=== PATIENT | male | born 1960 | race Caucasian/White ===

== ENCOUNTER 2020-02-07 14:04 | Outpatient (CLI) | payer MEDICARE, SELFPAY ==
--- NOTE | 2020-02-07 14:26 | XRR_ITS ---
PROCEDURE INFORMATION: Exam: XR Right Foot Complete Exam date and time: 02/07/2020 2:36 PM Age: 59 years old Clinical indication: Pain; Patient HX: Ball of foot right behind 4th and 5th toes; Additional info: Foreign body in foot TECHNIQUE: Imaging protocol: XR Right foot. Views: 3 or more views. COMPARISON: No relevant prior studies available. FINDINGS: Bones/joints: Normal. Soft tissues: Ossification/calcification over the Achilles tendon insertion on the posterior calcaneus consistent with enthesopathy. No obvious radiopaque foreign body. Increased distance between the 4th and 5th metatarsal heads suggesting possible soft tissue mass or other pathology. XR/XR foot RT min 3V* [id number] IMPRESSION: 1. No obvious radiopaque foreign body. 2. Increased distance between the 4th and 5th metatarsal heads suggesting possible soft tissue mass or other pathology.
== END 2020-02-07 14:05 | disposition home or self-care (01) ==
LOC: RADWPI 14:13
PROVIDERS: Family Provider Family Medicine; PCP Family Medicine; Visit Provider Surgery
DX: S90.851A Superficial foreign body, right foot, initial encounter (principal); X58.XXXA Exposure to other specified factors, initial encounter
CPT/HCPCS: 73630

== ENCOUNTER 2020-02-07 15:56 | Emergency (ER) | payer MEDICARE, SELFPAY ==
[2020-02-07 16:29] VITALS: BP 150/98; PULSE 84; RESP 14; TEMP 36.3; O2SAT 96; BMI 43.0
--- NOTE | 2020-02-07 18:02 | W.ED.EXTPRO ---
HPI - Extremity Problem General: Chief complaint: Extremity Problem,Nontraumatic Stated complaint: foot pain Time Seen by Provider: 02/07/20 18:01 History of Present Illness: HPI Narrative: Patient is a 59-year-old male comes to the ED for an infected right foot diabetic ulcer. Patient has a past medical history of CHF, diabetes and peripheral neuropathy. Patient was sent over here by Dr. Lr for iv antibiotics and CT with contrast of right foot for further evaluation. Xray of right foot performed earlier today showed no foreign body, Increased distance between the 4th and 5th metatarsal heads suggesting possible soft tissue mass or other pathology. Patient says he has had MRSA infections in the past. Patient says his noticed the ulcer on his right foot about a week ago. Patient thinks he stepped on something to cause wound. Denies any fever or pain. Associated symptoms: Deny chest pain, fever(s) or rash Review of Systems Const: Denies: fever(s), chills or fatigue Eyes: Denies: change in vision or eye discomfort ENMT: Denies: throat pain, odynophagia, nasal discharge or nasal congestion Card: Denies: chest pain, palpitations, edema, swelling of feet/ankles, dyspnea on exertion or orthopnea Resp: Denies: dyspnea, productive cough or non-productive cough GI: Denies: abdominal pain, nausea, vomiting, diarrhea, constipation or hematochezia : Denies: flank pain, difficulty urinating, dysuria or hematuria Musc: Denies: neck pain, back pain or extremity swelling Skin/Breast: Reports: new lesions (Diabetic foot ulcer with infection on right foot); Denies: rash Neuro: Denies: headache(s), numbness in extremities or weakness in extremities PFSH ED PFSH: Medical History Arthritis CHF (congestive heart failure) Chronic back pain Chronic constipation Diabetes Morbid obesity Surgical History History of ankle fusion History of back surgery History of colonoscopy (~01/2019) History of coronary artery bypass graft Family History Denies family history of Anesthesia complication Bleeding disorder Social History Smoking and tobacco status: never smoked Second hand smoke exposure: No Alcohol intake: never Adopted: No Caregiver/support person: Yes Lives independently: Yes Household members: spouse Housing: House Marital status: service: No Current occupational status: disabled Current occupational exposures/hazards: No Pets and animals: No History of recent travel: No Sexually active: No Current gender identity: Male Padmini/Pentec[employer]alism: [employer]an Physical Exam Const: COMMON NORMALS: no acute distress, patient oriented x3 and alert GENERAL APPEARANCE: cooperative and comfortable HENMT: COMMON NORMALS: normocephalic HEAD & SCALP: normocephalic MOUTH: Normal oral and palatal mucosa present THROAT: posterior oropharynx normal and uvula midline Eye: COMMON NORMALS: Equal, round and reactive pupils present PUPIL: Yes Equal, round and reactive pupils present Neck/C-Spine: COMMON NORMALS: supple GENERAL: Yes normal visual inspection Resp: COMMON NORMALS: normal respiratory effort, No retractions, No use of accessory muscles and clear to auscultation bilaterally AUSCULTATION: clear to auscultation bilaterally Cardio: COMMON NORMALS: regular rate, regular rhythm, S1 normal heart sound present, S2 normal heart sound present, No gallops present (Cardio), No clicks present (Cardio), No murmurs present (Cardio) and Peripheral pulses 2+ throughout RATE: regular rate RHYTHM: regular rhythm HEART SOUNDS: S1 normal heart sound present and S2 normal heart sound present PERIPHERAL PULSES: Peripheral pulses 2+ throughout GI: COMMON NORMALS: Normal to inspection, nondistended, normoactive bowel sounds present, Soft to palpation, non-tender and no masses PALPATION: Yes Soft to palpation : COMMON NORMALS: Yes no CVA tenderness BLADDER/KIDNEY EXAM: Yes no CVA tenderness Back/Pelvis: COMMON NORMALS: no CVA tenderness Extremity: GENERAL: Yes normal exam except as noted RIGHT LOWER EXTREMITY: Yes foot & digits Right foot and digits: Yes inspection (Patient has a diabetic foot ulcer on bottom of foot between fourth and fifth digit. There is erythema and warmth that is on both the dorsal and plantar side of foot. Skin appears to be black near the third and fourth digits. No visible drainage seen.) Neuro: COMMON NORMALS: patient oriented x3 and moves all extremities SENSORIUM/ORIENTATION: Yes alert Skin: WOUNDS: Yes wounds noted (Diabetic foot ulcer on bottom side of right foot. Details explained in extremity section of the exam.) Course Vital Signs: Vital signs: Vital Signs Temperature 97.3 F L 02/07/20 16:29 Pulse Rate 95 02/08/20 00:18 Respiratory Rate 22 H 02/08/20 00:18 Blood Pressure 120/81 02/08/20 00:18 Pulse Oximetry 93 02/08/20 00:18 MDM - Extremity (Nontraumatic) MDM Narrative: Medical decision making narrative: Patient is a 59-year-old male who comes to the ED with infected diabetic ulcer on right foot. Patient was sent in from PCP for further evaluation, IV antibiotics and CT of right foot. Physical exam showed ulcer on plantar side of right foot with erythema and warmth on right foot. There was some black color seen on third and fourth digit right foot. Patient was not in any pain or distress. White blood cells 12, CRP 64 and ESR was 68. CT of the right foot showed soft tissue ulceration near the plantar surface of the foot at the level of the 4th toe proximal phalanx. No osteomyelitis , abscess or soft tissue emphysema. Patient was given IV Vanco and Rocephin while here in the ED. I have placed a referral to case management for wound clinic. Patient has a past medical history of MRSA and he was placed on Bactrim DS and told to take 2 tablets twice a day. He was told he can come to the ED for reevaluation if he notices any worsening of symptoms. Patient understood and agreed with plan. Lab Data: Attestation: I reviewed the patient's lab results. Labs: Lab Results 02/07/20 02/07/20 02/07/20 Range/Units 18:16 18:16 18:16 WBC 12.0 H (4.0-10.0) 10^3/ uL RBC 4.82 (4.1-5.3) 10^6/u L Hgb 14.6 (11.7-16.6) g/dL Hct 45.4 (42.0-52.0) % MCV 94.2 H (80-94) fL MCH 30.3 (28.0-34.0) pg MCHC 32.2 (30.0-36.0) g/dL RDW 13.0 (12.1-15.1) % Plt Count 183 (130-400) 10^3/c mm MPV 9.7 (7.4-10.4) fL Neut % (Auto) 80.0 % Lymph % (Auto) 9.7 % Wolfe % (Auto) 8.7 % Eos % (Auto) 1.2 % Baso % (Auto) 0.2 % Neut # (Auto) 9.6 H (1.8-7.7) 10^3/u L Lymph # (Auto) 1.2 (0.8-4.8) 10^3/u L Wolfe # (Auto) 1.1 H (0.2-0.9) 10^3/u L Eos # (Auto) 0.2 (0.0-0.8) 10^3/u L Baso # (Auto) 0.0 (0.0-0.1) 10^3/u L Nucleated RBC % (a uto) 0 % Nucleated RBCs # 0.0 /100WBC ESR 68 H (0-10) mm/hr Sodium 136 (136-145) mmol/L Potassium 4.9 (3.5-5.1) mmol/L Chloride 99 (98-107) mmol/L Carbon Dioxide 23 (22-29) mmol/L Anion Gap 18.9 (5-19) BUN 28 H (8-23) mg/dL Creatinine 1.4 H (0.7-1.2) mg/dL GFR Calculation 51.7 L (90-130) mL/min Glucose 113 (65-115) mg/dL POC Glucose (70-110) mg/dL Estimat Average Gl ucose Hemoglobin A1c (4.0-6.0) % Calculated Osmolal ity 280 L (285-295) mOsm/k g Calcium 9.2 (8.5-10.5) mg/dL Total Bilirubin 0.3 (0.15-1.2) mg/dL AST 20 (0-40) U/L ALT 26 (0-41) U/L Alkaline Phosphata se 78 (40-130) IU/L C-Reactive Protein 64.4 H (0.0-4.9) mg/L Total Protein 7.4 (6.6-8.7) g/dL Albumin 3.7 (3.5-5.2) g/dL Globulin 3.7 (1.3-4.6) g/dL 02/07/20 02/07/20 Range/Units 18:16 23:01 WBC (4.0-10.0) 10^3/ uL RBC (4.1-5.3) 10^6/u L Hgb (11.7-16.6) g/dL Hct (42.0-52.0) % MCV (80-94) fL MCH (28.0-34.0) pg MCHC (30.0-36.0) g/dL RDW (12.1-15.1) % Plt Count (130-400) 10^3/c mm MPV (7.4-10.4) fL Neut % (Auto) % Lymph % (Auto) % Wolfe % (Auto) % Eos % (Auto) % Baso % (Auto) % Neut # (Auto) (1.8-7.7) 10^3/u L Lymph # (Auto) (0.8-4.8) 10^3/u L Wolfe # (Auto) (0.2-0.9) 10^3/u L Eos # (Auto) (0.0-0.8) 10^3/u L Baso # (Auto) (0.0-0.1) 10^3/u L Nucleated RBC % (a uto) % Nucleated RBCs # /100WBC ESR (0-10) mm/hr Sodium (136-145) mmol/L Potassium (3.5-5.1) mmol/L Chloride (98-107) mmol/L Carbon Dioxide (22-29) mmol/L Anion Gap (5-19) BUN (8-23) mg/dL Creatinine (0.7-1.2) mg/dL GFR Calculation (90-130) mL/min Glucose (65-115) mg/dL POC Glucose 93 (70-110) mg/dL Estimat Average Gl ucose 243 Hemoglobin A1c 10.1 H (4.0-6.0) % Calculated Osmolal ity (285-295) mOsm/k g Calcium (8.5-10.5) mg/dL Total Bilirubin (0.15-1.2) mg/dL AST (0-40) U/L ALT (0-41) U/L Alkaline Phosphata se (40-130) IU/L C-Reactive Protein (0.0-4.9) mg/L Total Protein (6.6-8.7) g/dL Albumin (3.5-5.2) g/dL Globulin (1.3-4.6) g/dL Imaging Data^: Xray Ortho: Attestation: I personally reviewed and interpreted this imaging study as follows: Radiologist's impression: [facility] [address] [place] [address] XRay Report Signed Patient: Kulwant Leavitt Unit #: [id number] : 1960 Age/Sex: 59 / M ADM Date: 02/07/20 Loc: [facility] Room/Bed: Attending Dr: Gaetano Lr MD Ordering Provider/Ordering MD: Gaetano Lr MD Date of Service: 02/07/20 Procedure(s): XR foot RT min 3V* 26070 Accession Number(s): [id number] Report Number: [id number] PROCEDURE INFORMATION: Exam: XR Right Foot Complete Exam date and time: 02/07/2020 2:36 PM Age: 59 years old Clinical indication: Pain; Patient HX: Ball of foot right behind 4th and 5th toes; Additional info: Foreign body in foot TECHNIQUE: Imaging protocol: XR Right foot. Views: 3 or more views. COMPARISON: No relevant prior studies available. FINDINGS: Bones/joints: Normal. Soft tissues: Ossification/calcification over the Achilles tendon insertion on the posterior calcaneus consistent with enthesopathy. No obvious radiopaque foreign body. Increased distance between the 4th and 5th metatarsal heads suggesting possible soft tissue mass or other pathology. XR/XR foot RT min 3V* [id number] IMPRESSION: 1. No obvious radiopaque foreign body. 2. Increased distance between the 4th and 5th metatarsal heads suggesting possible soft tissue mass or other pathology. Dictated By: Percy Rodriguez MD Signed By: Percy Rodriguez MD Signed Date/Time: 02/07/20 1458 DD/ [address]: Attestation: I personally reviewed and interpreted this imaging study as follows: Radiologist's impression: [facility] [address] [place] [address] CT Scan Report Signed Patient: Kulwant Leavitt Unit #: [id number] : 1960 Age/Sex: 59 / M ADM Date: 02/07/20 Loc: ER Room/Bed: Attending Dr: Ordering Provider/Ordering MD: Chandan Marie Date of Service: 02/07/20 Procedure(s): CT foot RT w con [id number] Accession Number(s): [id number] Report Number: [id number] PROCEDURE INFORMATION: Exam: CT Right Lower Extremity With Contrast, Foot Exam date and time: 02/07/2020 8:40 PM Age: 59 years old Clinical indication: Swelling, leg or foot; Additional info: Diabetic foot ulcer with infection TECHNIQUE: Imaging protocol: CT of the Right lower extremity with intravenous contrast was performed. Exam focused on the foot. Radiation optimization: All CT scans at this facility use at least one of these dose optimization techniques: automated exposure control; mA and/or kV adjustment per patient size (includes targeted exams where dose is matched to clinical indication); or iterative reconstruction. Contrast material: VISI; Contrast volume: 95 ml; Contrast route: 20G; COMPARISON: CR XR foot RT min 3V* [id number] 02/07/2020 2:38 PM RADIATION DOSE METRICS: Total DLP: 166.99 mGy-cm FINDINGS: Bones/joints: Normal. No acute fracture or dislocation. Soft tissues: Soft tissue ulceration near the plantar surface of the foot at the level of the 4th toe proximal phalanx. No osteomyelitis , abscess or soft tissue emphysema. Possible soft tissue callus over the plantar surface of the great toe sesamoids. Additional soft tissue callus plantar surface 5th toe metatarsal head. Vasculature: Mild calcified peripheral vascular disease. CT/CT foot RT w con [id number] IMPRESSION: 1. Soft tissue ulceration near the plantar surface of the foot at the level of the 4th toe proximal phalanx. 2. No osteomyelitis , abscess or soft tissue emphysema. 3. Possible soft tissue callus over the plantar surface of the great toe sesamoids. 4. Additional soft tissue callus plantar surface 5th toe metatarsal head. 5. Mild calcified peripheral vascular disease. Radiation Dose CTDIVOL = (mGy): DLP = 166.99 (mGy-cm) Dictated By: Percy Rodriguez MD Signed By: Percy Rodriguez MD Signed Date/Time: 02/07/202109 DD/ 06 Discharge Plan Discharge Patient Disposition: Home, Self-Care Clinical Impression: Diabetic infection of right foot Condition: Stable Prescriptions: New Bactrim DS 800-160 mg tablet 2 tab PO DAILY 10 Days Qty: 40 RF: 0 No Action Steglatro 5 mg tablet 5 mg PO QAM RF: 0 Tradjenta 5 mg tablet 5 mg PO DAILY RF: 0 oxycodone 15 mg tablet 15 mg PO Q8H PRN (Reason: chest pains) RF: 0 levothyroxine 75 mcg capsule 75 mcg PO DAILY RF: 0 glyburide 5 mg tablet 5 mg PO BID RF: 0 furosemide [Lasix] 40 mg tablet 40 mg PO DAILY RF: 0 potassium chloride 20 mEq tablet extended release 20 meq PO DAILY RF: 0 nitroglycerin [Nitrostat] 0.4 mg tablet, sublingual 0.4 mg SUBLINGUAL Q5M PRN (Reason: chest pains) RF: 0 aspirin 325 mg tablet 325 mg PO DAILY RF: 0 Multiple Vitamins Tablet 1 tab PO DAILY RF: 0 losartan 50 mg tablet 50 mg PO DAILY RF: 0 metoprolol tartrate 50 mg tablet 50 mg PO BID RF: 0 Fish Oil 120 mg-180 mg- 60 mg-1,200 mg Capsule,Delayed Release(Dr/Ec) 1 cap PO DAILY RF: 0 Tresiba FlexTouch U-200 200 unit/mL (3 mL) insulin pen See Rx Instructions .ROUTE .COMPLEX RF: 0 Trulicity 1.5 mg/0.5 mL pen injector See Rx Instructions .ROUTE .COMPLEX RF: 0 Discharge Orders: Discharge Order (Routine); Ordered 02/07/20 Ordered By: Chandan Marie Referrals: Kaykay Bah DO [Primary Care Provider] - Discharge Diet: Regular Discharge Activity: Resume usual activity Patient Instructions: Diabetic Foot Ulcers (ED) Activity Restrictions/Additional Instructions: I placed referral to wound clinic for you so you should be getting a call from them to set up an appointment in the next several days. Take full course of antibiotics as prescribed. You can take Tylenol or ibuprofen for fever pain. Continue monitoring right foot ulcer daily and if you notice any concerning signs you can return to the ED for reevaluation. Discharge Date/Time: 02/08/20 00:05 Coding Level of Care Code ED Blasting Miner for Chg Fwd Exam Comprehensive
[2020-02-07 18:26] LABS: Basophils % 0.2 %; Eosinophils # 0.2 10^3/uL (0.0-0.8); Eosinophils % 1.2 %; Hematocrit 45.4 % (42.0-52.0); Hemoglobin 14.6 g/dL (11.7-16.6); Lymphocytes # 1.2 10^3/uL (0.8-4.8); Lymphocytes % 9.7 %; Mean Corpuscular HGB Conc 32.2 g/dL (30.0-36.0); Mean Corpuscular Hemoglobin 30.3 pg (28.0-34.0); Mean Corpuscular Volume 94.2 fL (80-94); Mean Platelet Volume 9.7 fL (7.4-10.4); Monocytes # 1.1 10^3/uL (0.2-0.9); Monocytes % 8.7 %; Neutrophils # 9.6 10^3/uL (1.8-7.7); Nucleated Red Blood Cells % 0 %; Platelet Count 183 10^3/cmm (130-400); Red Blood Count 4.82 10^6/uL (4.1-5.3)
[2020-02-07 18:40] LABS: Alanine Aminotransferase 26 U/L (0-41); Albumin Level 3.7 g/dL (3.5-5.2); Alkaline Phosphatase 78 IU/L (40-130); Anion Gap 18.9 (5-19); Aspartate Amino Transferase 20 U/L (0-40); Blood Urea Nitrogen 28 mg/dL (8-23); C Reactive Protein 64.4 mg/L (0.0-4.9); Calcium 9.2 mg/dL (8.5-10.5); Carbon Dioxide 23 mmol/L (22-29); Chloride 99 mmol/L (98-107); Globulin 3.7 g/dL (1.3-4.6); Glomerular Filtration Rate 51.7 mL/min (90-130); Glucose 113 mg/dL (65-115); Osmolality Calculated 280 mOsm/kg (285-295); Potassium 4.9 mmol/L (3.5-5.1); Sodium 136 mmol/L (136-145); Total Bilirubin 0.3 mg/dL (0.15-1.2); Total Protein 7.4 g/dL (6.6-8.7)
--- NOTE | 2020-02-07 18:47 | CTR_ITS ---
PROCEDURE INFORMATION: Exam: CT Right Lower Extremity With Contrast, Foot Exam date and time: 02/07/2020 8:40 PM Age: 59 years old Clinical indication: Swelling, leg or foot; Additional info: Diabetic foot ulcer with infection TECHNIQUE: Imaging protocol: CT of the Right lower extremity with intravenous contrast was performed. Exam focused on the foot. Radiation optimization: All CT scans at this facility use at least one of these dose optimization techniques: automated exposure control; mA and/or kV adjustment per patient size (includes targeted exams where dose is matched to clinical indication); or iterative reconstruction. Contrast material: VISI; Contrast volume: 95 ml; Contrast route: 20G; COMPARISON: CR XR foot RT min 3V* [id number] 02/07/2020 2:38 PM RADIATION DOSE METRICS: Total DLP: 166.99 mGy-cm FINDINGS: Bones/joints: Normal. No acute fracture or dislocation. Soft tissues: Soft tissue ulceration near the plantar surface of the foot at the level of the 4th toe proximal phalanx. No osteomyelitis , abscess or soft tissue emphysema. Possible soft tissue callus over the plantar surface of the great toe sesamoids. Additional soft tissue callus plantar surface 5th toe metatarsal head. Vasculature: Mild calcified peripheral vascular disease. CT/CT foot RT w con [id number] IMPRESSION: 1. Soft tissue ulceration near the plantar surface of the foot at the level of the 4th toe proximal phalanx. 2. No osteomyelitis , abscess or soft tissue emphysema. 3. Possible soft tissue callus over the plantar surface of the great toe sesamoids. 4. Additional soft tissue callus plantar surface 5th toe metatarsal head. 5. Mild calcified peripheral vascular disease. Radiation Dose CTDIVOL = (mGy): DLP = 166.99 (mGy-cm)
[2020-02-07] MEDS: sodium chloride 0.9% 500 ML IV (19:00)
[2020-02-07 19:05] LABS: Erythrocyte Sedimentation Rate 68 mm/hr (0-10)
[2020-02-07 19:38] LABS: Estmated Average Glucose 243; Hemoglobin A1C 10.1 % (4.0-6.0)
[2020-02-07] MEDS: cefTRIAXone 2,000 MG in sodium chloride 0.9% (plus) 50 ML 100 MG IV (19:48)
[2020-02-07 19:56] VITALS: BP 111/68; PULSE 94; RESP 20; O2SAT 95
[2020-02-07 19:58] VITALS: PULSE 88
[2020-02-07 20:37] VITALS: BP 117/83; PULSE 79; RESP 18; O2SAT 93
[2020-02-07] MEDS: iodixanol 320 mg/mL 100mL Btl IV (20:52)
[2020-02-07 23:00] VITALS: BP 132/74; PULSE 85; RESP 20; O2SAT 95
[2020-02-07 23:06] LABS: Glucose Point of Care 93 mg/dL (70-110)
--- NOTE | 2020-02-07 23:16 | PC.NURSE ---
pt. care and report given to Jase COONEY
[2020-02-08 00:18] VITALS: BP 120/81; PULSE 95; RESP 22; O2SAT 93
--- NOTE | 2020-02-08 10:39 | DCPLANNER ---
branch manager had message to schedule a follow up appointment for patient with Wound Care. branch manager called [facility], spoke with Karoline, a follow up appointment was scheduled for Saturday, February 15, 2020 at 10:00 with . branch manager called patient to give patient appointment information, unable to speak with patient at this time. branch manager left a voicemail for patient to return case management manager phone call.
--- NOTE | 2020-02-22 15:13 | DCPLANNER ---
Patient did attend appointment scheduled for 02.15.20 with Wound Care.
== END 2020-02-08 00:05 | disposition home or self-care (01) ==
PROVIDERS: Emergency Provider Physician Assistant; PCP Family Medicine
DX: E11.621 Type 2 diabetes mellitus with foot ulcer (principal); L08.89 Other specified local infections of the skin and subcutaneous tissue; Z79.82 Long term (current) use of aspirin; Z79.4 Long term (current) use of insulin; I50.9 Heart failure, unspecified; Z95.1 Presence of aortocoronary bypass graft
CPT/HCPCS: 12345; 36416; 73701; 80053; 82962; 83036; 85025; 85651; 86140; 87040; 96360; 96361; 96365; 96366; 96367; 99283; 99284; J0696; J3370; J7040; Q9967

== ENCOUNTER 2020-02-08 13:22 | Outpatient (CLI) | payer MEDICARE, SELFPAY | END 2020-02-08 13:23 | disposition home or self-care (01) | LOC: WOUND 13:23 | PROVIDERS: PCP Family Medicine; Visit Provider Surgery | DX: E11.621 Type 2 diabetes mellitus with foot ulcer (principal); L97.415 Non-pressure chronic ulcer of right heel and midfoot with muscle involvement without evidence of necrosis | CPT/HCPCS: 10060; 11043; 87070; 87077; 87176; 87186; 87205; G0463 ==

== ENCOUNTER 2020-02-08 15:00 | Inpatient (IN) | payer MEDICARE, SELFPAY ==
[2020-02-08 15:27] VITALS: BP 129/83; PULSE 85; RESP 18; TEMP 36.9; O2SAT 94; BMI 42.3
[2020-02-08 16:35] VITALS: BP 111/67; PULSE 82; RESP 18; O2SAT 96
[2020-02-08 16:53] LABS: Basophils % 0.4 %; Eosinophils # 0.2 10^3/uL (0.0-0.8); Eosinophils % 1.5 %; Hemoglobin 13.9 g/dL (11.7-16.6); Lymphocytes # 1.3 10^3/uL (0.8-4.8); Lymphocytes % 12.8 %; Mean Corpuscular HGB Conc 32.3 g/dL (30.0-36.0); Mean Corpuscular Hemoglobin 30.3 pg (28.0-34.0); Mean Corpuscular Volume 93.7 fL (80-94); Mean Platelet Volume 10.8 fL (7.4-10.4); Monocytes # 0.8 10^3/uL (0.2-0.9); Monocytes % 8.3 %; Neutrophils # 7.7 10^3/uL (1.8-7.7); Neutrophils % 76.8 %; Nucleated Red Blood Cells % 0 %; Platelet Count 185 10^3/cmm (130-400); Red Blood Count 4.59 10^6/uL (4.1-5.3); Red Cell Distribution Width 13.1 % (12.1-15.1)
[2020-02-08 16:59] LABS: Lactate (Lactic Acid level) 0.9 mmol/L (0.5-2.2)
[2020-02-08 17:00] LABS: Alanine Aminotransferase 22 U/L (0-41); Albumin Level 3.7 g/dL (3.5-5.2); Alkaline Phosphatase 78 IU/L (40-130); Anion Gap 16.7 (5-19); Aspartate Amino Transferase 17 U/L (0-40); Blood Urea Nitrogen 30 mg/dL (8-23); Calcium 9.1 mg/dL (8.5-10.5); Carbon Dioxide 22 mmol/L (22-29); Chloride 102 mmol/L (98-107); Glomerular Filtration Rate 47.7 mL/min (90-130); Glucose 165 mg/dL (65-115); Osmolality Calculated 283 mOsm/kg (285-295); Potassium 4.7 mmol/L (3.5-5.1); Sodium 136 mmol/L (136-145); Total Bilirubin 0.3 mg/dL (0.15-1.2); Total Protein 6.7 g/dL (6.6-8.7)
[2020-02-08 17:15] LABS: C Reactive Protein 90.6 mg/L (0.0-4.9)
[2020-02-08 17:19] VITALS: BP 117/72; PULSE 72; RESP 20; O2SAT 94
[2020-02-08 18:16] VITALS: BP 103/67; PULSE 81; RESP 16; O2SAT 97
[2020-02-08 19:00] VITALS: BP 107/65; PULSE 75; RESP 20; O2SAT 93
--- NOTE | 2020-02-08 19:27 | PM.HP ---
Providers/Chief Complaint Admitting Physician: Alaina Bonilla MD Primary Care Provider: Kaykay Bah DO Chief Complaint: R foot wound History of Present Illness Kulwant Leavitt is a 59 year old male with PMHx of IDDM type II complicated by peripheral neuropathy, Charcot arthropathy, nephropathy, HTN, CAD s/p CABG, Hypothyroidism; presents from wound care clinic on referral from Dr. Lr for right diabetic foot ulcer which was debrided at the clinic earlier this afternoon. Patient had actually presented to the wound care clinic yesterday following right foot pain and swelling for several days following puncture wound from a piece of plastic that penetrated through his shoe approximately 10 days ago. Due to diminished sensation patient did not become aware of the injury until he removed his socks. During his evaluation in the wound care clinic as previously documented he was noted to have erythema which was marked noted ulcer on the plantar surface of the foot just adjacent to fifth toe. It seems that patient was then referred to the ER for labs and imaging including CT to rule out osteomyelitis with intention for admission for IV antibiotics. Patient was seen and had an x-ray as well as CT done the latter of which was negative for osteomyelitis. Patient received a dose of vancomycin and was discharged with a prescription for Bactrim. Patient returned to the wound care clinic and again was seen by Dr. Lr. Erythema was noted to be increasing and he clinically appeared to have an abscess which Dr. Lr proceeded to incise and drain with cultures ordered. Gram stain is polymicrobial but culture is pending. Patient was told to return to the ER with intention for admission as already mentioned. So far patient has received a dose of vancomycin and have requested a dose of Zosyn to be given as well. Work-up today shows resolved leukocytosis, elevated inflammatory markers, impaired renal function with BUN of 30, creatinine of 1.5, hyperglycemia with a blood sugar of 165. A1c was done yesterday and is 10.1. Right foot is wrapped with Kerlix though I am able to appreciate the ulcer area. Patient will be admitted to the medical surgical floor for continued IV antibiotic treatment. Case was discussed with Dr. Lr over the phone. Will initiate IV antibiotics prior to making decision on need for further debridement. Review of Systems Const: Denies: fever(s), chills or change in appetite Eyes: Denies: change in vision ENMT: Reports: dry mouth Card: Reports: swelling of feet/ankles (R) and dyspnea on exertion (chronic); Denies: chest pain or lightheadedness Resp: Reports: non-productive cough (chronic); Denies: dyspnea GI: Denies: abdominal pain, nausea, vomiting, hematemesis or hematochezia : Denies: dysuria or urinary frequency Musc: Denies: back pain Skin/Breast: Reports: other (R foot wound); Denies: rash Neuro: Denies: numbness in extremities or weakness in extremities Psych: Denies: anxiety Medications/Allergies Home Medications Medication Instructions Recorded Confirmed Last Taken Type aspirin 325 mg tablet 325 mg PO DAILY 02/07/20 02/08/20 02/07/20 History ertugliflozin 5 mg tablet 15 mg PO QAM 02/07/20 02/08/20 02/08/20 08:00 History furosemide 40 mg tablet 40 mg PO DAILY PRN 02/07/20 02/08/20 Unknown History glyburide 5 mg tablet 10 mg PO BID 02/07/20 02/08/20 02/08/20 History insulin degludec [Tresiba 20 unit SUBCUT BID 02/07/20 02/08/20 02/08/20 08:00 History FlexTouch U-200] linagliptin 5 mg tablet 5 mg PO DAILY 02/07/20 02/08/20 02/08/20 History losartan 50 mg PO DAILY 02/07/20 02/08/20 02/08/20 History metoprolol tartrate 50 mg PO BID 02/07/20 02/08/20 02/08/20 History nitroglycerin 0.4 mg sublingual 0.4 mg SUBLINGUAL Q5M PRN 02/07/20 02/08/20 Unknown History tablet oxycodone 15 mg tablet 15 mg PO Q4H PRN 02/07/20 02/08/20 Unknown History potassium chloride 20 mEq 20 meq PO DAILY PRN 02/07/20 02/08/20 Unknown History tablet,extended release sulfamethoxazole-trimethoprim 2 tab PO DAILY 10 Days #40 tab 02/07/20 02/08/20 Unknown Rx [Bactrim DS] levothyroxine 100 mcg PO DAILY 02/08/20 02/08/20 02/08/20 History omega 1-dgp-oky-fish oil [Fish Oil] 3 cap PO DAILY 02/08/20 02/08/20 02/08/20 History Allergies Allergy/AdvReac Type Severity Reaction Status Date / Time cephalexin [From Keflex] Allergy Unknown Unknown Verified 02/08/20 16:26 PFSH Acute PFSH: Medical History (Updated 02/08/20 @ 21:34 by Alaina Bonilla MD) Arthritis Charcot's arthropathy Left CHF (congestive heart failure) Chronic back pain Chronic constipation Chronic kidney disease Coronary artery disease Diabetes Hypertension Hypothyroidism Morbid obesity Peripheral neuropathy Peripheral vascular disease Surgical History (Updated 02/08/20 @ 21:17 by Alaina Bonilla MD) History of ankle fusion History of back surgery History of colonoscopy (~01/2019) History of coronary artery bypass graft -Four-vessel Hx of cholecystectomy Family History (Updated 02/08/20 @ 21:17 by Alaina Bonilla MD) Other CAD (coronary artery disease) Cancer Diabetes Hypertension Denies family history of Anesthesia complication Bleeding disorder Social History Smoking and tobacco status: never smoked Second hand smoke exposure: No Alcohol intake: never Adopted: No Caregiver/support person: Yes Lives independently: Yes Household members: spouse Housing: House Marital status: service: No Current occupational status: disabled Current occupational exposures/hazards: No Pets and animals: No History of recent travel: No Sexually active: No Current gender identity: Male Padmini/Zoroastrianism: Druze Vitals/I&O/Wt Last Vital Signs Temp 98.4 F 02/08/20 15:27 Pulse 81 02/08/20 18:16 Resp 16 02/08/20 18:16 BP 103/67 02/08/20 18:16 Pulse Ox 97 02/08/20 18:16 02/08/20 02/08/20 02/08/20 06:59 14:59 22:59 Intake Total 250 / 250 Balance 250 / 250 Weight last 48 hrs Weight 149.685 kg Physical Exam Const: COMMON NORMALS: no acute distress and patient oriented x3 GENERAL APPEARANCE: cooperative and comfortable; not ill appearing NUTRITIONAL APPEARANCE: obese morbidly obese ORIENTATION/CONSCIOUSNESS: Yes awake HENMT: COMMON NORMALS: normocephalic, atraumatic, hearing grossly normal bilaterally and moist oral mucous membranes HEAD & SCALP: normocephalic and atraumatic Eye: COMMON NORMALS: Equal, round and reactive pupils present, EOMs intact bilaterally and conjunctivae normal CONJUNCTIVA: Yes conjunctivae normal PUPIL: Yes Equal, round and reactive pupils present Neck/C-Spine: COMMON NORMALS: full ROM GENERAL: Yes normal visual inspection and Yes trachea midline OTHER: -short, thick neck Chest: CHEST: Yes Symmetrical chest wall rise Resp: COMMON NORMALS: normal respiratory effort, No retractions, No use of accessory muscles and clear to auscultation bilaterally EFFORT & INSPECTION: Yes able to speak in complete sentences, Yes symmetric chest movement and No tachypneic AUSCULTATION: clear to auscultation bilaterally OTHER: -on RA Cardio: COMMON NORMALS: regular rate, regular rhythm, S1 normal heart sound present, S2 normal heart sound present and No murmurs present (Cardio) RATE: regular rate RHYTHM: regular rhythm HEART SOUNDS: S1 normal heart sound present and S2 normal heart sound present GI: COMMON NORMALS: Normal to inspection, nondistended, normoactive bowel sounds present, Soft to palpation and non-tender INSPECTION: Yes central obesity PALPATION: Yes Soft to palpation Extremity: COMMON NORMALS: normal to inspection NARRATIVE EXTREMITY EXAM: -brace on LLE Neuro: COMMON NORMALS: patient oriented x3, moves all extremities, no focal motor deficits and no sensory deficits noted Psych: COMMON NORMALS: mental status grossly normal, Normal thought process present, cooperative, normal affect and speech normal SPEECH: Yes normal speech THOUGHT PROCESS: Normal thought process present Skin: COMMON NORMALS: no rashes or lesions noted, no jaundice, no petechiae and no mottling NARRATIVE SKIN EXAM: -R foot: wrapped in Kerlix, some serosanguineous strikethrough noted, dusky colored fifth toe, noted well-circumscribed ulcer just below fifth great toe area, no odor noted GENERAL SKIN EXAM: no rashes or lesions noted Data : 02/08/20 16:20 02/08/20 16:20 Other Labs: -labs noted, in chart Micro: Microbiology 02/08/20 16:20 Blood Culture - Preliminary Blood SPECIMEN COLLECTED 02/08/20 16:25 Blood Culture - Preliminary Blood SPECIMEN COLLECTED A&P Assessment and plan (1) Diabetic infection of right foot: -diabetic foot wound on R foot, incised and debrided by Dr. Ferro in [facility]; cultures ordered; gram stain polymicrobial -no leukocytosis, noted CRP and ESR elevation -f/u blood cx ordered in ED -has received Vancomycin dose in ED, continue this and add Zosyn for broader spectrum coverage -per discussion with Dr. Ferro, may need additional debridement, can discuss further with surgery depending on progress -pain control as needed -has underlying DM type II -imaging noted, increased distance between the fourth and fifth metatarsal heads suggesting possible soft tissue mass; CT foot reported as soft tissue ulceration near the plantar surface of the foot at the level of the fourth proximal phalanx, no osteomyelitis/abscess/soft tissue emphysema -RLE elevation -anticipate continue to follow-up at wound care clinic with Dr. Ferro Status: Acute (2) Diabetes: -has IDDM type II, A1c-10.1 -Accu-Cheks, ISS, scheduled insulin, hypoglycemia precautions -Consistent carb diet as tolerated Status: Chronic Qualifiers: Diabetes mellitus type: type 2 Diabetes mellitus manager long term care insulin use: with manager long term care use Diabetes mellitus complication status: with other specified complication Qualified Code(s): E11.69 - Type 2 diabetes mellitus with other specified complication; Z79.4 - long term care social worker (current) use of insulin (3) Peripheral vascular disease: Status: Chronic (4) Charcot's arthropathy: -Has had extensive surgical intervention for the left lower extremity secondary to Charcot arthropathy, wears brace for ambulation and wedge shoe for offloading Status: Chronic (5) Peripheral neuropathy: -secondary to DM type II Status: Chronic Qualifiers: Peripheral neuropathy type: polyneuropathy, unspecified Qualified Code(s): G62.9 - Polyneuropathy, unspecified (6) Chronic kidney disease: -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 -has mild superimposed MAGDA -baseline Cr around 1.0 -IVF hydration, with caution to avoid fluid overload -monitor renal function particularly with dual use of Vanc, Zosyn; renally dose meds, avoid nephrotoxins Status: Chronic Qualifiers: Chronic kidney disease stage: stage 2 (mild) Qualified Code(s): N18.2 - Chronic kidney disease, stage 2 (mild) (7) Hypertension: -monitor vital signs -hold ARB, resume BB Status: Chronic Qualifiers: Hypertension type: essential hypertension Qualified Code(s): I10 - Essential (primary) hypertension (8) Hypothyroidism: -resume levothyroxine Status: Chronic Qualifiers: Hypothyroidism type: unspecified Qualified Code(s): E03.9 - Hypothyroidism, unspecified (9) CHF (congestive heart failure): -unknown type, severity as no baseline Echo -hold Lasix due to renal impairment Status: Chronic Qualifiers: Heart failure type: unspecified Heart failure chronicity: chronic Qualified Code(s): I50.9 - Heart failure, unspecified (10) Coronary artery disease: -hx of CAD s/p CABG x 4 about 20 yrs ago -hold ASA due to recent debridement and potential need for additional procedure -NTG PRN Status: Chronic Qualifiers: Coronary Disease-Associated Artery/Lesion type: [place] artery [place] vs. transplanted heart: [place] heart Associated angina: without angina Qualified Code(s): I25.10 - Atherosclerotic heart disease of [place] coronary artery without angina pectoris (11) Morbid obesity: -BMI-42 kg/m2 Status: Chronic Additional A&P Information -DVT ppx with heparin -Dispo: home -Code status: FULL code Attestations Medical Necessity Statement*: Kulwant [facility]'s hospital stay will require greater than 2 midnights for treatment of infected right diabetic foot ulcer status post incision and drainage, requiring broad-spectrum IV antibiotic treatment. Time Spent in Patient Care: Greater than 35 minutes (>than 50% of time spent in counselling and/or direct pt care on unit). Coding Level of Care Code Acute Care Asst for Chg Fwd Diagnoses Diabetic infection of right foot E11.628; L08.9 Diabetes E11.69; Z79.4 Diabetes mellitus type: type 2 Diabetes mellitus correction insulin use: with manager long term care use Diabetes mellitus complication status: with other specified complication Peripheral vascular disease I73.9 Charcot's arthropathy M14.60 Peripheral neuropathy G62.9 Peripheral neuropathy type: polyneuropathy, unspecified Chronic kidney disease N18.2 Chronic kidney disease stage: stage 2 (mild) Hypertension I10 Hypertension type: essential hypertension Hypothyroidism E03.9 Hypothyroidism type: unspecified CHF (congestive heart failure) I50.9 Heart failure type: unspecified Heart failure chronicity: chronic Coronary artery disease I25.10 Coronary Disease-Associated Artery/Lesion type: [place] artery [place] vs. transplanted heart: [place] heart Associated angina: without angina Morbid obesity E66.01
[2020-02-08] MEDS: piperacillin-tazobactam 3.375 GM in sodium chloride 0.9% (plus) 50 ML IV (19:48)
[2020-02-08 20:00] VITALS: BP 133/85; PULSE 86; RESP 22; TEMP 37; O2SAT 97
[2020-02-08 22:17] LABS: Glucose Point of Care 113 mg/dL (70-110)
--- NOTE | 2020-02-08 22:24 | PC.PHAR ---
Vancomycin is dosed at 1500mg IVPB every 12 hours to produce a predicted trough level of 15.73 (population based pharmacokinetic analysis). A trough level has been ordered from the lab to be obtained before the fourth dose to confirm and adjust if needed.
--- NOTE | 2020-02-08 22:26 | PC.PHAR ---
Zosyn is dosed at 3.375gm IVPB every 8 hours, each dose to be infused over 4 hours per extended infusion protocol.
--- NOTE | 2020-02-08 23:26 | ED_ITS ---
HPI - Skin/Abscess/Foreign Bdy General: Chief complaint: Skin/Abscess/Foreign Body Stated complaint: [facility] Time Seen by Provider: 02/08/20 15:32 Source: patient Mode of arrival: ambulatory Limitations: no limitations History of Present Illness: HPI narrative: Patient is a 59-year-old gentleman with poorly controlled diabetes mellitus and diabetic ulcer who was sent to the emergency department from the wound care clinic. The patient was seen in the emergency department yesterday and was given a dose of IV vancomycin and discharged home. CT scan of the foot was negative for osteomyelitis or soft tissue abscess. At the wound care clinic today however the infection seem to have spread and he needed an incision and drainage in the clinic. He was then sent back here as it was felt that he needed to be admitted. He denies a fever, has diabetic neuropathy and so does not feel pain in the foot. Associated symptoms: Deny chills, fever(s), nausea or vomiting Review of Systems General: Reports: 10 or more systems reviewed and unremarkable except in HPI and below Const: Denies: fever(s), chills or body aches Card: Reports: chest pain; Denies: palpitations, irregular heart rhythm, edema or swelling of feet/ankles Resp: Denies: dyspnea, productive cough or non-productive cough GI: Denies: abdominal pain, nausea or vomiting : Denies: flank pain, dysuria, urinary frequency, urinary urgency or urinary hesitancy Musc: Denies: neck pain, back pain or extremity swelling Skin/Breast: Reports: non-healing lesions; Denies: rash, pruritus or erythema Neuro: Denies: headache(s), numbness in extremities or weakness in extremities Endo: Denies: polyuria, polydipsia or tired all the time [facility] ED PFSH: Medical History (Updated 02/08/20 @ 23:35 by Chris Suero MD, [facility] [place] Arthritis Charcot's arthropathy Left CHF (congestive heart failure) Chronic back pain Chronic constipation Chronic kidney disease Coronary artery disease Diabetes Hypertension Hypothyroidism Morbid obesity Peripheral neuropathy Peripheral vascular disease Surgical History (Updated 02/08/20 @ 21:17 by Alaina Bonilla MD) History of ankle fusion History of back surgery History of colonoscopy (~01/2019) History of coronary artery bypass graft -Four-vessel Hx of cholecystectomy Family History (Updated 02/08/20 @ 21:17 by Alaina Bonilla MD) Other CAD (coronary artery disease) Cancer Diabetes Hypertension Denies family history of Anesthesia complication Bleeding disorder Social History Smoking and tobacco status: never smoked Second hand smoke exposure: No Alcohol intake: never Adopted: No Caregiver/support person: Yes Lives independently: Yes Household members: spouse Housing: House Marital status: service: No Current occupational status: disabled Current occupational exposures/hazards: No Pets and animals: No History of recent travel: No Sexually active: No Current gender identity: Male Padmini/Jewish: Gnosticism Physical Exam Const: COMMON NORMALS: no acute distress, average body habitus, patient oriented x3, no limitations, healthy appearing, alert and well nourished HENMT: COMMON NORMALS: normocephalic, atraumatic and moist oral mucous membranes HEAD & SCALP: normocephalic and atraumatic Neck/C-Spine: COMMON NORMALS: no meningeal signs and no JVD Resp: COMMON NORMALS: normal respiratory effort, No retractions, No use of accessory muscles, clear to auscultation bilaterally and percussion normal AUSCULTATION: clear to auscultation bilaterally PERCUSSION: percussion normal Cardio: COMMON NORMALS: no JVD, regular rate, regular rhythm, S1 normal heart sound present, S2 normal heart sound present, No gallops present (Cardio), No clicks present (Cardio), No murmurs present (Cardio), No rub (Cardio) and Esther pheral pulses 2+ throughout RATE: regular rate RHYTHM: regular rhythm HEART SOUNDS: S1 normal heart sound present and S2 normal heart sound present PERIPHERAL PULSES: Peripheral pulses 2+ throughout GI: COMMON NORMALS: Normal to inspection, nondistended, normoactive bowel sounds present, Soft to palpation, non-tender, No hepatosplenomegaly present, no masses and no bruits PALPATION: Yes Soft to palpation and Yes No hepatosplenomegaly present : COMMON NORMALS: Yes no CVA tenderness BLADDER/KIDNEY EXAM: Yes no CVA tenderness Back/Pelvis: COMMON NORMALS: no CVA tenderness Extremity: COMMON NORMALS: normal to inspection, full ROM, capillary refill normal, no calf tenderness and no pedal edema Neuro: COMMON NORMALS: patient oriented x3 SENSORIUM/ORIENTATION: Yes alert MENINGEAL SIGNS: Yes no meningeal signs Skin: COMMON NORMALS: no rashes or lesions noted, no wounds, turgor normal, no jaundice, no petechiae and no mottling GENERAL SKIN EXAM: no rashes or lesions noted and turgor normal OTHER: Right foot in a new dressing. Since he had an incision and drainage in the clinic today I am not examining the wound. Course Consultations: Consultation #1: Discussed the patient with the hospitalist, Dr. Bonilla and she kindly accepted the patient to her service. Vital Signs: Vital signs: Vital Signs Temperature 98.6 F 02/08/20 20:00 Pulse Rate 86 02/08/20 20:00 Respiratory Rate 22 H 02/08/20 20:00 Blood Pressure 133/85 02/08/20 20:00 Pulse Oximetry 97 02/08/20 20:00 MDM - Skin/Abscess/Foreign Bdy MDM Narrative: Medical decision making narrative: Patient with a right foot cellulitis and diabetic foot ulcer. Symptoms are worsening and he is admitted for IV antibiotics and possible wound debridement. CT scan done yesterday was negative for osteomyelitis, although that is not the most sensitive test. He might possibly obtain an MRI during his hospital stay. Medical Records: Attestation: I reviewed the patient's medical records. Lab Data: Attestation: I reviewed the patient's lab results. Labs: Lab Results 02/08/20 02/08/20 02/08/20 Range/Units 16:20 16:20 16:20 WBC 10.0 (4.0-10.0) 10^3/ uL RBC 4.59 (4.1-5.3) 10^6/u L Hgb 13.9 (11.7-16.6) g/dL Hct 43.0 (42.0-52.0) % MCV 93.7 (80-94) fL MCH 30.3 (28.0-34.0) pg MCHC 32.3 (30.0-36.0) g/dL RDW 13.1 (12.1-15.1) % Plt Count 185 (130-400) 10^3/c mm MPV 10.8 H (7.4-10.4) fL Neut % (Auto) 76.8 % Lymph % (Auto) 12.8 % [place] % (Auto) 8.3 % Eos % (Auto) 1.5 % Baso % (Auto) 0.4 % Neut # (Auto) 7.7 (1.8-7.7) 10^3/u L Lymph # (Auto) 1.3 (0.8-4.8) 10^3/u L [place] # (Auto) 0.8 (0.2-0.9) 10^3/u L Eos # (Auto) 0.2 (0.0-0.8) 10^3/u L Baso # (Auto) 0.0 (0.0-0.1) 10^3/u L Nucleated RBC % (a uto) 0 % Nucleated RBCs # 0.0 /100WBC Sodium 136 (136-145) mmol/L Potassium 4.7 (3.5-5.1) mmol/L Chloride 102 (98-107) mmol/L Carbon Dioxide 22 (22-29) mmol/L Anion Gap 16.7 (5-19) BUN 30 H (8-23) mg/dL Creatinine 1.5 H (0.7-1.2) mg/dL GFR Calculation 47.7 L (90-130) mL/min Glucose 165 H (65-115) mg/dL Calculated Osmolal ity 283 L (285-295) mOsm/k g Lactate 0.9 (0.5-2.2) mmol/L Calcium 9.1 (8.5-10.5) mg/dL Total Bilirubin 0.3 (0.15-1.2) mg/dL AST 17 (0-40) U/L ALT 22 (0-41) U/L Alkaline Phosphata se 78 (40-130) IU/L C-Reactive Protein 90.6 H (0.0-4.9) mg/L Total Protein 6.7 (6.6-8.7) g/dL Albumin 3.7 (3.5-5.2) g/dL Globulin 3.0 (1.3-4.6) g/dL Discharge Plan Discharge Patient Disposition: Admitted As Inpatient Admit Provider: Alaina Bonilla Clinical Impression: Diabetic infection of right foot, Charcot's arthropathy, Cellulitis Condition: Stable Interventions: ED Discharge Assessment Last Done: 02/08/20 19:43 ED Charges Last Done: 02/08/20 19:43 Discharge Date/Time: 02/08/20 19:48 Coding Level of Care Code ED Insurance Loss Control Surveyor for Livan Holloway
[2020-02-08] MEDS: insulin glargine 100 units/1 mL 20 UNIT SUBCUT (23:44)
[2020-02-08] MEDS: heparin 5,000 unit/mL INJ 1 mL 5000 UNIT SUBCUT (23:45)
[2020-02-08] MEDS: sodium chloride 0.9% 1,000 ML 75 ML IV (23:45)
[2020-02-09] VITALS: BP 133/61; PULSE 101; RESP 20; TEMP 36.4; O2SAT 93
[2020-02-09] MEDS: piperacillin-tazobactam 3.375 GM in sodium chloride 0.9% (plus) 50 ML IV ×3 (02:50→17:27)
[2020-02-09 04:00] VITALS: BP 126/71; PULSE 81; RESP 22; TEMP 37; O2SAT 96
[2020-02-09] MEDS: heparin 5,000 unit/mL INJ 1 mL 5000 UNIT SUBCUT ×3 (05:38→20:15)
[2020-02-09 07:04] LABS: Basophils % 0.4 %; Eosinophils # 0.2 10^3/uL (0.0-0.8); Hematocrit 39.3 % (42.0-52.0); Hemoglobin 12.5 g/dL (11.7-16.6); Lymphocytes # 1.5 10^3/uL (0.8-4.8); Lymphocytes % 18.8 %; Mean Corpuscular HGB Conc 31.8 g/dL (30.0-36.0); Mean Corpuscular Volume 94.2 fL (80-94); Mean Platelet Volume 10.5 fL (7.4-10.4); Monocytes # 0.7 10^3/uL (0.2-0.9); Monocytes % 8.8 %; Neutrophils # 5.6 10^3/uL (1.8-7.7); Neutrophils % 68.9 %; Nucleated Red Blood Cells % 0 %; Platelet Count 176 10^3/cmm (130-400); Red Blood Count 4.17 10^6/uL (4.1-5.3); White Blood Count 8.1 10^3/uL (4.0-10.0)
[2020-02-09 07:20] LABS: Anion Gap 15.3 (5-19); Blood Urea Nitrogen 28 mg/dL (8-23); Calcium 8.9 mg/dL (8.5-10.5); Carbon Dioxide 22 mmol/L (22-29); Chloride 104 mmol/L (98-107); Glomerular Filtration Rate 68.3 mL/min (90-130); Glucose 128 mg/dL (65-115); Osmolality Calculated 283 mOsm/kg (285-295); Potassium 4.3 mmol/L (3.5-5.1); Sodium 137 mmol/L (136-145)
[2020-02-09 07:51] VITALS: BP 120/73; PULSE 78; RESP 20; TEMP 36.8; O2SAT 95
[2020-02-09] MEDS: levothyroxine 100 mcg Tablet PO (08:32)
[2020-02-09] MEDS: metoprolol tartrate 50 mg Tablet PO ×2 (08:32→17:26)
[2020-02-09] MEDS: sodium chloride 0.9% 1,000 ML 75 ML IV (09:15)
[2020-02-09] MEDS: polyethylene glycol 3350 Pkt 17 gm PO (09:18)
--- NOTE | 2020-02-09 10:09 | P.PN_ITS ---
Subjective Subjective: Interval history: Patient seen and examined early this morning, resting in bed, on CPAP, no apparent distress, no acute overnight events reported. Examined wound and suspicious that patient may require some additional debridement so case discussed with Dr. Duarte who did a bedside debridement. Medications: Reviewed: Yes Medication Review Details: Active Medications Generic Name Dose Route Start Last Admin Trade Name Freq PRN Reason Stop Dose Admin Acetaminophen 650 mg 02/08/20 21:50 Tylenol PO Q6H PRN Mild/Mod Pain Or Temp >/= 101 Hydrocodone Bitart /Acetaminophen 1 tab 02/08/20 21:50 [place] 5-325 Mg PO Q4H PRN MODERATE TO SEVER E PAIN Dextrose 25 ml 02/08/20 21:50 D50w IVP ONCE PRN hypoglycemia prot ocol Protocol Dextrose 50 ml 02/08/20 21:50 D50w IVP PRN PRN hypoglycemia prot ocol Protocol Glucagon 1 mg 02/08/20 21:50 Glucagen IM ONCE PRN Adult Acute Hypog lycemia Prot. Protocol Heparin Sodium (Be ef Lung) 5,000 unit 02/08/20 21:50 02/09/20 05:38 Heparin SUBCUT 5,000 unit Q8H MARITO Administration Sodium Chloride 1,000 mls @ 75 ml s/hr 02/08/20 21:50 02/09/20 09:15 Sodium Chloride 0.9% IV 75 mls/hr .[id number] MARITO Administration Vancomycin HCl 1,5 00 mg/ 250 mls @ 250 mls /hr 02/09/20 05:00 02/09/20 05:37 Sodium Chloride IV 250 mls/hr Q12H MARITO Administration Protocol As Directed Dextrose 500 mls @ 100 mls /hr 02/08/20 21:50 D5w IV ONCE PRN Adult Acute Hypog lycemia Prot Protocol Piperacillin Sod/T azobactam 50 mls @ 12.5 mls /hr 02/09/20 02:00 02/09/20 09:15 Sod 3.375 gm/ So dium Chloride IV 12.5 mls/hr Q8H MARITO Administration Protocol As Directed Insulin Aspart 10 unit 02/09/20 07:00 02/09/20 08:32 Novolog SUBCUT 10 unit TIDAC MARITO Administration Insulin Aspart 0 unit 02/09/20 08:00 02/09/20 08:32 Novolog SUBCUT Not Given WM&BEDTIME MARITO Protocol Insulin Glargine 20 unit 02/08/20 21:50 02/08/20 23:44 Lantus SUBCUT 20 unit BEDTIME MARITO Administration Levothyroxine Sodi um 100 mcg 02/09/20 09:00 02/09/20 08:32 Synthroid PO 100 mcg DAILY MARITO Administration Metoprolol Tartrat e 50 mg 02/09/20 09:00 02/09/20 08:32 Lopressor PO 50 mg BID MARITO Administration Morphine Sulfate 2 mg 02/08/20 21:50 Morphine IVP Q4H PRN SEVERE PAIN Nitroglycerin 0.4 mg 02/08/20 21:50 Nitrostat SUBLINGUAL Q5M PRN chest pains Ondansetron HCl 4 mg 02/08/20 21:50 Zofran IVP Q6H PRN vomiting, or N/V if npo Polyethylene Glyco l 17 gm 02/09/20 09:00 02/09/20 09:18 Miralax PO 17 gm DAILY MARITO Administration cephalexin [From Keflex] Allergy (Unknown, Verified 02/08/20 16:26) Unknown Vitals/I&O/Wt Last Vital Signs Temp 98.3 F 02/09/20 07:51 Pulse 78 02/09/20 07:51 Resp 20 H 02/09/20 07:51 BP 120/73 02/09/20 07:51 Pulse Ox 95 02/09/20 07:51 02/08/20 02/09/20 02/09/20 22:59 06:59 14:59 Intake Total 1450 / 1450 1330 / 2780 1332.5 / 1332.5 Output Total 1400 / 1400 650 / 650 Balance 1450 / 1450 -70 / 1380 682.5 / 682.5 Weight last 48 hrs Weight 159.721 kg Weight 149.685 kg Physical Exam Const: COMMON NORMALS: no acute distress and patient oriented x3 GENERAL APPEARANCE: cooperative and comfortable; not ill appearing NUTRITIONAL APPEARANCE: obese morbidly obese ORIENTATION/CONSCIOUSNESS: Yes awake HENMT: COMMON NORMALS: normocephalic, atraumatic, hearing grossly normal bilaterally and moist oral mucous membranes HEAD & SCALP: normocephalic and atraumatic Eye: COMMON NORMALS: Equal, round and reactive pupils present, EOMs intact bilaterally and conjunctivae normal CONJUNCTIVA: Yes conjunctivae normal PUPIL: Yes Equal, round and reactive pupils present Neck/C-Spine: COMMON NORMALS: full ROM GENERAL: Yes normal visual inspection and Yes trachea midline OTHER: -short, thick neck Chest: CHEST: Yes Symmetrical chest wall rise Resp: COMMON NORMALS: normal respiratory effort, No retractions, No use of accessory muscles and clear to auscultation bilaterally EFFORT & INSPECTION: Yes able to speak in complete sentences, Yes symmetric chest movement and No tachypneic AUSCULTATION: clear to auscultation bilaterally OTHER: -on RA Cardio: COMMON NORMALS: regular rate, regular rhythm, S1 normal heart sound present, S2 normal heart sound present and No murmurs present (Cardio) RATE: regular rate RHYTHM: regular rhythm HEART SOUNDS: S1 normal heart sound present and S2 normal heart sound present GI: COMMON NORMALS: Normal to inspection, nondistended, normoactive bowel sounds present, Soft to palpation and non-tender INSPECTION: Yes central obesity PALPATION: Yes Soft to palpation Extremity: COMMON NORMALS: normal to inspection NARRATIVE EXTREMITY EXAM: - brace on LLE Neuro: COMMON NORMALS: patient oriented x3, moves all extremities, no focal motor deficits and no sensory deficits noted Psych: COMMON NORMALS: mental status grossly normal, Normal thought process present, cooperative, normal affect and speech normal SPEECH: Yes normal speech THOUGHT PROCESS: Normal thought process present Skin: COMMON NORMALS: no jaundice, no petechiae and no mottling NARRATIVE SKIN EXAM: -R foot: dusky colored fifth toe, noted well-circumscribed ulcer just below fifth great toe area, surface necrosis, edema of 2nd-5th toes, malodorous, macerated wound edges, erythema extending upwards towards ankle (past previously marked area); dystrophic toenails Data : 02/09/20 06:36 02/09/20 06:36 Micro: Microbiology 02/08/20 16:20 Blood Culture - Preliminary Blood SPECIMEN COLLECTED 02/08/20 16:25 Blood Culture - Preliminary Blood SPECIMEN COLLECTED A&P Assessment and plan (1) Diabetic infection of right foot: -diabetic foot wound on R foot, incised and debrided by Dr. Ferro in [facility] (02/07); cultures growing Enterococcus species, GNRs; gram stain polymicrobial -no leukocytosis, noted CRP and ESR elevation -blood cx-prelim negative (02/06), repeat set pending -on Vancomycin/Zosyn for broader spectrum coverage (day 2) -Surgery consult by Dr. Gerald al; s/p bedside debridement -pain control as needed -has underlying DM type II -imaging noted, increased distance between the fourth and fifth metatarsal heads suggesting possible soft tissue mass; CT foot reported as soft tissue ulceration near the plantar surface of the foot at the level of the fourth proximal phalanx, no osteomyelitis/abscess/soft tissue emphysema -RLE elevation -anticipate continue to follow-up at wound care clinic with Dr. 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 (3) Peripheral vascular disease: Status: Chronic (4) Charcot's arthropathy: -Has had extensive surgical intervention for the left lower extremity secondary to Charcot arthropathy, wears brace for ambulation and wedge shoe for offloading Status: Chronic (5) Peripheral neuropathy: -secondary to DM type II Status: Chronic Qualifiers: Peripheral neuropathy type: polyneuropathy, unspecified Qualified Code(s): G62.9 - Polyneuropathy, unspecified (6) Chronic kidney disease: -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 -has mild superimposed MAGDA -baseline Cr around 1.0 -IVF hydration, with caution to avoid fluid overload -continue to monitor renal function particularly with dual use of Vanc, Zosyn; renally dose meds, avoid nephrotoxins Status: Chronic Qualifiers: Chronic kidney disease stage: stage 2 (mild) Qualified Code(s): N18.2 - Chronic kidney disease, stage 2 (mild) (7) Hypertension: -VSS, continue to monitor vital signs -hold ARB, continue BB Status: Chronic Qualifiers: Hypertension type: essential hypertension Qualified Code(s): I10 - Essential (primary) hypertension (8) Hypothyroidism: -continue levothyroxine Status: Chronic Qualifiers: Hypothyroidism type: unspecified Qualified Code(s): E03.9 - Hypothyroidism, unspecified (9) CHF (congestive heart failure): -unknown type, severity as no baseline Echo -hold Lasix due to renal impairment Status: Chronic Qualifiers: Heart failure chronicity: chronic Heart failure type: unspecified Qualified Code(s): I50.9 - Heart failure, unspecified (10) Coronary artery disease: -hx of CAD s/p CABG x 4 about 20 yrs ago -hold ASA due to recent debridement and potential need for additional procedure -NTG PRN Status: Chronic Qualifiers: Associated angina: without angina Coronary Disease-Associated Artery/Lesion type: [place] artery [place] vs. transplanted heart: [place] heart Qualified Code(s): I25.10 - Atherosclerotic heart disease of [place] coronary art naseem without angina pectoris (11) Morbid obesity: -BMI-45 kg/m2 Status: Chronic (12) BRIDGER (obstructive sleep apnea): -on CPAP Status: Chronic Additional A&P Information -DVT ppx with heparin -Dispo: home -Code status: FULL code Attestations Medical Necessity Statement*: Patient requires hospitalization for continued management of right diabetic foot wound, on broad-spectrum IV antibiotics pending culture results. Time Spent in Patient Care: 16 - 35 minutes (>than 50% of time spent in counselling and/or direct pt care on unit) . Coding Level of Care Code Acute Application Integration Specialist for [facility] Fwd Exam Comprehensive Diagnoses Diabetic infection of right foot E11.628; L08.9 Diabetes E11.69; Z79.4 Diabetes mellitus complication status: with other specified complication Diabetes mellitus care home insulin use: with care home use Diabetes mellitus type: type 2 Peripheral vascular disease I73.9 Charcot's arthropathy M14.60 Peripheral neuropathy G62.9 Peripheral neuropathy type: polyneuropathy, unspecified Chronic kidney disease N18.2 Chronic kidney disease stage: stage 2 (mild) Hypertension I10 Hypertension type: essential hypertension Hypothyroidism E03.9 Hypothyroidism type: unspecified CHF (congestive heart failure) I50.9 Heart failure chronicity: chronic Heart failure type: unspecified Coronary artery disease I25.10 Associated angina: without angina Coronary Disease-Associated Artery/Lesion type: [place] artery [place] vs. transplanted heart: [place] heart Morbid obesity E66.01 BRIDGER (obstructive sleep apnea) G47.33
[2020-02-09 10:35] LABS: Glucose Point of Care 190 mg/dL (70-110)
[2020-02-09 11:08] VITALS: BP 113/73; PULSE 79; RESP 22; TEMP 36.4; O2SAT 96
--- NOTE | 2020-02-09 11:50 | PM.ACPR ---
Procedure/Consent Consent: Consent for Procedure: Agrees to proceed with procedure Procedure Narrative: The patient had significant necrotic tissue between the fourth and the fifth toe. The wound was debrided using sharp dissection with scissors resulting in a wound measuring about 3 x 3 x 2 cm
--- NOTE | 2020-02-09 11:51 | P.CONIM_ITS ---
Providers/Reason For Consult Consulting Physican/Specialty*: Alaina Bonilla MD Reason for Consult*: Necrotic wound right foot Attending Physician: Alaina Bonilla MD Primary Care Provider: Kaykay Bah DO History of Present Illness History of Present Illness Kulwant Leavitt is a 59 year old male Review of Systems General: Reports: 10 or more systems reviewed and unremarkable except in HPI and below Meds/Allergies Home Medications and Allergies Home Medications Medication Instructions Recorded Confirmed Last Taken Type aspirin 325 mg tablet 325 mg PO DAILY 02/07/20 02/08/20 02/07/20 History ertugliflozin 5 mg tablet 15 mg PO QAM 02/07/20 02/08/20 02/08/20 08:00 History furosemide 40 mg tablet 40 mg PO DAILY PRN 02/07/20 02/08/20 Unknown History glyburide 5 mg tablet 10 mg PO BID 02/07/20 02/08/20 02/08/20 History insulin degludec [Tresiba 20 unit SUBCUT BID 02/07/20 02/08/20 02/08/20 08:00 History FlexTouch U-200] linagliptin 5 mg tablet 5 mg PO DAILY 02/07/20 02/08/20 02/08/20 History losartan 50 mg PO DAILY 02/07/20 02/08/20 02/08/20 History metoprolol tartrate 50 mg PO BID 02/07/20 02/08/20 02/08/20 History nitroglycerin 0.4 mg sublingual 0.4 mg SUBLINGUAL Q5M PRN 02/07/20 02/08/20 Unknown History tablet oxycodone 15 mg tablet 15 mg PO Q4H PRN 02/07/20 02/08/20 Unknown History potassium chloride 20 mEq 20 meq PO DAILY PRN 02/07/20 02/08/20 Unknown History tablet,extended release sulfamethoxazole-trimethoprim 2 tab PO DAILY 10 Days #40 tab 02/07/20 02/08/20 Unknown Rx [Bactrim DS] levothyroxine 100 mcg PO DAILY 02/08/20 02/08/20 02/08/20 History omega 1-djb-klu-fish oil [Fish Oil] 3 cap PO DAILY 02/08/20 02/08/20 02/08/20 History Allergies Allergy/AdvReac Type Severity Reaction Status Date / Time cephalexin [From Keflex] Allergy Unknown Unknown Verified 02/08/20 16:26 Current Medications Current Medications Generic Name Dose Route Start Last Admin Trade Name Freq PRN Reason Stop Dose Admin Heparin Sodium (Beef Lung) 5,000 unit 02/08/20 21:50 02/09/20 05:38 Heparin SUBCUT 5,000 unit Q8H MARITO Administration Sodium Chloride 1,000 mls @ 75 mls/hr 02/08/20 21:50 02/09/20 09:15 Sodium Chloride 0.9% IV 75 mls/hr .[id number] MARITO Administration Vancomycin HCl 1,500 mg/ 250 mls @ 250 mls/hr 02/09/20 05:00 02/09/20 05:37 Sodium Chloride IV 250 mls/hr Q12H MARITO Administration Protocol As Directed Piperacillin Sod/Tazobactam 50 mls @ 12.5 mls/hr 02/09/20 02:00 02/09/20 09:15 Sod 3.375 gm/ Sodium Chloride IV 12.5 mls/hr Q8H MARITO Administration Protocol As Directed Insulin Aspart 10 unit 02/09/20 07:00 02/09/20 08:32 Novolog SUBCUT 10 unit TIDAC MARITO Administration Insulin Aspart 0 unit 02/09/20 08:00 02/09/20 08:32 Novolog SUBCUT Not Given WM&BEDTIME MARITO Protocol Insulin Glargine 20 unit 02/08/20 21:50 02/08/20 23:44 Lantus SUBCUT 20 unit BEDTIME MARITO Administration Levothyroxine Sodium 100 mcg 02/09/20 09:00 02/09/20 08:32 Synthroid PO 100 mcg DAILY MARITO Administration Metoprolol Tartrate 50 mg 02/09/20 09:00 02/09/20 08:32 Lopressor PO 50 mg BID MARITO Administration Polyethylene Glycol 17 gm 02/09/20 09:00 02/09/20 09:18 Miralax PO 17 gm DAILY MARITO Administration PFSH Acute PFSH: Medical History Arthritis Charcot's arthropathy Left CHF (congestive heart failure) Chronic back pain Chronic constipation Chronic kidney disease Coronary artery disease Diabetes Hypertension Hypothyroidism Morbid obesity BRIDGER (obstructive sleep apnea) Peripheral neuropathy Peripheral vascular disease Surgical History History of ankle fusion History of back surgery History of colonoscopy (~01/2019) History of coronary artery bypass graft -Four-vessel Hx of cholecystectomy Family History Other CAD (coronary artery disease) Cancer Diabetes Hypertension Denies family history of Anesthesia complication Bleeding disorder Social History Smoking and tobacco status: never smoked Second hand smoke exposure: No Alcohol intake: never Adopted: No Caregiver/support person: Yes Lives independently: Yes Household members: spouse Housing: House Marital status: service: No Current occupational status: disabled Current occupational exposures/hazards: No Pets and animals: No History of recent travel: No Sexually active: No Current gender identity: Male Padmini/Druze: [employer] Vitals/I&O/Wt Last Vital Signs Temp 97.6 F 02/09/20 11:08 Pulse 79 02/09/20 11:08 Resp 22 H 02/09/20 11:08 BP 113/73 02/09/20 11:08 Pulse Ox 96 02/09/20 11:08 02/08/20 02/09/20 02/09/20 22:59 06:59 14:59 Intake Total 1450 / 2780 1330 / 2780 1332.5 / 1332.5 Output Total 1400 / 1400 650 / 650 Balance 1450 / 1380 -70 / 1380 682.5 / 682.5 Weight last 48 hrs Weight 352 lb 2 oz Weight 330 lb Physical Exam Narrative: EXAM NARRATIVE: HEENT: Normocephalic Eye: Sclera /conjunctiva normal Abdomen: Soft to palpation Neurological: Oriented to place person and time Skin: Intact, cellulitis is improved on the right foot, there is a 3 x 1.5 x 2 cm wound with necrotic tissue at the base. Data Micro: Micro: Microbiology 02/08/20 16:20 Blood Culture - Pr eliminary Blood SPECIMEN [facility] DIPIKA 02/08/20 16:25 Blood Culture - Pr eliminary Blood SPECIMEN [facility] A&P Assessment and plan (1) Diabetic infection of right foot: 59-year-old gentleman with Charcot's foot who has been admitted to the hospital for IV antibiotics due to worsening cellulitis around foot ulcer between fourth and fifth metatarsal. Wound had necrotic tissue and therefore plan for debridement at the bedside as the patient does not any significant pain sensation. Patient has consented to the procedure. Status: Acute Coding Level of Care Code Acute Cream Tester for [facility] Diagnoses Diabetic infection of right foot E11.628; L08.9
[2020-02-09] MEDS: collagenase oint 30 gm 1 APPLIC TOPICAL (11:52)
[2020-02-09 15:10] VITALS: BP 118/72; PULSE 76; RESP 18; TEMP 36.7; O2SAT 95
--- NOTE | 2020-02-09 15:39 | PC.CHAP ---
Pastoral Care Encounter/Spiritual Assessment Type of Contact [] Declined shipping and receiving coordinator visit [] Patient/Family/Request visit [] Outpatient visit [] Follow-up visit [] Physician referral [] Code/Alert [X] Routine visit [] Staff referral [] Actively dying [] Patient sleeping [] Family support [] [] Out of room [] Palliative care [] [] Receiving care in room [] Pre-surgical visit [] Trauma [] Long length of stay [] ICU visit [] Other: Relational/Emotional Strength [] Patient feels connected with others/family/visitors/staff [] Distress [] Loneliness/isolation [] Abandonment Spirituality of Patient [] Person of Padmini [] Attends Methodist of their Padmini [] Believes in Prayer [] Reads Bible or Roman Catholic materials [] There are Spiritual issues to be addressed Athletic Equipment Manager Interventions [] Prayer [] Active listening [] Non-anxious presence [] Spiritual/emotional support [] Crisis/trauma care [] Spiritual counseling [] Bereavement support [] Provided bereavement packet [] Provided Bible/devotional materials [] Provided toy/stuffed animal, coloring book to patient or family member [] Provided Communion [] Anointing/[place] [] Salvation [] Completed spiritual assessment [] Other: Impact on Illness or Injury [] Angry [] Fearful [] Anxious [] Often cries [] Exhaustion [] Unable to work [] Unable to attend mu-ism [] Unable to walk/stand [] Unable to read [] Unable to drive [] Unable to eat/drink [] Unable to sleep [] Unable to be with family [] Patient intubated [] Other: Summary Time spent with patient
[2020-02-09 16:31] LABS: Glucose Point of Care 107 mg/dL (70-110)
[2020-02-09 20:00] VITALS: BP 128/82; PULSE 83; RESP 18; TEMP 36.8; O2SAT 97
[2020-02-09 21:11] LABS: Glucose Point of Care 113 mg/dL (70-110)
[2020-02-09 21:31] LABS: Glucose Point of Care 94 mg/dL (70-110)
[2020-02-10] VITALS: BP 115/78; PULSE 87; RESP 18; TEMP 37.1; O2SAT 97
[2020-02-10] MEDS: piperacillin-tazobactam 3.375 GM in sodium chloride 0.9% (plus) 50 ML IV ×2 (02:12→08:27)
[2020-02-10 04:00] VITALS: BP 120/98; PULSE 85; RESP 18; TEMP 37.1; O2SAT 95
[2020-02-10 04:29] LABS: Basophils % 0.5 %; Eosinophils # 0.3 10^3/uL (0.0-0.8); Eosinophils % 3.1 %; Hematocrit 38.8 % (42.0-52.0); Hemoglobin 12.4 g/dL (11.7-16.6); Lymphocytes # 1.4 10^3/uL (0.8-4.8); Lymphocytes % 17.4 %; Mean Corpuscular Hemoglobin 30.1 pg (28.0-34.0); Mean Corpuscular Volume 94.2 fL (80-94); Mean Platelet Volume 10.3 fL (7.4-10.4); Monocytes # 0.6 10^3/uL (0.2-0.9); Neutrophils # 5.7 10^3/uL (1.8-7.7); Neutrophils % 71.7 %; Nucleated Red Blood Cells % 0 %; Platelet Count 165 10^3/cmm (130-400); Red Blood Count 4.12 10^6/uL (4.1-5.3); Red Cell Distribution Width 12.8 % (12.1-15.1)
[2020-02-10 04:41] LABS: Vancomycin Trough 15.3 ug/mL (10-15)
[2020-02-10 04:53] LABS: Anion Gap 16.7 (5-19); Blood Urea Nitrogen 18 mg/dL (8-23); Carbon Dioxide 21 mmol/L (22-29); Chloride 104 mmol/L (98-107); Glomerular Filtration Rate 98.6 mL/min (90-130); Glucose 98 mg/dL (65-115); Osmolality Calculated 280 mOsm/kg (285-295); Potassium 4.7 mmol/L (3.5-5.1); Sodium 137 mmol/L (136-145)
[2020-02-10] MEDS: heparin 5,000 unit/mL INJ 1 mL 5000 UNIT SUBCUT ×3 (05:49→21:59)
[2020-02-10 06:00] VITALS: BMI 45.1
[2020-02-10 06:38] LABS: Glucose Point of Care 108 mg/dL (70-110)
--- NOTE | 2020-02-10 07:51 | P.PN_ITS ---
Subjective Subjective: Interval history: Patient denies any pain, wound looks a lot better, erythema is improved Vitals/I&O/Wt Last Vital Signs Temp 98.8 F 02/10/20 04:00 Pulse 85 02/10/20 04:00 Resp 18 02/10/20 04:00 BP 120/98 02/10/20 04:00 Pulse Ox 95 02/10/20 04:00 02/09/20 02/10/20 02/10/20 22:59 06:59 14:59 Intake Total 660 / 2402.5 Output Total 360 / 2260 250 / 2260 Balance 300 / 142.5 -250 / 142.5 Weight last 48 hrs Weight 352 lb Weight 352 lb 2 oz Weight 330 lb Physical Exam Narrative: EXAM NARRATIVE: Right foot: Wound has good granulation tissue, erythema is improved Data : 02/10/20 04:15 02/10/20 04:15 Micro: Microbiology 02/08/20 16:25 Blood Culture - Preliminary Blood NEGATIVE TO DATE 02/08/20 16:20 Blood Culture - Preliminary Blood NEGATIVE TO DATE A&P Assessment and plan (1) Diabetic infection of right foot: No further debridement required Continue with Santyl once daily Hopefully can go home on tomorrow on oral antibiotics with follow-up in wound care next Tuesday Status: Acute Attestations Medical Necessity Statement*: Diabetic foot ulcer Coding Level of Care Code Acute Axle Bearing Polisher for [facility] Diagnoses Diabetic infection of right foot E11.628; L08.9
[2020-02-10 07:55] VITALS: BP 137/69; PULSE 75; RESP 18; TEMP 36.3; O2SAT 93
[2020-02-10] MEDS: collagenase oint 30 gm 1 APPLIC TOPICAL (08:12)
[2020-02-10] MEDS: levothyroxine 100 mcg Tablet PO (08:18)
[2020-02-10] MEDS: metoprolol tartrate 50 mg Tablet PO ×2 (08:18→17:14)
[2020-02-10] MEDS: polyethylene glycol 3350 Pkt 17 gm PO (08:18)
[2020-02-10] MEDS: sodium chloride 0.9% 1,000 ML 75 ML IV (08:20)
[2020-02-10 10:44] LABS: Glucose Point of Care 175 mg/dL (70-110)
[2020-02-10 11:00] VITALS: BP 124/80; PULSE 81; RESP 16; TEMP 36.7; O2SAT 96
--- NOTE | 2020-02-10 12:58 | PM.PN ---
Subjective Subjective: Interval history: Patient seen and examined early this morning with Dr. Duarte, wound examined, looks better than yesterday, erythema seems to continue to improve. Remains on dual antibiotic therapy with vancomycin and Zosyn. Remains afebrile, white count normal, renal function normal. Blood culture remains negative, wound culture growing E. coli and enterococcus species. Vanco trough of 15. Medications: Reviewed: Yes Medication Review Details: Active Medications Generic Name Dose Route Start Last Admin Trade Name Freq PRN Reason Stop Dose Admin Acetaminophen 650 mg 02/08/20 21:50 Tylenol PO Q6H PRN Mild/Mod Pain Or Temp >/= 101 Hydrocodone Bitart /Acetaminophen 1 tab 02/08/20 21:50 Poca 5-325 Mg PO Q4H PRN MODERATE TO SEVER E PAIN Collagenase 1 applic 02/09/20 11:45 02/10/20 08:12 Santyl TOPICAL 1 appful DAILY MARITO Administration Dextrose 25 ml 02/08/20 21:50 D50w IVP ONCE PRN hypoglycemia prot ocol Protocol Dextrose 50 ml 02/08/20 21:50 D50w IVP PRN PRN hypoglycemia prot ocol Protocol Glucagon 1 mg 02/08/20 21:50 Glucagen IM ONCE PRN Adult Acute Hypog lycemia Prot. Protocol Heparin Sodium (Be ef Lung) 5,000 unit 02/08/20 21:50 02/10/20 05:49 Heparin SUBCUT 5,000 unit Q8H MARITO Administration Sodium Chloride 1,000 mls @ 75 ml s/hr 02/08/20 21:50 02/10/20 08:20 Sodium Chloride 0.9% IV 75 mls/hr .[id number] MARITO Administration Vancomycin HCl 1,5 00 mg/ 250 mls @ 250 mls /hr 02/09/20 05:00 02/10/20 05:47 Sodium Chloride IV 250 mls/hr Q12H MARITO Administration Protocol As Directed Dextrose 500 mls @ 100 mls /hr 02/08/20 21:50 D5w IV ONCE PRN Adult Acute Hypog lycemia Prot Protocol Piperacillin Sod/T azobactam 50 mls @ 12.5 mls /hr 02/09/20 02:00 02/10/20 08:27 Sod 3.375 gm/ So dium Chloride IV 12.5 mls/hr Q8H MARITO Administration Protocol As Directed Insulin Aspart 10 unit 02/09/20 07:00 02/10/20 11:19 Novolog SUBCUT 10 unit TIDAC MARITO Administration Insulin Aspart 0 unit 02/09/20 08:00 02/10/20 11:20 Novolog SUBCUT 4 unit WM&BEDTIME MARITO Administration Protocol Insulin Glargine 20 unit 02/08/20 21:50 02/09/20 22:48 Lantus SUBCUT Not Given BEDTIME MARITO Levothyroxine Sodi um 100 mcg 02/09/20 09:00 02/10/20 08:18 Synthroid PO 100 mcg DAILY MARITO Administration Metoprolol Tartrat e 50 mg 02/09/20 09:00 02/10/20 08:18 Lopressor PO 50 mg BID MARITO Administration Morphine Sulfate 2 mg 02/08/20 21:50 Morphine IVP Q4H PRN SEVERE PAIN Nitroglycerin 0.4 mg 02/08/20 21:50 Nitrostat SUBLINGUAL Q5M PRN chest pains Ondansetron HCl 4 mg 02/08/20 21:50 Zofran IVP Q6H PRN vomiting, or N/V if npo Polyethylene Glyco l 17 gm 02/09/20 09:00 02/10/20 08:18 Miralax PO 17 gm DAILY MARITO Administration cephalexin [From Keflex] Allergy (Unknown, Verified 02/08/20 16:26) Unknown Vitals/I&O/Wt Last Vital Signs Temp 98.1 F 02/10/20 11:00 Pulse 81 02/10/20 11:00 Resp 16 02/10/20 11:00 BP 124/80 02/10/20 11:00 Pulse Ox 96 02/10/20 11:00 02/09/20 02/10/20 02/10/20 22:59 06:59 14:59 Intake Total 1660 / 3402.5 50 / 3452.5 360 / 360 Output Total 2009 250 / 2260 Balance 1300 / 1392.5 -200 / 1192.5 360 / 360 Weight last 48 hrs Weight 159.665 kg Weight 159.721 kg Weight 149.685 kg Physical Exam Const: COMMON NORMALS: no acute distress and patient oriented x3 GENERAL APPEARANCE: cooperative and comfortable; not ill appearing NUTRITIONAL APPEARANCE: obese morbidly obese ORIENTATION/CONSCIOUSNESS: Yes awake HENMT: COMMON NORMALS: normocephalic, atraumatic, hearing grossly normal bilaterally and moist oral mucous membranes HEAD & SCALP: normocephalic and atraumatic Eye: COMMON NORMALS: Equal, round and reactive pupils present, EOMs intact bilaterally and conjunctivae normal CONJUNCTIVA: Yes conjunctivae normal PUPIL: Yes Equal, round and reactive pupils present Neck/C-Spine: COMMON NORMALS: full ROM GENERAL: Yes normal visual inspection and Yes trachea midline OTHER: -short, thick neck Chest: CHEST: Yes Symmetrical chest wall rise Resp: COMMON NORMALS: normal respiratory effort, No retractions, No use of accessory muscles and clear to auscultation bilaterally EFFORT & INSPECTION: Yes able to speak in complete sentences, Yes symmetric chest movement and No tachypneic AUSCULTATION: clear to auscultation bilaterally OTHER: -on RA Cardio: COMMON NORMALS: regular rate, regular rhythm, S1 normal heart sound present, S2 normal heart sound present and No murmurs present (Cardio) RATE: regular rate RHYTHM: regular rhythm HEART SOUNDS: S1 normal heart sound present and S2 normal heart sound present GI: COMMON NORMALS: Normal to inspection, nondistended, normoactive bowel sounds present, Soft to palpation and non-tender INSPECTION: Yes central obesity PALPATION: Yes Soft to palpation Extremity: COMMON NORMALS: normal to inspection Neuro: COMMON NORMALS: patient oriented x3, moves all extremities, no focal motor deficits and no sensory deficits noted Psych: COMMON NORMALS: mental status grossly normal, Normal thought process present, cooperative, normal affect and speech normal SPEECH: Yes normal speech THOUGHT PROCESS: Normal thought process present Skin: COMMON NORMALS: no jaundice, no petechiae and no mottling NARRATIVE SKIN EXAM: -R foot: dusky colored fifth toe, noted well-circumscribed ulcer just below fifth great toe area, edema of 2nd-5th toes, good granulation tissue with some residual bleeding noted, communication between wound on lateral fifth great toe and wound between fourth and fifth toe. Erythema receding; dystrophic toenails Data : 02/10/20 04:15 02/10/20 04:15 Micro: Microbiology 02/08/20 16:25 Blood Culture - Preliminary Blood NEGATIVE TO DATE 02/08/20 16:20 Blood Culture - Preliminary Blood NEGATIVE TO DATE A&P Assessment and plan (1) Diabetic infection of right foot: -diabetic foot wound on R foot, incised and debrided by Dr. Ferro in [facility] (02/07); cultures growing Enterococcus species and E.coli, sensitivity noted; gram stain polymicrobial -no leukocytosis, noted CRP and ESR elevation -blood cx-prelim negative (02/06), repeat set prelim negative -on Vancomycin/Zosyn for broader spectrum coverage (day 3); will switch to Levaquin -Surgery consult by Dr. Gerald al; s/p bedside debridement, done on 02/08 -pain control as needed -has underlying DM type II -imaging noted, increased distance between the fourth and fifth metatarsal heads suggesting possible soft tissue mass; CT foot reported as soft tissue ulceration near the plantar surface of the foot at the level of the fourth proximal phalanx, no osteomyelitis/abscess/soft tissue emphysema -RLE elevation -anticipate continue to follow-up at wound care clinic with Dr. Ferro Status: Acute (2) Diabetes: -has IDDM type II, A1c-10.1 -Accu-Cheks, ISS, scheduled insulin, hypoglycemia precautions -Consistent carb diet as tolerated Status: Chronic Qualifiers: Diabetes mellitus type: type 2 Diabetes mellitus penitentiary insulin use: with penitentiary use Diabetes mellitus complication status: with other specified complication Qualified Code(s): E11.69 - Type 2 diabetes mellitus with other specified complication; Z79.4 - FDC (current) use of insulin (3) Peripheral vascular disease: Status: Chronic (4) Charcot's arthropathy: -Has had extensive surgical intervention for the left lower extremity secondary to Charcot arthropathy, wears brace for ambulation and wedge shoe for offloading Status: Chronic (5) Peripheral neuropathy: -secondary to DM type II Status: Chronic Qualifiers: Peripheral neuropathy type: polyneuropathy, unspecified Qualified Code(s): G62.9 - Polyneuropathy, unspecified (6) Chronic kidney disease: -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 -has mild superimposed MAGDA, now resolved -baseline Cr around 1.0 -IVF hydration, with caution to avoid fluid overload; d/c as renal function has normalized -continue to monitor renal function particularly with dual use of Vanc, Zosyn; renally dose meds, avoid nephrotoxins Status: Chronic Qualifiers: Chronic kidney disease stage: stage 2 (mild) Qualified Code(s): N18.2 - Chronic kidney disease, stage 2 (mild) (7) Hypertension: -VSS, continue to monitor vital signs -hold ARB, continue BB Status: Chronic Qualifiers: Hypertension type: essential hypertension Qualified Code(s): I10 - Essential (primary) hypertension (8) Hypothyroidism: -continue levothyroxine Status: Chronic Qualifiers: Hypothyroidism type: unspecified Qualified Code(s): E03.9 - Hypothyroidism, unspecified (9) CHF (congestive heart failure): -unknown type, severity as no baseline Echo -hold Lasix due to renal impairment Status: Chronic Qualifiers: Heart failure type: unspecified Heart failure chronicity: chronic Qualified Code(s): I50.9 - Heart failure, unspecified (10) Coronary artery disease: -hx of CAD s/p CABG x 4 about 20 yrs ago -resume ASA -NTG PRN Status: Chronic Qualifiers: Coronary Disease-Associated Artery/Lesion type: [place] artery [place] vs. transplanted heart: [place] heart Associated angina: without angina Qualified Code(s): I25.10 - Atherosclerotic heart disease of [place] coronary artery without angina pectoris (11) Morbid obesity: -BMI-45 kg/m2 Status: Chronic (12) BRIDGER (obstructive sleep apnea): -on CPAP Status: Chronic Additional A&P Information -DVT ppx with heparin -Dispo: home -Code status: FULL code Attestations Medical Necessity Statement*: Patient requires hospitalization for continued antibiotic treatment, will switch to oral antibiotics prior wound culture results to ensure continued effective treatment of right foot infection. Time Spent in Patient Care: 16 - 35 minutes (>than 50% of time spent in counselling and/or direct pt care on unit). Coding Level of Care Code Acute Conche Loader And Unloader for g Fwd Diagnoses Diabetic infection of right foot E11.628; L08.9 Diabetes E11.69; Z79.4 Diabetes mellitus type: type 2 Diabetes mellitus penitentiary insulin use: with manager long term care use Diabetes mellitus complication status: with other specified complication Peripheral vascular disease I73.9 Charcot's arthropathy M14.60 Peripheral neuropathy G62.9 Peripheral neuropathy type: polyneuropathy, unspecified Chronic kidney disease N18.2 Chronic kidney disease stage: stage 2 (mild) Hypertension I10 Hypertension type: essential hypertension Hypothyroidism E03.9 Hypothyroidism type: unspecified CHF (congestive heart failure) I50.9 Heart failure type: unspecified Heart failure chronicity: chronic Coronary artery disease I25.10 Coronary Disease-Associated Artery/Lesion type: [place] artery [place] vs. transplanted heart: [place] heart Associated angina: without angina Morbid obesity E66.01 BRIDGER (obstructive sleep apnea) G47.33
[2020-02-10] MEDS: levoFLOXacin 750 mg Tablet PO (13:36)
[2020-02-10 16:00] VITALS: BP 146/94; PULSE 85; RESP 16; TEMP 36.6; O2SAT 97
[2020-02-10 17:20] LABS: Glucose Point of Care 115 mg/dL (70-110)
[2020-02-10 20:00] VITALS: BP 100/65; PULSE 86; RESP 18; TEMP 36.9; O2SAT 94
[2020-02-10 20:59] LABS: Glucose Point of Care 119 mg/dL (70-110)
[2020-02-10] MEDS: insulin glargine 100 units/1 mL 20 UNIT SUBCUT (21:58)
[2020-02-11] VITALS: BP 110/55; PULSE 88; RESP 18; TEMP 37.1; O2SAT 97
[2020-02-11 04:00] VITALS: BP 115/70; PULSE 87; RESP 18; TEMP 36.6; O2SAT 97
[2020-02-11] MEDS: levoFLOXacin 750 mg Tablet PO (05:59)
[2020-02-11] MEDS: heparin 5,000 unit/mL INJ 1 mL 5000 UNIT SUBCUT (05:59)
[2020-02-11 06:27] LABS: Glucose Point of Care 129 mg/dL (70-110)
[2020-02-11 07:26] VITALS: BP 105/67; PULSE 73; RESP 20; TEMP 37.1; O2SAT 95
[2020-02-11] MEDS: levothyroxine 100 mcg Tablet PO (08:44)
[2020-02-11] MEDS: aspirin 325 mg EC Tablet PO (08:44)
[2020-02-11] MEDS: metoprolol tartrate 50 mg Tablet PO (08:44)
[2020-02-11] MEDS: polyethylene glycol 3350 Pkt 17 gm PO (08:44)
[2020-02-11] MEDS: collagenase oint 30 gm 1 APPLIC TOPICAL (08:52)
--- NOTE | 2020-02-11 09:06 | P.DS_ITS ---
Discharge Providers Date of Admission: 02/08/20 18:25 Date of Discharge: February 11, 2020 Attending Provider at Admission: Alaina Bonilla MD Attending Provider at Discharge: Alaina Bonilla MD Primary Care Provider: Kaykay Bah DO Diagnoses at Discharge Discharge Diagnosis (1) Diabetic infection of right foot: Status: Acute Problem details: -diabetic foot wound on R foot, incised and debrided by Dr. Ferro in [facility] (02/07); cultures growing Enterococcus species and E.coli, sensitivity noted; gram stain polymicrobial -no leukocytosis, noted CRP and ESR elevation -blood cx-prelim negative (02/06), repeat set prelim negative -on Vancomycin/Zosyn for broader spectrum coverage (day 3); will switch to Levaquin -Surgery consult by Dr. Gerald al; s/p bedside debridement, done on 02/08 -pain control as needed -has underlying DM type II -imaging noted, increased distance between the fourth and fifth metatarsal heads suggesting possible soft tissue mass; CT foot reported as soft tissue ulceration near the plantar surface of the foot at the level of the fourth proximal phalanx, no osteomyelitis/abscess/soft tissue emphysema -RLE elevation -anticipate continue to follow-up at wound care clinic with Dr. Ferro (2) Diabetes: Status: Chronic Problem details: -has IDDM type II, A1c-10.1 -Accu-Cheks, ISS, scheduled insulin, hypoglycemia precautions -Consistent carb diet as tolerated Qualifiers: Diabetes mellitus type: type 2 Diabetes mellitus fdc insulin use: with ocean transportation intermediary use Diabetes mellitus complication status: with other specified complication Qualified Code(s): E11.69 - Type 2 diabetes mellitus with other specified complication; Z79.4 - moth exterminator (current) use of insulin (3) Charcot's arthropathy: Status: Chronic Problem details: -Has had extensive surgical intervention for the left lower extremity secondary to Charcot arthropathy, wears brace for ambulation and wedge shoe for offloading (4) Peripheral vascular disease: Status: Chronic (5) Peripheral neuropathy: Status: Chronic Problem details: -secondary to DM type II Qualifiers: Peripheral neuropathy type: polyneuropathy, unspecified Qualified Code(s): G62.9 - Polyneuropathy, unspecified (6) Chronic kidney disease: Status: Chronic Problem details: -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 -has mild superimposed MAGDA, now resolved -baseline Cr around 1.0 -IVF hydration, with caution to avoid fluid overload; d/c as renal function has normalized -continue to monitor renal function particularly with dual use of Vanc, Zosyn; renally dose meds, avoid nephrotoxins Qualifiers: Chronic kidney disease stage: stage 2 (mild) Qualified Code(s): N18.2 - Chronic kidney disease, stage 2 (mild) (7) Hypertension: Status: Chronic Problem details: -VSS, continue to monitor vital signs -continue BB, resume ARB Qualifiers: Hypertension type: essential hypertension Qualified Code(s): I10 - Essential (primary) hypertension (8) Hypothyroidism: Status: Chronic Problem details: -continue levothyroxine Qualifiers: Hypothyroidism type: unspecified Qualified Code(s): E03.9 - Hypothyroidism, unspecified (9) CHF (congestive heart failure): Status: Chronic Problem details: -unknown type, severity as no baseline Echo -hold Lasix due to renal impairment, can resume PRN use on d/c Qualifiers: Heart failure type: unspecified Heart failure chronicity: chronic Qualified Code(s): I50.9 - Heart failure, unspecified (10) Coronary artery disease: Status: Chronic Problem details: -hx of CAD s/p CABG x 4 about 20 yrs ago -on ASA -NTG PRN Qualifiers: Coronary Disease-Associated Artery/Lesion type: [place] artery [place] vs. transplanted heart: [place] heart Associated angina: without angina Qualified Code(s): I25.10 - Atherosclerotic heart disease of [place] coronary artery without angina pectoris (11) Morbid obesity: Status: Chronic Problem details: -BMI-45 kg/m2 (12) BRIDGER (obstructive sleep apnea): Status: Chronic Problem details: -on CPAP qhs Reason for Visit Reason for Visit: R foot wound Hospital Course Hospital Course: Patient was admitted to the medical surgical floor and started on empiric broad-spectrum IV antibiotics secondary to a right diabetic foot ulcer. Wound had been debrided by Dr. Lr at the wound care clinic prior to patient presenting to the ER. However due to noted necrosis on the wound bed he required additional debridement which was done by Dr. Duarte at bedside. Wound is much exhibit cleaner with noted good granulation tissue, no odor. Imaging was done to rule out osteomyelitis and this was indicative of soft tissue edema but no patrick evidence of bone involvement. Wound cultures have grown E. coli, enterococcus and Staphylococcus species; blood cultures have been negative. He has had no leukocytosis, has been consistently afebrile, hemodynamically stable. Has been on CPAP at night, otherwise on room air. Blood glucose was closely monitored and has been relatively well controlled with insulin. He can resume his previous regimen on discharge. He was covered with vancomycin and Zosyn and with noted improvement in erythema and following wound debridement has been switched to Levaquin which he will be discharged on to complete his treatment course. Wound care has consisted of use of Santyl ointment and Hydrofera Blue which patient is to continue on discharge and should be done at least once a day unless noted increased drainage at which point he would need more frequent dressing changes. He will continue to follow-up with Dr. Lr at the wound care clinic on Fridays. Patient's will assist him with wound care and dressing changes as they have had prior experience with this. Patient is counseled on need to seek medical attention immediately should he have increased purulent drainage, worsening redness, fever/chills. Discharge Summary: -Patient to follow-up with his primary care physician within 1 week -Patient to follow-up with Dr. Ferro at the wound care clinic on Tuesday Physical Exam Const: COMMON NORMALS: no acute distress and patient oriented x3 GENERAL APPEARANCE: cooperative and comfortable; not ill appearing NUTRITIONAL APPEARANCE: obese morbidly obese ORIENTATION/CONSCIOUSNESS: Yes awake HENMT: COMMON NORMALS: normocephalic, atraumatic, hearing grossly normal bilaterally and moist oral mucous membranes HEAD & SCALP: normocephalic and atraumatic Eye: COMMON NORMALS: Equal, round and reactive pupils present, EOMs intact bilaterally and conjunctivae normal CONJUNCTIVA: Yes conjunctivae normal PUPIL: Yes Equal, round and reactive pupils present Neck/C-Spine: COMMON NORMALS: full ROM GENERAL: Yes normal visual inspection and Yes trachea midline OTHER: -short, thick neck Chest: CHEST: Yes Symmetrical chest wall rise Resp: COMMON NORMALS: normal respiratory effort, No retractions, No use of accessory muscles and clear to auscultation bilaterally EFFORT & INSPECTION: Yes able to speak in complete sentences, Yes symmetric chest movement and No tachypneic AUSCULTATION: clear to auscultation bilaterally OTHER: -on RA Cardio: COMMON NORMALS: regular rate, regular rhythm, S1 normal heart sound present, S2 normal heart sound present and No murmurs present (Cardio) RATE: regular rate RHYTHM: regular rhythm HEART SOUNDS: S1 normal heart sound present and S2 normal heart sound present GI: COMMON NORMALS: Normal to inspection, nondistended, normoactive bowel sounds present, Soft to palpation and non-tender INSPECTION: Yes central obesity PALPATION: Yes Soft to palpation Extremity: COMMON NORMALS: normal to inspection NARRATIVE EXTREMITY EXAM: - brace on LLE Neuro: COMMON NORMALS: patient oriented x3, moves all extremities, no focal motor deficits and no sensory deficits noted Psych: COMMON NORMALS: mental status grossly normal, Normal thought process present, cooperative, normal affect and speech normal SPEECH: Yes normal speech THOUGHT PROCESS: Normal thought process present Skin: COMMON NORMALS: no jaundice, no petechiae and no mottling NARRATIVE SKIN EXAM: -R foot: dusky colored fifth toe, noted well-circumscribed ulcer just below fifth great toe area, edema of 2nd-5th toes, good granulation tissue with some residual bleeding noted, communication between wound on lateral fifth great toe and wound between fourth and fifth toe. Erythema receding; dystrophic toenails Discharge Data Data Completed and Pending: Pending at discharge Category Date Time Status Blood Culture Sta t Lab 02/08/20 16:20 Results Labs from last 24 hours 02/11/20 02/10/20 02/10/20 06:17 20:48 17:06 POC Glucose 129 119 115 02/10/20 10:40 POC Glucose 175 Vitals: Last Vital Signs Temp 98.8 F 02/11/20 07:26 Pulse 73 02/11/20 07:26 Resp 20 H 02/11/20 07:26 BP 105/67 02/11/20 07:26 Pulse Ox 95 02/11/20 07:26 Discharge Plan Discharge Patient Disposition: Home, Self-Care Condition: Stable Prescriptions: New Santyl 250 unit/gram Ointment 1 applic topical DAILY Qty: 30 RF: 0 levofloxacin 750 mg Tablet 750 mg PO DAILY Qty: 10 RF: 0 Continued Steglatro 5 mg tablet 15 mg PO QAM RF: 0 Tradjenta 5 mg tablet 5 mg PO DAILY RF: 0 oxycodone 15 mg tablet 15 mg PO Q4H PRN (Reason: Pain) RF: 0 glyburide 5 mg tablet 10 mg PO BID RF: 0 furosemide [Lasix] 40 mg tablet 40 mg PO DAILY PRN (Reason: Edema) RF: 0 potassium chloride 20 mEq tablet extended release 20 meq PO DAILY PRN (Reason: UNKNOWN) RF: 0 nitroglycerin [Nitrostat] 0.4 mg tablet, sublingual 0.4 mg SUBLINGUAL Q5M PRN (Reason: chest pains) RF: 0 aspirin 325 mg tablet 325 mg PO DAILY RF: 0 levothyroxine 100 mcg tablet 100 mcg PO DAILY RF: 0 Fish Oil 1,000 mg (120 mg-180 mg) Capsule 3 cap PO DAILY RF: 0 losartan 50 mg tablet 50 mg PO DAILY RF: 0 metoprolol tartrate 50 mg tablet 50 mg PO BID RF: 0 Tresiba FlexTouch U-200 200 unit/mL (3 mL) insulin pen 20 unit SUBCUT BID RF: 0 Discontinued sulfamethoxazole-trimethoprim [Bactrim DS] 800-160 mg tablet 2 tab PO DAILY 10 Days Qty: 40 RF: 0 Discharge Orders: Discharge Order (Routine); Ordered 02/11/20 Ordered By: Alaina Bonilla Referrals: Gaetano Lr MD [Physician] - 02/15/20 8:45 am (Follow up for R diabetic foot wound. [facility] AT 8:45) Kaykay Bah DO [Primary Care Provider] - 4-7 days (Post hospital discharge follow up. Treated for right diabetic foot wound status post debridement, on Levaquin with wound care center follow-up.) Discharge Diet: Diabetic Activity Restrictions/Additional Instructions: -Please keep R foot elevated as much as possible due to swelling -Please continue wound care for R foot: clean with saline, dab dry with gauze, apply Santyl ointment and hydrofera blue, then wrap with Kerlix. To be done at least once daily unless notable drainage on dressing -Please avoid walking for extended periods of time to prevent swelling Discharge Attestations Time Spent in Discharge Care*: greater than 30 min Specific Discharge Activities: Specific discharge activities: educating patient, discussing with case worker/social workers/dc planners, documenting/other paperwork and evaluating patient/reviewing data Status at Discharge: Cognitive status at discharge: cognitively intact , Behavioral status at discharge: cooperative , Functional status at discharge: independent ambulation Overall status at discharge: patient is progressing back to baseline Quality Metrics Clinical Quality Measures During this hospital stay, did patient experience: None Coding Level of Care Code Acute Bit Sharpener Operator for Livan Holloway Diagnoses Diabetic infection of right foot E11.628; L08.9 Diabetes E11.69; Z79.4 Diabetes mellitus type: type 2 Diabetes mellitus fdc insulin use: with ocean transportation intermediary use Diabetes mellitus complication status: with other specified complication Charcot's arthropathy M14.60 Peripheral vascular disease I73.9 Peripheral neuropathy G62.9 Peripheral neuropathy type: polyneuropathy, unspecified Chronic kidney disease N18.2 Chronic kidney disease stage: stage 2 (mild) Hypertension I10 Hypertension type: essential hypertension Hypothyroidism E03.9 Hypothyroidism type: unspecified CHF (congestive heart failure) I50.9 Heart failure type: unspecified Heart failure chronicity: chronic Coronary artery disease I25.10 Coronary Disease-Associated Artery/Lesion type: [place] artery [place] vs. transplanted heart: [place] heart Associated angina: without angina Morbid obesity E66.01 BRIDGER (obstructive sleep apnea) G47.33
[2020-02-11 09:21] VITALS: BP 105/67; PULSE 73; RESP 20; TEMP 37.1; O2SAT 95
--- NOTE | 2020-02-11 10:47 | PC.SOCIAL ---
Pg 2 IMM. Explained to pt Pg 2 IMM. Pt verbally understands. No questions voiced. Provided pt a copy & left on pt's bedside table. Signed, dated, & timed a copy & placed in pt's chart.
[2020-02-11 10:58] LABS: Glucose Point of Care 172 mg/dL (70-110)
[2020-02-11 13:17] VITALS: BP 105/67; PULSE 73; RESP 20; TEMP 37.1; O2SAT 95
--- NOTE | 2020-02-11 16:23 | PM.PN ---
Subjective Subjective: Interval history: Patient feeling a lot better, no fevers or chills overnight. Vitals/I&O/Wt Last Vital Signs Temp 98.8 F 02/11/20 13:17 Pulse 73 02/11/20 13:17 Resp 20 H 02/11/20 13:17 BP 105/67 02/11/20 13:17 Pulse Ox 95 02/11/20 13:17 02/11/20 02/11/20 02/11/20 06:59 14:59 22:59 Intake Total 1899 / 1899 Output Total 1999 Balance -100 / -100 Weight last 48 hrs Weight 347 lb 11.2 oz Weight 352 lb Physical Exam Narrative: EXAM NARRATIVE: Right foot: Erythema significantly improved, wound has good granulation tissue, no further treatment required today Data : 02/10/20 04:15 02/10/20 04:15 A&P Assessment and plan (1) Diabetic infection of right foot: No further debridement required Continue with Santyl once daily DC home today with follow-up in wound care Status: Acute Attestations Medical Necessity Statement*: DC home today Coding Level of Care Code Acute Computer Systems Auditor for Livan Holloway Diagnoses Diabetic infection of right foot E11.628; L08.9
== END 2020-02-11 13:20 | disposition home or self-care (01) | DRG 623 ==
LOC: ER 15:46 → MEDSURG 19:08
PROVIDERS: Family Medicine; Admitting Provider Family Medicine; PCP Family Medicine; Visit Provider Family Medicine
DX: E11.621 Type 2 diabetes mellitus with foot ulcer (principal); I13.0 Hypertensive heart and chronic kidney disease with heart failure and stage 1 through stage 4 chronic kidney disease, or unspecified chronic kidney disease; Z68.41 Body mass index [BMI] 40.0-44.9, adult; L03.115 Cellulitis of right lower limb; L97.519 Non-pressure chronic ulcer of other part of right foot with unspecified severity; E11.618 Type 2 diabetes mellitus with other diabetic arthropathy; E11.51 Type 2 diabetes mellitus with diabetic peripheral angiopathy without gangrene; E11.22 Type 2 diabetes mellitus with diabetic chronic kidney disease; N18.2 Chronic kidney disease, stage 2 (mild); N17.9 Acute kidney failure, unspecified; E11.42 Type 2 diabetes mellitus with diabetic polyneuropathy; B95.2 Enterococcus as the cause of diseases classified elsewhere; B96.20 Unspecified Escherichia coli [E. coli] as the cause of diseases classified elsewhere; I25.10 Atherosclerotic heart disease of native coronary artery without angina pectoris; E03.9 Hypothyroidism, unspecified; Z95.1 Presence of aortocoronary bypass graft; Z79.82 Long term (current) use of aspirin; E66.01 Morbid (severe) obesity due to excess calories; G47.33 Obstructive sleep apnea (adult) (pediatric); L97.513 Non-pressure chronic ulcer of other part of right foot with necrosis of muscle; B95.8 Unspecified staphylococcus as the cause of diseases classified elsewhere; Z79.84 Long term (current) use of oral hypoglycemic drugs; K59.09 Other constipation; G89.29 Other chronic pain; M54.9 Dorsalgia, unspecified; M19.90 Unspecified osteoarthritis, unspecified site; I50.9 Heart failure, unspecified
CPT/HCPCS: 10060; 11043; 12345; 36415; 36416; 36591; 73630; 73701; 80048; 80053; 80202; 82962; 83036; 83605; 85025; 85651; 86140; 87040; 87070; 87077; 87176; 87186; 87205; 96360; 96361; 96365; 96366; 96367; 96372; 99283; 99284; G0463; J0696; J1644; J1815; J2543; J3370; J7030; J7040; J7050; Q9967

== ENCOUNTER 2020-02-15 08:48 | Outpatient (CLI) | payer MEDICARE, SELFPAY | END 2020-02-15 08:49 | disposition home or self-care (01) | PROVIDERS: PCP Family Medicine; Visit Provider Surgery | DX: E11.621 Type 2 diabetes mellitus with foot ulcer (principal); L97.412 Non-pressure chronic ulcer of right heel and midfoot with fat layer exposed | CPT/HCPCS: 11043; L4387 ==

== ENCOUNTER 2020-02-22 10:16 | Outpatient (CLI) | payer MEDICARE, SELFPAY | END 2020-02-22 10:17 | disposition home or self-care (01) | LOC: WOUND 10:18 | PROVIDERS: PCP Family Medicine; Visit Provider Surgery | DX: E11.621 Type 2 diabetes mellitus with foot ulcer (principal); L97.412 Non-pressure chronic ulcer of right heel and midfoot with fat layer exposed | CPT/HCPCS: 11043; L3260 ==

== ENCOUNTER 2020-03-07 13:21 | Outpatient (CLI) | payer MEDICARE, SELFPAY | END 2020-03-07 13:22 | disposition home or self-care (01) | LOC: WOUND 13:22 | PROVIDERS: PCP Family Medicine; Visit Provider Surgery | DX: E11.621 Type 2 diabetes mellitus with foot ulcer (principal); L97.412 Non-pressure chronic ulcer of right heel and midfoot with fat layer exposed | CPT/HCPCS: 11043 ==

== ENCOUNTER 2020-03-14 14:09 | Outpatient (CLI) | payer MEDICARE, SELFPAY | END 2020-03-14 14:10 | disposition home or self-care (01) | LOC: WOUND 14:10 | PROVIDERS: PCP Family Medicine; Visit Provider Surgery | DX: E11.621 Type 2 diabetes mellitus with foot ulcer (principal); L97.412 Non-pressure chronic ulcer of right heel and midfoot with fat layer exposed | CPT/HCPCS: 11042; 11719 ==

== ENCOUNTER 2020-03-21 14:57 | Outpatient (CLI) | payer MEDICARE, SELFPAY | END 2020-03-21 14:58 | disposition home or self-care (01) | LOC: WOUND 15:13 | PROVIDERS: PCP Family Medicine; Visit Provider Surgery | DX: E11.621 Type 2 diabetes mellitus with foot ulcer (principal); L97.412 Non-pressure chronic ulcer of right heel and midfoot with fat layer exposed | CPT/HCPCS: 11042 ==

== ENCOUNTER 2020-03-28 09:56 | Outpatient (CLI) | payer MEDICARE, SELFPAY | END 2020-03-28 09:57 | disposition home or self-care (01) | LOC: WOUND 10:03 | PROVIDERS: PCP Family Medicine; Visit Provider Surgery | DX: E11.621 Type 2 diabetes mellitus with foot ulcer (principal); L97.412 Non-pressure chronic ulcer of right heel and midfoot with fat layer exposed | CPT/HCPCS: 11042 ==

== ENCOUNTER 2020-04-04 09:27 | Outpatient (CLI) | payer MEDICARE, SELFPAY | END 2020-04-04 09:28 | disposition home or self-care (01) | LOC: WOUND 09:28 | PROVIDERS: PCP Family Medicine; Visit Provider Thoracic Surgery (Cardiothoracic Vascular Surgery) | DX: E11.621 Type 2 diabetes mellitus with foot ulcer (principal); L97.412 Non-pressure chronic ulcer of right heel and midfoot with fat layer exposed | CPT/HCPCS: 11042 ==

== ENCOUNTER 2020-04-11 09:27 | Outpatient (CLI) | payer MEDICARE, SELFPAY | END 2020-04-11 09:28 | disposition home or self-care (01) | LOC: WOUND 09:27 | PROVIDERS: PCP Family Medicine; Visit Provider Surgery | DX: E11.621 Type 2 diabetes mellitus with foot ulcer (principal); L97.412 Non-pressure chronic ulcer of right heel and midfoot with fat layer exposed | CPT/HCPCS: 11042 ==

== ENCOUNTER 2020-04-18 09:52 | Outpatient (CLI) | payer MEDICARE, SELFPAY | END 2020-04-18 09:53 | disposition home or self-care (01) | LOC: WOUND 09:53 | PROVIDERS: PCP Family Medicine; Visit Provider Surgery | DX: E11.621 Type 2 diabetes mellitus with foot ulcer (principal); L97.412 Non-pressure chronic ulcer of right heel and midfoot with fat layer exposed | CPT/HCPCS: 97597 ==

== ENCOUNTER 2020-04-22 10:08 | Outpatient (CLI) | payer MEDICARE, SELFPAY ==
--- NOTE | 2020-04-22 10:14 | USCV_ITS ---
Kulwant Leavitt Age: 59 Gender: M : 1960 Exam Date: 04/22/2020 10:37 Ordering Phys: Gaetano Lr MD Technologist: Gabriela Webb Exam Location: [facility] [place] Indication: HISTORY: Left GSV ablation 08/25/2016 Right foot non healing ulcer, pain, redness patient is diabetic PROCEDURES: Bilateral duplex Venous Insufficiency study of the Deep and Superficial systems was carried out according to normal protocol with the patient in supine positon for deep system and dependent position for the superficial system. FINDINGS: Right leg- No DVT or superficial thrombus seen. No reflux noted. Vessel diameters noted above Left leg - Prior left GSV ablation done 08/25/2019. No DVT or superficial thrombus seen in LLE. CONCLUSIONS 1. No evidence of DVT in the above-mentioned identifiable veins. 2. Significant venous reflux of greater than 500 ms was noted at the below-knee segment of the greater saphenous vein on the right side. The venous segment was 0.37 cm in diameter at a depth of 0.95 cm. 3. The left greater saphenous vein was found to be ablated with the patent saphenofemoral junction. The inferior epigastric vein was not visualized. No similar previous studies are available for comparison Dr Humaira Woods MD [facility] (Electronically Signed) Final Date: 23 April 2020 18:12 S
== END 2020-04-22 10:09 | disposition home or self-care (01) ==
LOC: US 10:09
PROVIDERS: PCP Family Medicine; Visit Provider Surgery
DX: M79.604 Pain in right leg (principal); M79.605 Pain in left leg; L53.9 Erythematous condition, unspecified; E11.621 Type 2 diabetes mellitus with foot ulcer
CPT/HCPCS: 93970

== ENCOUNTER 2020-04-24 09:57 | Outpatient (CLI) | payer MEDICARE, SELFPAY ==
--- NOTE | 2020-04-24 10:02 | USCV_ITS ---
Dagmar Kulwant Age: 59 Gender: M : 1960 Exam Date: 04/24/2020 09:57 Ordering Phys: Gaetano Lr MD Technologist: Natalia Esqueda Exam Location: [facility] [place] Indication: PAIN REDNESS NONHEALING ULCER RIGHT LEFT Brachial 129.00 mmHg Brachial 120.00 mmHg Pressure (mmHg) Waveform Pressure (mmHg) Waveform 135.00 Above Knee 163.00 124.00 Below Knee 110.00 136.00 CONTACT PERSON 121.00 134.00 DPA 120.00 1.05 Ankle/Brachial Index 0.93 117.00 Pre-Exercise Toe Pressure 113.00 Pre-Exercise Toe/Brachial Index 0.88 0.91 FINDINGS Normal resting ABIs bilaterally Normal segmental pressures Normal resting TBI's bilaterally The PVR waveforms are of suboptimal quality. Minimal blunting of the dicrotic notch was noted CONCLUSIONS No significant arterial obstruction, based on the above findings Dr Humaira Woods MD [facility] (Electronically Signed) Final Date: 24 April 2020 20:19 S
== END 2020-04-24 09:58 | disposition home or self-care (01) ==
LOC: US 09:59
PROVIDERS: PCP Family Medicine; Visit Provider Surgery
DX: M79.604 Pain in right leg (principal); M79.605 Pain in left leg; L53.9 Erythematous condition, unspecified; L97.829 Non-pressure chronic ulcer of other part of left lower leg with unspecified severity; L97.819 Non-pressure chronic ulcer of other part of right lower leg with unspecified severity
CPT/HCPCS: 93923

== ENCOUNTER 2020-04-25 09:24 | Outpatient (CLI) | payer MEDICARE, SELFPAY | END 2020-04-25 09:25 | disposition home or self-care (01) | LOC: WOUND 09:27 | PROVIDERS: PCP Family Medicine; Visit Provider Surgery | DX: E11.621 Type 2 diabetes mellitus with foot ulcer (principal); L97.412 Non-pressure chronic ulcer of right heel and midfoot with fat layer exposed | CPT/HCPCS: 11042 ==

== ENCOUNTER 2020-05-02 09:29 | Outpatient (CLI) | payer MEDICARE, SELFPAY | END 2020-05-02 09:30 | disposition home or self-care (01) | LOC: WOUND 09:30 | PROVIDERS: PCP Family Medicine; Visit Provider Surgery | DX: E11.621 Type 2 diabetes mellitus with foot ulcer (principal); L97.412 Non-pressure chronic ulcer of right heel and midfoot with fat layer exposed | CPT/HCPCS: 11042; A6545 ==

== ENCOUNTER 2020-05-16 09:02 | Outpatient (CLI) | payer MEDICARE, SELFPAY | END 2020-05-16 09:03 | disposition home or self-care (01) | LOC: WOUND 09:04 | PROVIDERS: PCP Family Medicine; Visit Provider Nurse Practitioner Family | DX: E11.621 Type 2 diabetes mellitus with foot ulcer (principal); L97.412 Non-pressure chronic ulcer of right heel and midfoot with fat layer exposed | CPT/HCPCS: 11042 ==

== ENCOUNTER 2020-05-23 09:52 | Outpatient (CLI) | payer MEDICARE, SELFPAY | END 2020-05-23 09:53 | disposition home or self-care (01) | LOC: WOUND 09:53 | PROVIDERS: PCP Family Medicine; Visit Provider Surgery | DX: E11.621 Type 2 diabetes mellitus with foot ulcer (principal); L97.412 Non-pressure chronic ulcer of right heel and midfoot with fat layer exposed | CPT/HCPCS: 11042 ==

== ENCOUNTER 2020-05-30 10:55 | Outpatient (CLI) | payer MEDICARE, SELFPAY | END 2020-05-30 10:56 | disposition home or self-care (01) | LOC: WOUND 10:56 | PROVIDERS: PCP Family Medicine; Visit Provider Surgery | DX: Z09 Encounter for follow-up examination after completed treatment for conditions other than malignant neoplasm (principal) | CPT/HCPCS: 99212 ==

== ENCOUNTER → 2021-06-02 14:55 | Outpatient (BNVA) | payer MEDICARE, SELFPAY | PROVIDERS: PCP Family Medicine; Visit Provider Podiatrist Foot & Ankle Surgery | DX: E11.628 Type 2 diabetes mellitus with other skin complications (principal); L08.9 Local infection of the skin and subcutaneous tissue, unspecified | CPT/HCPCS: 73630; 97760; L4361 ==

== ENCOUNTER 2021-06-02 15:21 | Outpatient (CLI) | payer MEDICARE, SELFPAY | END 2021-06-02 15:22 | disposition home or self-care (01) | LOC: SPT 15:22 | PROVIDERS: PCP Family Medicine; Visit Provider Podiatrist Foot & Ankle Surgery | DX: E11.628 Type 2 diabetes mellitus with other skin complications (principal); L08.9 Local infection of the skin and subcutaneous tissue, unspecified | CPT/HCPCS: 97760; L4361 ==

== ENCOUNTER 2021-06-08 13:09 | Outpatient (CLI) | payer MEDICARE, SELFPAY | END 2021-06-08 13:10 | disposition home or self-care (01) | LOC: WOUND 13:12 | PROVIDERS: PCP Family Medicine; Visit Provider Emergency Medicine | DX: E11.621 Type 2 diabetes mellitus with foot ulcer (principal); L97.522 Non-pressure chronic ulcer of other part of left foot with fat layer exposed | CPT/HCPCS: 11042; 87070; 87176; 87205; 99203 ==

== ENCOUNTER 2021-06-15 14:07 | Outpatient (CLI) | payer MEDICARE, SELFPAY | END 2021-06-15 14:08 | disposition home or self-care (01) | LOC: WOUND 14:08 | PROVIDERS: PCP Family Medicine; Visit Provider Emergency Medicine | DX: E11.621 Type 2 diabetes mellitus with foot ulcer (principal); L97.529 Non-pressure chronic ulcer of other part of left foot with unspecified severity | CPT/HCPCS: G0463 ==

== ENCOUNTER 2021-06-22 10:45 | Outpatient (CLI) | payer MEDICARE, SELFPAY | END 2021-06-22 10:46 | disposition home or self-care (01) | LOC: WOUND 10:46 | PROVIDERS: PCP Family Medicine; Visit Provider Nurse Practitioner Family | DX: Z09 Encounter for follow-up examination after completed treatment for conditions other than malignant neoplasm (principal) | CPT/HCPCS: 99212 ==

== ENCOUNTER 2021-07-06 10:57 | Outpatient (CLI) | payer MEDICARE, SELFPAY | END 2021-07-06 10:58 | disposition home or self-care (01) | LOC: WOUND 10:59 | PROVIDERS: PCP Family Medicine; Visit Provider Nurse Practitioner Family | DX: E11.621 Type 2 diabetes mellitus with foot ulcer (principal); L97.522 Non-pressure chronic ulcer of other part of left foot with fat layer exposed | CPT/HCPCS: 11042 ==

== ENCOUNTER 2021-07-13 10:34 | Outpatient (CLI) | payer MEDICARE, SELFPAY | END 2021-07-13 10:35 | disposition home or self-care (01) | LOC: WOUND 10:35 | PROVIDERS: PCP Family Medicine; Visit Provider Emergency Medicine | DX: E11.621 Type 2 diabetes mellitus with foot ulcer (principal); L97.522 Non-pressure chronic ulcer of other part of left foot with fat layer exposed; I10 Essential (primary) hypertension | CPT/HCPCS: 11042 ==

== ENCOUNTER 2021-07-20 10:50 | Outpatient (CLI) | payer MEDICARE, SELFPAY | END 2021-07-20 10:51 | disposition home or self-care (01) | LOC: WOUND 10:55 | PROVIDERS: PCP Family Medicine; Visit Provider Emergency Medicine | DX: E11.621 Type 2 diabetes mellitus with foot ulcer (principal); L97.522 Non-pressure chronic ulcer of other part of left foot with fat layer exposed; I10 Essential (primary) hypertension | CPT/HCPCS: 11042 ==

== ENCOUNTER 2021-07-22 07:52 | Outpatient (CLI) | payer MEDICARE, SELFPAY ==
--- NOTE | 2021-07-22 07:59 | NM_ITS ---
WS: [id number] THREE-PHASE BONE SCAN HISTORY: DM/TYPE 2 W/ULCER COMPARISON: 04/20/2016 prior 3 phase bone scan, LEFT foot radiograph 06/02/2021 and RIGHT RIBS 07/22/20 21. Patient is is injected with 26.8 mCi Tc99m HDP intravenously. Immediate angiographic phase imaging is performed over the area of concern. Static blood pool imaging also performed. Two-hour whole-body sc intigrams performed in anterior and posterior projections. Additional large field of view imaging sub mitted as necessary. 3 phase bone scan imaging is performed over the feet. There is three-phase uptake involving the soft tissues and osseous structures of the LEFT first toe. Area of abnormal uptake involves the distal pha lanx of the first toe. There is additional marked increased uptake noted in the distal talus and over the midfoot. Uptake in the distal talus and midfoot are on the delayed images only. The degenerative changes were noted on the recent radiograph. There is an arthrodesis at the ankle with advanced dege nerative changes at the tibiotalar joint and the midfoot. There is focal area of increased uptake involving the RIGHT posterior medial fifth rib. Radiographs w ere performed which showed no abnormality. NM/NM bone 3 phase [id number] IMPRESSION: 1. Osteomyelitis involving the distal phalanx first toe LEFT foot. 2. Advanced degenerative changes at the tibiotalar joint and in the midfoot as seen on prior radiographs. 3. Focal area of increased uptake involving the posterior RIGHT fifth rib of u ncertain etiology. May be a healing fracture. With no history of malignancy thi s is not likely metastatic.
--- NOTE | 2021-07-22 10:48 | XR_ITS ---
WS: [id number] RIGHT RIBS, MULTIPLE VIEWS HISTORY: BONE SCAN COMPARISON COMPARISON: Three-phase bone scan 07/22/2021 Ribs: No destructive lesion involving the posterior RIGHT fifth rib. There may be slight bony expansi on but is very similar to the adjacent ribs. The cortex is still intact. Lungs and mediastinum: The adjacent RIGHT lung is clear. Prior median sternotomy. XR/XR ribs RT 2V* [id number] IMPRESSION: No significant rib abnormality is identified.
== END 2021-07-22 07:53 | disposition home or self-care (01) ==
PROVIDERS: PCP Family Medicine; Visit Provider Emergency Medicine
DX: E11.621 Type 2 diabetes mellitus with foot ulcer (principal)
CPT/HCPCS: 71100; 78315; A9561

== ENCOUNTER 2021-07-27 13:10 | Outpatient (CLI) | payer MEDICARE, SELFPAY | END 2021-07-27 13:11 | disposition home or self-care (01) | LOC: WOUND 13:13 | PROVIDERS: PCP Family Medicine; Visit Provider Emergency Medicine | DX: E11.621 Type 2 diabetes mellitus with foot ulcer (principal); L97.522 Non-pressure chronic ulcer of other part of left foot with fat layer exposed | CPT/HCPCS: 11042; 99212 ==

== ENCOUNTER 2021-08-10 11:11 | Outpatient (CLI) | payer MEDICARE, SELFPAY | END 2021-08-10 11:12 | disposition home or self-care (01) | LOC: WOUND 11:12 | PROVIDERS: PCP Family Medicine; Visit Provider Emergency Medicine | DX: Z09 Encounter for follow-up examination after completed treatment for conditions other than malignant neoplasm (principal) | CPT/HCPCS: 99212 ==

== ENCOUNTER → 2022-01-26 09:51 | Outpatient (BNVA) | payer MEDICARE, SELFPAY | PROVIDERS: PCP Family Medicine; Visit Provider Nurse Practitioner Family | DX: I96 Gangrene, not elsewhere classified (principal); E11.621 Type 2 diabetes mellitus with foot ulcer; L97.522 Non-pressure chronic ulcer of other part of left foot with fat layer exposed | CPT/HCPCS: 11042; A6250 ==

== ENCOUNTER → 2022-02-02 10:22 | Outpatient (BNVA) | payer MEDICARE, SELFPAY | PROVIDERS: PCP Family Medicine; Visit Provider Nurse Practitioner Family | DX: I96 Gangrene, not elsewhere classified (principal); E11.621 Type 2 diabetes mellitus with foot ulcer; L97.522 Non-pressure chronic ulcer of other part of left foot with fat layer exposed; L97.521 Non-pressure chronic ulcer of other part of left foot limited to breakdown of skin | CPT/HCPCS: 11042 ==

== ENCOUNTER → 2022-02-09 10:19 | Outpatient (BNVA) | payer MEDICARE, SELFPAY | PROVIDERS: PCP Family Medicine; Visit Provider Nurse Practitioner Family | DX: I96 Gangrene, not elsewhere classified (principal); L97.522 Non-pressure chronic ulcer of other part of left foot with fat layer exposed; E11.621 Type 2 diabetes mellitus with foot ulcer; Z09 Encounter for follow-up examination after completed treatment for conditions other than malignant neoplasm | CPT/HCPCS: 11042; A6197 ==

== ENCOUNTER → 2022-02-23 10:11 | Outpatient (BNVA) | payer MEDICARE, SELFPAY | PROVIDERS: PCP Family Medicine; Visit Provider Nurse Practitioner Family | DX: E11.621 Type 2 diabetes mellitus with foot ulcer (principal); L97.522 Non-pressure chronic ulcer of other part of left foot with fat layer exposed; I96 Gangrene, not elsewhere classified | CPT/HCPCS: 99213 ==

== ENCOUNTER → 2022-03-02 08:57 | Outpatient (BNVA) | payer MEDICARE, SELFPAY | PROVIDERS: PCP Family Medicine; Visit Provider Emergency Medicine | DX: E11.621 Type 2 diabetes mellitus with foot ulcer (principal); L97.421 Non-pressure chronic ulcer of left heel and midfoot limited to breakdown of skin; I96 Gangrene, not elsewhere classified | CPT/HCPCS: 99214 ==

== ENCOUNTER 2022-03-02 09:54 | Inpatient (IN) | payer MEDICARE, SELFPAY ==
[2022-03-02] VITALS (11 sets, daily range): BP systolic 117–151; BP diastolic 62–105; PULSE 78–137; RESP 18–20; TEMP 36–36.8; O2SAT 94–98; BMI 41.1; BMI 41.5
--- NOTE | 2022-03-02 11:00 | XRR_ITS ---
PROCEDURE INFORMATION: Exam: XR Left Foot Exam date and time: 03/02/2022 11:48 AM Age: 61 years old Clinical indication: Condition or disease; Other: Foot wounds; Prior surgery; Surgery type: Lt foot fusion; Patient HX: -lt foot ulcer. Oozing, swollen and getting worse; Additional info: Worsening foot wounds TECHNIQUE: Imaging protocol: Radiologic exam of the Left foot. Views: 3 or more views. COMPARISON: CR XR foot LT min 3V* [id number] 06/02/2021 3:01 PM FINDINGS: Bones/joints: Stable fixation involving the hindfoot with a pseudoarthrosis sent partial possible ankylosis involving the tibiotalar joint. Extensive dorsal spurring involving the hind and midfoot. No acute fracture. Soft tissues: No evidence of soft tissue air or gas. XR/XR foot LT min 3V* [id number] IMPRESSION: Stable left foot hind and midfoot deformities and arthritic changes without evidence of definite lytic or sclerotic lesion or soft tissue air/gas. If osteomyelitis or cellulitis is suspected consider nonemergent MRI.
--- NOTE | 2022-03-02 11:32 | W.ED.WOUNDLC ---
HPI - Wound/Laceration General: Chief Complaint: Wound/Laceration Stated Complaint: Wound on left foot Time Seen by Provider: 03/02/22 11:27 Source: patient Mode of arrival: ambulatory Limitations: no limitations History of Present Illness: 59-year-old male presents emergency room with complaint of left heel wound. He has had this for some time he has been on Cipro for about a month now has been being seen by wound clinic. He was seen there today and forwarded here they feel it is gotten worse it is extremely foul-smelling necrotic at its center. Dr. Clifford at scene was concerned that he may need to be admitted for osteomyelitis or consultation with podiatry or Ortho for possible amputation. Onset (ago): week(s) Extremity Location: Left: foot Patient tetanus UTD: Yes Associated symptoms: Reports chills and fever(s); Denies foreign body sensation, inability to move, nausea, numbness, pain, syncope or vomiting Review of Systems Const: Reports: fever(s), chills, fatigue and malaise ENMT: Denies: throat pain, ear or mastoid pain, nasal discharge or nasal congestion Card: Denies: chest pain, palpitations, irregular heart rhythm or syncope Resp: Denies: dyspnea, productive cough or non-productive cough GI: Denies: abdominal pain, nausea or vomiting : Denies: flank pain, difficulty urinating, dysuria, urinary frequency or urinary urgency Skin/Breast: Denies: rash or pruritus [facility] PFSH: Medical History (Updated 03/04/22 @ 15:14 by Vinnie Chatman DO) Arthritis Charcot's arthropathy -Has had extensive surgical intervention for the left lower extremity secondary to Charcot arthropathy, wears brace for ambulation and wedge shoe for offloading CHF (congestive heart failure) -unknown type, severity as no baseline Echo -hold Lasix due to renal impairment, can resume PRN use on d/c Chronic back pain Chronic constipation Chronic kidney disease -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 -has mild superimposed MAGDA, now resolved -baseline Cr around 1.0 -IVF hydration, with caution to avoid fluid overload; d/c as renal function has normalized -continue to monitor renal function particularly with dual use of Vanc, Zosyn; renally dose meds, avoid nephrotoxins Coronary artery disease -hx of CAD s/p CABG x 4 about 20 yrs ago -on ASA -NTG PRN Diabetes -has IDDM type II, A1c-10.1 -Accu-Cheks, ISS, scheduled insulin, hypoglycemia precautions -Consistent carb diet as tolerated Hypertension -VSS, continue to monitor vital signs -continue BB, resume ARB Hypothyroidism -continue levothyroxine Morbid obesity -BMI-45 kg/m2 BRIDGER (obstructive sleep apnea) -on CPAP qhs Peripheral neuropathy -secondary to DM type II Peripheral vascular disease Surgical History History of ankle fusion History of back surgery History of colonoscopy (~01/2019) History of coronary artery bypass graft -Four-vessel Hx of cholecystectomy Family History Other CAD (coronary artery disease) Cancer Diabetes Hypertension Denies family history of Anesthesia complication Bleeding disorder Social History Smoking and tobacco status: never smoked Second hand smoke exposure: No Alcohol intake: never Adopted: No Caregiver/support person: Yes Lives independently: Yes Household members: spouse Housing: House Marital status: service: No Current occupational status: disabled Current occupational exposures/hazards: No Pets and animals: No History of recent travel: No Sexually active: No Current gender identity: Male Padmini/Restorationist: Muslim Physical Exam Const: GENERAL APPEARANCE: cooperative and comfortable ORIENTATION/CONSCIOUSNESS: Yes awake, Yes oriented to person, Yes oriented to place and Yes oriented to time HENMT: COMMON NORMALS: normocephalic and atraumatic HEAD & SCALP: normocephalic and atraumatic Neck/C-Spine: COMMON NORMALS: no JVD Resp: COMMON NORMALS: normal respiratory effort, No retractions, No use of accessory muscles and clear to auscultation bilaterally AUSCULTATION: clear to auscultation bilaterally Cardio: COMMON NORMALS: no JVD, regular rate, regular rhythm and No murmurs present (Cardio) RATE: regular rate RHYTHM: regular rhythm GI: COMMON NORMALS: Soft to palpation and No hepatosplenomegaly present AUSCULTATION: Yes normoactive bowel sounds PALPATION: Yes Soft to palpation, No Tenderness to palpation present (GI), No Guarding due to palpation present (GI) and Yes No hepatosplenomegaly present Extremity: OTHER: Gangrenous necrotic wound base of the left heel no active drainage very foul-smelling Neuro: SENSORIUM/ORIENTATION: Yes oriented to person, Yes oriented to place and Yes oriented to time Skin: COMMON NORMALS: no rashes or lesions noted GENERAL SKIN EXAM: no rashes or lesions noted Course Vital Signs: Vital signs: Vital Signs Temperature 97.6 F 03/04/22 04:00 Pulse Rate 78 03/04/22 11:39 Respiratory Rate 18 03/04/22 11:39 Blood Pressure 145/88 03/04/22 11:39 Pulse Oximetry 94 03/04/22 11:39 MDM - Wound/Laceration Medical Decision Making Discussed with hospitalist and podiatry orders written admit for IV antibiotics possible debridement Medical Records I reviewed the patient's medical records. Lab Data I reviewed the patient's lab results. : 03/04/22 05:47 03/04/22 05:47 Radiology Impressions Foot X-Ray 03/02/22 11:00 IMPRESSION: Stable left foot hind and midfoot deformities and arthritic changes without evidence of definite lytic or sclerotic lesion or soft tissue air/gas. If osteomyelitis or cellulitis is suspected consider nonemergent MRI. Foot CT 03/02/22 11:33 IMPRESSION: 1. Ulceration overlying the dorsal calcaneus with underlying fixation screw. Erosive changes involving the underlying calcaneus and dorsal calcaneal spur with associated air suspicious for osteomyelitis in this location. Recommend correlation with area of concern. 2. No other areas of suspected osteomyelitis 3. Diffuse soft tissue edema lower leg and ankle with subcutaneous fluid compatible with cellulitis. No drainable fluid collection or abscess. 4. 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 Duplex Scan Lower Extremity Artery 03/02/22 16:28 IMPRESSION: No stenosis or occlusion. Venous Duplex 03/02/22 16:28 IMPRESSION: No evidence of deep vein thrombosis. Calcaneus X-Ray 03/03/22 15:25 Impression: 1. No change in orthopedic and bony fusion of the ankle and the talocalcaneal articulation. 2. Postoperative bandage overlying the heel. Laboratory Results WBC 10.8 10^3/uL (4.0-10.0) H 03/02/22 11:50 RBC 4.28 10^6/uL (4.1-5.3) 03/02/22 11:50 Hgb 12.4 g/dL (11.7-16.6) 03/02/22 11:50 Hct 38.4 % (42.0-52.0) L 03/02/22 11:50 MCV 89.7 fl (80-94) 03/02/22 11:50 MCH 29.0 pg (28.0-34.0) 03/02/22 11:50 MCHC 32.3 g/dL (30.0-36.0) 03/02/22 11:50 RDW 13.9 % (12.1-15.1) 03/02/22 11:50 Plt Count 219 10^3/cmm (130-400) 03/02/22 11:50 MPV 11.6 fL (7.4-10.4) H 03/02/22 11:50 Neut % (Auto) 74.1 % 03/02/22 11:50 Lymph % (Auto) 13.1 % 03/02/22 11:50 Saline % (Auto) 10.1 % 03/02/22 11:50 Eos % (Auto) 1.7 % 03/02/22 11:50 Baso % (Auto) 0.4 % 03/02/22 11:50 Neut # (Auto) 8.05 10^3/uL (1.8-7.7) H 03/02/22 11:50 Lymph # (Auto) 1.4 10^3/uL (0.8-4.8) 03/02/22 11:50 Saline # (Auto) 1.1 10^3/uL (0.2-0.9) H 03/02/22 11:50 Eos # (Auto) 0.2 10^3/uL (0.0-0.8) 03/02/22 11:50 Baso # (Auto) 0.0 10^3/uL (0.0-0.1) 03/02/22 11:50 Nucleated RBC % (auto) 0 % 03/02/22 11:50 Nucleated RBCs # 0.0 /100WBC 03/02/22 11:50 ESR 41 mm/hr (0-10) H 03/02/22 11:50 Sodium 135 mmol/L (136-145) L 03/02/22 11:50 Potassium 4.5 mmol/L (3.5-5.1) 03/02/22 11:50 Chloride 100 mmol/L (98-107) 03/02/22 11:50 Carbon Dioxide 23 mmol/L (22-29) 03/02/22 11:50 Anion Gap 16.5 (5-19) 03/02/22 11:50 BUN 29 mg/dL (8-23) H 03/02/22 11:50 Creatinine 1.0 mg/dL (0.7-1.2) 03/02/22 11:50 GFR Calculation 75.7 mL/min (90-130) L 03/02/22 11:50 Glucose 153 mg/dL (65-115) H 03/02/22 11:50 Estimat Average Glucose 189 03/02/22 11:50 Hemoglobin A1c 8.2 % (4.0-6.0) H 03/02/22 11:50 Calculated Osmolality 289 mOsm/kg (285-295) 03/02/22 11:50 Lactic Acid 0.8 mmol/L (0.5-2.2) 03/02/22 14:10 Calcium 9.1 mg/dL (8.5-10.5) 03/02/22 11:50 Total Bilirubin 0.3 mg/dL (0.15-1.2) 03/02/22 11:50 AST 24 U/L (0-40) 03/02/22 11:50 ALT 29 U/L (0-41) 03/02/22 11:50 Alkaline Phosphatase 110 IU/L (40-130) 03/02/22 11:50 C-Reactive Protein 81.7 mg/L (0.0-4.9) H 03/02/22 11:50 NT-Pro-B Natriuret Pep 2066 pg/mL (0-125) H 03/02/22 11:50 Total Protein 7.1 g/dL (6.6-8.7) 03/02/22 11:50 Albumin 3.2 g/dL (3.5-5.2) L 03/02/22 11:50 Globulin 3.9 g/dL (1.3-4.6) 03/02/22 11:50 Triglycerides 100 mg/dL (0-150) 03/02/22 11:50 Cholesterol 178 mg/dL (0-200) 03/02/22 11:50 LDL Cholesterol, Calc 126 mg/dL (50-129) 03/02/22 11:50 HDL Cholesterol 32 mg/dL (60-100) L 03/02/22 11:50 LDL/HDL Ratio 3.94 RATIO (0.00-3.22) H 03/02/22 11:50 Cholesterol/HDL Ratio 5.56 mg/dL (1.0-5.00) H 03/02/22 11:50 TSH 5.07 uIU/mL (0.27-4.20) H 03/02/22 11:50 Misc Test Reference Cancelled 03/02/22 11:50 Discharge Plan Discharge Patient Disposition: Admitted As Inpatient Admit Provider: Arturo Vera Clinical Impression: Diabetic infection of right foot, Cellulitis, Diabetic peripheral neuropathy associated with type 2 diabetes mellitus, Foot osteomyelitis, left, Diabetic ulcer of left foot, Non-pressure chronic ulcer of left heel and midfoot with necrosis of bone, Exposed orthopaedic hardware Condition: Stable Coding Level of Care Code ED Hematologist for Chg Fwd Exam Detailed
--- NOTE | 2022-03-02 11:33 | CT_ITS ---
WS: [id number] CONTRAST-ENHANCED CT LEFT FOOT TECHNIQUE: Contrast-enhanced CT LEFT foot with coronal and sagittal reformatted images. CLINICAL INFORMATION: ulcer - nonhealing wound COMPARISON: March 02, 2022 DLP: 199.[address] scans at [facility] use at least one of these dose optimization techniques: automated e xposure control; mA and/or kV adjustment per patient size (includes targeted exams where dose is matc hed to clinical indication); or iterative reconstruction. FINDINGS:Ulceration overlying the dorsal calcaneus with underlying fixation screw. Erosive changes in volving the underlying calcaneus and dorsal calcaneal spur with associated air suspicious for osteomy elitis in this location. Osteopenia. Prior postoperative changes intramedullary phillip and screw fixation across the tibiotalar j oint with chronic ankylosis and deformity with fusion. Plantar and Achilles calcaneal spurring. Diffu se soft tissue edema involving the lower leg and foot. No evidence of hardware loosening. Degenerativ e narrowing involving the IP joints. Advanced degenerative arthritis involving the talonavicular join t and tarsal bones with hypertrophic changes. Diffuse soft tissue edema. No drainable fluid collectio n or abscess. CT/CT foot LT w con [id number] IMPRESSION: 1. Ulceration overlying the dorsal calcaneus with underlying fixation screw. E rosive changes involving the underlying calcaneus and dorsal calcaneal spur wit h associated air suspicious for osteomyelitis in this location. Recommend corre lation with area of concern. 2. No other areas of suspected osteomyelitis 3. Diffuse soft tissue edema lower leg and ankle with subcutaneous fluid tanner tible with cellulitis. No drainable fluid collection or abscess. 4. 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
[2022-03-02 12:00] LABS: Eosinophils # 0.2 10^3/uL (0.0-0.8); Lymphocytes # 1.4 10^3/uL (0.8-4.8); Monocytes # 1.1 10^3/uL (0.2-0.9); Neutrophils % 74.1 %; Nucleated Red Blood Cells % 0 %; White Blood Count 10.8 10^3/uL (4.0-10.0)
[2022-03-02] MEDS: iohexol 350 mg/mL 100 mL Btl IV (12:02)
[2022-03-02 12:21] LABS: Alanine Aminotransferase 29 U/L (0-41); Albumin Level 3.2 g/dL (3.5-5.2); Alkaline Phosphatase 110 IU/L (40-130); Anion Gap 16.5 (5-19); Aspartate Amino Transferase 24 U/L (0-40); Blood Urea Nitrogen 29 mg/dL (8-23); C Reactive Protein 81.7 mg/L (0.0-4.9); Calcium 9.1 mg/dL (8.5-10.5); Carbon Dioxide 23 mmol/L (22-29); Chloride 100 mmol/L (98-107); Globulin 3.9 g/dL (1.3-4.6); Glomerular Filtration Rate 75.7 mL/min (90-130); Glucose 153 mg/dL (65-115); Osmolality Calculated 289 mOsm/kg (285-295); Potassium 4.5 mmol/L (3.5-5.1); Sodium 135 mmol/L (136-145); Total Bilirubin 0.3 mg/dL (0.15-1.2); Total Protein 7.1 g/dL (6.6-8.7)
[2022-03-02] MEDS: vancomycin 1,000 MG in sodium chloride 0.9% 250 ML 250 MG IV (13:07)
--- NOTE | 2022-03-02 14:09 | P.HP_ITS ---
Providers/Chief Complaint Primary Care Provider: Kaykay Bah DO Chief Complaint: Wound on left foot History of Present Illness Kulwant Leavitt is a 61 year old male with a past medical history of insulin- dependent type 2 diabetes mellitus, CKD, CAD status post CABG x4, history of Charcot's arthropathy status post fusion, hypothyroidism, CHF, morbid obesity, left heel ulcer managed by wound care who presents to [facility] due to significant worsening of left heel ulcer, increased drainage, foul-smelling, with black in appearance, with edema and swelling extending up to the ankle. He tells me he had COVID a few weeks ago he is got over the COVID, no fevers, chills, nausea, no vomiting, no chest pain. His blood sugars have been running high he is taking Tresiba 44 units twice daily, does not use sliding scale Review of Systems Const: Denies: fever(s), chills, fatigue or malaise Eyes: Denies: change in vision ENMT: Denies: nasal congestion Resp: Denies: dyspnea, productive cough, non-productive cough or wheezing GI: Denies: abdominal pain, nausea, vomiting, hematemesis or diarrhea : Denies: dysuria Musc: Denies: neck pain or back pain Skin/Breast: Denies: rash Neuro: Denies: dizziness Endo: Denies: polyuria or polydipsia Medications/Allergies Home Medications Medication Instructions Recorded Confirmed Last Taken Type aspirin 325 mg tablet 325 mg PO BEDTIME 02/07/20 03/02/22 03/01/22 History furosemide 40 mg tablet (Lasix) 40 mg PO DAILY PRN 02/07/20 03/02/22 Unknown History insulin degludec 200 unit/mL (3 44 unit SUBCUT BID 02/07/20 03/02/22 03/01/22 History mL) subcutaneous pen (Tresiba FlexTouch U-200 insulin) linagliptin 5 mg tablet (Tradjenta) 5 mg PO QAM 02/07/20 03/02/22 03/01/22 History losartan 50 mg tablet 50 mg PO QAM 02/07/20 03/02/22 03/01/22 History metoprolol tartrate 50 mg tablet 50 mg PO BID 02/07/20 03/02/22 03/01/22 History nitroglycerin 0.4 mg sublingual 0.4 mg SUBLINGUAL Q5M PRN 02/07/20 03/02/22 Unknown History tablet (Nitrostat) omega 2-slo-qyn-fish oil 1,000 mg 2 cap PO DAILY 02/08/20 03/02/22 03/01/22 History (120 mg-180 mg) capsule (Fish Oil) cam boot #1 ea 06/02/21 03/02/22 Unknown Rx ciprofloxacin HCl 500 mg tablet 500 mg PO BID #42 tab 02/23/22 03/02/22 03/01/22 Rx atorvastatin 20 mg tablet 20 mg PO QAM 03/02/22 03/02/22 03/01/22 History cholecalciferol (vitamin D3) 125 10,000 unit PO DAILY 03/02/22 03/02/22 03/01/22 History mcg (5,000 unit) tablet (Vitamin D3) dapagliflozin 10 mg tablet 10 mg PO QAM 03/02/22 03/02/22 03/01/22 History (Farxiga) levothyroxine 125 mcg tablet 125 mcg PO QAM 03/02/22 03/02/22 03/01/22 History testosterone cypionate 200 mg/mL 200 mg IM Q14D 03/02/22 03/02/22 1 Month Ago History intramuscular oil ~01/31/22 Allergies Allergy/AdvReac Type Severity Reaction Status Date / Time cephalexin [From Keflex] Allergy Unknown Unknown Verified 03/02/22 12:42 PFSH Acute PFSH: Medical History (Updated 03/02/22 @ 14:15 by Arturo Vera MD) Arthritis Charcot's arthropathy -Has had extensive surgical intervention for the left lower extremity secondary to Charcot arthropathy, wears brace for ambulation and wedge shoe for offloading CHF (congestive heart failure) -unknown type, severity as no baseline Echo -hold Lasix due to renal impairment, can resume PRN use on d/c Chronic back pain Chronic constipation Chronic kidney disease -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 -has mild superimposed MAGDA, now resolved -baseline Cr around 1.0 -IVF hydration, with caution to avoid fluid overload; d/c as renal function has normalized -continue to monitor renal function particularly with dual use of Vanc, Zosyn; renally dose meds, avoid nephrotoxins Coronary artery disease -hx of CAD s/p CABG x 4 about 20 yrs ago -on ASA -NTG PRN Diabetes -has IDDM type II, A1c-10.1 -Accu-Cheks, ISS, scheduled insulin, hypoglycemia precautions -Consistent carb diet as tolerated Hypertension -VSS, continue to monitor vital signs -continue BB, resume ARB Hypothyroidism -continue levothyroxine Morbid obesity -BMI-45 kg/m2 BRIDGER (obstructive sleep apnea) -on CPAP qhs Peripheral neuropathy -secondary to DM type II Peripheral vascular disease Surgical History History of ankle fusion History of back surgery History of colonoscopy (~01/2019) History of coronary artery bypass graft -Four-vessel Hx of cholecystectomy Family History Other CAD (coronary artery disease) Cancer Diabetes Hypertension Denies family history of Anesthesia complication Bleeding disorder Social History Smoking and tobacco status: never smoked Second hand smoke exposure: No Alcohol intake: never Adopted: No Caregiver/support person: Yes Lives independently: Yes Household members: spouse Housing: House Marital status: service: No Current occupational status: disabled Current occupational exposures/hazards: No Pets and animals: No History of recent travel: No Sexually active: No Current gender identity: Male Padmini/Amish: Zoroastrianism Vitals/I&O/Wt Last Vital Signs Temp 96.8 F L 03/02/22 10:20 Pulse 81 03/02/22 12:28 Resp 20 H 03/02/22 11:28 BP 120/83 03/02/22 12:28 Pulse Ox 96 03/02/22 12:28 Weight last 48 hrs Weight 145.15 kg Physical Exam Const: COMMON NORMALS: no acute distress and patient oriented x3 HENMT: COMMON NORMALS: normocephalic HEAD & SCALP: normocephalic Eye: COMMON NORMALS: Equal, round and reactive pupils present and EOMs intact bilaterally Resp: COMMON NORMALS: normal respiratory effort, No retractions, No use of accessory muscles and clear to auscultation bilaterally AUSCULTATION: clear to auscultation bilaterally Cardio: COMMON NORMALS: no JVD, regular rate, regular rhythm, S1 normal heart sound present and S2 normal heart sound present RATE: regular rate RHYTHM: regular rhythm HEART SOUNDS: S1 normal heart sound present and S2 normal heart sound present GI: COMMON NORMALS: Normal to inspection, nondistended, normoactive bowel sounds present, Soft to palpation, non-tender, No hepatosplenomegaly present, no masses and no bruits PALPATION: Yes Soft to palpation and Yes No hepatosplenomegaly present Neuro: COMMON NORMALS: patient oriented x3, CN's II-XII intact bilaterally, moves all extremities and no focal motor deficits OTHER: Left lower extremity, left calf pain, calf swelling, left ankle swelling, erythema, tenderness, 2+ pitting edema Left heel, open area of diabetic ulcer, black eschar, active drainage, measuring 5 x 5 cm, foul-smelling Psych: COMMON NORMALS: mental status grossly normal Data : 03/02/22 11:50 03/02/22 11:50 Micro: Microbiology 03/02/22 12:51 Blood Culture - Preliminary Blood SPECIMEN COLLECTED 03/02/22 12:45 Blood Culture - Preliminary Blood SPECIMEN COLLECTED A&P Assessment and plan (1) Chronic ulcer of great toe of left foot with fat layer exposed: Status: Acute (2) Diabetic peripheral neuropathy associated with type 2 diabetes mellitus: Status: Acute (3) Cellulitis: Status: Acute Qualifiers: Laterality: right Site of cellulitis: extremity Site of cellulitis of extremity: lower extremity Qualified Code(s): L03.115 - Cellulitis of right lower limb (4) Diabetic ulcer of left foot: Status: Acute (5) Foot osteomyelitis, left: Status: Acute Plan Left foot, diabetic ulcer, with cellulitis, with osteomyelitis 1.? Ulceration overlying the dorsal calcaneus with underlying fixation screw. Erosive changes involving the underlying calcaneus and dorsal calcaneal spur with associated air suspicious for osteomyelitis in this location. Recommend correlation with area of concern. 2.? No other areas of suspected osteomyelitis 3.? Diffuse soft tissue edema lower leg and ankle with subcutaneous fluid compatible with cellulitis. No drainable fluid collection or abscess. 4.? 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 Plan -IV antibiotics, vancomycin, Primaxin -Does have left calf swelling, venous ultrasound -Arterial ultrasounds -Requires surgical debridement, Dr. Talbot on consult -Cultures, blood cultures -ESR, CRP, Pro-Kameron -Requires blood sugar control, Lantus 30 units twice daily, with moderate dose sliding scale -As needed Lasix dosing -Full code -Lovenox for DVT prophylaxis Attestations Medical Necessity Statement*: Patient requires hospitalization, will left heel, diabetic ulcer, with cellulitis with evidence of osteomyelitis requiring IV antibiotics, require surgical debridement, inpatient, greater than 2 m [email or web address] Coding Level of Care Code Acute Ch[facility] Singer for [facility] Fwd Diagnoses Chronic ulcer of great toe of left foot with fat layer exposed L97.522 Diabetic peripheral neuropathy associated with type 2 diabetes mellitus E11.42 Cellulitis L03.115 Laterality: right Site of cellulitis: extremity Site of cellulitis of extremity: lower extremity Diabetic ulcer of left foot E11.621; L97.529 Foot osteomyelitis, left M86.9
[2022-03-02 14:53] LABS: Lactic Sepsis W/Reflex 0.8 mmol/L (0.5-2.2)
[2022-03-02 15:05] LABS: NT Pro B Type Natriuretic Pept 2066 pg/mL (0-125)
--- NOTE | 2022-03-02 16:28 | USR_ITS ---
PROCEDURE INFORMATION: Exam: US Duplex Lower Extremity Arteries Exam date and time: 03/02/2022 4:56 PM Age: 61 years old Clinical indication: Edema, localized; Lower extremity, bilateral; Additional info: Pad TECHNIQUE: Imaging protocol: Real-time ultrasound scan of the arteries of the bilateral lower extremities with 2-D alcala scale, color Doppler flow and spectral waveform analysis. Images documented and saved. COMPARISON: [place] [id number] 03/02/2022 4:51 PM FINDINGS: Right common femoral artery: No occlusion or significant stenosis. Normal waveform. Right superficial femoral artery: No occlusion or significant stenosis. Normal waveform. Right popliteal artery: No occlusion or significant stenosis. Normal waveform. Right calf/foot arteries: No occlusion or significant stenosis in the visualized arteries. Normal waveforms. Dorsalis pedis artery is patent. Left common femoral artery: No occlusion or significant stenosis. Normal waveform. Left superficial femoral artery: No occlusion or significant stenosis. Normal waveform. Left popliteal artery: No occlusion or significant stenosis. Normal waveform. Left calf/foot arteries: No occlusion or significant stenosis in the visualized arteries. Normal waveforms. Dorsalis pedis artery is patent. US/CV arterial duplex [facility] [id number] IMPRESSION: No stenosis or occlusion.
--- NOTE | 2022-03-02 16:28 | USR_ITS ---
PROCEDURE INFORMATION: Exam: US Duplex Left Lower Extremity Veins, Limited Exam date and time: 03/02/2022 4:51 PM Age: 61 years old Clinical indication: Edema, localized; Lower extremity, left; Additional info: Dvt TECHNIQUE: Imaging protocol: Real-time Duplex ultrasound of the Left Lower Extremity with 2-D alcala scale, color Doppler flow and spectral waveform analysis with image documentation. Limited exam focused on the left lower extremity veins. COMPARISON: CTA [facility] Leg [id number] 09/20/2016 8:55 AM FINDINGS: Left deep veins: Unremarkable. The common femoral, femoral, proximal profunda femoral and popliteal veins are patent without thrombus. Normal Doppler waveforms. Normal compressibility and/or augmentation response. Left superficial veins: Unremarkable. Saphenofemoral junction is patent without thrombus. Soft tissues: Unremarkable. US/CV venous duplex [facility] [id number] IMPRESSION: No evidence of deep vein thrombosis.
[2022-03-02 16:47] LABS: Glucose Point of Care 114 mg/dL (70-110)
[2022-03-02 17:08] LABS: Erythrocyte Sedimentation Rate 41 mm/hr (0-10)
[2022-03-02 17:32] LABS: Estmated Average Glucose 189; Hemoglobin A1C 8.2 % (4.0-6.0)
[2022-03-02 17:34] LABS: Chol HDL Ratio 5.56 mg/dL (1.0-5.00); Cholesterol 178 mg/dL (0-200); HDL Cholesterol 32 mg/dL (60-100); LDL Cholesterol Calculated 126 mg/dL (50-129); LDL HDL Ratio 3.94 RATIO (0.00-3.22); Thyroid Stimulating Hormone 5.07 uIU/mL (0.27-4.20); Triglycerides 100 mg/dL (0-150)
[2022-03-02 17:37] LABS: Basophils % 0.4 %; Eosinophils % 1.7 %; Hematocrit 38.4 % (42.0-52.0); Hemoglobin 12.4 g/dL (11.7-16.6); Lymphocytes % 13.1 %; Mean Corpuscular HGB Conc 32.3 g/dL (30.0-36.0); Mean Corpuscular Volume 89.7 fl (80-94); Mean Platelet Volume 11.6 fL (7.4-10.4); Monocytes % 10.1 %; Neutrophils # 8.05 10^3/uL (1.8-7.7); Platelet Count 219 10^3/cmm (130-400); Red Blood Count 4.28 10^6/uL (4.1-5.3); Red Cell Distribution Width 13.9 % (12.1-15.1)
[2022-03-02] MEDS: FUROsemide 10 mg/mL SDV 4mL 40 MG IVP (17:56)
[2022-03-02] MEDS: pantoprazole 40 mg SDV IVP (17:56)
[2022-03-02] MEDS: enoxaparin 40 mg/0.4 mL Syringe SUBCUT (17:56)
--- NOTE | 2022-03-02 19:14 | PM.CONSULT ---
Providers/Reason For Consult Consulting Physician/Specialty*: Montana Talbot D.P.M. Reason for Consult*: Osteomyelitis left heel Attending Physician: Arturo Vera MD Primary Care Provider: Kaykay Bah DO History of Present Illness History of Present Illness Kulwant Leavitt is a 61 year old diabetic male presented to the emergency department after having been referred from wound care with concern worsening wound to the left posterior heel. Wound is been present since approximately May he is unsure of its etiology thinks it may have begun with wearing of poorly fitting pair of shoes. Patient wishing to pursue limb salvage treatments. Currently receiving IV antibiotics empirically. History of left TTC fusion performed in [facility]. Patient denies any subjective nausea, vomiting, fever, chills, shortness of breath or chest pain. Review of Systems General: Reports: 10 or more systems reviewed and unremarkable except in HPI and below Const: Denies: fever(s) or chills Card: Denies: chest pain or palpitations Resp: Denies: productive cough GI: Denies: abdominal pain, nausea or vomiting : Denies: flank pain Musc: Reports: extremity swelling, joint pain, joint stiffness, limited range of motion and deformity Skin/Breast: Reports: erythema, sores, nail changes and change in hair; Denies: rash Neuro: Reports: numbness in extremities, sensory changes and difficulty walking Psych: Denies: suicidal ideation Gerardo/Lymph: Denies: easy bruising Medications/Allergies Home Medications Medication Instructions Recorded Confirmed Last Taken Type aspirin 325 mg tablet 325 mg PO BEDTIME 02/07/20 03/02/22 03/01/22 History furosemide 40 mg tablet (Lasix) 40 mg PO DAILY PRN 02/07/20 03/02/22 Unknown History insulin degludec 200 unit/mL (3 44 unit SUBCUT BID 02/07/20 03/02/22 03/01/22 History mL) subcutaneous pen (Tresiba FlexTouch U-200 insulin) linagliptin 5 mg tablet (Tradjenta) 5 mg PO QAM 02/07/20 03/02/22 03/01/22 History losartan 50 mg tablet 50 mg PO QAM 02/07/20 03/02/22 03/01/22 History metoprolol tartrate 50 mg tablet 50 mg PO BID 02/07/20 03/02/2203/01/22 History nitroglycerin 0.4 mg sublingual 0.4 mg SUBLINGUAL Q5M PRN 02/07/20 03/02/22 Unknown History tablet (Nitrostat) omega 7-gkd-tut-fish oil 1,000 mg 2 cap PO DAILY 02/08/20 03/02/22 03/01/22 History (120 mg-180 mg) capsule (Fish Oil) cam boot #1 ea 06/02/21 03/02/22 Unknown Rx ciprofloxacin HCl 500 mg tablet 500 mg PO BID #42 tab 02/23/22 03/02/22 03/01/22 Rx atorvastatin 20 mg tablet 20 mg PO QAM 03/02/22 03/02/22 03/01/22 History cholecalciferol (vitamin D3) 125 10,000 unit PO DAILY 03/02/22 03/02/22 03/01/22 History mcg (5,000 unit) tablet (Vitamin D3) dapagliflozin 10 mg tablet 10 mg PO QAM 03/02/22 03/02/22 03/01/22 History (Farxiga) levothyroxine 125 mcg tablet 125 mcg PO QAM 03/02/22 03/02/22 03/01/22 History testosterone cypionate 200 mg/mL 200 mg IM Q14D 03/02/22 03/02/22 1 Month Ago History intramuscular oil ~01/31/22 Allergies Allergy/AdvReac Type Severity Reaction Status Date / Time cephalexin [From Keflex] Allergy Unknown Unknown Verified 03/02/22 12:42 Current Medications Generic Name Dose Route Start Last Admin Trade Name Aldoq PRN Reason Stop Dose Admin Enoxaparin Sodium 40 mg 03/02/22 17:30 03/02/22 17:56 Enoxaparin 40 Mg/0.4 Ml Syringe SUBCUT 40 mg Q24H MARITO Administration Imipenem/Cilastatin Sodium 500 100 mls @ 200 mls/hr 03/02/22 17:00 03/02/22 18:47 mg/ Sodium Chloride IV Infused Q6H MARITO Infusion Protocol Insulin Human Lispro 0 unit 03/02/22 18:00 03/02/22 17:12 Insulin Lispro 100 Unit/1 Ml SUBCUT Not Given WM&BEDTIME MARITO Protocol Pantoprazole Sodium 40 mg 03/02/22 17:30 03/02/22 17:56 Pantoprazole 40 Mg Sdv IVP 40 mg Q24H MARITO Administration PFSH Acute PFSH: Medical History (Updated 03/02/22 @ 21:00 by Montana Talbot DPM) Arthritis Charcot's arthropathy -Has had extensive surgical intervention for the left lower extremity secondary to Charcot arthropathy, wears brace for ambulation and wedge shoe for offloading CHF (congestive heart failure) -unknown type, severity as no baseline Echo -hold Lasix due to renal impairment, can resume PRN use on d/c Chronic back pain Chronic constipation Chronic kidney disease -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 -has mild superimposed MAGDA, now resolved -baseline Cr around 1.0 -IVF hydration, with caution to avoid fluid overload; d/c as renal function has normalized -continue to monitor renal function particularly with dual use of Vanc, Zosyn; renally dose meds, avoid nephrotoxins Coronary artery disease -hx of CAD s/p CABG x 4 about 20 yrs ago -on ASA -NTG PRN Diabetes -has IDDM type II, A1c-10.1 -Accu-Cheks, ISS, scheduled insulin, hypoglycemia precautions -Consistent carb diet as tolerated Hypertension -VSS, continue to monitor vital signs -continue BB, resume ARB Hypothyroidism -continue levothyroxine Morbid obesity -BMI-45 kg/m2 BRIDGER (obstructive sleep apnea) -on CPAP qhs Peripheral neuropathy -secondary to DM type II Peripheral vascular disease Surgical History History of ankle fusion History of back surgery History of colonoscopy (~01/2019) History of coronary artery bypass graft -Four-vessel Hx of cholecystectomy Family History Other CAD (coronary artery disease) Cancer Diabetes Hypertension Denies family history of Anesthesia complication Bleeding disorder Social History Smoking and tobacco status: never smoked Second hand smoke exposure: No Alcohol intake: never Adopted: No Caregiver/support person: Yes Lives independently: Yes Household members: spouse Housing: House Marital status: service: No Current occupational status: disabled Current occupational exposures/hazards: No Pets and animals: No History of recent travel: No Sexually active: No Current gender identity: Male Padmini/Sikh: L[employer]-Day Vitals/I&O/Wt Last Vital Signs Temp 98.0 F 03/02/22 16:28 Pulse 78 03/02/22 16:28 Resp 18 03/02/22 16:28 BP 117/78 03/02/22 16:28 Pulse Ox 96 03/02/22 16:28 03/02/22 03/02/22 03/02/22 06:59 14:59 22:59 Intake Total 1100 / 1100 Output Total 850 / 850 Balance 250 / 250 Weight last 48 hrs Weight 320 lb Physical Exam Narrative: GENERAL: Patient is alert and oriented ?3 and in no acute distress. The following is a focused bilaterallower extremity exam. VASCULAR: Dorsalis pedis palpable, posterior tibial arteries palpable. Capillary refill time less than 3 seconds to the distal hallux bilaterally. Calf is supple and nontender proximally and distally. Edema to the left lower extremity +1 pitting. Decrease in pedal hair growth bilaterally. NEUROLOGICAL: Protective sensation intact 0/10 sites, tested with [place] Omar monofilament to bilateral feet. DERMATOLOGICAL: Wound probes to hardware and bone to the left posterior heel has devitalized epidermis, dermis, subcutaneous tissue with foul-smelling odor, no soft tissue crepitus, there is periwound erythema present without proximal lymphangitic streaking. Wound measurements 4 cm x 4.5 cm x 0.8 cm at the left posterior calcaneus. Second wound at the central plantar calcaneus measures 3 mm x 3 mm x 3 mm. MUSCULOSKELETAL: No motion at the left ankle or subtalar joint secondary to fusion. No pain with debridement to the left posterior heel secondary to neuropathy. Urinary Catheter Management: Leos: Cath Placed During This Visit: yes Reason for Continuing Indwelling Catheter: Acute Urinary Retention or Obstruction Urinary Catheter Date of Insertion: 03/02/22 Urinary Catheter Time of Insertion: 15:45 Data : 03/02/22 11:50 03/02/22 11:50 Micro: Microbiology 03/02/22 14:25 Gram Stain - Final Leg - Other 03/02/22 12:51 Blood Culture - Preliminary Blood SPECIMEN COLLECTED 03/02/22 12:45 Blood Culture - Preliminary Blood SPECIMEN COLLECTED A&P Assessment and plan (1) Diabetic peripheral neuropathy associated with type 2 diabetes mellitus: Status: Acute (2) Cellulitis: Status: Acute Qualifiers: Laterality: right Site of cellulitis: extremity Site of cellulitis of extremity: lower extremity Qualified Code(s): L03.115 - Cellulitis of right lower limb (3) Non-pressure chronic ulcer of left heel and midfoot with necrosis of bone: Status: Acute (4) Exposed orthopaedic hardware: Status: Acute Plan 61-year-old diabetic male with acute osteomyelitis left posterior calcaneus. X-ray and CT scan shows destructive changes at the posterior calcaneal tubercle directly adjacent to the ulceration suggestive of osteomyelitis, elevated ESR 41, significant elevated CRP. Patient receiving empiric IV antibiotics. Performed excisional debridement sharply down to and including devitalized epidermis, dermis, subcutaneous tissue and bone of the left posterior heel with hemostasis via manual pressure. Post debridement saline flush was performed followed by deep wound cultures both aerobic and anaerobic taken and sent to microbiology for gram stain and culture. Betadine wet-to-dry with offloading by keeping the heel suspended utilizing pillows under the leg and knee with the heel suspended over the front of the pillows to avoid contact and further pressure injury. Patient to be n.p.o. at midnight in preparation for surgical debridement tomorrow morning. Planning on debridement down to and including bone with removal of hardware, plan on serial debridements during his hospitalization patient wishing to pursue limb salvage efforts this will likely entail PICC line at discharge with home health and wound care follow-up. Consult Attestations Medical Necessity Statement: Diabetic foot and left foot with osteomyelitis Coding Level of Care Code Acute Facilities Locator for [facility] Fwd Diagnoses Diabetic peripheral neuropathy associated with type 2 diabetes mellitus E11.42 Cellulitis L03.115 Laterality: right Site of cellulitis: extremity Site of cellulitis of extremity: lower extremity Non-pressure chronic ulcer of left heel and midfoot with necrosis of bone L97.424 Exposed orthopaedic hardware T84.498A Comment cpt 42398
[2022-03-02] MEDS: metoprolol tartrate 50 mg Tablet PO (21:42)
[2022-03-02] MEDS: insulin lispro 100 unit/1 mL SUBCUT (22:10)
[2022-03-02] MEDS: insulin glargine 100 units/1 mL 30 UNIT SUBCUT (22:11)
[2022-03-03] VITALS (24 sets, daily range): BP systolic 95–148; BP diastolic 60–92; PULSE 66–96; RESP 16–18; TEMP 36.2–37.1; O2SAT 92–99
[2022-03-03] MEDS: levothyroxine 125 mcg Tablet PO (05:23)
[2022-03-03] MEDS: atorvastatin 40 mg Tablet 20 MG PO (05:23)
[2022-03-03 05:55] LABS: Basophils % 0.3 %; Eosinophils # 0.2 10^3/uL (0.0-0.8); Eosinophils % 1.8 %; Hematocrit 35.9 % (42.0-52.0); Hemoglobin 11.8 g/dL (11.7-16.6); Lymphocytes # 1.4 10^3/uL (0.8-4.8); Lymphocytes % 13.7 %; Mean Corpuscular HGB Conc 32.9 g/dL (30.0-36.0); Mean Corpuscular Hemoglobin 28.7 pg (28.0-34.0); Mean Corpuscular Volume 87.3 fl (80-94); Mean Platelet Volume 10.7 fL (7.4-10.4); Monocytes % 9.6 %; Neutrophils % 74.1 %; Nucleated Red Blood Cells % 0 %; Platelet Count 206 10^3/cmm (130-400); Red Blood Count 4.11 10^6/uL (4.1-5.3); Red Cell Distribution Width 13.8 % (12.1-15.1); White Blood Count 10.1 10^3/uL (4.0-10.0)
[2022-03-03 06:27] LABS: Procalcitonin 0.08 ng/mL (0-0.5)
[2022-03-03 06:39] LABS: Alanine Aminotransferase 26 U/L (0-41); Albumin Level 2.8 g/dL (3.5-5.2); Alkaline Phosphatase 77 IU/L (40-130); Anion Gap 15.1 (5-19); Aspartate Amino Transferase 22 U/L (0-40); Blood Urea Nitrogen 26 mg/dL (8-23); C Reactive Protein 69.9 mg/L (0.0-4.9); Calcium 8.6 mg/dL (8.5-10.5); Carbon Dioxide 23 mmol/L (22-29); Chloride 102 mmol/L (98-107); Globulin 3.3 g/dL (1.3-4.6); Glomerular Filtration Rate 85.5 mL/min (90-130); Glucose 70 mg/dL (65-115); Magnesium 1.9 mg/dL (1.7-2.3); Osmolality Calculated 285 mOsm/kg (285-295); Phosphorus 4.1 mg/dL (2.5-4.5); Potassium 4.1 mmol/L (3.5-5.1); Sodium 136 mmol/L (136-145); Total Bilirubin 0.5 mg/dL (0.15-1.2); Total Protein 6.1 g/dL (6.6-8.7)
[2022-03-03 07:14] LABS: Glucose Point of Care 93 mg/dL (70-110)
[2022-03-03 07:14] LABS: Glucose Point of Care 186 mg/dL (70-110)
[2022-03-03] MEDS: metoprolol tartrate 50 mg Tablet PO ×2 (08:47→20:42)
[2022-03-03] MEDS: omega-3 fatty acids 1,000 mg Capsule 2000 MG PO (08:47)
[2022-03-03] MEDS: cholecalciferol (vitamin D3) 5,000 unit Tablet 10000 UNIT PO (08:47)
--- NOTE | 2022-03-03 09:07 | PC.NURSE ---
Lantus insulin held per verbal order of Dr. Vera. FSBS =93. Patient is NPO for surgery.
--- NOTE | 2022-03-03 13:16 | PC.NURSE ---
Pilar transferred to surgery at [id number]
--- NOTE | 2022-03-03 13:19 | PM.PN ---
Subjective Subjective: Patient was seen this morning, he has no complaints, no fevers, chills, he is awaiting his surgical debridement by Dr. Talbot Vitals/I&O/Wt Last Vital Signs Temp 98.2 F 03/03/22 08:00 Pulse 80 03/03/22 08:56 Resp 18 03/03/22 08:56 BP 137/82 03/03/22 08:00 Pulse Ox 95 03/03/22 08:56 03/02/22 03/03/22 03/03/22 22:59 06:59 14:59 Intake Total 1440 / 1440 600 / 2040 Output Total 3350 / 3350 500 / 3850 Balance -1910 / -1910 100 / -1810 Weight last 48 hrs Weight 146.556 kg Weight 145.15 kg Physical Exam Const: COMMON NORMALS: no acute distress and patient oriented x3 Resp: COMMON NORMALS: normal respiratory effort, No retractions, No use of accessory muscles and clear to auscultation bilaterally AUSCULTATION: clear to auscultation bilaterally Cardio: COMMON NORMALS: regular rate, regular rhythm, S1 normal heart sound present and S2 normal heart sound present RATE: regular rate RHYTHM: regular rhythm HEART SOUNDS: S1 normal heart sound present and S2 normal heart sound present GI: COMMON NORMALS: Normal to inspection, nondistended, normoactive bowel sounds present, Soft to palpation and non-tender PALPATION: Yes Soft to palpation Extremity: COMMON NORMALS: no pedal edema Neuro: COMMON NORMALS: patient oriented x3 Psych: COMMON NORMALS: mental status grossly normal Skin: NARRATIVE SKIN EXAM: Left lower extremity wrapped Urinary Catheter Management: Leos: Cath Placed During This Visit: yes Reason for Continuing Indwelling Catheter: Acute Urinary Retention or Obstruction Urinary Catheter Date of Insertion: 03/02/22 Urinary Catheter Time of Insertion: 15:45 Data : 03/03/22 05:36 03/03/22 05:36 Micro: Microbiology 03/02/22 12:51 Blood Culture - Preliminary Blood NEGATIVE TO DATE 03/02/22 12:45 Blood Culture - Preliminary Blood NEGATIVE TO DATE 03/02/22 14:25 Gram Stain - Final Leg - Other Wound Culture - Preliminary A&P Assessment and plan (1) Chronic ulcer of great toe of left foot with fat layer exposed: Status: Acute (2) Diabetic peripheral neuropathy associated with type 2 diabetes mellitus: Status: Acute (3) Cellulitis: Status: Acute Qualifiers: Laterality: right Site of cellulitis: extremity Site of cellulitis of extremity: lower extremity Qualified Code(s): L03.115 - Cellulitis of right lower limb (4) Diabetic ulcer of left foot: Status: Acute (5) Foot osteomyelitis, left: Status: Acute Plan Left foot, diabetic ulcer, with cellulitis, with osteomyelitis 1.? Ulceration overlying the dorsal calcaneus with underlying fixation screw. Erosive changes involving the underlying calcaneus and dorsal calcaneal spur with associated air suspicious for osteomyelitis in this location. Recommend correlation with area of concern. 2.? No other areas of suspected osteomyelitis 3.? Diffuse soft tissue edema lower leg and ankle with subcutaneous fluid compatible with cellulitis. No drainable fluid collection or abscess. 4.? 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 Plan -IV antibiotics, vancomycin, Primaxin -Does have left calf swelling, venous ultrasound negative for DVT -Arterial ultrasounds no significant occlusion -Requires surgical debridement, Dr. Talbot on consult, currently n.p.o. 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
[2022-03-03 13:20] LABS: Glucose Point of Care 72 mg/dL (70-110)
[2022-03-03] MEDS: sodium chloride 0.9% 1,000 ML 30 ML IV (13:45)
--- NOTE | 2022-03-03 14:15 | P.ANESASSM_ITS ---
Pre-Anesthetic Assessment Height/Weight: Height 1.88 m Weight 146.556 kg Temp Pulse Resp BP Pulse Ox 98.6 F 76 18 135/71 95 03/03/22 13:42 03/03/22 13:42 03/03/22 13:42 03/03/22 13:42 03/03/22 13:42 Operation Date: 03/03/22 13:55 Proposed Procedures p Debridement/I&D and Deep Hardware Removal(Left) - Montana Talbot DPM Familial anesthetic complications: None Was Beta Stu taken within 24 hours: Yes Was Clonidine taken within 24 hours: N/A Social Tobacco and No alcohol Exam alert, oriented x 3 and regular rate & rhythm rhonchi Airway Submandibular: within normal limits Cervical ROM: within normal limits Mallampati: Class II Dentition: chipped Comments: Comments: Poor Pulmonary Chronic Obstructive Pulmonary Disease and Sleep Apnea CV/HEM Coronary Artery Disease (CABG), Congestive Heart Failure and Hypertension Metabolic Diabetes Mellitus, Hyperlipidemia, Morbid Obesity and Thyroid Disease Musc/skel Osteoarthritis/DJD Neuropsych Neuropathy Anesthetic Plan ASA status: 3 Anesthesia: Choice Medications/Allergies Home Medications Medication Instructions Recorded Confirmed Last Taken Type aspirin 325 mg tablet 325 mg PO BEDTIME 02/07/20 03/02/22 03/01/22 History furosemide 40 mg tablet (Lasix) 40 mg PO DAILY PRN 02/07/20 03/02/22 Unknown History insulin degludec 200 unit/mL (3 44 unit SUBCUT BID 02/07/20 03/02/22 03/01/22 History mL) subcutaneous pen (Tresiba FlexTouch U-200 insulin) linagliptin 5 mg tablet (Tradjenta) 5 mg PO QAM 02/07/20 03/02/22 03/01/22 History losartan 50 mg tablet 50 mg PO QAM 02/07/20 03/02/22 03/01/22 History metoprolol tartrate 50 mg tablet 50 mg PO BID 02/07/20 03/02/22 03/01/22 History nitroglycerin 0.4 mg sublingual 0.4 mg SUBLINGUAL Q5M PRN 02/07/20 03/02/22 Unknown History tablet (Nitrostat) omega 2-far-mtr-fish oil 1,000 mg 2 cap PO DAILY 02/08/20 03/02/22 03/01/22 History (120 mg-180 mg) capsule (Fish Oil) cam boot #1 ea 06/02/21 03/02/22 Unknown Rx ciprofloxacin HCl 500 mg tablet 500 mg PO BID #42 tab 02/23/22 03/02/22 03/01/22 Rx atorvastatin 20 mg tablet 20 mg PO QAM 03/02/22 03/02/22 03/01/22 History cholecalciferol (vitamin D3) 125 10,000 unit PO DAILY 03/02/22 03/02/22 03/01/22 History mcg (5,000 unit) tablet (Vitamin D3) dapagliflozin 10 mg tablet 10 mg PO QAM 03/02/22 03/02/22 03/01/22 History (Farxiga) levothyroxine 125 mcg tablet 125 mcg PO QAM 03/02/22 03/02/22 03/01/22 History testosterone cypionate 200 mg/mL 200 mg IM Q14D 03/02/22 03/02/22 1 Month Ago History intramuscular oil ~01/31/22 Allergies Allergy/AdvReac Type Severity Reaction Status Date / Time cephalexin [From Keflex] Allergy Unknown Unknown Verified 03/02/22 12:42 Current Medications Generic Name Dose Route Start Last Admin Trade Name Freq PRN Reason Stop Dose Admin Atorvastatin Calcium 20 mg 03/03/22 06:00 03/03/22 05:23 Atorvastatin 40 Mg Tablet PO 20 mg QAM MARITO Administration Enoxaparin Sodium 40 mg 03/02/22 17:30 03/02/22 17:56 Enoxaparin 40 Mg/0.4 Ml Syringe SUBCUT 40 mg Q24H MARITO Administration Imipenem/Cilastatin Sodium 500 100 mls @ 200 mls/hr 03/02/22 17:00 03/03/22 05:02 mg/ Sodium Chloride IV Infused Q6H MARITO Infusion Protocol Vancomycin HCl 2,000 mg/ 500 mls @ 250 mls/hr 03/02/22 21:00 03/03/22 08:48 Sodium Chloride IV 150 mls/hr Q12H MARITO Administration Sodium Chloride 1,000 mls @ 30 mls/hr 03/03/22 13:15 03/03/22 13:45 Sodium Chloride 0.9% IV 03/04/22 13:14 30 mls/hr .Q24H MARITO Administration Insulin Glargine 30 unit 03/02/22 21:00 03/03/22 09:06 Insulin Glargine 100 Units/1 Ml SUBCUT Not Given Q12H MARITO Insulin Human Lispro 0 unit 03/02/22 18:00 03/03/22 07:37 Insulin Lispro 100 Unit/1 Ml SUBCUT Not Given WM&BEDTIME [facility] Protocol Levothyroxine Sodium 125 mcg 03/03/22 06:00 03/03/22 05:23 Levothyroxine 125 Mcg Tablet PO 125 mcg QAM MARITO Administration Metoprolol Tartrate 50 mg 03/02/22 21:00 03/03/22 08:47 Metoprolol Tartrate 50 Mg Tablet PO 50 mg BID@0900,2100 MARITO Administration Cxula-3-Rjcr Ethyl Esters 2,000 mg 03/03/22 09:00 03/03/22 08:47 Susan-3 Fatty Acids 1,000 Mg Capsule PO 2,000 mg DAILY MARITO Administration Pantoprazole Sodium 40 mg 03/02/22 17:30 03/02/22 17:56 Pantoprazole 40 Mg Sdv IVP 40 mg Q24H MARITO Administration Vitamin D 10,000 unit 03/03/22 09:00 03/03/22 08:47 Cholecalciferol (Vitamin D3) 5,000 Unit Tablet PO 10,000 unit DAILY MARITO Administration PFSH Anesthesia Medical History (Updated 03/02/22 @ 21:00 by Montana Talbot DPM) Arthritis Charcot's arthropathy -Has had extensive surgical intervention for the left lower extremity secondary to Charcot arthropathy, wears brace for ambulation and wedge shoe for offloading CHF (congestive heart failure) -unknown type, severity as no baseline Echo -hold Lasix due to renal impairment, can resume PRN use on d/c Chronic back pain Chronic constipation Chronic kidney disease -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 -has mild superimposed MAGDA, now resolved -baseline Cr around 1.0 -IVF hydration, with caution to avoid fluid overload; d/c as renal function has normalized -continue to monitor renal function particularly with dual use of Vanc, Zosyn; renally dose meds, avoid nephrotoxins Coronary artery disease -hx of CAD s/p CABG x 4 about 20 yrs ago -on ASA -NTG PRN Diabetes -has IDDM type II, A1c-10.1 -Accu-Cheks, ISS, scheduled insulin, hypoglycemia precautions -Consistent carb diet as tolerated Hypertension -VSS, continue to monitor vital signs -continue BB, resume ARB Hypothyroidism -continue levothyroxine Morbid obesity -BMI-45 kg/m2 BRIDGER (obstructive sleep apnea) -on CPAP qhs Peripheral neuropathy -secondary to DM type II Peripheral vascular disease Surgical History History of ankle fusion History of back surgery History of colonoscopy (~01/2019) History of coronary artery bypass graft -Four-vessel Hx of cholecystectomy Family History Other CAD (coronary artery disease) Cancer Diabetes Hypertension Denies family history of Anesthesia complication Bleeding disorder Social History Smoking and tobacco status: never smoked Second hand smoke exposure: No Alcohol intake: never Adopted: No Caregiver/support person: Yes Lives independently: Yes Household members: spouse Housing: House Marital status: service: No Current occupational status: disabled Current occupational exposures/hazards: No Pets and animals: No History of recent travel: No Sexually active: No Current gender identity: Male Padmini/Pentecostalism: Yarsani Data Anesthesia : 03/03/22 05:36 03/03/22 05:36 Short CBC 03/02/22 03/03/22 Range/Units 11:50 05:36 WBC 10.8 H 10.1 H (4.0-10.0) 10^3/uL Hgb 12.4 11.8 (11.7-16.6) g/dL Hct 38.4 L 35.9 L (42.0-52.0) % MCV 89.7 87.3 (80-94) fl Plt Count 219 206 (130-400) 10^3/cmm Neut % (Auto) 74.1 74.1 % Neut # (Auto) 8.05 H 7.50 (1.8-7.7) 10^3/uL BMP 03/02/22 03/03/22 11:50 05:36 Sodium 135 L 136 Potassium 4.5 4.1 Chloride 100 102 Carbon Dioxide 23 23 BUN 29 H 26 H Creatinine 1.0 0.9 Glucose 153 H 70 Calcium 9.1 8.6 Cardiac Enzymes 03/02/22 Range/Units 11:50 NT-Pro-B Natriuret Pep 2066 H (0-125) pg/mL Liver Function 03/02/22 03/03/22 Range/Units 11:50 05:36 Total Bilirubin 0.3 0.5 (0.15-1.2) mg/dL AST 24 22 (0-40) U/L ALT 29 26 (0-41) U/L Alkaline Phosphatase 110 77 (40-130) IU/L Albumin 3.2 L 2.8 L (3.5-5.2) g/dL Coags 03/02/22 03/02/22 03/03/22 11:50 11:50 05:36 ESR 41 H C-Reactive Protein 81.7 H 69.9 H Microbiology 03/02/22 19:25 Gram Stain - Final Other Source 03/02/22 14:25 MRSA Culture - Final Nose 03/02/22 12:51 Blood Culture - Preliminary Blood NEGATIVE TO DATE 03/02/22 12:45 Blood Culture - Preliminary Blood NEGATIVE TO DATE 03/02/22 14:25 Gram Stain - Final Leg - Other Wound Culture - Preliminary Cardiac Studies: No Data to Display
--- NOTE | 2022-03-03 14:29 | W.PM.OPSUD ---
Surgery/Procedure H&P Update DATE OF PROCEDURE: March 03, 2022 DATE H&P PERFORMED: 03/02/22 CHANGES TO PREVIOUS DOCUMENTATION: None PRIMARY INDICATION FOR PROCEDURE: Diabetic foot ulcer PLANNED PROCEDURE: Operation Date: 03/03/22 13:55 Proposed Procedures p Debridement/I&D and Deep Hardware Removal(Left) - Montana Talbot DPM
[2022-03-03] MEDS: lidocaine 2% INJ 20 mL INJECTION (14:40)
[2022-03-03] MEDS: vancomycin 1,000 MG SDV 1000 MG XX (14:53)
--- NOTE | 2022-03-03 15:07 | PM.OP ---
Operative Report Date of procedure: March 03, 2022 Pre-op diagnosis: Diabetic foot infection with infected orthopedic hardware and osteomyelitis left posterior heel Post-op diagnosis: Same Post-op findings: Same Procedure done: Incision and debridement down to bone left calcaneus CPT code 50060. Deep hardware removal left calcaneus CPT code 07647 Implants: None Specimens removed/disposition: Screw and devitalized tissue. Calcaneus left posterior calcaneal tuberosity sent to microbiology for gram stain and culture Pathology: None Surgeon: Montana Talbot D.P.M. Product Assembler: Ale Yip Estimated blood loss: 5 9 IV fluids: 0 Urine output: None Complications: None Findings: Devitalized bone with prior to orthopedic hardware. Brief History: Diabetic foot ulcer with exposed hardware and devitalized bone, admitted to the hospital for IV antibiotics and surgical debridement. Procedure: Under mild sedation the patient was brought to the operating room and remained on the gurney in supine position. A timeout was performed. Anesthesia was then administered by the anesthesia service. Local anesthesia injected by myself consisting of 20 cc of one-to-one mixture 1% lidocaine plain and 0.25% Marcaine plain in a posterior V-block at the distal left leg. Well-padded pneumatic tourniquet applied to the left high calf. Left lower extremity was scrubbed, prepped and draped utilizing normal aseptic technique. Left foot was elevated and the tourniquet inflated to 250 mmHg. Attention was directed to the left posterior calcaneus where a full-thickness wound with exposed hardware and bone was appreciated. Utilizing pickups and #10 blade excisional debridement was performed sharply of devitalized epidermis, dermis, devitalized subcutaneous tissue and devitalized bone. Bone was sent to microbiology for gram stain and culture. Past orthopedic hardware with approximately 1 cm of backing was appreciated this was removed and passed from operative field. The incision site was flushed with copious amounts of sterile saline solution. Incision down to bone cortex of devitalized bone was performed with both 15 blade as well as rongeur and devitalized bone past from operative field. Incision was flushed with copious amounts of sterile skin solution. Post excisional debridement wound measurements 5.5 cm x 4.5 cm x 1.5 cm. Dressing consisting of 1 g of vancomycin powder, saline wet-to-dry 4 x 4, Kerlix, ABD pad and Amanuel wrap was applied. Tourniquet was deflated and a prompt hyperemic response was noted to the distal digits of the left foot. Patient tolerated the procedure and anesthesia well and was transferred to the PACU with vital signs stable and vascular status intact. Following a period of postoperative monitoring patient will return back to the floor, he is to be protected weightbearing toe-touch only for transfers. Elevate left foot and suspend heel over pillows at this time ordering a PODUS boot for further offloading. Will likely require further surgical debridement, will likely also require further hardware removal, pending operative report to identify hardware and intramedullary phillip for appropriate instrumentation for removal. Continue empiric IV antibiotics and may narrow once cultures yield further information. Patient wishes to pursue with limb salvage efforts at this time.
--- NOTE | 2022-03-03 15:25 | XR_ITS ---
WS: [id number] Left calcaneus, 3 views portable, 03/03/2022 Clinical Data: post op Comparison: Left foot, 03/02/2022 Findings: There is a fusion of the ankle joint and talocalcaneal joint with a long intramedullary phillip. The phillip is fixed with screws in the distal tibia and also in the calcaneus and calcaneal talar articulation. There is soft tissue swelling over the posterior aspect of the calcaneus. There is an operative drain and bandage in this area. Bony fusion is seen of the ankle and the calcaneal tibial articulation. XR/XR calcaneus LT min 2V 30502 Impression: 1. No change in orthopedic and bony fusion of the ankle and the talocalcaneal a rticulation. 2. Postoperative bandage overlying the heel.
--- NOTE | 2022-03-03 16:33 | ANE.PACU2 ---
Inpatient post-anesthesia follow up: Airway intact: Yes Vital signs: Temperature 97.7 F Pulse Rate 77 Respiratory Rate 18 Blood Pressure 124/70 Pulse Oximetry 92 Oxygen Delivery Me thod Room Air Oxygen Flow Rate 5 Fraction of Inspir ed Oxygen Hydration adequate: Yes Nausea and vomiting: No Pain level: 2
--- NOTE | 2022-03-03 16:53 | PC.NURSE ---
Non-weight bearing. Per Dr. Talbot post operatively. Patient can touch down on the ball of the foot for transfers only.
[2022-03-03 17:31] LABS: Glucose Point of Care 98 mg/dL (70-110)
[2022-03-03] MEDS: pantoprazole 40 mg SDV IVP (18:05)
[2022-03-03] MEDS: enoxaparin 40 mg/0.4 mL Syringe SUBCUT (18:05)
[2022-03-03 20:54] LABS: Vancomycin Trough 17.4 ug/mL (10-15)
[2022-03-03 21:29] LABS: Glucose Point of Care 267 mg/dL (70-110)
[2022-03-03] MEDS: insulin glargine 100 units/1 mL 30 UNIT SUBCUT (21:51)
[2022-03-03] MEDS: insulin lispro 100 unit/1 mL SUBCUT (21:51)
[2022-03-04] VITALS (8 sets, daily range): BP systolic 118–160; BP diastolic 70–90; PULSE 68–99; RESP 18; TEMP 36.4–36.8; O2SAT 93–95
[2022-03-04] MEDS: acetaminophen 325 mg Tablet 650 MG PO ×2 (03:28→23:01)
[2022-03-04] MEDS: atorvastatin 40 mg Tablet 20 MG PO (05:53)
[2022-03-04] MEDS: levothyroxine 125 mcg Tablet PO (05:53)
--- NOTE | 2022-03-04 06:07 | P.PN_ITS ---
Subjective Subjective: Patient seen bedside this morning for dressing change. He is 1 day status post incision and debridement left posterior heel with hardware removal. Patient denies any pain, tolerating regular diet. Has been elevating his foot, minimal strikethrough bleeding at the surgical dressing. Patient den ies any subjective nausea, vomiting, fever, chills, shortness of breath or chest pain. Vitals/I&O/Wt Last Vital Signs Temp 97.6 F 03/04/22 04:00 Pulse 85 03/04/22 05:18 Resp 18 03/04/22 04:00 BP 118/70 03/04/22 04:00 Pulse Ox 94 03/04/22 04:00 03/03/22 03/03/22 03/04/22 14:59 22:59 06:59 Intake Total 200 / 200 2240.0 / 2440.0 600 / 3040.0 Output Total 5 / 2500 / 2505 1300 / 3805 Balance 195 / 195 -260 / -65.0 -700 / -765.0 Weight last 48 hrs Weight 323 lb 1.6 oz Weight 320 lb Physical Exam Narrative: Patient is alert and oriented ?3 and in no acute distress.? The following is a focused bilaterallower extremity exam. VASCULAR: Dorsalis pedis palpable, posterior tibial arteries palpable.? Capillary refill time less than 3 seconds to the distal hallux bilaterally. Calf is supple and nontender proximally and distally.? Edema to the left lower extremity +1 pitting.? Decrease in pedal hair growth bilaterally. NEUROLOGICAL: Protective sensation intact 0/10 sites, tested with [place] monofilament to bilateral feet. DERMATOLOGICAL: Wound with exposed bone left posterior calcaneus measures 5.5 cm x 4.5 cm x 1.5 cm, periwound erythema without proximal lymphangitic streaking. No patrick purulence. MUSCULOSKELETAL: No motion at the left ankle or subtalar joint secondary to fusion.? No pain with posterior calf squeeze bilaterally. Urinary Catheter Management: Leos: Cath Placed During This Visit: yes Reason for Continuing Indwelling Catheter: Required Immobilization for Trauma or Surgery or Anesthesia Urinary Catheter Date of Insertion: 03/02/22 Urinary Catheter Time of Insertion: 15:45 Data : 03/03/22 05:36 03/03/22 05:36 Micro: Microbiology 03/03/22 14:52 Gram Stain - Final Bone 03/02/22 19:25 Gram Stain - Final Other Source 03/02/22 14:25 MRSA Culture - Final Nose 03/02/22 12:51 Blood Culture - Preliminary Blood NEGATIVE TO DATE 03/02/22 12:45 Blood Culture - Preliminary Blood NEGATIVE TO DATE 03/02/22 14:25 Gram Stain - Final Leg - Other Wound Culture - Preliminary A&P Assessment and plan (1) Diabetic peripheral neuropathy associated with type 2 diabetes mellitus: Status: Acute (2) Cellulitis: Status: Acute Qualifiers: Laterality: right Site of cellulitis: extremity Site of cellulitis of extremity: lower extremity Qualified Code(s): L03.115 - Cellulitis of right lower limb (3) Non-pressure chronic ulcer of left heel and midfoot with necrosis of bone: Status: Acute (4) Exposed orthopaedic hardware: Status: Acute Plan 61-year-old diabetic male with acute osteomyelitis left posterior calcaneus. X- ray and CT scan shows destructive changes at the posterior calcaneal tubercle directly adjacent to the ulceration suggestive of osteomyelitis 1 day status post surgical debridement date of procedure 03/03/2022. * Vanco and Primaxin empirically may narrow once bone culture yield further information * Nonweightbearing may heel touch to the left lower extremity only for transfers * Ordered PODUS boots for offloading of the left posterior heel will be fitted and dispensed by [facility] * Dakin's quarter percent twice daily dressing change wet-to-dry * Planning on further debridement and removal of intramedullary phillip, operative report from [facility] to identify hardware vendor and instrumentation for IM nail removal pending. * Planning on outpatient wound VAC, home health and IV antibiotics long-term minimum 6 weeks on discharge with weekly follow-up in podiatry clinic. 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
[2022-03-04 06:29] LABS: Glucose Point of Care 162 mg/dL (70-110)
[2022-03-04 06:47] LABS: Basophils % 0.3 %; Eosinophils # 0.2 10^3/uL (0.0-0.8); Eosinophils % 1.7 %; Hematocrit 34.7 % (42.0-52.0); Hemoglobin 11.2 g/dL (11.7-16.6); Lymphocytes # 1.2 10^3/uL (0.8-4.8); Mean Corpuscular HGB Conc 32.3 g/dL (30.0-36.0); Mean Corpuscular Hemoglobin 28.9 pg (28.0-34.0); Mean Corpuscular Volume 89.4 fl (80-94); Mean Platelet Volume 10.9 fL (7.4-10.4); Monocytes % 9.6 %; Neutrophils # 7.82 10^3/uL (1.8-7.7); Neutrophils % 75.8 %; Nucleated Red Blood Cells % 0 %; Platelet Count 197 10^3/cmm (130-400); Red Blood Count 3.88 10^6/uL (4.1-5.3); Red Cell Distribution Width 13.8 % (12.1-15.1); White Blood Count 10.3 10^3/uL (4.0-10.0)
[2022-03-04 07:08] LABS: Procalcitonin 0.04 ng/mL (0-0.5)
[2022-03-04 07:21] LABS: Alanine Aminotransferase 21 U/L (0-41); Albumin Level 2.5 g/dL (3.5-5.2); Alkaline Phosphatase 90 IU/L (40-130); Anion Gap 14.5 (5-19); Aspartate Amino Transferase 17 U/L (0-40); Blood Urea Nitrogen 22 mg/dL (8-23); C Reactive Protein 57.2 mg/L (0.0-4.9); Calcium 8.4 mg/dL (8.5-10.5); Carbon Dioxide 24 mmol/L (22-29); Chloride 104 mmol/L (98-107); Globulin 3.4 g/dL (1.3-4.6); Glomerular Filtration Rate 85.5 mL/min (90-130); Glucose 169 mg/dL (65-115); Magnesium 1.9 mg/dL (1.7-2.3); Osmolality Calculated 293 mOsm/kg (285-295); Phosphorus 3.3 mg/dL (2.5-4.5); Potassium 4.5 mmol/L (3.5-5.1); Sodium 138 mmol/L (136-145); Total Bilirubin 0.3 mg/dL (0.15-1.2); Total Protein 5.9 g/dL (6.6-8.7)
--- NOTE | 2022-03-04 09:17 | XR_ITS ---
WS: [id number] PORTABLE CHEST x 2 HISTORY: PICC PLACEMENT COMPARISON: 07/22/2021 First radiograph 9:25 AM. Right-sided PICC line is present with the tip terminating near the junction with the LEFT innominate. Recommend advancing another 4 cm. No complications evident. Second radiograph 9:30 AM. PICC line has been advanced and now terminates in the mid SVC in better po sition. No complication. IMPRESSION: Satisfactory position right-sided PICC line. Tip now terminates in the mid SVC.
[2022-03-04] MEDS: cholecalciferol (vitamin D3) 5,000 unit Tablet 10000 UNIT PO (10:22)
[2022-03-04] MEDS: omega-3 fatty acids 1,000 mg Capsule 2000 MG PO (10:22)
[2022-03-04] MEDS: metoprolol tartrate 50 mg Tablet PO ×2 (10:22→21:04)
[2022-03-04] MEDS: insulin lispro 100 unit/1 mL SUBCUT ×4 (10:23→21:04)
[2022-03-04] MEDS: insulin glargine 100 units/1 mL 30 UNIT SUBCUT ×2 (10:23→21:04)
--- NOTE | 2022-03-04 12:20 | P.PN_ITS ---
Subjective Subjective: Patient was seen this morning, he had surgical intervention by Dr. Talbot yesterday, no complaints of pain, no fevers, chills overnight Vitals/I&O/Wt Last Vital Signs Temp 97.6 F 03/04/22 04:00 Pulse 78 03/04/22 11:39 Resp 18 03/04/22 11:39 BP 145/88 03/04/22 11:39 Pulse Ox 94 03/04/22 11:39 03/03/22 03/04/22 03/04/22 22:59 06:59 14:59 Intake Total 2240.0 / 2440.0 600 / 3040.0 340 / 340 Output Total 2500 / 2505 1300 / 3805 Balance -260 / -65.0 -700 / -765.0 340 / 340 Weight last 48 hrs Weight 146.556 kg Physical Exam Const: COMMON NORMALS: no acute distress and patient oriented x3 Resp: COMMON NORMALS: normal respiratory effort, No retractions, No use of accessory muscles and clear to auscultation bilaterally AUSCULTATION: clear to auscultation bilaterally Cardio: COMMON NORMALS: regular rate, regular rhythm, S1 normal heart sound present and S2 normal heart sound present RATE: regular rate RHYTHM: regular rhythm HEART SOUNDS: S1 normal heart sound present and S2 normal heart sound present GI: COMMON NORMALS: Normal to inspection, nondistended, normoactive bowel sounds present, Soft to palpation and non-tender PALPATION: Yes Soft to palpation Extremity: NARRATIVE EXTREMITY EXAM: Left lower extremity wrapped and bandaged Neuro: COMMON NORMALS: patient oriented x3 Psych: COMMON NORMALS: mental status grossly normal Urinary Catheter Management: Leos: Cath Placed During This Visit: yes Reason for Continuing Indwelling Catheter: Required Immobilization for Trauma or Surgery or Anesthesia Urinary Catheter Date of Insertion: 03/02/22 Urinary Catheter Time of Insertion: 15:45 Data : 03/04/22 05:47 03/04/22 05:47 Micro: Microbiology 03/02/22 19:25 Gram Stain - Final Other Source Wound Culture - Preliminary 03/03/22 14:52 Gram Stain - Final Bone 03/02/22 14:25 MRSA Culture - Final Nose 03/02/22 12:51 Blood Culture - Preliminary Blood NEGATIVE TO DATE 03/02/22 12:45 Blood Culture - Preliminary Blood NEGATIVE TO DATE 03/02/22 14:25 Gram Stain - Final Leg - Other Wound Culture - Preliminary A&P Assessment and plan (1) Chronic ulcer of great toe of left foot with fat layer exposed: Status: Acute (2) Diabetic peripheral neuropathy associated with type 2 diabetes mellitus: Status: Acute (3) Cellulitis: Status: Acute Qualifiers: Laterality: right Site of cellulitis: extremity Site of cellulitis of extremity: lower extremity Qualified Code(s): L03.115 - Cellulitis of right lower limb (4) Diabetic ulcer of left foot: Status: Acute (5) Foot osteomyelitis, left: Status: Acute Plan Left foot, diabetic ulcer, with cellulitis, with osteomyelitis 1.? Ulceration overlying the dorsal calcaneus with underlying fixation screw. Erosive changes involving the underlying calcaneus and dorsal calcaneal spur with associated air suspicious for osteomyelitis in this location. Recommend correlation with area of concern. 2.? No other areas of suspected osteomyelitis 3.? Diffuse soft tissue edema lower leg and ankle with subcutaneous fluid compatible with cellulitis. No drainable fluid collection or abscess. 4.? 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 -Status post incision and debridement left posterior heel with hardware removal postop day 1 Plan -IV antibiotics, vancomycin, Primaxin -Does have left calf swelling, venous ultrasound negative for DVT -Arterial ultrasounds no significant occlusion -PICC line to be placed for long-term antibiotics -Surgical cultures pending -Plans on further debridement -CRP 16.9, Pro-Kameron 0.08 -A1c 8.2 requires blood sugar control, Lantus 30 units twice daily, with moderate dose sliding scale -As needed Lasix dosing -Full code -Lovenox for DVT prophylaxis Attestations Medical Necessity Statement*: Patient requires hospitalization for left foot, diabetic ulcer, cellulitis, osteomyelitis Coding Level of Care Code Acute Medical Office Secretary for [facility] Fwd Diagnoses Chronic ulcer of great toe of left foot with fat layer exposed L97.522 Diabetic peripheral neuropathy associated with type 2 diabetes mellitus E11.42 Cellulitis L03.115 Laterality: right Site of cellulitis: extremity Site of cellulitis of extremity: lower extremity Diabetic ulcer of left foot E11.621; L97.529 Foot osteomyelitis, left M86.9
[2022-03-04 12:22] LABS: Glucose Point of Care 249 mg/dL (70-110)
[2022-03-04] MEDS: pantoprazole 40 mg SDV IVP (16:38)
[2022-03-04] MEDS: enoxaparin 40 mg/0.4 mL Syringe SUBCUT (16:38)
[2022-03-04 17:30] LABS: Glucose Point of Care 180 mg/dL (70-110)
[2022-03-04] MEDS: sodium hypochlorite 0.125% Btl 473 mL 1 APPLIC TOPICAL (17:46)
[2022-03-04] MEDS: docusate sodium 100 mg Capsule PO (17:46)
[2022-03-04 20:55] LABS: Glucose Point of Care 279 mg/dL (70-110)
[2022-03-05] VITALS (9 sets, daily range): BP systolic 87–162; BP diastolic 61–96; PULSE 60–95; RESP 16–18; TEMP 36.2–36.9; O2SAT 91–99
[2022-03-05] MEDS: acetaminophen 325 mg Tablet 650 MG PO (05:55)
[2022-03-05] MEDS: levothyroxine 125 mcg Tablet PO (05:55)
[2022-03-05] MEDS: atorvastatin 40 mg Tablet 20 MG PO (05:55)
[2022-03-05 06:39] LABS: Glucose Point of Care 152 mg/dL (70-110)
--- NOTE | 2022-03-05 06:39 | P.PN_ITS ---
Subjective Subjective: Patient seen bedside this morning for dressing change. He is 1 day status post incision and debridement left posterior heel with hardware removal. Patient denies any pain, tolerating regular diet. Has been elevating his foot, minimal strikethrough bleeding at the surgical dressing. Patient den ies any subjective nausea, vomiting, fever, chills, shortness of breath or chest pain. Vitals/I&O/Wt Last Vital Signs Temp 97.7 F 03/05/22 04:00 Pulse 77 03/05/22 05:38 Resp 18 03/05/22 04:00 BP 87/62 03/05/22 04:00 Pulse Ox 99 03/05/22 04:00 03/04/22 03/04/22 03/05/22 14:59 22:59 06:59 Intake Total 340 / 340 940 / 1280 100 / 1380 Output Total 1200 / 1200 1780 / 2980 Balance 340 / 340 -260 / 80 -1680 / -1600 Physical Exam Narrative: Patient is alert and oriented ?3 and in no acute distress.? The following is a focused bilaterallower extremity exam. VASCULAR: Dorsalis pedis palpable, posterior tibial arteries palpable.? Capillary refill time less than 3 seconds to the distal hallux bilaterally. Calf is supple and nontender proximally and distally.? Edema to the left lower extremity +1 pitting.? Decrease in pedal hair growth bilaterally. NEUROLOGICAL: Protective sensation intact 0/10 sites, tested with [place] Omar monofilament to bilateral feet. DERMATOLOGICAL: Wound with exposed bone left posterior calcaneus measures 5.5 cm x 4.5 cm x 1.5 cm, periwound erythema without proximal lymphangitic streaking.? No patrick purulence. MUSCULOSKELETAL: No motion at the left ankle or subtalar joint secondary to fusion.? No pain with posterior calf squeeze bilaterally. Urinary Catheter Management: Leos: Cath Placed During This Visit: yes Reason for Continuing Indwelling Catheter: Perioperative Use in Selected Surgeries Urinary Catheter Date of Insertion: 03/02/22 Urinary Catheter Time of Insertion: 15:45 Data : 03/05/22 07:00 03/05/22 07:00 Micro: Microbiology 03/02/22 14:25 Gram Stain - Final Leg - Other Wound Culture - Preliminary 03/03/22 14:52 Gram Stain - Final Bone Tissue Culture - Preliminary Strep species, gamma-hemolytic 03/02/22 19:25 Gram Stain - Final Other Source Wound Culture - Preliminary A&P Assessment and plan (1) Diabetic peripheral neuropathy associated with type 2 diabetes mellitus: Status: Acute (2) Cellulitis: Status: Acute (3) Non-pressure chronic ulcer of left heel and midfoot with necrosis of bone: Status: Acute (4) Exposed orthopaedic hardware: Status: Acute Plan 61-year-old diabetic male with acute osteomyelitis left posterior calcaneus. X- ray and CT scan shows destructive changes at the posterior calcaneal tubercle directly adjacent to the ulceration suggestive of osteomyelitis [address] surgical debridement date of procedure 03/03/2022. * Vanco and Primaxin empirically may narrow once bone culture yield further information. Cultures pending, growing strep gamma hemolytic as well as gram- negative rods. * Nonweightbearing may heel touch to the left lower extremity only for transfers . PODUS at all times while in bed for offloading of the heel. * Dakin's quarter percent twice daily dressing change wet-to-dry twice daily. * Intramedullary phillip is [employer], extraction tray being oil drilling engineer to over from [place] at this time. Potentially could arrive tonight versus tomorrow. Planning on repeat surgical debridement and removal of intramedullary nail tomorrow versus Tuesday depending on arrival of extraction tray. * Planning on outpatient wound VAC, home health and IV antibiotics long-term minimum 6 weeks on discharge with weekly follow-up in podiatry clinic. 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
[2022-03-05 07:19] LABS: Basophils % 0.5 %; Eosinophils # 0.3 10^3/uL (0.0-0.8); Eosinophils % 3.3 %; Hematocrit 33.3 % (42.0-52.0); Hemoglobin 11.1 g/dL (11.7-16.6); Lymphocytes # 1.3 10^3/uL (0.8-4.8); Lymphocytes % 15.8 %; Mean Corpuscular HGB Conc 33.3 g/dL (30.0-36.0); Mean Corpuscular Hemoglobin 29.4 pg (28.0-34.0); Mean Corpuscular Volume 88.3 fl (80-94); Mean Platelet Volume 10.6 fL (7.4-10.4); Monocytes # 0.8 10^3/uL (0.2-0.9); Monocytes % 10.2 %; Neutrophils # 5.69 10^3/uL (1.8-7.7); Neutrophils % 69.7 %; Nucleated Red Blood Cells % 0 %; Platelet Count 183 10^3/cmm (130-400); Red Blood Count 3.77 10^6/uL (4.1-5.3); Red Cell Distribution Width 13.5 % (12.1-15.1); White Blood Count 8.2 10^3/uL (4.0-10.0)
[2022-03-05 07:41] LABS: Alanine Aminotransferase 19 U/L (0-41); Albumin Level 2.7 g/dL (3.5-5.2); Alkaline Phosphatase 77 IU/L (40-130); Anion Gap 12.4 (5-19); Aspartate Amino Transferase 16 U/L (0-40); Blood Urea Nitrogen 19 mg/dL (8-23); C Reactive Protein 43.9 mg/L (0.0-4.9); Calcium 8.3 mg/dL (8.5-10.5); Carbon Dioxide 24 mmol/L (22-29); Chloride 105 mmol/L (98-107); Globulin 3.3 g/dL (1.3-4.6); Glomerular Filtration Rate 114.3 mL/min (90-130); Glucose 110 mg/dL (65-115); Magnesium 1.9 mg/dL (1.7-2.3); Osmolality Calculated 287 mOsm/kg (285-295); Potassium 4.4 mmol/L (3.5-5.1); Sodium 137 mmol/L (136-145); Total Bilirubin 0.4 mg/dL (0.15-1.2)
[2022-03-05 07:48] LABS: Procalcitonin 0.03 ng/mL (0-0.5)
[2022-03-05] MEDS: metoprolol tartrate 50 mg Tablet PO ×2 (08:08→21:48)
[2022-03-05] MEDS: aspirin 81 mg EC Tablet PO (08:08)
[2022-03-05] MEDS: cholecalciferol (vitamin D3) 5,000 unit Tablet 10000 UNIT PO (08:08)
[2022-03-05] MEDS: omega-3 fatty acids 1,000 mg Capsule 2000 MG PO (08:08)
[2022-03-05] MEDS: insulin lispro 100 unit/1 mL SUBCUT ×4 (08:52→21:47)
[2022-03-05] MEDS: insulin glargine 100 units/1 mL 30 UNIT SUBCUT ×2 (08:52→21:46)
--- NOTE | 2022-03-05 09:24 | PC.NURSE ---
IMM IMM copy left at bedside. Patient verbalized understanding. IMM copy initialled, timed and dated in chart.
--- NOTE | 2022-03-05 09:30 | P.PN_ITS ---
Subjective Subjective: Patient was seen this morning, he tells me he got no sleep overnight, he is worried about his , she tells he loves her because she is taking care of him through all his surgical procedures, through his open heart surgery, and she continues to take care of him, he tells me currently she is at home disinfecting the house, getting his ramp ready, he just worried about her, he tells me did not get a lot of sleep Vitals/I&O/Wt Last Vital Signs Temp 97.2 F L 03/05/22 08:00 Pulse 89 03/05/22 08:53 Resp 18 03/05/22 08:53 BP 123/77 03/05/22 08:00 Pulse Ox 94 03/05/22 08:53 03/04/22 03/05/22 03/05/22 22:59 06:59 14:59 Intake Total 940 / 1280 100 / 1380 600 / 600 Output Total 1200 / 1200 1780 / 2980 500 / 500 Balance -260 / 80 -1680 / -1600 100 / 100 Physical Exam Const: COMMON NORMALS: no acute distress and patient oriented x3 Neck/C-Spine: COMMON NORMALS: no JVD Resp: COMMON NORMALS: normal respiratory effort, No retractions, No use of accessory muscles and clear to auscultation bilaterally AUSCULTATION: clear to auscultation bilaterally Cardio: COMMON NORMALS: no JVD, regular rate, regular rhythm, S1 normal heart sound present and S2 normal heart sound present RATE: regular rate RHYTHM: regular rhythm HEART SOUNDS: S1 normal heart sound present and S2 normal heart sound present GI: COMMON NORMALS: Normal to inspection, nondistended, normoactive bowel sounds present, Soft to palpation and non-tender PALPATION: Yes Soft to palpation Extremity: COMMON NORMALS: no pedal edema Neuro: COMMON NORMALS: patient oriented x3 Psych: COMMON NORMALS: mental status grossly normal Urinary Catheter Management: Leos: Cath Placed During This Visit: yes Reason for Continuing Indwelling Catheter: Perioperative Use in Selected Surgeries Urinary Catheter Date of Insertion: 03/02/22 Urinary Catheter Time of Insertion: 15:45 Data : 03/05/22 07:00 03/05/22 07:00 Micro: Microbiology 03/02/22 14:25 Gram Stain - Final Leg - Other Wound Culture - Preliminary 03/03/22 14:52 Gram Stain - Final Bone Tissue Culture - Preliminary Strep species, gamma-hemolytic 03/02/22 19:25 Gram Stain - Final Other Source Wound Culture - Preliminary A&P Assessment and plan (1) Chronic ulcer of great toe of left foot with fat layer exposed: Status: Acute (2) Diabetic peripheral neuropathy associated with type 2 diabetes mellitus: Status: Acute (3) Cellulitis: Status: Acute (4) Diabetic ulcer of left foot: Status: Acute (5) Foot osteomyelitis, left: Status: Acute Plan Left foot, diabetic ulcer, with cellulitis, with osteomyelitis 1.? Ulceration overlying the dorsal calcaneus with underlying fixation screw. Erosive changes involving the underlying calcaneus and dorsal calcaneal spur with associated air suspicious for osteomyelitis in this location. Recommend correlation with area of concern. 2.? No other areas of suspected osteomyelitis 3.? Diffuse soft tissue edema lower leg and ankle with subcutaneous fluid compatible with cellulitis. No drainable fluid collection or abscess. 4.? 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 -Status post incision and debridement left posterior heel with hardware removal postop day 1 Plan -IV antibiotics, vancomycin, Primaxin -Does have left calf swelling, venous ultrasound negative for DVT -Arterial ultrasounds no significant occlusion -PICC line to be placed for long-term antibiotics -Surgical cultures pending -Plans on further debridement -CRP 43.9 -A1c 8.2 requires blood sugar control, Lantus 30 units twice daily, with moderate dose sliding scale -As needed Lasix dosing -Full code -Lovenox for DVT prophylaxis Attestations Medical Necessity Statement*: Patient requires hospitalization for left foot diabetic ulcer, cellulitis and osteomyelitis Coding Level of Care Code Acute Recreation Activities Coordinator for [facility] Fwd Diagnoses Chronic ulcer of great toe of left foot with fat layer exposed L97.522 Diabetic peripheral neuropathy associated with type 2 diabetes mellitus E11.42 Cellulitis L03.90 Diabetic ulcer of left foot E11.621; L97.529 Foot osteomyelitis, left M86.9
[2022-03-05] MEDS: sodium hypochlorite 0.125% Btl 473 mL 1 APPLIC TOPICAL ×2 (10:00→21:48)
--- NOTE | 2022-03-05 10:00 | PC.NURSE ---
Surgeon at bedside Dr Talbot change the dressing.
[2022-03-05 11:33] LABS: Glucose Point of Care 181 mg/dL (70-110)
[2022-03-05 12:57] LABS: Insulin ( Reference Lab Test) 44.3 uIU/mL
[2022-03-05 17:27] LABS: Glucose Point of Care 176 mg/dL (70-110)
[2022-03-05] MEDS: enoxaparin 40 mg/0.4 mL Syringe SUBCUT (17:35)
[2022-03-05] MEDS: pantoprazole 40 mg SDV IVP (17:36)
[2022-03-05 20:37] LABS: Glucose Point of Care 209 mg/dL (70-110)
[2022-03-05] MEDS: trazodone 50 mg Tablet PO (21:48)
[2022-03-06] VITALS (12 sets, daily range): BP systolic 105–173; BP diastolic 62–90; PULSE 73–101; RESP 16–21; TEMP 36.2–36.9; O2SAT 94–99
[2022-03-06 04:16] LABS: Basophils % 0.5 %; Eosinophils # 0.2 10^3/uL (0.0-0.8); Eosinophils % 2.5 %; Hematocrit 34.7 % (42.0-52.0); Hemoglobin 11.1 g/dL (11.7-16.6); Lymphocytes # 1.2 10^3/uL (0.8-4.8); Lymphocytes % 14.4 %; Mean Corpuscular Hemoglobin 29.1 pg (28.0-34.0); Mean Corpuscular Volume 91.1 fl (80-94); Mean Platelet Volume 10.4 fL (7.4-10.4); Monocytes # 0.7 10^3/uL (0.2-0.9); Monocytes % 8.7 %; Neutrophils # 5.96 10^3/uL (1.8-7.7); Neutrophils % 73.4 %; Nucleated Red Blood Cells % 0 %; Platelet Count 186 10^3/cmm (130-400); Red Blood Count 3.81 10^6/uL (4.1-5.3); Red Cell Distribution Width 13.6 % (12.1-15.1); White Blood Count 8.1 10^3/uL (4.0-10.0)
[2022-03-06 04:45] LABS: Alanine Aminotransferase 19 U/L (0-41); Albumin Level 2.7 g/dL (3.5-5.2); Alkaline Phosphatase 78 IU/L (40-130); Anion Gap 13.5 (5-19); Aspartate Amino Transferase 15 U/L (0-40); Blood Urea Nitrogen 19 mg/dL (8-23); C Reactive Protein 40.4 mg/L (0.0-4.9); Calcium 8.4 mg/dL (8.5-10.5); Carbon Dioxide 22 mmol/L (22-29); Chloride 107 mmol/L (98-107); Globulin 3.5 g/dL (1.3-4.6); Glucose 169 mg/dL (65-115); Magnesium 1.8 mg/dL (1.7-2.3); NT Pro B Type Natriuretic Pept 2667 pg/mL (0-125); Osmolality Calculated 292 mOsm/kg (285-295); Phosphorus 3.1 mg/dL (2.5-4.5); Potassium 4.5 mmol/L (3.5-5.1); Sodium 138 mmol/L (136-145); Total Bilirubin 0.4 mg/dL (0.15-1.2); Total Protein 6.2 g/dL (6.6-8.7)
[2022-03-06 06:30] LABS: Glucose Point of Care 171 mg/dL (70-110)
[2022-03-06] MEDS: metoprolol tartrate 50 mg Tablet PO ×2 (08:45→21:54)
[2022-03-06] MEDS: FUROsemide 10 mg/mL SDV 4mL 40 MG IVP (08:45)
--- NOTE | 2022-03-06 09:40 | W.PM.OPSUD ---
Surgery/Procedure H&P Update DATE OF PROCEDURE: March 02, 2022 DATE H&P PERFORMED: 03/02/22 CHANGES TO PREVIOUS DOCUMENTATION: None PRIMARY INDICATION FOR PROCEDURE: Diabetic foot infection with osteomyelitis and infected hardware left lower extremity. PLANNED PROCEDURE: Operation Date: 03/03/22 13:55 Proposed Procedures p Debridement/I&D and Deep Hardware Removal(Left) - Montana Talbot DPM Operation Date: 03/06/22 10:20 Proposed Procedures p intramedullary nail removal left leg(Left) - Montana Talbot DPM Operation Date: 03/06/22 10:00 Proposed Procedures p Hardware Removal intramedullary nail tibia(Left) - Montana Talbot DPM
--- NOTE | 2022-03-06 09:50 | PC.NURSE ---
off unit to surgery
--- NOTE | 2022-03-06 11:48 | PM.PN ---
Subjective Subjective: Patient was seen this morning, and preop, uneventful night, no fevers, no chills, no chest pain Vitals/I&O/Wt Last Vital Signs Temp 97.3 F L 03/06/22 11:35 Pulse 73 03/06/22 11:45 Resp 18 03/06/22 11:45 BP 108/64 03/06/22 11:45 Pulse Ox 98 03/06/22 11:45 03/05/22 03/06/22 03/06/22 22:59 06:59 14:59 Intake Total 940 / 1540 600 / 2140 0 / 0 Output Total 2600 / 4100 1400 / 5500 1875 / 1875 Balance -1660 / -2560 -800 / -3360 -1875 / -1875 Physical Exam Const: COMMON NORMALS: no acute distress and patient oriented x3 Resp: COMMON NORMALS: normal respiratory effort, No retractions, No use of accessory muscles and clear to auscultation bilaterally AUSCULTATION: clear to auscultation bilaterally Cardio: COMMON NORMALS: regular rate, regular rhythm, S1 normal heart sound present and S2 normal heart sound present RATE: regular rate RHYTHM: regular rhythm HEART SOUNDS: S1 normal heart sound present and S2 normal heart sound present GI: COMMON NORMALS: Normal to inspection, nondistended, normoactive bowel sounds present, Soft to palpation and non-tender PALPATION: Yes Soft to palpation Neuro: COMMON NORMALS: patient oriented x3 Psych: COMMON NORMALS: mental status grossly normal Urinary Catheter Management: Leos: Cath Placed During This Visit: yes Reason for Continuing Indwelling Catheter: Acute Urinary Retention or Obstruction Urinary Catheter Date of Insertion: 03/02/22 Urinary Catheter Time of Insertion: 15:45 Data : 03/06/22 04:07 03/06/22 04:07 Micro: Microbiology 03/02/22 19:25 Gram Stain - Final Other Source Wound Culture - Preliminary Staphylococcus epidermidis Enterococcus avium Gram Negative Rods 03/03/22 14:52 Gram Stain - Final Bone Tissue Culture - Preliminary Enterococcus avium 03/02/22 21:40 Anaerobic Culture - Preliminary Foot - #1 Anaerobic gram negative rods 03/02/22 14:25 Gram Stain - Final Leg - Other Wound Culture - Final A&P Assessment and plan (1) Chronic ulcer of great toe of left foot with fat layer exposed: Status: Acute (2) Diabetic peripheral neuropathy associated with type 2 diabetes mellitus: Status: Acute (3) Cellulitis: Status: Acute (4) Diabetic ulcer of left foot: Status: Acute (5) Foot osteomyelitis, left: Status: Acute Plan Left foot, diabetic ulcer, with cellulitis, with osteomyelitis 1.? Ulceration overlying the dorsal calcaneus with underlying fixation screw. Erosive changes involving the underlying calcaneus and dorsal calcaneal spur with associated air suspicious for osteomyelitis in this location. Recommend correlation with area of concern. 2.? No other areas of suspected osteomyelitis 3.? Diffuse soft tissue edema lower leg and ankle with subcutaneous fluid compatible with cellulitis. No drainable fluid collection or abscess. 4.? 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 -Status post incision and debridement left posterior heel with hardware removal postop day 1 Plan -IV antibiotics, vancomycin, Primaxin -Does have left calf swelling, venous ultrasound negative for DVT -Arterial ultrasounds no significant occlusion -PICC line to be placed for long-term antibiotics -Surgical cultures pending -Plans on further debridement -CRP 43.9 -A1c 8.2 requires blood sugar control, Lantus 30 units twice daily, with moderate dose sliding scale -As needed Lasix dosing -Full code -Lovenox for DVT prophylaxis Attestations Medical Necessity Statement*: Patient requires hospitalization for left foot diabetic ulcer with osteo- Coding Level of Care Code Acute Rn Production for [facility] Fwd Diagnoses Chronic ulcer of great toe of left foot with fat layer exposed L97.522 Diabetic peripheral neuropathy associated with type 2 diabetes mellitus E11.42 Cellulitis L03.90 Diabetic ulcer of left foot E11.621; L97.529 Foot osteomyelitis, left M86.9
--- NOTE | 2022-03-06 11:56 | PM.OP ---
Operative Report Date of procedure: March 06, 2022 Pre-op diagnosis: Diabetic foot infection with infected orthopedic hardware and osteomyelitis left posterior heel Post-op diagnosis: Same Procedure done: Removal of intramedullary phillip and all deep hardware left lower extremity CPT code 81942 Insertion of antibiotic impregnated cement spacer. CPT code 42706 Implants: 3-0 Vicryl, 4-0 nylon, 3-0 Prolene, Simplex P with tobramycin and K wire for retrieval Specimens removed/disposition: Intramedullary phillip and screws x4 Pathology: None Surgeon: Montana Talbot D.P.M. Equipment Processer Storage: [place] Estimated blood loss: 25 74 IV fluids: None Urine output: None Complications: None Brief History: Received extraction tray from [employer] for removal of intramedullary nail and screws due to adjacent osteomyelitis. Recommended removal of all hardware, PICC line, wound VAC and wound care. Patient is agreeable wishes to proceed. Procedure: Under mild sedation the patient remained on the hospital bed and was brought to the operating room. Timeout was performed. Anesthesia was then administered by the anesthesia service. Local anesthesia injected by myself consisting of 30 cc of Marcaine and 20 cc of Exparel in a left ankle block fashion and subcutaneously with Exparel per manufacture recommendation at percutaneous incision sites for screw removal. Well-padded pneumatic tourniquet applied to the left high calf. Left lower extremity was then scrubbed, prepped and draped utilizing normal aseptic technique. Left leg was elevated and the tourniquet inflated to 250 mmHg. Attention was directed to the lateral posterior calcaneus with removal of calcaneal screw this was passed from operative field and flushed with saline solution. Attention was then directed laterally at the lateral calcaneus where a second distal screw was removed in total and passed from operative field and incision flushed with saline solution. 2 screws proximally in the tibia also removed in like fashion with percutaneous incision and removed in total. Confirming no remaining screws with intraoperative fluoroscopy the intramedullary nail was explanted utilizing manufacture technique in total and passed from the operative field followed by saline flush with copious amounts of sterile saline solution. Bone was viable with calcaneus inferiorly and laterally. Had improved appearance at the posterior calcaneal wound. The medial and lateral incisions were closed utilizing 3-0 Vicryl and 4-0 nylon. Simplex P with tobramycin antibiotic none biodegradable cement spacer was inserted in place of the IM nail to fill the void and deliver local antibiotics. To make identification easier later for removal a K wire was inserted within the phillip and left proud just under the surface of the skin approximately 1 cm. Plantar heel incision then closed with 3-0 Prolene. Incisions were dressed with Adaptic, sterile 4 x 4, Kerlix and Amanuel wrap, saline wet-to-dry at the posterior heel wound. PODUS boot reapplied. Tourniquet was deflated and a prompt hyperemic response is noted to the distal digits of the left foot. Patient tolerated the procedure and anesthesia well and was transferred to the PACU with vital signs stable and vascular status intact. Following a period of postop monitoring he will be transferred back to the floor will continue with twice daily Dakin's wet-to-dry on the posterior heel wound. Discharge planning with PICC line, antibiotic selection and wound VAC with follow-up in podiatry clinic, anticipate discharge early next week.
--- NOTE | 2022-03-06 12:02 | P.ANESASSM_ITS ---
Pre-Anesthetic Assessment Height/Weight: Height 1.88 m Weight 146.556 kg Temp Pulse Resp BP Pulse Ox 97.1 F L 75 16 112/62 96 03/06/22 11:55 03/06/22 11:55 03/06/22 11:55 03/06/22 11:55 03/06/22 11:55 Operation Date: 03/03/22 13:55 Proposed Procedures p Debridement/I&D and Deep Hardware Removal(Left) - [place] Talbot DPM Operation Date: 03/06/22 10:20 Proposed Procedures p intramedullary nail removal left leg(Left) - Montana Talbot DPM Operation Date: 03/06/22 10:00 Proposed Procedures p Hardware Removal intramedullary nail tibia(Left) - Montana Talbot DPM Familial anesthetic complications: None Was Beta Stu taken within 24 hours: Yes Was Clonidine taken within 24 hours: N/A Last intake: Intake Last Liquid Date 03/05/22 Last Liquid Time 23:50 Last Solid Date 03/05/22 Last Solid Time 23:00 Social Tobacco and No alcohol Exam alert, oriented x 3 and regular rate & rhythm rhonchi Airway Submandibular: within normal limits Cervical ROM: within normal limits Mallampati: Class II Dentition: chipped Pulmonary Chronic Obstructive Pulmonary Disease and Sleep Apnea CV/HEM Coronary Artery Disease, Congestive Heart Failure and Hypertension Metabolic Diabetes Mellitus, Hyperlipidemia, Morbid Obesity and Thyroid Disease Musc/skel Osteoarthritis/DJD Neuropsych Anxiety and Neuropathy Anesthetic Plan ASA status: 3 Anesthesia: MAC Medications/Allergies Home Medications Medication Instructions Recorded Confirmed Last Taken Type aspirin 325 mg tablet 325 mg PO BEDTIME 02/07/20 03/02/22 03/01/22 History furosemide 40 mg tablet (Lasix) 40 mg PO DAILY PRN 02/07/20 03/02/22 Unknown History insulin degludec 200 unit/mL (3 44 unit SUBCUT BID 02/07/20 03/02/22 03/01/22 History mL) subcutaneous pen (Tresiba FlexTouch U-200 insulin) linagliptin 5 mg tablet (Tradjenta) 5 mg PO QAM 02/07/20 03/02/22 03/01/22 Hist ory losartan 50 mg tablet 50 mg PO QAM 02/07/20 03/02/22 03/01/22 History metoprolol tartrate 50 mg tablet 50 mg PO BID 02/07/20 03/02/22 03/01/22 History nitroglycerin 0.4 mg sublingual 0.4 mg SUBLINGUAL Q5M PRN 02/07/20 03/02/22 Unknown History tablet (Nitrostat) omega 5-mym-glx-fish oil 1,000 mg 2 cap PO DAILY 02/08/20 03/02/22 03/01/22 History (120 mg-180 mg) capsule (Fish Oil) cam boot #1 ea 06/02/21 03/02/22 Unknown Rx ciprofloxacin HCl 500 mg tablet 500 mg PO BID #42 tab 02/23/22 03/02/22 03/01/22 Rx atorvastatin 20 mg tablet 20 mg PO QAM 03/02/22 03/02/22 03/01/22 History cholecalciferol (vitamin D3) 125 10,000 unit PO DAILY 03/02/22 03/02/22 03/01/22 History mcg (5,000 unit) tablet (Vitamin D3) dapagliflozin 10 mg tablet 10 mg PO QAM 03/02/22 03/02/22 03/01/22 History (Farxiga) levothyroxine 125 mcg tablet 125 mcg PO QAM 03/02/22 03/02/22 03/01/22 History testosterone cypionate 200 mg/mL 200 mg IM Q14D 03/02/22 03/02/22 1 Month Ago History intramuscular oil ~01/31/22 Podus Boot to the left #1 ea 03/04/22 Unknown Rx Allergies Allergy/AdvReac Type Severity Reaction Status Date / Time cephalexin [From Keflex] Allergy Unknown Unknown Verified 03/02/22 12:42 Current Medications Generic Name Dose Route Start Last Admin Trade Name Freq PRN Reason Stop Dose Admin Acetaminophen 650 mg 03/02/22 16:28 03/05/22 05:55 Acetaminophen 325 Mg Tablet PO 650 mg Q6H PRN Administration Mild/Mod Pain Or Temp >/= 101 Aspirin 81 mg 03/05/22 09:00 03/05/22 08:08 Aspirin 81 Mg Ec Tablet PO 81 mg DAILY MARITO Administration Atorvastatin Calcium 20 mg 03/03/22 06:00 03/06/22 05:04 Atorvastatin 40 Mg Tablet PO Not Given QAM MARITO Docusate Sodium 100 mg 03/04/22 18:00 03/05/22 17:36 Docusate Sodium 100 Mg Capsule PO Not Given BID MARITO Enoxaparin Sodium 40 mg 03/02/22 17:30 03/05/22 17:35 Enoxaparin 40 Mg/0.4 Ml Syringe SUBCUT 40 mg Q24H MARITO Administration Imipenem/Cilastatin Sodium 500 100 mls @ 200 mls/hr 03/02/22 17:00 03/06/22 09:22 mg/ Sodium Chloride IV 200 mls/hr Q6H MARITO Administration Protocol Vancomycin HCl 2,000 mg/ 500 mls @ 250 mls/hr 03/02/22 21:00 03/06/22 00:39 Sodium Chloride IV Infused Q12H MARITO Infusion Insulin Glargine 30 unit 03/02/22 21:00 03/05/22 21:46 Insulin Glargine 100 Units/1 Ml SUBCUT 30 unit Q12H MARITO Administration Insulin Human Lispro 0 unit 03/02/22 18:00 03/06/22 09:18 Insulin Lispro 100 Unit/1 Ml SUBCUT Not Given WM&BEDTIME [facility] Protocol Levothyroxine Sodium 125 mcg 03/03/22 06:00 03/06/22 05:04 Levothyroxine 125 Mcg Tablet PO Not Given QAM [facility] Metoprolol Tartrate 50 mg 03/02/22 21:00 03/06/22 08:45 Metoprolol Tartrate 50 Mg Tablet PO 50 mg BID@0900,2100 MARITO Administration Entdn-1-Jobv Ethyl Esters 2,000 mg 03/03/22 09:00 03/05/22 08:08 Elwin-3 Fatty Acids 1,000 Mg Capsule PO 2,000 mg DAILY MARITO Administration Pantoprazole Sodium 40 mg 03/02/22 17:30 03/05/22 17:36 Pantoprazole 40 Mg Sdv IVP 40 mg Q24H MARITO Administration Polyethylene Glycol 17 gm 03/04/22 12:25 03/05/22 08:09 Polyethylene Glycol 3350 Pkt 17 Gm PO Not Given DAILY MARITO Sodium Hypochlorite 1 applic 03/04/22 06:45 03/05/22 21:48 Sodium Hypochlorite 0.125% Btl 473 Ml TOPICAL 1 applic Q12H MARITO Administration Trazodone HCl 50 mg 03/05/22 20:36 03/05/22 21:48 Trazodone 50 Mg Tablet PO 50 mg BEDTIME PRN Administration INSOMNIA Vitamin D 10,000 unit 03/03/22 09:00 03/05/22 08:08 Cholecalciferol (Vitamin D3) 5,000 Unit Tablet PO 10,000 unit DAILY MARITO Administration PFS Anesthesia Medical History (Updated 03/04/22 @ 15:14 by Vinnie Chatman DO) Arthritis Charcot's arthropathy -Has had extensive surgical intervention for the left lower extremity secondary to Charcot arthropathy, wears brace for ambulation and wedge shoe for offloading CHF (congestive heart failure) -unknown type, severity as no baseline Echo -hold Lasix due to renal impairment, can resume PRN use on d/c Chronic back pain Chronic constipation Chronic kidney disease -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 -has mild superimposed MAGDA, now resolved -baseline Cr around 1.0 -IVF hydration, with caution to avoid fluid overload; d/c as renal function has normalized -continue to monitor renal function particularly with dual use of Vanc, Zosyn; renally dose meds, avoid nephrotoxins Coronary artery disease -hx of CAD s/p CABG x 4 about 20 yrs ago -on ASA -NTG PRN Diabetes -has IDDM type II, A1c-10.1 -Accu-Cheks, ISS, scheduled insulin, hypoglycemia precautions -Consistent carb diet as tolerated Hypertension -VSS, continue to monitor vital signs -continue BB, resume ARB Hypothyroidism -continue levothyroxine Morbid obesity -BMI-45 kg/m2 BRIDGER (obstructive sleep apnea) -on CPAP qhs Peripheral neuropathy -secondary to DM type II Peripheral vascular disease Surgical History History of ankle fusion History of back surgery History of colonoscopy (~01/2019) History of coronary artery bypass graft -Four-vessel Hx of cholecystectomy Family History Other CAD (coronary artery disease) Cancer Diabetes Hypertension Denies family history of Anesthesia complication Bleeding disorder Social History Smoking and tobacco status: never smoked Second hand smoke exposure: No Alcohol intake: never Adopted: No Caregiver/support person: Yes Lives independently: Yes Household members: spouse Housing: House Marital status: service: No Current occupational status: disabled Current occupational exposures/hazards: No Pets and animals: No History of recent travel: No Sexually active: No Current gender identity: Male Padmini/Jew: Hoahaoism Data Anesthesia : 03/06/22 04:07 03/06/22 04:07 Short CBC 03/05/22 03/06/22 Range/Units 07:00 04:07 WBC 8.2 8.1 (4.0-10.0) 10^3/uL Hgb 11.1 L 11.1 L (11.7-16.6) g/dL Hct 33.3 L 34.7 L (42.0-52.0) % MCV 88.3 91.1 (80-94) fl Plt Count 183 186 (130-400) 10^3/cmm Neut % (Auto) 69.7 73.4 % Neut # (Auto) 5.69 5.96 (1.8-7.7) 10^3/uL BMP 03/05/22 03/06/22 07:00 04:07 Sodium 137 138 Potassium 4.4 4.5 Chloride 105 107 Carbon Dioxide 24 22 BUN 19 19 Creatinine 0.7 0.8 Glucose 110 169 H Calcium 8.3 L 8.4 L Cardiac Enzymes 03/06/22 Range/Units 04:07 NT-Pro-B Natriuret Pep 2667 H (0-125) pg/mL Liver Function 03/05/22 03/06/22 Range/Units 07:00 04:07 Total Bilirubin 0.4 0.4 (0.15-1.2) mg/dL AST 16 15 (0-40) U/L ALT 19 19 (0-41) U/L Alkaline Phosphatase 77 78 (40-130) IU/L Albumin 2.7 L 2.7 L (3.5-5.2) g/dL Coags 03/05/22 03/06/22 07:00 04:07 C-Reactive Protein 43.9 H 40.4 H Microbiology 03/02/22 19:25 Gram Stain - Final Other Source Wound Culture - Preliminary Staphylococcus epidermidis Enterococcus avium Shewanella putrefaciens 03/03/22 14:52 Gram Stain - Final Bone Tissue Culture - Preliminary Enterococcus avium 03/02/22 21:40 Anaerobic Culture - Preliminary Foot - #1 Anaerobic gram negative rods 03/02/22 14:25 Gram Stain - Final Leg - Other Wound Culture - Final Cardiac Studies: No Data to Display
--- NOTE | 2022-03-06 12:03 | ANE.PACU2 ---
Inpatient post-anesthesia follow up: Airway intact: Yes Vital signs: Temperature 97.1 F Pulse Rate 75 Respiratory Rate 16 Blood Pressure 112/62 Pulse Oximetry 96 Oxygen Delivery Me thod Room Air Oxygen Flow Rate 3 Fraction of Inspir ed Oxygen Hydration adequate: Yes Nausea and vomiting: No Pain level: 1 Mental status: Baseline
--- NOTE | 2022-03-06 12:29 | XRR_ITS ---
PROCEDURE INFORMATION: Exam: XR Left Ankle Exam date and time: 03/06/2022 1:17 PM Age: 61 years old Clinical indication: Device placement; Other: Hardware removal and insertion of antibiotic spacer; Prior surgery; Surgery date: Post-operative (0-2 days); Additional info: Post op hardware removal and insertion of antibiotic spacer TECHNIQUE: Imaging protocol: Radiologic exam of the Left ankle. Views: 3 or more views. COMPARISON: MRI Ankle w/wo LEFT [id number] 07/20/2017 4:49 PM FINDINGS: Bones/joints: Ankle and hindfoot arthrodesis. There has been hardware removal from the distal tibia. An intramedullary phillip remains in the distal tibia. Antibiotic spacer in place. There is abundant callus formation about the ankle and hindfoot arthrodesis. Soft tissues: There are benign-appearing soft tissue calcifications. There is edema in the soft tissues. XR/XR ankle LT min 3V* [id number] IMPRESSION: 1. Ankle and hindfoot arthrodesis. With hardware removal and placement of antibiotic spacer. There is abundant callus formation about the ankle and hindfoot arthrodesis. 2. There is edema in the soft tissues.
[2022-03-06] MEDS: cholecalciferol (vitamin D3) 5,000 unit Tablet 10000 UNIT PO (12:57)
[2022-03-06] MEDS: omega-3 fatty acids 1,000 mg Capsule 2000 MG PO (12:57)
[2022-03-06] MEDS: aspirin 81 mg EC Tablet PO (12:57)
[2022-03-06] MEDS: insulin glargine 100 units/1 mL 30 UNIT SUBCUT ×2 (12:58→21:55)
[2022-03-06] MEDS: enoxaparin 40 mg/0.4 mL Syringe SUBCUT (16:55)
[2022-03-06] MEDS: pantoprazole 40 mg SDV IVP (16:57)
[2022-03-06 17:04] LABS: Glucose Point of Care 244 mg/dL (70-110)
[2022-03-06] MEDS: insulin lispro 100 unit/1 mL SUBCUT ×2 (18:27→21:55)
[2022-03-06 20:32] LABS: Glucose Point of Care 242 mg/dL (70-110)
[2022-03-07] VITALS (7 sets, daily range): BP systolic 116–135; BP diastolic 66–87; PULSE 58–94; RESP 16–18; TEMP 36.3–37; O2SAT 94–97
--- NOTE | 2022-03-07 | SCC_ITS ---
Procedure done: Removal of intramedullary phillip and all deep hardware left lower extremity CPT code 79901 Insertion of antibiotic impregnated cement spacer. CPT code 23721 13 seconds of fluoroscopic guidance, for a cumulative dose of 0.37 mGy, was provided to Dr. Talbot by the radiology department. C-arm images of the LT ankle/foot were saved for the patient's permanent record. [facility]
[2022-03-07] MEDS: acetaminophen 325 mg Tablet 650 MG PO (00:07)
[2022-03-07] MEDS: sodium hypochlorite 0.125% Btl 473 mL 1 APPLIC TOPICAL ×3 (00:09→23:39)
[2022-03-07 01:07] LABS: Basophils % 0.3 %; Eosinophils # 0.2 10^3/uL (0.0-0.8); Eosinophils % 1.4 %; Hemoglobin 11.3 g/dL (11.7-16.6); Lymphocytes % 8.6 %; Mean Corpuscular HGB Conc 33.2 g/dL (30.0-36.0); Mean Corpuscular Volume 87.4 fl (80-94); Mean Platelet Volume 10.7 fL (7.4-10.4); Monocytes % 8.9 %; Neutrophils # 9.05 10^3/uL (1.8-7.7); Neutrophils % 80.4 %; Nucleated Red Blood Cells % 0 %; Platelet Count 200 10^3/cmm (130-400); Red Blood Count 3.89 10^6/uL (4.1-5.3); Red Cell Distribution Width 13.5 % (12.1-15.1); White Blood Count 11.3 10^3/uL (4.0-10.0)
[2022-03-07 01:24] LABS: Vancomycin Trough 18.4 ug/mL (10-15)
[2022-03-07 01:39] LABS: Alanine Aminotransferase 19 U/L (0-41); Albumin Level 2.8 g/dL (3.5-5.2); Alkaline Phosphatase 76 IU/L (40-130); Anion Gap 13.3 (5-19); Aspartate Amino Transferase 17 U/L (0-40); Blood Urea Nitrogen 18 mg/dL (8-23); C Reactive Protein 41.3 mg/L (0.0-4.9); Calcium 8.8 mg/dL (8.5-10.5); Carbon Dioxide 25 mmol/L (22-29); Chloride 101 mmol/L (98-107); Globulin 3.4 g/dL (1.3-4.6); Glomerular Filtration Rate 114.3 mL/min (90-130); Glucose 117 mg/dL (65-115); Magnesium 1.6 mg/dL (1.7-2.3); NT Pro B Type Natriuretic Pept 2616 pg/mL (0-125); Osmolality Calculated 283 mOsm/kg (285-295); Phosphorus 3.1 mg/dL (2.5-4.5); Potassium 4.3 mmol/L (3.5-5.1); Sodium 135 mmol/L (136-145); Total Bilirubin 0.4 mg/dL (0.15-1.2); Total Protein 6.2 g/dL (6.6-8.7)
[2022-03-07] MEDS: atorvastatin 40 mg Tablet 20 MG PO (05:53)
[2022-03-07] MEDS: levothyroxine 125 mcg Tablet PO (05:54)
[2022-03-07 07:51] LABS: Glucose Point of Care 85 mg/dL (70-110)
[2022-03-07 08:57] LABS: Glucose Point of Care 92 mg/dL (70-110)
--- NOTE | 2022-03-07 09:04 | P.PN_ITS ---
Subjective Subjective: Patient seen bedside this morning for dressing change. Patient denies any pain, tolerating regular diet. Has been elevating his foot, no strikethrough bleeding at the surgical dressing. Patient denies any subjective nausea, vomiting, fever, chills, shortness of breath or chest pain. Vitals/I&O/Wt Last Vital Signs Temp 98.3 F 03/07/22 07:34 Pulse 86 03/07/22 08:57 Resp 16 03/07/22 08:57 BP 135/73 03/07/22 07:34 Pulse Ox 97 03/07/22 08:57 03/06/22 03/07/22 03/07/22 22:59 06:59 14:59 Intake Total 1340 / 1680 700 / 2380 Output Total 1600 / 3475 150 / 3625 1250 / 1250 Balance -260 / -1795 550 / -1245 -1250 / -1250 Physical Exam Narrative: Patient is alert and oriented ?3 and in no acute distress.? The following is a focused bilaterallower extremity exam. VASCULAR: Dorsalis pedis palpable, posterior tibial arteries palpable.? Capillary refill time less than 3 seconds to the distal hallux bilaterally. Calf is supple and nontender proximally and distally.? Edema to the left lower extremity +1 pitting.? Decrease in pedal hair growth bilaterally. NEUROLOGICAL: Protective sensation intact 0/10 sites, tested with [place] Omar monofilament to bilateral feet. DERMATOLOGICAL: Wound with exposed bone left posterior calcaneus measures 5.5 cm x 4.5 cm x 1.5 cm, periwound erythema without proximal lymphangitic streaking.? No patrick purulence. Medial, lateral ankle incisions and plantar heel incision is well coapted with sutures intact without periincisional erythema warmth or drainage. MUSCULOSKELETAL: No motion at the left ankle or subtalar joint secondary to fusion.? No pain with posterior calf squeeze bilaterally. Urinary Catheter Management: Leos: Cath Placed During This Visit: yes Reason for Continuing Indwelling Catheter: Other Urinary Catheter Date of Insertion: 03/02/22 Urinary Catheter Time of Insertion: 15:45 Data : 03/07/22 01:00 03/07/22 01:00 Micro: Microbiology 03/02/22 21:40 Anaerobic Culture - Preliminary Foot - #1 Bacteroides thetaiotaomicron 03/02/22 19:25 Gram Stain - Final Other Source Wound Culture - Final Staphylococcus epidermidis Enterococcus avium Shewanella putrefaciens 03/03/22 14:52 Gram Stain - Final Bone Tissue Culture - Final Enterococcus avium A&P Assessment and plan (1) Diabetic peripheral neuropathy associated with type 2 diabetes mellitus: Status: Acute (2) Cellulitis: Status: Acute (3) Non-pressure chronic ulcer of left heel and midfoot with necrosis of bone: Status: Acute (4) Exposed orthopaedic hardware: Status: Acute Plan 61-year-old diabetic male with acute osteomyelitis left posterior calcaneus. X- ray and CT scan shows destructive changes at the posterior calcaneal tubercle directly adjacent to the ulceration suggestive of osteomyelitis. Patient is sta tus post surgical debridement, bone biopsy and deep hardware removal of all hardware left lower extremity. * Vancomycin and Primaxin administered empirically, narrowing antibiotic selection with PICC line going home, polymicrobial infection with growth of Schwann Carmel species, Enterococcus species, staph epidermidis, Bacteroides species. Discussed with hospitalist antibiotic selection, will also reach out to infectious disease due to need for combination of antibiotic therapy both oral and IV. * Nonweightbearing may heel touch to the left lower extremity only for transfers. PODUS at all times while in bed for offloading of the heel. * Dakin's quarter percent twice daily dressing change wet-to-dry twice daily. I will apply the wound VAC prior to discharge home. * Discharge planning at this time, will need outpatient wound VAC, home health and IV antibiotics long-term minimum 6 weeks on discharge with weekly follow- up in podiatry clinic. 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
[2022-03-07] MEDS: insulin glargine 100 units/1 mL 30 UNIT SUBCUT ×2 (09:15→21:33)
[2022-03-07] MEDS: aspirin 81 mg EC Tablet PO (09:15)
[2022-03-07] MEDS: omega-3 fatty acids 1,000 mg Capsule 2000 MG PO (09:15)
[2022-03-07] MEDS: cholecalciferol (vitamin D3) 5,000 unit Tablet 10000 UNIT PO (09:15)
[2022-03-07] MEDS: metoprolol tartrate 50 mg Tablet PO ×2 (09:18→21:32)
[2022-03-07] MEDS: magnesium sulfate premix 4 GM/100 ML PREMIX IV (09:20)
--- NOTE | 2022-03-07 11:20 | P.PN_ITS ---
Subjective Subjective: Patient was seen this morning, he sitting up to the side of the bed, complaining of cough that he had last night, no fevers reported Vitals/I&O/Wt Last Vital Signs Temp 98.3 F 03/07/22 07:34 Pulse 86 03/07/22 08:57 Resp 16 03/07/22 08:57 BP 135/73 03/07/22 07:34 Pulse Ox 97 03/07/22 08:57 03/06/22 03/07/22 03/07/22 22:59 06:59 14:59 Intake Total 1340 / 1680 700 / 2380 Output Total 1600 / 3475 150 / 3625 1250 / 1250 Balance -260 / -1795 550 / -1245 -1250 / -1250 Physical Exam Const: COMMON NORMALS: no acute distress and patient oriented x3 Resp: COMMON NORMALS: normal respiratory effort, No retractions, No use of accessory muscles and clear to auscultation bilaterally AUSCULTATION: clear to auscultation bilaterally Cardio: COMMON NORMALS: regular rate, regular rhythm, S1 normal heart sound present and S2 normal heart sound present RATE: regular rate RHYTHM: regular rhythm HEART SOUNDS: S1 normal heart sound present and S2 normal heart sound present GI: COMMON NORMALS: Normal to inspection, nondistended, normoactive bowel sounds present, Soft to palpation, non-tender and No hepatosplenomegaly present PALPATION: Yes Soft to palpation and Yes No hepatosplenomegaly present Extremity: COMMON NORMALS: no pedal edema NARRATIVE EXTREMITY EXAM: Left lower extremity wrapped and bandaged Neuro: COMMON NORMALS: patient oriented x3 Psych: COMMON NORMALS: mental status grossly normal Urinary Catheter Management: Leos: Cath Placed During This Visit: yes Reason for Continuing Indwelling Catheter: Other Urinary Catheter Date of Insertion: 03/02/22 Urinary Catheter Time of Insertion: 15:45 Data : 03/07/22 01:00 03/07/22 01:00 Micro: Microbiology 03/02/22 21:40 Anaerobic Culture - Preliminary Foot - #1 Bacteroides thetaiotaomicron 03/02/22 19:25 Gram Stain - Final Other Source Wound Culture - Final Staphylococcus epidermidis Enterococcus avium Shewanella putrefaciens 03/03/22 14:52 Gram Stain - Final Bone Tissue Culture - Final Enterococcus avium A&P Assessment and plan (1) Chronic ulcer of great toe of left foot with fat layer exposed: Status: Acute (2) Diabetic peripheral neuropathy associated with type 2 diabetes mellitus: Status: Acute (3) Cellulitis: Status: Acute (4) Diabetic ulcer of left foot: Status: Acute (5) Foot osteomyelitis, left: Status: Acute Plan Left foot, diabetic ulcer, with cellulitis, with osteomyelitis 1.? Ulceration overlying the dorsal calcaneus with underlying fixation screw. Erosive changes involving the underlying calcaneus and dorsal calcaneal spur with associated air suspicious for osteomyelitis in this location. Recommend correlation with area of concern. 2.? No other areas of suspected osteomyelitis 3.? Diffuse soft tissue edema lower leg and ankle with subcutaneous fluid compatible with cellulitis. No drainable fluid collection or abscess. 4.? 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 -Status post incision and debridement left posterior heel with hardware removal postop -Status post surgical debridement, bone biopsy and deep hardware removal of all hardware left lower extremity. Plan -IV antibiotics, vancomycin, Primaxin -Does have left calf swelling, venous ultrasound negative for DVT -Arterial ultrasounds no significant occlusion -PICC line placed -Surgical cultures staph epidermis, Enterococcus species, Schwann Carmel species -CRP 43.9 -A1c 8.2 requires blood sugar control, Lantus 30 units twice daily, with moderate dose sliding scale -As needed Lasix dosing -Full code -Lovenox for DVT prophylaxis Plan he is to follow-up final blood cultures and wound cultures by tomorrow, likely discharge on vancomycin for least 6 weeks and possibly p.o. Bactrim, home IV antibiotics, wound VAC Attestations Medical Necessity Statement*: Patient requires hospitalization for left foot diabetic ulcer, cellulitis, with osteomyelitis, status post multiple debrid ements, Coding Level of Care Code Acute Belt Turner for [facility] Diagnoses Chronic ulcer of great toe of left foot with fat layer exposed L97.522 Diabetic peripheral neuropathy associated with type 2 diabetes mellitus E11.42 Cellulitis L03.90 Diabetic ulcer of left foot E11.621; L97.529 Foot osteomyelitis, left M86.9
[2022-03-07 11:22] LABS: Glucose Point of Care 180 mg/dL (70-110)
--- NOTE | 2022-03-07 11:28 | PC.SOCIAL ---
IMM update IMM updated with patient. Copy Pg 2 provided. Verbalized an understanding. Initialled, dated, timed, and placed in chart.
[2022-03-07] MEDS: insulin lispro 100 unit/1 mL SUBCUT ×3 (11:56→21:32)
[2022-03-07 17:20] LABS: Glucose Point of Care 172 mg/dL (70-110)
[2022-03-07] MEDS: enoxaparin 40 mg/0.4 mL Syringe SUBCUT (17:57)
[2022-03-07] MEDS: pantoprazole 40 mg SDV IVP (17:57)
[2022-03-08] VITALS: BP 160/80; PULSE 88; RESP 17; TEMP 36.5; O2SAT 96
[2022-03-08 00:56] LABS: Glucose Point of Care 239 mg/dL (70-110)
[2022-03-08] MEDS: FUROsemide 40 mg Tablet PO (03:44)
[2022-03-08 03:58] LABS: Basophils % 0.3 %; Eosinophils # 0.2 10^3/uL (0.0-0.8); Eosinophils % 2.3 %; Hemoglobin 10.9 g/dL (11.7-16.6); Lymphocytes # 1.3 10^3/uL (0.8-4.8); Lymphocytes % 13.9 %; Mean Corpuscular HGB Conc 31.1 g/dL (30.0-36.0); Mean Corpuscular Hemoglobin 29.1 pg (28.0-34.0); Mean Corpuscular Volume 93.3 fl (80-94); Mean Platelet Volume 11.1 fL (7.4-10.4); Monocytes # 0.9 10^3/uL (0.2-0.9); Monocytes % 9.7 %; Neutrophils # 6.97 10^3/uL (1.8-7.7); Neutrophils % 73.4 %; Nucleated Red Blood Cells % 0 %; Platelet Count 175 10^3/cmm (130-400); Red Blood Count 3.75 10^6/uL (4.1-5.3); Red Cell Distribution Width 13.3 % (12.1-15.1); White Blood Count 9.5 10^3/uL (4.0-10.0)
[2022-03-08 04:00] VITALS: BP 153/81; PULSE 81; RESP 17; TEMP 36.6; O2SAT 96
[2022-03-08 04:35] LABS: Alanine Aminotransferase 21 U/L (0-41); Albumin Level 2.6 g/dL (3.5-5.2); Alkaline Phosphatase 87 IU/L (40-130); Anion Gap 13.4 (5-19); Aspartate Amino Transferase 20 U/L (0-40); Blood Urea Nitrogen 17 mg/dL (8-23); C Reactive Protein 70.6 mg/L (0.0-4.9); Calcium 8.4 mg/dL (8.5-10.5); Carbon Dioxide 23 mmol/L (22-29); Chloride 102 mmol/L (98-107); Globulin 3.4 g/dL (1.3-4.6); Glomerular Filtration Rate 85.5 mL/min (90-130); Glucose 219 mg/dL (65-115); Magnesium 1.9 mg/dL (1.7-2.3); NT Pro B Type Natriuretic Pept 2205 pg/mL (0-125); Osmolality Calculated 286 mOsm/kg (285-295); Phosphorus 3.1 mg/dL (2.5-4.5); Potassium 4.4 mmol/L (3.5-5.1); Sodium 134 mmol/L (136-145); Total Bilirubin 0.3 mg/dL (0.15-1.2)
[2022-03-08] MEDS: levothyroxine 125 mcg Tablet PO (05:47)
[2022-03-08] MEDS: atorvastatin 40 mg Tablet 20 MG PO (05:47)
[2022-03-08 06:56] LABS: Glucose Point of Care 161 mg/dL (70-110)
--- NOTE | 2022-03-08 07:47 | PM.PN ---
Subjective Subjective: Patient seen bedside this morning for dressing change. Patient denies any pain, tolerating regular diet. Has been elevating his foot, no strikethrough bleeding at the surgical dressing. Patient denies any subjective nausea, vomiting, fever, chills, shortness of breath or chest pain. Vitals/I&O/Wt Last Vital Signs Temp 97.8 F 03/08/22 04:00 Pulse 81 03/08/22 04:00 Resp 17 03/08/22 04:00 BP 153/81 03/08/22 04:00 Pulse Ox 96 03/08/22 04:00 03/07/22 03/08/22 03/08/22 22:59 06:59 14:59 Intake Total 1440 / 1640 700 / 2340 Output Total 3400 / 4650 400 / 5050 Balance -1960 / -3010 300 / -2710 Physical Exam Narrative: Patient is alert and oriented ?3 and in no acute distress.? The following is a focused bilaterallower extremity exam. VASCULAR: Dorsalis pedis palpable, posterior tibial arteries palpable.? Capillary refill time less than 3 seconds to the distal hallux bilaterally. Calf is supple and nontender proximally and distally.? Edema to the left lower extremity +1 pitting.? Decrease in pedal hair growth bilaterally. NEUROLOGICAL: Protective sensation intact 0/10 sites, tested with [place] Omar monofilament to bilateral feet. DERMATOLOGICAL: Wound with exposed bone left posterior calcaneus measures 5.5 cm x 4.5 cm x 1.5 cm, periwound erythema without proximal lymphangitic streaking.? No patrick purulence.? Medial, lateral ankle incisions and plantar heel incision is well coapted with sutures intact without periincisional erythema warmth or drainage. MUSCULOSKELETAL: No motion at the left ankle or subtalar joint secondary to fusion.? No pain with posterior calf squeeze bilaterally. Urinary Catheter Management: Leos: Cath Placed During This Visit: yes Reason for Continuing Indwelling Catheter: Other Urinary Catheter Date of Insertion: 03/02/22 Urinary Catheter Time of Insertion: 15:45 Data : 03/08/22 02:22 03/08/22 02:22 Micro: Microbiology 03/02/22 12:51 Blood Culture - Final Blood NO GROWTH AFTER 5 DAYS 03/02/22 12:45 Blood Culture - Final Blood NO GROWTH AFTER 5 DAYS 03/02/22 21:40 Anaerobic Culture - Preliminary Foot - #1 Bacteroides thetaiotaomicron A&P Assessment and plan (1) Diabetic peripheral neuropathy associated with type 2 diabetes mellitus: Status: Acute (2) Cellulitis: Status: Acute (3) Non-pressure chronic ulcer of left heel and midfoot with necrosis of bone: Status: Acute (4) Exposed orthopaedic hardware: Status: Acute Plan 61-year-old diabetic male with acute osteomyelitis left posterior calcaneus. X-ray and CT scan shows destructive changes at the posterior calcaneal tubercle directly adjacent to the ulceration suggestive of osteomyelitis. Patient is status post surgical debridement, bone biopsy and deep hardware removal of all hardware left lower extremity. Vancomycin and Primaxin administered empirically, narrowing antibiotic selection with PICC line going home, polymicrobial infection with growth of Schwann Carmel species, Enterococcus species, staph epidermidis, Bacteroides species. Discussed with hospitalist antibiotic selection, will also reach out to infectious disease due to need for combination of antibiotic therapy both oral and IV. Nonweightbearing may heel touch to the left lower extremity only for transfers. PODUS at all times while in bed for offloading of the heel. Dakin's quarter percent twice daily dressing change wet-to-dry twice daily. I will apply the wound VAC prior to discharge home. Discharge planning at this time, will need outpatient wound VAC, home health and IV antibiotics long-term minimum 6 weeks on discharge with weekly follow-up in podiatry clinic. Okay for discharge from podiatry standpoint. Will follow-up in podiatry clinic this 03/12/2022 10 AM. 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
[2022-03-08 08:00] VITALS: BP 145/88; PULSE 86; RESP 18; O2SAT 98
[2022-03-08] MEDS: docusate sodium 100 mg Capsule PO (08:18)
[2022-03-08] MEDS: cholecalciferol (vitamin D3) 5,000 unit Tablet 10000 UNIT PO (08:18)
[2022-03-08] MEDS: aspirin 81 mg EC Tablet PO (08:18)
[2022-03-08] MEDS: insulin lispro 100 unit/1 mL SUBCUT ×2 (08:19→12:56)
[2022-03-08] MEDS: metoprolol tartrate 50 mg Tablet PO (08:19)
[2022-03-08] MEDS: insulin glargine 100 units/1 mL 30 UNIT SUBCUT (08:19)
[2022-03-08] MEDS: omega-3 fatty acids 1,000 mg Capsule 2000 MG PO (08:19)
[2022-03-08 09:14] VITALS: PULSE 84; RESP 16; O2SAT 97
--- NOTE | 2022-03-08 11:31 | P.DS_ITS ---
Discharge Providers Date of Admission: 03/02/22 16:28 Date of Discharge: March 08, 2022 Attending Provider at Admission: Arturo Vera MD Attending Provider at Discharge: Renea Callejas MD Primary Care Provider: Kaykay Bah DO Diagnoses at Discharge Discharge Diagnosis (1) Diabetic peripheral neuropathy associated with type 2 diabetes mellitus: Status: Acute (2) Cellulitis: Status: Acute (3) Non-pressure chronic ulcer of left heel and midfoot with necrosis of bone: Status: Acute (4) Exposed orthopaedic hardware: Status: Acute Reason for Visit Reason for Visit: Wound on left foot Hospital Course Hospital Course Patient was admitted on 03/02 for left foot diabetic ulcer management, he was diagnosed cellulitis and left posterior calcaneus osteomyelitis at the time of admission, he was started on Primaxin and vancomycin, Dr. Talbot was consulted, status post incision and debridement down to bone left calcaneus, Deep hardware removal left lower extremity on 03/[address] Talbot's note for further details, for management of osteomyelitis PICC line was placed, polymicrobial growth identified from tissue and bone cultures, he is getting discharged on vancomycin 2 g every 12 hours bridging for 6 weeks along PO Flagyl for anaerobic coverage. 03/03 bone culture showed Enterococcus AVM 03/02 foot culture positive for anaerobes Bacteroides 03/02 wound culture showed staph epidermidis, Enterococcus Avium, (putrefaciens, it is likely a saprophyte, does not need Bactrim, did discuss options with Dr. Prieto) Dr. Prieto is in agreement with vancomycin and Flagyl coverage for now Blood cultures remain negative Patient is discharged home, he will see Dr. Talbot on 03/12@ 10 AM Hemoglobin A1c 8.2 Physical Exam Narrative: Patient is alert and oriented ?3 and in no acute distress.? The following is a focused bilaterallower extremity exam. VASCULAR: Dorsalis pedis palpable, posterior tibial arteries palpable.? Capillary refill time less than 3 seconds to the distal hallux bilaterally. Calf is supple and nontender proximally and distally.? Edema to the left lower extremity +1 pitting.? Decrease in pedal hair growth bilaterally. NEUROLOGICAL: Protective sensation intact 0/10 sites, tested with [place] monofilament to bilateral feet. DERMATOLOGICAL: Wound with exposed bone left posterior calcaneus measures 5.5 cm x 4.5 cm x 1.5 cm, periwound erythema without proximal lymphangitic streaking.? No patrick purulence.? Medial, lateral ankle incisions and plantar heel incision is well coapted with sutures intact without periincisional erythema warmth or drainage. MUSCULOSKELETAL: No motion at the left ankle or subtalar joint secondary to fusion.? No pain with posterior calf squeeze bilaterally. Urinary Catheter Management: Leos: Cath Placed During This Visit: yes Reason for Continuing Indwelling Catheter: Other Urinary Catheter Date of Insertion: 03/02/22 Urinary Catheter Time of Insertion: 15:45 Discharge Data Studies Completed and Pending Completed Studies During Hospitalization Category Date Time Status CT foot LT w con [id number] Stat Cat Scan 03/02/22 11:33 Completed CXRP [XR chest 1V portable [id number]] Routine Exams 03/04/22 09:17 Completed XR ankle LT min 3V* [id number] Routine Exams 03/06/22 12:29 Completed XR calcaneus LT min 2V [id number] Routine Exams 03/03/22 15:25 Completed XR foot LT min 3V* [id number] Urgent Exams 03/02/22 11:00 [place] [id number] Urgent Ultrasound 03/02/22 16:28 [place] [id number] Urgent Ultrasound 03/02/22 16:28 Completed Pending at discharge Category Date Time Status C-arm Mini [id number] Routine Exams 03/06/22 08:56 Taken Anaerobic Culture Stat Lab 03/02/22 21:40 Results Radiology Impressions Foot X-Ray 03/02/22 11:00 IMPRESSION: Stable left foot hind and midfoot deformities and arthritic changes without evidence of definite lytic or sclerotic lesion or soft tissue air/gas. If osteomyelitis or cellulitis is suspected consider nonemergent MRI. Foot CT 03/02/22 11:33 IMPRESSION: 1. Ulceration overlying the dorsal calcaneus with underlying fixation screw. Erosive changes involving the underlying calcaneus and dorsal calcaneal spur with associated air suspicious for osteomyelitis in this location. Recommend correlation with area of concern. 2. No other areas of suspected osteomyelitis 3. Diffuse soft tissue edema lower leg and ankle with subcutaneous fluid compatible with cellulitis. No drainable fluid collection or abscess. 4. 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 Duplex Scan Lower Extremity Artery 03/02/22 16:28 IMPRESSION: No stenosis or occlusion. Venous Duplex 03/02/22 16:28 IMPRESSION: No evidence of deep vein thrombosis. Calcaneus X-Ray 03/03/22 15:25 Impression: 1. No change in orthopedic and bony fusion of the ankle and the talocalcaneal articulation. 2. Postoperative bandage overlying the heel. Ankle X-Ray 03/06/22 12:29 IMPRESSION: 1. Ankle and hindfoot arthrodesis. With hardware removal and placement of antibiotic spacer. There is abundant callus formation about the ankle and hindfoot arthrodesis. 2. There is edema in the soft tissues. Laboratory Results WBC 9.5 10^3/uL (4.0-10.0) 03/08/22 02:22 RBC 3.75 10^6/uL (4.1-5.3) L 03/08/22 02:22 Hgb 10.9 g/dL (11.7-16.6) L 03/08/22 02:22 Hct 35.0 % (42.0-52.0) L 03/08/22 02:22 MCV 93.3 fl (80-94) D 03/08/22 02:22 MCH 29.1 pg (28.0-34.0) 03/08/22 02:22 MCHC 31.1 g/dL (30.0-36.0) D 03/08/22 02:22 RDW 13.3 % (12.1-15.1) 03/08/22 02:22 Plt Count 175 10^3/cmm (130-400) 03/08/22 02:22 MPV 11.1 fL (7.4-10.4) H 03/08/22 02:22 Neut % (Auto) 73.4 % 03/08/22 02:22 Lymph % (Auto) 13.9 % 03/08/22 02:22 [place] % (Auto) 9.7 % 03/08/22 02:22 Eos % (Auto) 2.3 % 03/08/22 02:22 Baso % (Auto) 0.3 % 03/08/22 02:22 Neut # (Auto) 6.97 10^3/uL (1.8-7.7) 03/08/22 02:22 Lymph # (Auto) 1.3 10^3/uL (0.8-4.8) 03/08/22 02:22 [place] # (Auto) 0.9 10^3/uL (0.2-0.9) 03/08/22 02:22 Eos # (Auto) 0.2 10^3/uL (0.0-0.8) 03/08/22 02:22 Baso # (Auto) 0.0 10^3/uL (0.0-0.1) 03/08/22 02:22 Nucleated RBC % (auto) 0 % 03/08/22 02:22 Nucleated RBCs # 0.0 /100WBC 03/08/22 02:22 ESR 41 mm/hr (0-10) H 03/02/22 11:50 Sodium 134 mmol/L (136-145) L 03/08/22 02:22 Potassium 4.4 mmol/L (3.5-5.1) 03/08/22 02:22 Chloride 102 mmol/L (98-107) 03/08/22 02:22 Carbon Dioxide 23 mmol/L (22-29) 03/08/22 02:22 Anion Gap 13.4 (5-19) 03/08/22 02:22 BUN 17 mg/dL (8-23) 03/08/22 02:22 Creatinine 0.9 mg/dL (0.7-1.2) 03/08/22 02:22 GFR Calculation 85.5 mL/min (90-130) L 03/08/22 02:22 Glucose 219 mg/dL (65-115) H 03/08/22 02:22 POC Glucose 161 mg/dL (70-110) H 03/08/22 06:36 Estimat Average Glucose 189 03/02/22 11:50 Hemoglobin A1c 8.2 % (4.0-6.0) H 03/02/22 11:50 Insulin Ref Range uIU/mL 44.3 uIU/mL H 03/04/22 10:40 Calculated Osmolality 286 mOsm/kg (285-295) 03/08/22 02:22 Lactic Acid 0.8 mmol/L (0.5-2.2) 03/02/22 14:10 Calcium 8.4 mg/dL (8.5-10.5) L 03/08/22 02:22 Phosphorus 3.1 mg/dL (2.5-4.5) 03/08/22 02:22 Magnesium 1.9 mg/dL (1.7-2.3) 03/08/22 02:22 Total Bilirubin 0.3 mg/dL (0.15-1.2) 03/08/22 02:22 AST 20 U/L (0-40) 03/08/22 02:22 ALT 21 U/L (0-41) 03/08/22 02:22 Alkaline Phosphatase 87 IU/L (40-130) 03/08/22 02:22 C-Reactive Protein 70.6 mg/L (0.0-4.9) H 03/08/22 02:22 NT-Pro-B Natriuret Pep 2205 pg/mL (0-125) H 03/08/22 02:22 Total Protein 6.0 g/dL (6.6-8.7) L 03/08/22 02:22 Albumin 2.6 g/dL (3.5-5.2) L 03/08/22 02:22 Globulin 3.4 g/dL (1.3-4.6) 03/08/22 02:22 Triglycerides 100 mg/dL (0-150) 03/02/22 11:50 Cholesterol 178 mg/dL (0-200) 03/02/22 11:50 LDL Cholesterol, Calc 126 mg/dL (50-129) 03/02/22 11:50 HDL Cholesterol 32 mg/dL (60-100) L 03/02/22 11:50 LDL/HDL Ratio 3.94 RATIO (0.00-3.22) H 03/02/22 11:50 Cholesterol/HDL Ratio 5.56 mg/dL (1.0-5.00) H 03/02/22 11:50 Procalcitonin 0.03 ng/mL (0-0.5) 03/05/22 07:00 TSH 5.07 uIU/mL (0.27-4.20) H 03/02/22 11:50 Vancomycin Trough 18.4 ug/mL (10-15) H 03/07/22 01:00 Misc Test Reference Cancelled 03/02/22 11:50 Vitals Last Vital Signs Temp 97.8 F 03/08/22 04:00 Pulse 84 03/08/22 09:14 Resp 16 03/08/22 09:14 BP 145/88 03/08/22 08:00 Pulse Ox 97 03/08/22 09:14 Discharge Plan Discharge Patient Disposition: Home Condition: Stable Prescriptions: New oxycodone-acetaminophen 5-325 mg tablet 1 tab PO Q8H PRN (Reason: pain) Qty: 20 0RF metronidazole 500 mg tablet 500 mg PO Q8H 21 Days Qty: 63 0RF sennosides-docusate sodium [Senna-S] 8.6-50 mg tablet 1 tab-cap PO BID PRN (Reason: constipation) Qty: 30 0RF vancomycin 1,000 mg recon soln 1,954 mg IV BID 42 Days Qty: 10 0RF sodium hypochlorite 0.5 % solution 1 applic topical BID Qty: 473 4RF Continued Tradjenta 5 mg tablet 5 mg PO QAM 0RF furosemide [Lasix] 40 mg tablet 40 mg PO DAILY PRN (Reason: Edema) 0RF nitroglycerin [Nitrostat] 0.4 mg tablet, sublingual 0.4 mg SUBLINGUAL Q5M PRN (Reason: chest pains) 0RF Rx Instructions: do not exceed 3 doses per episode aspirin 325 mg tablet 325 mg PO BEDTIME 0RF (DME) cam boot See Rx Instructions .ROUTE .MEDSUPPLY Qty: 1 0RF Rx Instructions: As directed (DME) Podus Boot to the left See Rx Instructions .Route .MEDSUPPLY Qty: 1 0RF Rx Instructions: As directed by [facility] [employer] [facility] omega 5-uah-zyk-fish oil [Fish Oil] 1,000 mg (120 mg-180 mg) Capsule 2 cap PO DAILY 0RF losartan 50 mg tablet 50 mg PO QAM 0RF metoprolol tartrate 50 mg tablet 50 mg PO BID 0RF Tresiba FlexTouch U-200 200 unit/mL (3 mL) insulin pen 44 unit SUBCUT BID 0RF atorvastatin 20 mg tablet 20 mg PO QAM 0RF levothyroxine 125 mcg tablet 125 mcg PO QAM 0RF testosterone cypionate 200 mg/mL oil 200 mg IM Q14D 0RF Vitamin D3 125 mcg (5,000 unit) Tablet 10,000 unit PO DAILY 0RF Farxiga 10 mg tablet 10 mg PO QAM 0RF Discontinued ciprofloxacin HCl 500 mg tablet 500 mg PO BID Qty: 42 0RF Discharge Orders: Discharge Order (Routine); Ordered 03/08/22 Ordered By: Renea Callejas Other Ambulatory Orders: DME: Walker (Order) Location: None Selected Ordered By: Arturo Vera Referrals: Montana Talbot DPM [Physician] - 03/12/22 10:00 am Kaykay Bah DO [Primary Care Provider] - 2 weeks Discharge Diet: Diabetic Patient Instructions: Opioid Safety Activity Restrictions/Additional Instructions: * Nonweightbearing may heel touch to the left lower extremity only for transfers.? PODUS at all times while in bed for offloading of the heel. * Dakin's quarter percent twice daily dressing change wet-to-dry twice daily. Discharge Attestations Time Spent in Discharge Care*: less than 30 min Status at Discharge: Cognitive status at discharge: cognitively intact , Behavioral status at discharge: cooperative , Quality Metrics Clinical Quality Measures [ No reported AMI, CVA or VTE this stay] Coding Level of Care Code Acute g [facility] note Diagnoses Diabetic peripheral neuropathy associated with type 2 diabetes mellitus E11.42 Cellulitis L03.90 Non-pressure chronic ulcer of left heel and midfoot with necrosis of bone L97.424 Exposed orthopaedic hardware T84.142K
--- NOTE | 2022-03-08 12:15 | PC.NURSE ---
Dr. Talbot at bedside. Physician removed dressing and applied wound vac. Foot redressed with 1 tub of 4x4's, 2 rolls kerlix, One 3 bhaskar wrap.
[2022-03-08 12:42] LABS: Glucose Point of Care 144 mg/dL (70-110)
[2022-03-08 15:50] VITALS: BP 142/76; PULSE 84; RESP 16; O2SAT 97
== END 2022-03-08 16:30 | disposition home health service (06) | DRG 496 ==
LOC: ER 12:50 → MEDSURG 19:57
PROVIDERS: Emergency Medicine; Podiatrist Foot & Ankle Surgery; Admitting Provider Family Medicine; Emergency Provider Family Medicine; PCP Family Medicine; Visit Provider Internal Medicine
PROC: 0QPM04Z Removal of Internal Fixation Device from Left Tarsal, Open Approach (ICD-10-PCS; principal; 2022-03-03 13:45)
DX: M86.172 Other acute osteomyelitis, left ankle and foot (principal); I13.0 Hypertensive heart and chronic kidney disease with heart failure and stage 1 through stage 4 chronic kidney disease, or unspecified chronic kidney disease; L97.424 Non-pressure chronic ulcer of left heel and midfoot with necrosis of bone; L03.115 Cellulitis of right lower limb; Z68.41 Body mass index [BMI] 40.0-44.9, adult; T84.69XA Infection and inflammatory reaction due to internal fixation device of other site, initial encounter; E11.69 Type 2 diabetes mellitus with other specified complication; E11.621 Type 2 diabetes mellitus with foot ulcer; L97.522 Non-pressure chronic ulcer of other part of left foot with fat layer exposed; E11.21 Type 2 diabetes mellitus with diabetic nephropathy; E11.42 Type 2 diabetes mellitus with diabetic polyneuropathy; E11.51 Type 2 diabetes mellitus with diabetic peripheral angiopathy without gangrene; E11.610 Type 2 diabetes mellitus with diabetic neuropathic arthropathy; I50.9 Heart failure, unspecified; N18.2 Chronic kidney disease, stage 2 (mild); E11.22 Type 2 diabetes mellitus with diabetic chronic kidney disease; G89.29 Other chronic pain; M54.9 Dorsalgia, unspecified; K59.09 Other constipation; I25.10 Atherosclerotic heart disease of native coronary artery without angina pectoris; Z95.1 Presence of aortocoronary bypass graft; E03.9 Hypothyroidism, unspecified; E66.01 Morbid (severe) obesity due to excess calories; G47.33 Obstructive sleep apnea (adult) (pediatric); Z98.1 Arthrodesis status; Z86.16 Personal history of COVID-19; Y79.3 Surgical instruments, materials and orthopedic devices (including sutures) associated with adverse incidents; Z79.84 Long term (current) use of oral hypoglycemic drugs
CPT/HCPCS: 36415; 36416; 36569; 51702; 71045; 73610; 73630; 73650; 73701; 76000; 80053; 80061; 80202; 82962; 83036; 83525; 83605; 83735; 83880; 84100; 84145; 84443; 85025; 85651; 86140; 87040; 87070; 87075; 87077; 87176; 87186; 87205; 87641; 93925; 93971; 94664; 96365; 96372; 97161; 97166; 97530; 97535; 99213; 99285; C9113; C9290; J0743; J1650; J1815; J1940; J2250; J2704; J3010; J3370; J3475; J3490; J7030; J7040; J7050; Q9967

== ENCOUNTER 2022-03-10 21:53 | Outpatient (CLI) | payer MEDICARE, SELFPAY ==
[2022-03-10 22:06] LABS: Basophils % 0.3 %; Eosinophils # 0.2 10^3/uL (0.0-0.8); Eosinophils % 2.4 %; Hematocrit 34.7 % (42.0-52.0); Lymphocytes # 1.4 10^3/uL (0.8-4.8); Lymphocytes % 15.2 %; Mean Corpuscular HGB Conc 31.7 g/dL (30.0-36.0); Mean Corpuscular Volume 91.6 fl (80-94); Mean Platelet Volume 11.6 fL (7.4-10.4); Monocytes # 0.8 10^3/uL (0.2-0.9); Monocytes % 8.7 %; Neutrophils # 6.57 10^3/uL (1.8-7.7); Nucleated Red Blood Cells % 0 %; Platelet Count 200 10^3/cmm (130-400); Red Blood Count 3.79 10^6/uL (4.1-5.3); Red Cell Distribution Width 13.3 % (12.1-15.1)
== END 2022-03-10 21:54 | disposition home or self-care (01) ==
PROVIDERS: PCP Family Medicine; Visit Provider Family Medicine
DX: L97.429 Non-pressure chronic ulcer of left heel and midfoot with unspecified severity; B95.7 Other staphylococcus as the cause of diseases classified elsewhere
CPT/HCPCS: 85025

== ENCOUNTER 2022-03-11 10:52 | Outpatient (CLI) | payer MEDICARE, SELFPAY ==
[2022-03-11 11:15] LABS: Basophils % 0.5 %; Eosinophils # 0.2 10^3/uL (0.0-0.8); Eosinophils % 2.7 %; Hemoglobin 11.3 g/dL (11.7-16.6); Lymphocytes # 1.4 10^3/uL (0.8-4.8); Lymphocytes % 17.7 %; Mean Corpuscular HGB Conc 31.4 g/dL (30.0-36.0); Mean Corpuscular Hemoglobin 29.2 pg (28.0-34.0); Mean Platelet Volume 11.4 fL (7.4-10.4); Monocytes # 0.6 10^3/uL (0.2-0.9); Monocytes % 7.8 %; Neutrophils # 5.58 10^3/uL (1.8-7.7); Neutrophils % 70.8 %; Nucleated Red Blood Cells % 0 %; Platelet Count 208 10^3/cmm (130-400); Red Blood Count 3.87 10^6/uL (4.1-5.3); Red Cell Distribution Width 13.4 % (12.1-15.1); White Blood Count 7.9 10^3/uL (4.0-10.0)
[2022-03-11 11:32] LABS: Alanine Aminotransferase 28 U/L (0-41); Alkaline Phosphatase 113 IU/L (40-130); Anion Gap 16.9 (5-19); Aspartate Amino Transferase 26 U/L (0-40); Blood Urea Nitrogen 30 mg/dL (8-23); Calcium 8.8 mg/dL (8.5-10.5); Carbon Dioxide 27 mmol/L (22-29); Chloride 99 mmol/L (98-107); Globulin 3.7 g/dL (1.3-4.6); Glomerular Filtration Rate 51.4 mL/min (90-130); Glucose 114 mg/dL (65-115); Osmolality Calculated 295 mOsm/kg (285-295); Potassium 3.9 mmol/L (3.5-5.1); Sodium 139 mmol/L (136-145); Total Bilirubin 0.2 mg/dL (0.15-1.2); Total Protein 6.7 g/dL (6.6-8.7)
[2022-03-11 11:51] LABS: Vancomycin Trough 26.1 ug/mL (10-15)
== END 2022-03-11 10:53 | disposition home or self-care (01) ==
LOC: LAB 10:57
PROVIDERS: PCP Family Medicine; Visit Provider Family Medicine
DX: L97.429 Non-pressure chronic ulcer of left heel and midfoot with unspecified severity (principal); B95.7 Other staphylococcus as the cause of diseases classified elsewhere
CPT/HCPCS: 36415; 80053; 80202; 85025

== ENCOUNTER → 2022-03-12 10:05 | Outpatient (BNVA) | payer MEDICARE, SELFPAY | PROVIDERS: PCP Family Medicine; Visit Provider Podiatrist Foot & Ankle Surgery | DX: Z98.890 Other specified postprocedural states (principal) | CPT/HCPCS: 99024; 99214 ==

== ENCOUNTER 2022-03-15 11:23 | Outpatient (CLI) | payer MEDICARE, SELFPAY ==
[2022-03-15 12:00] LABS: Basophils # 0.1 10^3/uL (0.0-0.1); Basophils % 0.6 %; Eosinophils # 0.3 10^3/uL (0.0-0.8); Eosinophils % 3.4 %; Hematocrit 36.9 % (42.0-52.0); Hemoglobin 11.4 g/dL (11.7-16.6); Lymphocytes # 1.2 10^3/uL (0.8-4.8); Lymphocytes % 14.5 %; Mean Corpuscular HGB Conc 30.9 g/dL (30.0-36.0); Mean Corpuscular Hemoglobin 28.6 pg (28.0-34.0); Mean Corpuscular Volume 92.7 fl (80-94); Mean Platelet Volume 10.8 fL (7.4-10.4); Monocytes # 0.7 10^3/uL (0.2-0.9); Monocytes % 8.4 %; Neutrophils # 5.93 10^3/uL (1.8-7.7); Neutrophils % 72.5 %; Nucleated Red Blood Cells % 0 %; Platelet Count 192 10^3/cmm (130-400); Red Blood Count 3.98 10^6/uL (4.1-5.3); Red Cell Distribution Width 13.9 % (12.1-15.1); White Blood Count 8.2 10^3/uL (4.0-10.0)
[2022-03-15 12:11] LABS: Vancomycin Trough 20.5 ug/mL (10-15)
[2022-03-15 12:12] LABS: Alanine Aminotransferase 47 U/L (0-41); Albumin Level 3.2 g/dL (3.5-5.2); Alkaline Phosphatase 112 IU/L (40-130); Aspartate Amino Transferase 41 U/L (0-40); Blood Urea Nitrogen 35 mg/dL (8-23); Calcium 9.1 mg/dL (8.5-10.5); Carbon Dioxide 24 mmol/L (22-29); Chloride 100 mmol/L (98-107); Globulin 3.8 g/dL (1.3-4.6); Glomerular Filtration Rate 67.8 mL/min (90-130); Glucose 122 mg/dL (65-115); Osmolality Calculated 293 mOsm/kg (285-295); Sodium 137 mmol/L (136-145); Total Bilirubin 0.2 mg/dL (0.15-1.2)
[2022-03-15 12:20] LABS: Anion Gap 17.3 (5-19); Potassium 4.3 mmol/L (3.5-5.1)
== END 2022-03-15 11:24 | disposition home or self-care (01) ==
PROVIDERS: PCP Family Medicine; Visit Provider Family Medicine
DX: L97.429 Non-pressure chronic ulcer of left heel and midfoot with unspecified severity (principal); B95.7 Other staphylococcus as the cause of diseases classified elsewhere
CPT/HCPCS: 80053; 80202; 85025

== ENCOUNTER 2022-03-22 09:21 | Outpatient (CLI) | payer MEDICARE, SELFPAY ==
[2022-03-22 13:01] LABS: Basophils % 0.6 %; Eosinophils # 0.3 10^3/uL (0.0-0.8); Eosinophils % 3.7 %; Hematocrit 38.6 % (42.0-52.0); Lymphocytes # 1.6 10^3/uL (0.8-4.8); Lymphocytes % 24.3 %; Mean Corpuscular HGB Conc 31.1 g/dL (30.0-36.0); Mean Corpuscular Hemoglobin 29.7 pg (28.0-34.0); Mean Corpuscular Volume 95.5 fl (80-94); Mean Platelet Volume 11.6 fL (7.4-10.4); Monocytes # 0.7 10^3/uL (0.2-0.9); Monocytes % 9.6 %; Neutrophils # 4.17 10^3/uL (1.8-7.7); Neutrophils % 61.7 %; Nucleated Red Blood Cells % 0 %; Platelet Count 150 10^3/cmm (130-400); Red Blood Count 4.04 10^6/uL (4.1-5.3); Red Cell Distribution Width 15.5 % (12.1-15.1); White Blood Count 6.8 10^3/uL (4.0-10.0)
== END 2022-03-22 09:22 | disposition home or self-care (01) ==
LOC: LAB 09:26
PROVIDERS: PCP Family Medicine; Visit Provider Family Medicine
DX: L97.429 Non-pressure chronic ulcer of left heel and midfoot with unspecified severity (principal)
CPT/HCPCS: 85025

== ENCOUNTER 2022-03-24 09:37 | Outpatient (CLI) | payer MEDICARE, SELFPAY ==
[2022-03-24 10:13] LABS: Basophils % 0.6 %; Eosinophils # 0.3 10^3/uL (0.0-0.8); Eosinophils % 3.9 %; Hematocrit 39.8 % (42.0-52.0); Hemoglobin 12.4 g/dL (11.7-16.6); Lymphocytes # 1.3 10^3/uL (0.8-4.8); Lymphocytes % 20.7 %; Mean Corpuscular HGB Conc 31.2 g/dL (30.0-36.0); Mean Corpuscular Hemoglobin 29.5 pg (28.0-34.0); Mean Corpuscular Volume 94.8 fl (80-94); Mean Platelet Volume 11.1 fL (7.4-10.4); Monocytes # 0.6 10^3/uL (0.2-0.9); Monocytes % 9.9 %; Neutrophils # 4.18 10^3/uL (1.8-7.7); Neutrophils % 64.7 %; Nucleated Red Blood Cells % 0 %; Platelet Count 148 10^3/cmm (130-400); Red Cell Distribution Width 15.5 % (12.1-15.1); Vancomycin Trough 10.6 ug/mL (10-15); White Blood Count 6.5 10^3/uL (4.0-10.0)
[2022-03-24 10:24] LABS: Alanine Aminotransferase 34 U/L (0-41); Albumin Level 3.2 g/dL (3.5-5.2); Alkaline Phosphatase 92 IU/L (40-130); Anion Gap 15.2 (5-19); Aspartate Amino Transferase 26 U/L (0-40); Blood Urea Nitrogen 27 mg/dL (8-23); Calcium 9.1 mg/dL (8.5-10.5); Carbon Dioxide 26 mmol/L (22-29); Chloride 104 mmol/L (98-107); Globulin 3.3 g/dL (1.3-4.6); Glomerular Filtration Rate 61.3 mL/min (90-130); Glucose 60 mg/dL (65-115); Osmolality Calculated 295 mOsm/kg (285-295); Potassium 4.2 mmol/L (3.5-5.1); Sodium 141 mmol/L (136-145); Total Bilirubin 0.3 mg/dL (0.15-1.2); Total Protein 6.5 g/dL (6.6-8.7)
== END 2022-03-24 09:38 | disposition home or self-care (01) ==
PROVIDERS: PCP Family Medicine; Visit Provider Family Medicine
DX: Z01.89 Encounter for other specified special examinations (principal)
CPT/HCPCS: 80053; 80202; 85025

== ENCOUNTER → 2022-03-26 12:06 | Outpatient (BNVA) | payer MEDICARE, SELFPAY | PROVIDERS: PCP Family Medicine; Visit Provider Podiatrist Foot & Ankle Surgery | DX: Z98.890 Other specified postprocedural states (principal); E11.42 Type 2 diabetes mellitus with diabetic polyneuropathy; L03.90 Cellulitis, unspecified; T84.498A Other mechanical complication of other internal orthopedic devices, implants and grafts, initial encounter; M86.9 Osteomyelitis, unspecified; M14.60 Charcot's joint, unspecified site; L97.424 Non-pressure chronic ulcer of left heel and midfoot with necrosis of bone | CPT/HCPCS: 99024; 99204 ==

== ENCOUNTER 2022-03-29 09:46 | Outpatient (CLI) | payer MEDICARE, SELFPAY ==
[2022-03-29 10:12] LABS: Basophils # 0.1 10^3/uL (0.0-0.1); Basophils % 0.8 %; Eosinophils # 0.3 10^3/uL (0.0-0.8); Eosinophils % 3.9 %; Hemoglobin 12.6 g/dL (11.7-16.6); Lymphocytes # 1.4 10^3/uL (0.8-4.8); Lymphocytes % 21.5 %; Mean Corpuscular HGB Conc 31.5 g/dL (30.0-36.0); Mean Corpuscular Hemoglobin 29.5 pg (28.0-34.0); Mean Corpuscular Volume 93.7 fl (80-94); Mean Platelet Volume 11.2 fL (7.4-10.4); Monocytes # 0.6 10^3/uL (0.2-0.9); Monocytes % 9.3 %; Neutrophils # 4.14 10^3/uL (1.8-7.7); Neutrophils % 64.3 %; Nucleated Red Blood Cells % 0 %; Platelet Count 149 10^3/cmm (130-400); Red Blood Count 4.27 10^6/uL (4.1-5.3); Red Cell Distribution Width 15.7 % (12.1-15.1); White Blood Count 6.4 10^3/uL (4.0-10.0)
[2022-03-29 10:34] LABS: Alanine Aminotransferase 26 U/L (0-41); Albumin Level 3.2 g/dL (3.5-5.2); Alkaline Phosphatase 87 IU/L (40-130); Anion Gap 14.2 (5-19); Aspartate Amino Transferase 21 U/L (0-40); Blood Urea Nitrogen 38 mg/dL (8-23); Carbon Dioxide 25 mmol/L (22-29); Chloride 104 mmol/L (98-107); Globulin 3.1 g/dL (1.3-4.6); Glomerular Filtration Rate 67.8 mL/min (90-130); Glucose 93 mg/dL (65-115); Osmolality Calculated 297 mOsm/kg (285-295); Potassium 4.2 mmol/L (3.5-5.1); Sodium 139 mmol/L (136-145); Total Bilirubin 0.3 mg/dL (0.15-1.2); Total Protein 6.3 g/dL (6.6-8.7)
[2022-03-29 10:35] LABS: Vancomycin Trough 9.1 ug/mL (10-15)
== END 2022-03-29 09:47 | disposition home or self-care (01) ==
LOC: LAB 09:47
PROVIDERS: PCP Family Medicine; Visit Provider Family Medicine
DX: L97.429 Non-pressure chronic ulcer of left heel and midfoot with unspecified severity (principal)
CPT/HCPCS: 36415; 80053; 80202; 85025

== ENCOUNTER → 2022-04-02 14:50 | Outpatient (BNVA) | payer MEDICARE, SELFPAY | PROVIDERS: PCP Family Medicine; Visit Provider Podiatrist Foot & Ankle Surgery | DX: E11.42 Type 2 diabetes mellitus with diabetic polyneuropathy (principal); L03.90 Cellulitis, unspecified; T84.498A Other mechanical complication of other internal orthopedic devices, implants and grafts, initial encounter; M14.60 Charcot's joint, unspecified site; E11.621 Type 2 diabetes mellitus with foot ulcer; L97.424 Non-pressure chronic ulcer of left heel and midfoot with necrosis of bone; M86.8X7 Other osteomyelitis, ankle and foot | CPT/HCPCS: 99024; 99214 ==

== ENCOUNTER → 2022-04-09 13:56 | Outpatient (BNVA) | payer MEDICARE, SELFPAY | PROVIDERS: PCP Family Medicine; Visit Provider Podiatrist Foot & Ankle Surgery | DX: E11.621 Type 2 diabetes mellitus with foot ulcer (principal); L97.424 Non-pressure chronic ulcer of left heel and midfoot with necrosis of bone; Z98.890 Other specified postprocedural states; E11.42 Type 2 diabetes mellitus with diabetic polyneuropathy; L03.90 Cellulitis, unspecified; T84.498A Other mechanical complication of other internal orthopedic devices, implants and grafts, initial encounter; M86.9 Osteomyelitis, unspecified; M14.60 Charcot's joint, unspecified site; Y83.8 Other surgical procedures as the cause of abnormal reaction of the patient, or of later complication, without mention of misadventure at the time of the procedure; Z79.4 Long term (current) use of insulin | CPT/HCPCS: 99214 ==

== ENCOUNTER 2022-04-12 11:40 | Outpatient (RCR) | payer MEDICARE, SELFPAY ==
[2022-04-05 13:35] LABS: Basophils % 0.4 %; Eosinophils # 0.2 10^3/uL (0.0-0.8); Eosinophils % 3.8 %; Hematocrit 40.7 % (42.0-52.0); Hemoglobin 12.5 g/dL (11.7-16.6); Lymphocytes # 1.3 10^3/uL (0.8-4.8); Lymphocytes % 22.7 %; Mean Corpuscular HGB Conc 30.7 g/dL (30.0-36.0); Mean Corpuscular Hemoglobin 29.8 pg (28.0-34.0); Mean Corpuscular Volume 97.1 fl (80-94); Mean Platelet Volume 11.5 fL (7.4-10.4); Monocytes # 0.6 10^3/uL (0.2-0.9); Monocytes % 9.9 %; Neutrophils % 62.8 %; Nucleated Red Blood Cells % 0 %; Platelet Count 143 10^3/cmm (130-400); Red Blood Count 4.19 10^6/uL (4.1-5.3); Red Cell Distribution Width 15.9 % (12.1-15.1); White Blood Count 5.6 10^3/uL (4.0-10.0)
[2022-04-05 13:42] LABS: Alanine Aminotransferase 24 U/L (0-41); Albumin Level 3.2 g/dL (3.5-5.2); Alkaline Phosphatase 97 IU/L (40-130); Anion Gap 15.3 (5-19); Aspartate Amino Transferase 22 U/L (0-40); Blood Urea Nitrogen 26 mg/dL (8-23); Calcium 9.3 mg/dL (8.5-10.5); Carbon Dioxide 26 mmol/L (22-29); Chloride 106 mmol/L (98-107); Glomerular Filtration Rate 75.7 mL/min (90-130); Glucose 97 mg/dL (65-115); Osmolality Calculated 301 mOsm/kg (285-295); Potassium 4.3 mmol/L (3.5-5.1); Sodium 143 mmol/L (136-145); Total Bilirubin 0.2 mg/dL (0.15-1.2); Total Protein 6.2 g/dL (6.6-8.7); Vancomycin Trough 15.8 ug/mL (10-15)
[2022-04-12 12:12] LABS: Basophils % 0.7 %; Eosinophils # 0.2 10^3/uL (0.0-0.8); Eosinophils % 3.8 %; Hemoglobin 12.8 g/dL (11.7-16.6); Lymphocytes # 1.2 10^3/uL (0.8-4.8); Lymphocytes % 22.2 %; Mean Corpuscular HGB Conc 31.2 g/dL (30.0-36.0); Mean Corpuscular Volume 96.2 fl (80-94); Mean Platelet Volume 11.2 fL (7.4-10.4); Monocytes # 0.5 10^3/uL (0.2-0.9); Monocytes % 9.5 %; Neutrophils # 3.49 10^3/uL (1.8-7.7); Neutrophils % 63.6 %; Nucleated Red Blood Cells % 0 %; Platelet Count 142 10^3/cmm (130-400); Red Blood Count 4.26 10^6/uL (4.1-5.3); Red Cell Distribution Width 15.6 % (12.1-15.1); White Blood Count 5.5 10^3/uL (4.0-10.0)
[2022-04-12 12:26] LABS: Alanine Aminotransferase 24 U/L (0-41); Albumin Level 3.2 g/dL (3.5-5.2); Alkaline Phosphatase 74 U/L (40-130); Anion Gap 12.9 (5-19); Aspartate Amino Transferase 20 U/L (0-40); Blood Urea Nitrogen 27 mg/dL (8-23); Calcium 9.1 mg/dL (8.5-10.5); Carbon Dioxide 28 mmol/L (22-29); Chloride 104 mmol/L (98-107); Globulin 3.1 g/dL (1.3-4.6); Glomerular Filtration Rate 67.8 mL/min (90-130); Glucose 78 mg/dL (65-115); Osmolality Calculated 296 mOsm/kg (285-295); Potassium 3.9 mmol/L (3.5-5.1); Sodium 141 mmol/L (136-145); Total Bilirubin 0.3 mg/dL (0.15-1.2); Total Protein 6.3 g/dL (6.6-8.7); Vancomycin Trough 14.1 ug/mL (10-15)
== END 2022-04-28 23:59 | disposition home or self-care (01) ==
LOC: LAB 11:40
PROVIDERS: PCP Family Medicine; Visit Provider Family Medicine
DX: L97.429 Non-pressure chronic ulcer of left heel and midfoot with unspecified severity (principal)
CPT/HCPCS: 80053; 80202; 85025

== ENCOUNTER → 2022-04-16 12:34 | Outpatient (BNVA) | payer MEDICARE, SELFPAY | PROVIDERS: PCP Family Medicine; Visit Provider Podiatrist Foot & Ankle Surgery | DX: Z98.890 Other specified postprocedural states (principal); E11.42 Type 2 diabetes mellitus with diabetic polyneuropathy; L03.90 Cellulitis, unspecified; T84.498A Other mechanical complication of other internal orthopedic devices, implants and grafts, initial encounter; M86.9 Osteomyelitis, unspecified; M14.60 Charcot's joint, unspecified site; L97.424 Non-pressure chronic ulcer of left heel and midfoot with necrosis of bone; Z79.4 Long term (current) use of insulin; Y82.8 Other medical devices associated with adverse incidents | CPT/HCPCS: 99214 ==

== ENCOUNTER → 2022-04-22 13:01 | Outpatient (BNVA) | payer MEDICARE, SELFPAY | PROVIDERS: PCP Family Medicine; Visit Provider Podiatrist Foot & Ankle Surgery | DX: Z98.890 Other specified postprocedural states (principal); E11.42 Type 2 diabetes mellitus with diabetic polyneuropathy; L03.90 Cellulitis, unspecified; T84.498A Other mechanical complication of other internal orthopedic devices, implants and grafts, initial encounter; M86.9 Osteomyelitis, unspecified; M14.60 Charcot's joint, unspecified site; L97.424 Non-pressure chronic ulcer of left heel and midfoot with necrosis of bone; E11.621 Type 2 diabetes mellitus with foot ulcer; Z79.4 Long term (current) use of insulin | CPT/HCPCS: 11043; 97605; 99024 ==

== ENCOUNTER → 2022-05-07 12:35 | Outpatient (BNVA) | payer MEDICARE, SELFPAY | PROVIDERS: PCP Family Medicine; Visit Provider Podiatrist Foot & Ankle Surgery | DX: E11.621 Type 2 diabetes mellitus with foot ulcer (principal); Y79.2 Prosthetic and other implants, materials and accessory orthopedic devices associated with adverse incidents; Z98.890 Other specified postprocedural states; E11.42 Type 2 diabetes mellitus with diabetic polyneuropathy; L03.90 Cellulitis, unspecified; T84.498A Other mechanical complication of other internal orthopedic devices, implants and grafts, initial encounter; M86.9 Osteomyelitis, unspecified; M14.60 Charcot's joint, unspecified site; L97.424 Non-pressure chronic ulcer of left heel and midfoot with necrosis of bone; Z79.4 Long term (current) use of insulin | CPT/HCPCS: 11042 ==

== ENCOUNTER → 2022-05-24 13:41 | Outpatient (BNVA) | payer MEDICARE, SELFPAY | PROVIDERS: PCP Family Medicine; Visit Provider Podiatrist Foot & Ankle Surgery | DX: E11.621 Type 2 diabetes mellitus with foot ulcer (principal); L97.424 Non-pressure chronic ulcer of left heel and midfoot with necrosis of bone; Y79.2 Prosthetic and other implants, materials and accessory orthopedic devices associated with adverse incidents; Z98.890 Other specified postprocedural states; E11.42 Type 2 diabetes mellitus with diabetic polyneuropathy; L03.90 Cellulitis, unspecified; T84.498A Other mechanical complication of other internal orthopedic devices, implants and grafts, initial encounter; M86.9 Osteomyelitis, unspecified; M14.60 Charcot's joint, unspecified site; Z79.4 Long term (current) use of insulin | CPT/HCPCS: 99214 ==

== ENCOUNTER → 2022-06-03 14:56 | Outpatient (BNVA) | payer MEDICARE, SELFPAY | PROVIDERS: PCP Family Medicine; Visit Provider Podiatrist Foot & Ankle Surgery | DX: E11.621 Type 2 diabetes mellitus with foot ulcer (principal); L97.509 Non-pressure chronic ulcer of other part of unspecified foot with unspecified severity; Z98.890 Other specified postprocedural states; E11.42 Type 2 diabetes mellitus with diabetic polyneuropathy; L03.90 Cellulitis, unspecified; T84.498A Other mechanical complication of other internal orthopedic devices, implants and grafts, initial encounter; M86.9 Osteomyelitis, unspecified; M14.60 Charcot's joint, unspecified site; L97.424 Non-pressure chronic ulcer of left heel and midfoot with necrosis of bone; M14.671 Charcot's joint, right ankle and foot; Y79.2 Prosthetic and other implants, materials and accessory orthopedic devices associated with adverse incidents; Z79.4 Long term (current) use of insulin | CPT/HCPCS: 99214 ==

== ENCOUNTER → 2022-06-17 15:47 | Outpatient (BNVA) | payer MEDICARE, SELFPAY | PROVIDERS: PCP Family Medicine; Visit Provider Podiatrist Foot & Ankle Surgery | DX: Z98.890 Other specified postprocedural states (principal); E11.621 Type 2 diabetes mellitus with foot ulcer; L97.424 Non-pressure chronic ulcer of left heel and midfoot with necrosis of bone; E11.42 Type 2 diabetes mellitus with diabetic polyneuropathy; L03.90 Cellulitis, unspecified; T84.498A Other mechanical complication of other internal orthopedic devices, implants and grafts, initial encounter; M86.9 Osteomyelitis, unspecified; M14.60 Charcot's joint, unspecified site; Y79.2 Prosthetic and other implants, materials and accessory orthopedic devices associated with adverse incidents; Z79.4 Long term (current) use of insulin | CPT/HCPCS: 11042 ==

== ENCOUNTER 2022-06-24 17:33 | Outpatient (CLI) | payer MEDICARE, SELFPAY ==
[2022-06-24 18:55] LABS: Glucose Urine UA 4+ (Normal); Protein Urine Trace (Negative); Urine Appearance Hazy (CLEAR); Urine Color Light Yellow (Yellow); pH Urine 5 (5-7)
[2022-06-24 18:56] LABS: Add Urine Microscopic? YES; Bilirubin Urine Neg (Negative); Blood Urine Neg (Negative); Ketones Urine Negative (Negative); Leukocyte Esterase Urine Negative (Negative); Nitrate Urine Negative (Negative); Urobilinogen Urine Norm (Negative)
[2022-06-24 19:06] LABS: Add Urine Culture? No
== END 2022-06-24 17:34 | disposition home or self-care (01) ==
LOC: LAB 17:39
PROVIDERS: PCP Family Medicine; Visit Provider Family Medicine
DX: N18.2 Chronic kidney disease, stage 2 (mild) (principal)
CPT/HCPCS: 81001

== ENCOUNTER → 2022-07-08 15:34 | Outpatient (BNVA) | payer MEDICARE, SELFPAY | PROVIDERS: PCP Family Medicine; Visit Provider Podiatrist Foot & Ankle Surgery | DX: Z98.890 Other specified postprocedural states (principal); E11.621 Type 2 diabetes mellitus with foot ulcer; L97.424 Non-pressure chronic ulcer of left heel and midfoot with necrosis of bone; E11.42 Type 2 diabetes mellitus with diabetic polyneuropathy; L03.90 Cellulitis, unspecified; T84.498A Other mechanical complication of other internal orthopedic devices, implants and grafts, initial encounter; M86.9 Osteomyelitis, unspecified; M14.60 Charcot's joint, unspecified site; Y79.2 Prosthetic and other implants, materials and accessory orthopedic devices associated with adverse incidents; Z79.4 Long term (current) use of insulin | CPT/HCPCS: 11042 ==

== ENCOUNTER → 2022-07-29 14:59 | Outpatient (BNVA) | payer MEDICARE, SELFPAY | PROVIDERS: PCP Family Medicine; Visit Provider Podiatrist Foot & Ankle Surgery | DX: E11.621 Type 2 diabetes mellitus with foot ulcer (principal); L97.422 Non-pressure chronic ulcer of left heel and midfoot with fat layer exposed; Z79.4 Long term (current) use of insulin; M14.60 Charcot's joint, unspecified site; E11.42 Type 2 diabetes mellitus with diabetic polyneuropathy | CPT/HCPCS: 11042 ==

== ENCOUNTER → 2022-08-18 11:14 | Outpatient (BNVA) | payer MEDICARE, SELFPAY | PROVIDERS: PCP Family Medicine; Visit Provider Podiatrist Foot & Ankle Surgery | DX: L97.424 Non-pressure chronic ulcer of left heel and midfoot with necrosis of bone (principal); E11.621 Type 2 diabetes mellitus with foot ulcer; E11.42 Type 2 diabetes mellitus with diabetic polyneuropathy; M14.60 Charcot's joint, unspecified site; Z79.4 Long term (current) use of insulin | CPT/HCPCS: 11042; 73630 ==

== ENCOUNTER 2022-09-08 16:02 | Outpatient (CLI) | payer MEDICARE, SELFPAY | END 2022-09-08 16:03 | disposition home or self-care (01) | LOC: SPT 16:03 | PROVIDERS: PCP Family Medicine; Visit Provider Podiatrist Foot & Ankle Surgery | DX: Z46.89 Encounter for fitting and adjustment of other specified devices (principal); L97.424 Non-pressure chronic ulcer of left heel and midfoot with necrosis of bone | CPT/HCPCS: 11042; 97760; L4361 ==

== ENCOUNTER → 2022-09-29 14:39 | Outpatient (BNVA) | payer MEDICARE, SELFPAY | PROVIDERS: PCP Family Medicine; Visit Provider Podiatrist Foot & Ankle Surgery | DX: E11.42 Type 2 diabetes mellitus with diabetic polyneuropathy (principal); E11.621 Type 2 diabetes mellitus with foot ulcer; Z79.4 Long term (current) use of insulin; M14.60 Charcot's joint, unspecified site; L97.424 Non-pressure chronic ulcer of left heel and midfoot with necrosis of bone | CPT/HCPCS: 11042 ==

== ENCOUNTER → 2022-10-13 13:34 | Outpatient (BNVA) | payer MEDICARE, SELFPAY | PROVIDERS: PCP Family Medicine; Visit Provider Podiatrist Foot & Ankle Surgery | DX: E11.621 Type 2 diabetes mellitus with foot ulcer (principal); L97.422 Non-pressure chronic ulcer of left heel and midfoot with fat layer exposed; E11.42 Type 2 diabetes mellitus with diabetic polyneuropathy; M14.60 Charcot's joint, unspecified site; L97.424 Non-pressure chronic ulcer of left heel and midfoot with necrosis of bone; Z79.4 Long term (current) use of insulin | CPT/HCPCS: 11042 ==

== ENCOUNTER → 2022-10-27 13:48 | Outpatient (BNVA) | payer MEDICARE, SELFPAY | PROVIDERS: PCP Family Medicine; Visit Provider Podiatrist Foot & Ankle Surgery | DX: E11.42 Type 2 diabetes mellitus with diabetic polyneuropathy (principal); E11.621 Type 2 diabetes mellitus with foot ulcer; Z79.4 Long term (current) use of insulin; M14.60 Charcot's joint, unspecified site; L97.424 Non-pressure chronic ulcer of left heel and midfoot with necrosis of bone | CPT/HCPCS: 11042 ==

== ENCOUNTER → 2022-11-10 14:27 | Outpatient (BNVA) | payer MEDICARE, SELFPAY | PROVIDERS: PCP Family Medicine; Visit Provider Podiatrist Foot & Ankle Surgery | DX: E11.621 Type 2 diabetes mellitus with foot ulcer (principal); Z79.4 Long term (current) use of insulin; L97.424 Non-pressure chronic ulcer of left heel and midfoot with necrosis of bone; E11.42 Type 2 diabetes mellitus with diabetic polyneuropathy; M14.60 Charcot's joint, unspecified site | CPT/HCPCS: 11042 ==

== ENCOUNTER 2022-11-22 10:31 | Outpatient (CLI) | payer MEDICARE, SELFPAY ==
--- NOTE | 2022-11-22 10:43 | CTR_ITS ---
PROCEDURE INFORMATION: Exam: CT Abdomen And Pelvis With Contrast Exam date and time: 11/22/2022 12:05 PM Age: 62 years old Clinical indication: Constipation; Abdominal pain; Localized; Left lower quadrant (llq); Additional info: Left lower quadrant abdominal pain TECHNIQUE: Imaging protocol: Computed tomography of the abdomen and pelvis with contrast. Radiation optimization: All CT scans at this facility use at least one of these dose optimization techniques: automated exposure control; mA and/or kV adjustment per patient size (includes targeted exams where dose is matched to clinical indication); or iterative reconstruction. Contrast material: OMNI 350; Contrast volume: 95 ml; Contrast route: INTRAVENOUS (IV); REPORTING DATA: Count of CT and Cardiac NM exams in prior 12 months: This patient has received [address] and 0 known cardiac nuclear medicine studies in the 12 months prior to the current study. COMPARISON: CT kidney stone [id number] 01/12/2019 3:51 AM RADIATION DOSE METRICS: Total DLP (mGy-cm): 1193.73 FINDINGS: Detailed evaluation of the abdominal and pelvic viscera is somewhat limited in the absence of intravenous contrast. Lungs: Mild interstitial prominence and parenchymal stranding. Liver: Fatty infiltration of the liver. Gallbladder and bile ducts: No cholelithiasis or biliary ductal dilatation. Questionable pericholecystic fluid (series 6: Image 28), which can be better evaluated with ultrasound if clinically indicated. Pancreas: No pancreatic mass or ductal dilatation. Spleen: Spleen upper limits of normal size. Adrenal glands: 13 mm nodular lesion of fat attenuation in the left adrenal gland. Kidneys and ureters: Normal renal morphology. No hydronephrosis. Bilateral infiltration of perinephric fat. Stomach and bowel: Mild gastric antral wall thickening. Normal caliber small bowel. Prominent stool, in a pattern suggesting constipation. Diverticula, without pericolonic inflammation. Appendix: No acute appendicitis. Intraperitoneal space: No dependent free fluid in the pelvis. Vasculature: Vascular calcification. No abdominal aortic aneurysm. Lymph nodes: Enlarged lymph nodes including 2.5 x 2.0 by 1.5 cm gastrohepatic, 3.1 x 2.2 by 1.8 cm amelia hepatis, and 2.3 x 1.8 x 1.7 cm portacaval lymph nodes. Urinary bladder: Mild bladder wall thickening. Reproductive: Unremarkable as visualized. Bones/joints: Degenerative change, disc bulging, and ligamentous calcification. Chronic L1 compression deformity. Soft tissues: Subcutaneous edema. Infiltration of subcutaneous fat about the umbilicus. Cutaneous and subcutaneous calcifications. CT/CT abdomen pelvis w con* [id number] IMPRESSION: 1. Questionable pericholecystic fluid (series 6: Image 28), which can be better evaluated with ultrasound if clinically indicated. 2. Prominent stool, in a pattern suggesting constipation. Diverticula, without pericolonic inflammation. 3. Enlarged lymph nodes including 2.5 x 2.0 by 1.5 cm gastrohepatic, 3.1 x 2.2 by 1.8 cm amelia hepatis, and 2.3 x 1.8 x 1.7 cm portacaval lymph nodes. 4. Additional findings as described above.
[2022-11-22] MEDS: iohexol 350 mg/mL 500 mL Btl (per mL) PO (11:52)
[2022-11-22 12:02] LABS: Blood Urea Nitrogen 32 mg/dL (8-23); Glomerular Filtration Rate 51.2 mL/min (90-130)
[2022-11-22] MEDS: iohexol 350 mg/mL 500 mL Btl (per mL) IV (12:09)
== END 2022-11-22 10:32 | disposition home or self-care (01) ==
LOC: RAD 10:32
PROVIDERS: Radiology Neuroradiology; PCP Family Medicine; Visit Provider Family Medicine
DX: R10.32 Left lower quadrant pain (principal); R59.0 Localized enlarged lymph nodes
CPT/HCPCS: 74177; 82565; 84520; Q9967

== ENCOUNTER → 2022-11-24 11:33 | Outpatient (BNVA) | payer MEDICARE, SELFPAY | PROVIDERS: PCP Family Medicine; Visit Provider Podiatrist Foot & Ankle Surgery | DX: E11.621 Type 2 diabetes mellitus with foot ulcer (principal); Z79.4 Long term (current) use of insulin; L97.424 Non-pressure chronic ulcer of left heel and midfoot with necrosis of bone; E11.42 Type 2 diabetes mellitus with diabetic polyneuropathy; M14.60 Charcot's joint, unspecified site | CPT/HCPCS: 11042 ==

== ENCOUNTER → 2022-12-08 13:59 | Outpatient (BNVA) | payer MEDICARE, SELFPAY | PROVIDERS: PCP Family Medicine; Visit Provider Podiatrist Foot & Ankle Surgery | DX: E11.42 Type 2 diabetes mellitus with diabetic polyneuropathy (principal); E11.621 Type 2 diabetes mellitus with foot ulcer; Z79.4 Long term (current) use of insulin; L97.424 Non-pressure chronic ulcer of left heel and midfoot with necrosis of bone; M14.60 Charcot's joint, unspecified site | CPT/HCPCS: 11042 ==

== ENCOUNTER → 2022-12-22 13:37 | Outpatient (BNVA) | payer MEDICARE, SELFPAY | PROVIDERS: PCP Family Medicine; Visit Provider Podiatrist Foot & Ankle Surgery | DX: E11.621 Type 2 diabetes mellitus with foot ulcer (principal); E11.42 Type 2 diabetes mellitus with diabetic polyneuropathy; M14.60 Charcot's joint, unspecified site; Z79.4 Long term (current) use of insulin; L97.424 Non-pressure chronic ulcer of left heel and midfoot with necrosis of bone; M86.9 Osteomyelitis, unspecified | CPT/HCPCS: 11042; 36415; 73630; 80053; 85025; 85651 ==

== ENCOUNTER → 2023-01-04 12:59 | Outpatient (BNVA) | payer MEDICARE, SELFPAY | PROVIDERS: PCP Family Medicine; Visit Provider Podiatrist Foot & Ankle Surgery | DX: E11.621 Type 2 diabetes mellitus with foot ulcer (principal); Z79.4 Long term (current) use of insulin; L97.424 Non-pressure chronic ulcer of left heel and midfoot with necrosis of bone; Z51.89 Encounter for other specified aftercare; E11.42 Type 2 diabetes mellitus with diabetic polyneuropathy; M14.60 Charcot's joint, unspecified site | CPT/HCPCS: 11042 ==

== ENCOUNTER → 2023-01-06 14:09 | Outpatient (BNVA) | payer MEDICARE, SELFPAY | PROVIDERS: PCP Family Medicine; Visit Provider Orthopaedic Surgery | DX: M48.16 Ankylosing hyperostosis [Forestier], lumbar region (principal) | CPT/HCPCS: 72100; 99204 ==

== ENCOUNTER → 2023-01-20 14:28 | Outpatient (BNVA) | payer MEDICARE, SELFPAY | PROVIDERS: Visit Provider Podiatrist Foot & Ankle Surgery | DX: E11.621 Type 2 diabetes mellitus with foot ulcer (principal); Z79.4 Long term (current) use of insulin; L97.424 Non-pressure chronic ulcer of left heel and midfoot with necrosis of bone; Z51.89 Encounter for other specified aftercare; E11.42 Type 2 diabetes mellitus with diabetic polyneuropathy; M14.60 Charcot's joint, unspecified site | CPT/HCPCS: 99214 ==

== ENCOUNTER → 2023-01-31 15:54 | Outpatient (BNVA) | payer MEDICARE, SELFPAY | PROVIDERS: PCP Family Medicine; Visit Provider Otolaryngology | DX: H91.93 Unspecified hearing loss, bilateral (principal); H93.13 Tinnitus, bilateral; S00.432A Contusion of left ear, initial encounter; X58.XXXA Exposure to other specified factors, initial encounter | CPT/HCPCS: 99203 ==

== ENCOUNTER 2023-02-03 10:49 | Outpatient (RCR) | payer MEDICARE, SELFPAY | END 2023-02-25 23:59 | disposition home or self-care (01) | LOC: MPT 10:49 | PROVIDERS: PCP Family Medicine; Visit Provider Orthopaedic Surgery | DX: M54.59 Other low back pain (principal) | CPT/HCPCS: 97110; 97162; G0283 ==

== ENCOUNTER → 2023-02-09 15:31 | Outpatient (BNVA) | payer MEDICARE, SELFPAY | PROVIDERS: PCP Family Medicine; Visit Provider Surgery | DX: R10.9 Unspecified abdominal pain (principal); R22.31 Localized swelling, mass and lump, right upper limb; R22.30 Localized swelling, mass and lump, unspecified upper limb | CPT/HCPCS: 99203 ==

== ENCOUNTER → 2023-02-17 14:16 | Outpatient (BNVA) | payer MEDICARE, SELFPAY | PROVIDERS: PCP Family Medicine; Visit Provider Podiatrist Foot & Ankle Surgery | DX: E11.621 Type 2 diabetes mellitus with foot ulcer (principal); L97.424 Non-pressure chronic ulcer of left heel and midfoot with necrosis of bone; Z51.89 Encounter for other specified aftercare; E11.42 Type 2 diabetes mellitus with diabetic polyneuropathy; M14.60 Charcot's joint, unspecified site; Z79.4 Long term (current) use of insulin | CPT/HCPCS: 99213 ==

== ENCOUNTER → 2023-03-09 13:59 | Outpatient (BNVA) | payer MEDICARE, SELFPAY | PROVIDERS: PCP Family Medicine; Visit Provider Podiatrist Foot & Ankle Surgery | DX: E11.621 Type 2 diabetes mellitus with foot ulcer (principal); L97.424 Non-pressure chronic ulcer of left heel and midfoot with necrosis of bone; Z79.4 Long term (current) use of insulin; Z51.89 Encounter for other specified aftercare; E11.42 Type 2 diabetes mellitus with diabetic polyneuropathy; M14.60 Charcot's joint, unspecified site | CPT/HCPCS: 99213 ==

== ENCOUNTER → 2023-03-30 13:42 | Outpatient (BNVA) | payer MEDICARE, SELFPAY | PROVIDERS: PCP Family Medicine; Visit Provider Podiatrist Foot & Ankle Surgery | DX: E11.42 Type 2 diabetes mellitus with diabetic polyneuropathy (principal); M14.60 Charcot's joint, unspecified site; L97.422 Non-pressure chronic ulcer of left heel and midfoot with fat layer exposed; Z79.4 Long term (current) use of insulin | CPT/HCPCS: 11042 ==

== ENCOUNTER → 2023-04-04 10:02 | Outpatient (BNVA) | payer MEDICARE, SELFPAY | PROVIDERS: PCP Family Medicine; Visit Provider Internal Medicine Cardiovascular Disease | DX: I25.10 Atherosclerotic heart disease of native coronary artery without angina pectoris (principal); R59.0 Localized enlarged lymph nodes; E11.42 Type 2 diabetes mellitus with diabetic polyneuropathy; M14.60 Charcot's joint, unspecified site; E11.621 Type 2 diabetes mellitus with foot ulcer; L97.424 Non-pressure chronic ulcer of left heel and midfoot with necrosis of bone; G47.33 Obstructive sleep apnea (adult) (pediatric); E66.01 Morbid (severe) obesity due to excess calories; Z68.41 Body mass index [BMI] 40.0-44.9, adult; I13.0 Hypertensive heart and chronic kidney disease with heart failure and stage 1 through stage 4 chronic kidney disease, or unspecified chronic kidney disease; E11.22 Type 2 diabetes mellitus with diabetic chronic kidney disease; N18.2 Chronic kidney disease, stage 2 (mild); I50.9 Heart failure, unspecified; Z79.4 Long term (current) use of insulin | CPT/HCPCS: 99204 ==

== ENCOUNTER → 2023-04-13 13:12 | Outpatient (BNVA) | payer MEDICARE, SELFPAY | PROVIDERS: PCP Family Medicine; Visit Provider Podiatrist Foot & Ankle Surgery | DX: L97.424 Non-pressure chronic ulcer of left heel and midfoot with necrosis of bone (principal); E11.621 Type 2 diabetes mellitus with foot ulcer; E11.42 Type 2 diabetes mellitus with diabetic polyneuropathy; M14.60 Charcot's joint, unspecified site; Z79.4 Long term (current) use of insulin | CPT/HCPCS: 73650; 99214 ==

== ENCOUNTER 2023-04-22 06:14 | Outpatient (CLI) | payer MEDICARE, SELFPAY ==
--- NOTE | 2023-04-22 06:30 | USCV_ITS ---
DagmraJeffreye Age: 62 Gender: M : 1960 Exam Date: 04/22/2023 06:30 Ordering Phys: Dennis Jimenez MD ([email or web address]) Technologist: Jeffrey Weaver [place] [facility] [place]: CAD BP: 132 / 82 HR: 79 Rhythm: Sinus Technical Quality: Adequate MEASUREMENTS (Male / Female) Normal Values 2D ECHO LVOT Diameter 2.0 cm LV Ejection Fraction MOD 2C 52.5 % LV Ejection Fraction 2C AL 53.0 % LA Diameter 4.0 cm LA Width 4.1 cm LA Height 7.0 cm RA Width 4.7 cm RA Height 5.3 cm Aorta at Sinotubular Diameter 2.4 cm IVC Diameter 2.5 cm M-MODE Aortic Annulus Diameter 2.6 cm LA Ao Ratio MM 1.5 MV E Point Septal Separation 1.6 cm DOPPLER AV Peak Velocity 217.7 cm/s LVOT Peak Velocity 138.0 cm/s AV Area Cont Eq vti 1.9 cm squared AV Area Cont Eq pk 2.0 cm squared MV Peak Velocity 149.0 cm/s MV Area PHT 5.0 cm squared Mitral E to A Ratio 1.6 MV E' Velocity 59.0 cm/s Mitral E to MV E' Ratio 9.6 Mitral E to LV E' Lateral Ratio 9.5 Mitral E to LV E' Septal Ratio 9.6 TR Peak Velocity 159.3 cm/s TR Peak Gradient 10.1 mmHg TR Mean Velocity 139.4 cm/s TR Mean Gradient 8.1 mmHg TR Velocity Time Integral 36.2 cm Right Atrial Pressure 8.0 mmHg Pulmonary Artery Systolic Pressu 18.1 mmHg PV Peak Velocity 101.3 cm/s RV Acceleration Time 0.1 s RV Ejection Time 0.3 s RV AcT/ET 0.4 FINDINGS Left Ventricle Left ventricle is normal in size. LV systolic function is mildly reduced with EF of 45 to 50%. Mild hypokinesis of anterolateral and inferolateral valladares. Right Ventricle Normal in size and function Right Atrium Normal in size Left Atrium Normal in size Mitral Valve Moderate mitral annular calcification. Moderate mitral regurgitation. Aortic Valve Aortic valve is thickened and calcified. Mild aortic stenosis. Aortic valve area 1.83 cm2 and mean gradient across aortic valve of 11.6 mmHg. Tricuspid Valve Mild tricuspid regurgitation. Insufficient TR jet to calculate RVSP Pulmonic Valve Mild pulmonic regurgitation Pericardium Normal Aorta Ascending aorta is mildly dilated IVC Dilated CONCLUSIONS LV systolic function is mildly reduced with EF 45 to 50%. Above-mentioned regional wall motion abnormalities are seen. Moderate mitral regurgitation Mild aortic stenosis Mild tricuspid regurgitation Ascending aorta is mildly dilated No comparison studies are available. Frank Bush MD (Electronically Signed) Final Date: 09 May 2023 11:17 S
[2023-04-22] MEDS: perflutren protein-a microsphr 0.22 mg/mL SDV 3 mL IV (07:19)
--- NOTE | 2023-04-22 07:33 | NMCV_ITS ---
NM doron perf SPECT r/s* [id number] Kulwant Leavitt Age: 62 Gender: M : 1960 Exam Date: 04/22/2023 08:09 Ordering Phys: Dennis Jimenez MD ([email or web address]) Technologist: CHANDRIKA Hall Exam Location: [facility] Indications: CHF STRESS TEST Please see separate stress test report in [facility] for full findings IMAGE PROTOCOL Rest/Stress 1 Lexiscan Day Radiopharmaceutical Dose (mCi) Administration Site Administered by Rest: Tc-99m 10.8 IV Tacos Wall, BUFFER CHROME Sestamibi Stress:Tc-99m 32.8 IV Tcaos Wall, BUFFER CHROME Sestamibi Rest: 22-Apr-2023 60 Discovery 630 Stress: 22-Apr-2023 30 Discovery 630 0.4mg Lexiscan. Supine position only as patient was unable to lay prone. SPECT RESULTS Technical Quality: Excellent Raw Data Analysis: Normal Image Corrections: No attenuation or motion correction applied Summed Stress Score: 16 Summed Rest Score: 17 Summed Difference Score: 2 PERFUSION FINDINGS Moderate area of moderate to severely decreased tracer uptake involving the basal, mid and apical inferior; basal and mid inferolateral; apical septal and LV apex. Subtle areas of reversibility were noted in the basal and mid inferior wall region. FUNCTIONAL RESULTS (calculated via Gated SPECT) Stress Image LV EF (%): 29 Stress EDV (mL):306 TID: 0.89 Stress ESV (mL):216 FUNCTIONAL FINDINGS: Segmental wall motion analysis revealed diffuse hypokinesia of the left ventricle. LV cavity was found to be moderately dilated IMPRESSIONS 1. Myocardial perfusion imaging revealing moderate area of moderate to severely decreased persistent tracer uptake, involving the inferior, inferolateral, and apical regions with subtle areas of reversibility in the inferior wall region suggesting myocardial scarring in the distribution of the right coronary artery and the left circumflex arteries(predominantly) with possible small areas of oscar-infarct ischemia, mostly in the RCA territory. 2. Diminished LV ejection fraction 29%. 3. Wall motion normalities as mentioned above. 4. Moderately dilated LV cavity, with an end-systolic volume of 216 ml. No similar previous studies are available for comparison Dr Humaira Woods MD [facility] (Electronically Signed) Final Date: 22 April 2023 16:35 S
--- NOTE | 2023-04-22 07:33 | ECG_ITS ---
[facility] Test Date: 2023-04-22 Pat Name: Kulwant Leavitt Department: Room: Gender: Male Housing Liaison: : 1960 Requested By: Dennis Jimenez Order Number: [id number] Francisco MD: Anna Barbosa M.D. Interpretive Statements NAME OF STUDY: LEXISCAN SESTAMIBI STRESS TEST INDICATION: Chest Pain; Shortness of Breath PROCEDURE: At the baseline, the blood pressure was 138/91 mmHg with a heart rate of 76 bpm. The electrocardiogram showed atrial flutter with controlled ventricular response. Marked left axis deviation. Right bundle branch block. The Lexiscan was infused over a period of 20 seconds. A total of 0.4 milligrams of Lexiscan was infused. The stress phase was continued for a total of 5 minutes. Heart rate at the end of the stress phase was 77 bpm with a blood pressure 118/71 mmHg. The EKG at the peak infusion revealed no significant ST-T wave changes. Sestamibi was injected 20 seconds after the Lexiscan infusion. Blood pressure at the end of the recovery phase was 139/71 mmHg with a heart rate of 77 beats per minute. CONCLUSION: 1. No significant EKG changes with the LexiScan infusion. 2. No LexiScan induced chest pain or cardiac arrhythmia. 3. Normal blood pressure and heart rate response. 4. Sestamibi/sestamibi perfusion scan pending; see separate report. Electronically Signed On 05-05-2023 22:59:35 CDT by Anna Barbosa M.D. [email or web address]
[2023-04-22] MEDS: regadenoson 0.4 Mg/5 ml Syringe IVP (08:42)
[2023-04-22 09:31] VITALS: BP 139/71; PULSE 77
== END 2023-04-22 06:15 | disposition home or self-care (01) ==
LOC: RAD 06:17 → CDL 07:07
PROVIDERS: PCP Family Medicine; Visit Provider Internal Medicine Cardiovascular Disease
DX: R07.9 Chest pain, unspecified (principal); R06.02 Shortness of breath
CPT/HCPCS: 36415; 78452; 93017; 96374; 99204; A9500; C8929; J2785; Q9956

== ENCOUNTER → 2023-04-27 15:17 | Outpatient (BNVA) | payer MEDICARE, SELFPAY | PROVIDERS: PCP Family Medicine; Visit Provider Podiatrist Foot & Ankle Surgery | DX: E11.42 Type 2 diabetes mellitus with diabetic polyneuropathy; M14.60 Charcot's joint, unspecified site; E11.621 Type 2 diabetes mellitus with foot ulcer; L97.422 Non-pressure chronic ulcer of left heel and midfoot with fat layer exposed; Z79.4 Long term (current) use of insulin | CPT/HCPCS: 11042 ==

== ENCOUNTER → 2023-05-09 11:52 | Outpatient (BNVA) | payer MEDICARE, SELFPAY | PROVIDERS: PCP Family Medicine; Visit Provider Podiatrist Foot & Ankle Surgery | DX: E11.42 Type 2 diabetes mellitus with diabetic polyneuropathy; M14.60 Charcot's joint, unspecified site; E11.621 Type 2 diabetes mellitus with foot ulcer; L97.422 Non-pressure chronic ulcer of left heel and midfoot with fat layer exposed; Z79.84 Long term (current) use of oral hypoglycemic drugs; E66.01 Morbid (severe) obesity due to excess calories; G47.33 Obstructive sleep apnea (adult) (pediatric); I25.10 Atherosclerotic heart disease of native coronary artery without angina pectoris; I50.9 Heart failure, unspecified; Z68.36 Body mass index [BMI] 36.0-36.9, adult | CPT/HCPCS: 99214 ==

== ENCOUNTER 2023-05-11 06:59 | Outpatient (CLI) | payer MEDICARE, SELFPAY ==
[2023-05-11 07:30] LABS: Basophils # 0.1 10^3/uL (0.0-0.1); Basophils % 0.6 %; Eosinophils # 0.2 10^3/uL (0.0-0.8); Eosinophils % 2.7 %; Hematocrit 46.1 % (37-53); Lymphocytes # 1.4 10^3/uL (0.8-4.8); Lymphocytes % 17.5 %; Mean Corpuscular HGB Conc 31.9 g/dL (30-55); Mean Corpuscular Hemoglobin 29.7 pg (27-33); Mean Corpuscular Volume 93.1 fl (82-101); Mean Platelet Volume 11.3 fL (7.4-10.4); Monocytes # 0.7 10^3/uL (0.2-0.9); Monocytes % 8.6 %; Neutrophils # 5.73 10^3/uL (1.8-7.7); Neutrophils % 70.4 %; Nucleated Red Blood Cells % 0 %; Platelet Count 125 10^3/cmm (157-399); Red Blood Count 4.95 10^6/uL (3.85-5.65); Red Cell Distribution Width 14.7 % (12.1-15.1); White Blood Count 8.15 10^3/uL (3.29-11.43)
[2023-05-11 07:37] LABS: Erythrocyte Sedimentation Rate 30 mm/hr (0-10)
[2023-05-11 07:49] LABS: Alanine Aminotransferase 31 U/L (0-41); Albumin Level 3.8 g/dL (3.5-5.2); Alkaline Phosphatase 117 U/L (40-130); Blood Urea Nitrogen 34 mg/dL (8-23); C Reactive Protein 7.1 mg/L (0.0-4.9); Carbon Dioxide 28 mmol/L (22-29); Chloride 104 mmol/L (98-107); Globulin 2.9 g/dL (1.3-4.6); Glomerular Filtration Rate 51.2 mL/min (90-130); Glucose 205 mg/dL (65-115); Osmolality Calculated 306 mOsm/kg (285-295); Sodium 141 mmol/L (136-145); Total Bilirubin 0.3 mg/dL (0.15-1.2); Total Protein 6.7 g/dL (6.6-8.7)
[2023-05-11 07:59] LABS: Anion Gap 13.6 (5-19); Aspartate Amino Transferase 26 U/L (0-40); Potassium 4.6 mmol/L (3.5-5.1)
== END 2023-05-11 07:00 | disposition home or self-care (01) ==
PROVIDERS: PCP Family Medicine; Visit Provider Podiatrist Foot & Ankle Surgery
DX: S91.302A Unspecified open wound, left foot, initial encounter (principal); X58.XXXA Exposure to other specified factors, initial encounter; L97.512 Non-pressure chronic ulcer of other part of right foot with fat layer exposed; E11.42 Type 2 diabetes mellitus with diabetic polyneuropathy
CPT/HCPCS: 36415; 80053; 85025; 85651; 86140

== ENCOUNTER → 2023-05-25 10:45 | Outpatient (BNVA) | payer MEDICARE, SELFPAY | PROVIDERS: PCP Family Medicine; Visit Provider Podiatrist Foot & Ankle Surgery | DX: L97.426 Non-pressure chronic ulcer of left heel and midfoot with bone involvement without evidence of necrosis; M86.172 Other acute osteomyelitis, left ankle and foot; E11.42 Type 2 diabetes mellitus with diabetic polyneuropathy; M14.60 Charcot's joint, unspecified site; Z79.84 Long term (current) use of oral hypoglycemic drugs; E11.621 Type 2 diabetes mellitus with foot ulcer | CPT/HCPCS: 36415; 73650; 80053; 85025; 85651; 86140; 99214 ==

== ENCOUNTER 2023-06-06 05:53 | Day surgery (SDC) | payer MEDICARE, SELFPAY ==
[2023-06-06] VITALS (10 sets, daily range): BP systolic 82–137; BP diastolic 64–91; PULSE 78–117; RESP 16–20; TEMP 36.1–36.5; O2SAT 93–99
[2023-06-06 06:29] LABS: Glucose Point of Care 101 mg/dL (70-110)
--- NOTE | 2023-06-06 06:32 | W.PM.OPSUD ---
Surgery/Procedure H&P Update DATE OF PROCEDURE: June 06, 2023 DATE H&P PERFORMED: 06/06/23 H&P UPDATE INFORMATION: I have reviewed H&P completed within last 30 days, I have examined patient prior to procedure, No changes to prior documentation and [place] [facility] [place] PREOP DIAGNOSIS: Osteomyelitis left calcaneus PLANNED PROCEDURE: Operation Date: 06/06/23 07:00 Proposed Procedures p Incision of bone cortex left calcaneus and Application of wound VAC left foot 35480,S91.302A,M86.9(Left) - Montana Talbot DPM
--- NOTE | 2023-06-06 06:33 | PM.OPSURHP ---
Providers/Chief Complaint Primary Care Provider: Kaykay Bah DO Chief Complaint: S91.302A, M86.9 History of Present Illness Patient is a pleasant 62 year old diabetic male patient presenting to clinic for a re-evaluation of wound to left heel. Patient has a history of removal of intramedullary phillip and all deep hardware left lower extremity and Insertion of antibiotic impregnated cement spacer. DOS 03/05/22.? Patient states that he has been completing island dressing with hyrdro-gel 2x2 gauze, kerlix and tape? to the area and offloading his heel along with wearing a cam boot while ambulating. Review of Systems General: Reports: 10 or more systems reviewed and unremarkable except in HPI and below Const: Denies: fever(s) or chills Eyes: Denies: change in vision Card: Denies: chest pain or palpitations Resp: Denies: dyspnea or productive cough GI: Denies: abdominal pain, nausea or vomiting : Denies: flank pain Musc: Reports: extremity swelling, joint stiffness and deformity Skin/Breast: Reports: erythema, sores, changes in skin color, dry skin, nail changes and change in hair Neuro: Reports: numbness in extremities, sensory changes and difficulty walking Psych: Denies: suicidal ideation Endo: Denies: change in body appearance Gerardo/Lymph: Denies: tender lymph nodes Medications/Allergies Home Medications Medication Instructions Recorded Confirmed Last Taken Type aspirin 325 mg tablet 325 mg PO BEDTIME 02/07/20 06/02/23 06/04/23 History furosemide 40 mg tablet (Lasix) 40 mg PO DAILY PRN Edema 02/07/20 06/02/23 06/02/23 History linagliptin 5 mg tablet (Tradjenta) 5 mg PO QAM 02/07/20 06/02/23 06/05/23 History metoprolol tartrate 50 mg tablet 50 mg PO BID 02/07/20 06/02/23 06/05/23 History nitroglycerin 0.4 mg sublingual 0.4 mg sublingual Q5M PRN chest 02/07/20 06/02/23 03/14/23 History tablet (Nitrostat) pains omega 7-wfd-exc-fish oil 1,000 mg 2 cap PO DAILY 02/08/20 06/02/23 06/05/23 History (120 mg-180 mg) capsule (Fish Oil) atorvastatin 20 mg tablet 20 mg PO QAM 03/02/22 06/02/23 06/05/23 History dapagliflozin propanediol 10 mg 10 mg PO QAM 03/02/22 06/02/23 06/05/23 History tablet (Farxiga) levothyroxine 125 mcg tablet 125 mcg PO QAM 03/02/22 06/02/23 06/05/23 History testosterone cypionate 200 mg/mL 200 mg IM Q14D 03/02/22 06/02/23 1 Month Ago History intramuscular oil ~01/31/22 oxycodone-acetaminophen 5 mg-325 1 tab PO Q8H PRN pain #20 tabs 03/08/22 06/02/23 Unknown Rx mg tablet Cam boot to the left #1 ea 09/08/22 05/25/23 Unknown Rx insulin degludec 200 unit/mL (3 50 unit SUBCUT BID 04/04/23 06/02/23 06/05/23 History mL) subcutaneous pen (Tresiba FlexTouch U-200 insulin) metolazone 10 mg tablet 10 mg PO DAILY PRN Increased Blood 04/04/23 06/06/23 06/05/23 History Pressure isosorbide mononitrate 30 mg 30 mg PO DAILY #90 tabs 05/09/23 06/02/23 06/05/23 Rx tablet,extended release 24 hr losartan 25 mg tablet 25 mg PO DAILY 06/02/23 06/02/23 06/05/23 History Allergies Allergy/AdvReac Type Severity Reaction Status Date / Time cephalexin [From Keflex] Allergy Unknown Unknown Verified 06/02/23 14:12 PFSH PFSH: Medical History Arthritis Cellulitis Charcot's arthropathy -Has had extensive surgical intervention for the left lower extremity secondary to Charcot arthropathy, wears brace for ambulation and wedge shoe for offloading CHF (congestive heart failure) -unknown type, severity as no baseline Echo -hold Lasix due to renal impairment, can resume PRN use on d/c Chronic back pain Chronic constipation Chronic kidney disease -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 -has mild superimposed MAGDA, now resolved -baseline Cr around 1.0 -IVF hydration, with caution to avoid fluid overload; d/c as renal function has normalized -continue to monitor renal function particularly with dual use of Vanc, Zosyn; renally dose meds, avoid nephrotoxins Chronic ulcer of great toe of left foot with fat layer exposed Coronary artery disease -hx of CAD s/p CABG x 4 about 20 yrs ago -on ASA -NTG PRN Diabetes -has IDDM type II, A1c-10.1 -Accu-Cheks, ISS, scheduled insulin, hypoglycemia precautions -Consistent carb diet as tolerated Diabetic infection of right foot -diabetic foot wound on R foot, incised and debrided by Dr. Ferro in [facility] (02/07); cultures growing Enterococcus species and E.coli, sensitivity noted; gram stain polymicrobial -no leukocytosis, noted CRP and ESR elevation -blood cx-prelim negative (02/06), repeat set prelim negative -on Vancomycin/Zosyn for broader spectrum coverage (day 3); will switch to Levaquin -Surgery consult by Dr. Duarte appreciated; s/p bedside debridement, done on 02/08 -pain control as needed -has underlying DM type II -imaging noted, increased distance between the fourth and fifth metatarsal heads suggesting possible soft tissue mass; CT foot reported as soft tissue ulceration near the plantar surface of the foot at the level of the fourth proximal phalanx, no osteomyelitis/abscess/soft tissue emphysema -RLE elevation -anticipate continue to follow-up at wound care clinic with Dr. Ferro Diabetic peripheral neuropathy associated with type 2 diabetes mellitus Diabetic ulcer of left foot Exposed orthopaedic hardware Foot osteomyelitis, left Foreign body in right foot Hypertension -VSS, continue to monitor vital signs -continue BB, resume ARB Hypothyroidism -continue levothyroxine Morbid obesity -BMI-45 kg/m2 Non-pressure chronic ulcer of left heel and midfoot with necrosis of bone BRIDGER (obstructive sleep apnea) -on CPAP qhs Peripheral neuropathy -secondary to DM type II Peripheral vascular disease Surgical History History of ankle fusion History of back surgery History of colonoscopy (~01/2019) History of coronary artery bypass graft -Four-vessel Hx of cholecystectomy Family History Other CAD (coronary artery disease) Cancer Diabetes Hypertension Denies family history of Anesthesia complication Bleeding disorder Social History Smoking and tobacco status: never smoked Second hand smoke exposure: No Alcohol intake: never Substance/Drug Use: never Adopted: No Caregiver/support person: Yes Lives independently: Yes Household members: spouse Housing: House Marital status: service: No Current occupational status: disabled Current occupational exposures/hazards: No Pets and animals: No Sexually active: No Do you think of yourself as: Straight/Heterosexual Current gender identity: Male Padmini/Judaism: Adventism Dietary Habits: Caffeine: Yes Vital Signs Vitals Signs: Last Vital Signs Temp 97 F L 06/06/23 06:08 Pulse 78 06/06/23 06:08 Resp 18 06/06/23 06:08 BP 137/82 06/06/23 06:08 Pulse Ox 97 06/06/23 06:08 O2 Del Method Room Air 06/06/23 06:11 Physical Exam Narrative: EXAM NARRATIVE: Patient is alert and oriented ?3 and in no acute distress.? The following is a focused bilateralblower extremity exam. VASCULAR: Dorsalis pedis palpable, posterior tibial arteries palpable.? Capillary refill time less than 3 seconds to the distal hallux bilaterally. Calf is supple and nontender proximally and distally.? Edema to the left lower extremity +1 pitting.? Decrease in pedal hair growth bilaterally. NEUROLOGICAL: Protective sensation intact 0/10 sites, tested with [place] monofilament to bilateral feet. DERMATOLOGICAL: Wound left heel measures 1.9 cm x 1.4 cm x 0.2 cm with fibrogranular base. MUSCULOSKELETAL: No motion at the left ankle or subtalar joint secondary to fusion.? No pain with posterior calf squeeze bilaterally. CARDIOVASCULAR: S1, S2, normal rate, normal rhythm. Dorsalis pedis and posterior tibial arteries palpable. LUNGS: Clear to auscltation, no use of acessory muscles, no crackles or wheezes. 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 If he is interested in pursuing surgical debridement will hold off antibiotics to obtain a viable bone culture to guide long-term antibiotic therapy.? At this point his osteomyelitis is impeding wound healing, this is low-grade chronic osteomyelitis, no constitutional symptoms and no signs of sepsis. Tentatively discussed surgical debridement June 03. I reviewed at length with the patient, the risks, potential complications, benefits, alternatives, expectations, and typical outcomes associated with the surgery. The risks and potential complications were explained in detail, including but not limited to infection, wound dehiscence or soft tissue complications, bleeding and hematoma, chronic edema, neuritis or nerve damage producing numbness or chronic pain, CRPS, failure to relieve pain or worsening pain, thick / painful / unsightly scar, limited motion / stiffness, malposition, delayed union, malunion, or nonunion, fracture, reaction to implants, anesthetic complications, venous thromboembolism, and deformity recurrence.? I discussed the notion of no regrets with the patient as it pertains to complications and outcomes. The patient seemed to understand the nature of the proposed care and required convalescence. They asked appropriate questions, answered to their satisfaction. They are aware no guarantees can be made as to a satisfactory outcome and they understand there may be other possible unforeseen complications or outcomes not listed here that will be treated accordingly if they arise. There were no written or implied guarantees given to the patient. They gave informed consent to proceed. 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
[2023-06-06] MEDS: sodium chloride 0.9% 1,000 ML 30 ML IV (06:39)
[2023-06-06] MEDS: vancomycin 1,000 MG in sodium chloride 0.9% 250 ML 250 MG IV (06:41)
--- NOTE | 2023-06-06 06:43 | XRR_ITS ---
PROCEDURE INFORMATION: Exam: XR Left Foot Exam date and time: 06/06/2023 9:09 AM Age: 62 years old Clinical indication: Device placement; Other: Post op; Prior surgery; Surgery date: Post-operative (0-2 days) TECHNIQUE: Imaging protocol: Radiologic exam of the left foot. Views: 1 or 2 views. COMPARISON: CR XR foot LT min 3V* [id number] 12/22/2022 1:54 PM FINDINGS: Bones/joints: Unchanged fusion of the tibia, fibula, talus, and calcaneus with deformity of these bones. New gas in the soft tissues adjacent to the calcaneus with decreased size of overlying skin ulcer. Soft tissues: See above. XR/XR foot LT 2V [id number] IMPRESSION: New soft tissue gas suggests cellulitis. There could be osteomyelitis in the adjacent calcaneus. Consider MRI.
[2023-06-06] MEDS: BUPivacaine 0.5% INJ 30 mL 15 ML INJECTION (07:15)
[2023-06-06] MEDS: lidocaine 1% INJ 10 mL (per mL) 15 ML XX (07:15)
--- NOTE | 2023-06-06 08:38 | P.BOP_ITS ---
Date of Procedure: 06/06/23 Surgeon: Montana Talbot DPM Principal Java Software Engineer(s): HARDEEP Procedure(s) performed: Incision of bone cortex and primary delayed closure left foot. Findings of the procedure(s): Osteomyelitis left calcaneus Estimated blood loss: 25 Specimen(s) removed: Bone left calcaneus sent to microbiology and pathology Post-operative diagnosis: Osteomyelitis left foot
--- NOTE | 2023-06-06 08:40 | P.ANESASSM_ITS ---
Pre-Anesthetic Assessment Height/Weight: Height 1.91 m Weight 152.407 kg Temp Pulse Resp BP Pulse Ox O2 Del Method O2 Flow Rate 97 F L 78 18 137/82 97 Room Air 6 06/06/23 06:08 06/06/23 06:08 06/06/23 06:08 06/06/23 06:08 06/06/23 06:08 06/06/23 06:11 06/06/23 08:29 Preop Diagnosis: Osteomyelitis left calcaneus Operation Date: 06/06/23 07:00 Proposed Procedures p Incision of bone cortex left calcaneus and Application of wound VAC left foot 52114,S91.302A,M86.9(Left) - Montana Talbot DPM Familial anesthetic complications: none Was Beta Stu taken within 24 hours: Yes Was Clonidine taken within 24 hours: N/A Last intake: Intake Last Liquid Date 06/05/23 Last Liquid Time 11:59 Last Solid Date 06/05/23 Last Solid Time 11:59 Social No alcohol and No tobacco Exam alert, oriented x 3, clear to auscultation bilaterally and regular rate & rhythm Airway Submandibular: within normal limits Cervical ROM: within normal limits Mallampati: Class II Dentition: chipped Pulmonary Sleep Apnea CV/HEM Coronary Artery Disease (CABG) and Hypertension Metabolic Diabetes Mellitus, Hyperlipidemia, Morbid Obesity and Thyroid Disease Neuropsych Neuropathy Anesthetic Plan ASA status: 3 Anesthesia: Choice Medications/Allergies Home Medications Medication Instructions Recorded Confirmed Last Taken Type aspirin 325 mg tablet 325 mg PO BEDTIME 02/07/20 06/02/23 06/04/23 History furosemide 40 mg tablet (Lasix) 40 mg PO DAILY PRN Edema 02/07/20 06/02/23 06/02/23 History linagliptin 5 mg tablet (Tradjenta) 5 mg PO QAM 02/07/20 06/02/23 06/05/23 History metoprolol tartrate 50 mg tablet 50 mg PO BID 02/07/20 06/02/23 06/05/23 History nitroglycerin 0.4 mg sublingual 0.4 mg sublingual Q5M PRN chest 02/07/20 06/02/23 03/14/23 History tablet (Nitrostat) pains omega 9-jiu-dby-fish oil 1,000 mg 2 cap PO DAILY 02/08/20 06/02/23 06/05/23 History (120 mg-180 mg) capsule (Fish Oil) atorvastatin 20 mg tablet 20 mg PO QAM 03/02/22 06/02/23 06/05/23 History dapagliflozin propanediol 10 mg 10 mg PO QAM 03/02/22 06/02/23 06/05/23 History tablet (Farxiga) levothyroxine 125 mcg tablet 125 mcg PO QAM 03/02/22 06/02/23 06/05/23 History testosterone cypionate 200 mg/mL 200 mg IM Q14D 03/02/22 06/02/23 1 Month Ago History intramuscular oil ~01/31/22 oxycodone-acetaminophen 5 mg-325 1 tab PO Q8H PRN pain #20 tabs 03/08/22 06/02/23 Unknown Rx mg tablet Cam boot to the left #1 ea 09/08/22 05/25/23 Unknown Rx insulin degludec 200 unit/mL (3 50 unit SUBCUT BID 04/04/23 06/02/23 06/05/23 History mL) subcutaneous pen (Tresiba FlexTouch U-200 insulin) metolazone 10 mg tablet 10 mg PO DAILY PRN Increased Blood 04/04/23 06/06/23 06/05/23 History Pressure isosorbide mononitrate 30 mg 30 mg PO DAILY #90 tabs 05/09/23 06/02/23 06/05/23 Rx tablet,extended release 24 hr losartan 25 mg tablet 25 mg PO DAILY 06/02/23 06/02/23 06/05/23 History hydrocodone 5 mg-acetaminophen 325 1 tab PO Q6H PRN pain 7 days #20 06/06/23 Unknown Rx mg tablet tabs linezolid 600 mg tablet 600 mg PO BID 14 days #28 tabs 06/06/23 Unknown Rx Allergies Allergy/AdvReac Type Severity Reaction Status Date / Time cephalexin [From Keflex] Allergy Unknown Unknown Verified 06/02/23 14:12 Current Medications Generic Name Dose Route Start Last Admin Trade Name Freq PRN Reason Stop Dose Admin Sodium Chloride 1,000 mls @ 30 mls/hr 06/06/23 06:00 06/06/23 06:39 Sodium Chloride 0.9% IV 06/07/23 05:59 30 mls/hr .Q24H MARITO Administration PFSH Anesthesia Medical History Arthritis Cellulitis Charcot's arthropathy -Has had extensive surgical intervention for the left lower extremity secondary to Charcot arthropathy, wears brace for ambulation and wedge shoe for offloading CHF (congestive heart failure) -unknown type, severity as no baseline Echo -hold Lasix due to renal impairment, can resume PRN use on d/c Chronic back pain Chronic constipation Chronic kidney disease -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 -has mild superimposed MAGDA, now resolved -baseline Cr around 1.0 -IVF hydration, with caution to avoid fluid overload; d/c as renal function has normalized -continue to monitor renal function particularly with dual use of Vanc, Zosyn; renally dose meds, avoid nephrotoxins Chronic ulcer of great toe of left foot with fat layer exposed Coronary artery disease -hx of CAD s/p CABG x 4 about 20 yrs ago -on ASA -NTG PRN Diabetes -has IDDM type II, A1c-10.1 -Accu-Cheks, ISS, scheduled insulin, hypoglycemia precautions -Consistent carb diet as tolerated Diabetic infection of right foot -diabetic foot wound on R foot, incised and debrided by Dr. Ferro in [facility] (02/07); cultures growing Enterococcus species and E.coli, sensitivity noted; gram stain polymicrobial -no leukocytosis, noted CRP and ESR elevation -blood cx-prelim negative (02/06), repeat set prelim negative -on Vancomycin/Zosyn for broader spectrum coverage (day 3); will switch to Levaquin -Surgery consult by Dr. Duarte appreciated; s/p bedside debridement, done on 02/08 -pain control as needed -has underlying DM type II -imaging noted, increased distance between the fourth and fifth metatarsal heads suggesting possible soft tissue mass; CT foot reported as soft tissue ulceration near the plantar surface of the foot at the level of the fourth proximal phalanx, no osteomyelitis/abscess/soft tissue emphysema -RLE elevation -anticipate continue to follow-up at wound care clinic with Dr. Ferro Diabetic peripheral neuropathy associated with type 2 diabetes mellitus Diabetic ulcer of left foot Exposed orthopaedic hardware Foot osteomyelitis, left Foreign body in right foot Hypertension -VSS, continue to monitor vital signs -continue BB, resume ARB Hypothyroidism -continue levothyroxine Morbid obesity -BMI-45 kg/m2 Non-pressure chronic ulcer of left heel and midfoot with necrosis of bone BRIDGER (obstructive sleep apnea) -on CPAP qhs Peripheral neuropathy -secondary to DM type II Peripheral vascular disease Surgical History History of ankle fusion History of back surgery History of colonoscopy (~01/2019) History of coronary artery bypass graft -Four-vessel Hx of cholecystectomy Family History Other CAD (coronary artery disease) Cancer Diabetes Hypertension Denies family history of Anesthesia complication Bleeding disorder Social History Smoking and tobacco status: never smoked Second hand smoke exposure: No Alcohol intake: never Substance/Drug Use: never Adopted: No Caregiver/support person: Yes Lives independently: Yes Household members: spouse Housing: House Marital status: service: No Current occupational status: disabled Current occupational exposures/hazards: No Pets and animals: No Sexually active: No Do you think of yourself as: Straight/Heterosexual Current gender identity: Male Padmini/Taoist: Shinto Data Anesthesia Cardiac Studies: Echocardiogram 04/22/23 Sestamibi Stress Test (Cardiology) 04/22
--- NOTE | 2023-06-06 12:33 | P.OP_ITS ---
Operative Report Date of procedure: June 06, 2023 Pre-op diagnosis: Osteomyelitis left calcaneus Delayed healing wound left heel exposed bone Diabetes insulin-dependent with peripheral neuropathy Post-op diagnosis: Same Procedure done: Incision of bone cortex left calcaneus. CPT code 50330 Primary delayed closure left heel. CPT code 57432 Implants: 3-0 nylon Specimens removed/disposition: Left calcaneal tuberosity sent to microbiology for Gram stain, culture and sensitivity Pathology: Bone left posterior calcaneus at the pathology for review Surgeon: Montana Talbot DPM [employer] Claims Adjuster: HARDEEP Estimated blood loss: 25 59 IV fluids: 0 Urine output: None Complications: None Findings: Devitalized bone consistent with chronic osteomyelitis left posterior calcaneus. Intraoperative findings are consistent with clean margin after incision of devitalized bone cortex. Chronic nonpressure wound at the left posterior calcaneus was able to be closed with delayed closure. Brief History: X-rays of left calc were taken 05/25/2023 -infection is present, periosteal reaction at the posterior calcaneal tuberosity Repeat labs today CBC W/AUTO DIFF, CMP, ESR, CRP -orders given to patient Discussed surgically debridement of bone to left heel -will call patient to see when he is wanting surgery and if we need to send more antibiotics.? If he is interested in pursuing surgical debridement will hold off antibiotics to obtain a viable bone culture to guide long-term antibiotic therapy.? At this point his osteomyelitis is impeding wound healing, this is low-grade chronic osteomyelitis, no constitutional symptoms and no signs of sepsis. Tentatively discussed surgical debridement June 03. I reviewed at length with the patient, the risks, potential complications, benefits, alternatives, expectations, and typical outcomes associated with the surgery. The risks and potential complications were explained in detail, including but not limited to infection, wound dehiscence or soft tissue complications, bleeding and hematoma, chronic edema, neuritis or nerve damage producing numbness or chronic pain, CRPS, failure to relieve pain or worsening pain, thick / painful / unsightly scar, limited motion / stiffness, malposition, delayed union, malunion, or nonunion, fracture, reaction to implants, anesthetic complications, venous thromboembolism, and deformity recurrence.? I discussed the notion of no regrets with the patient as it pertains to complications and outcomes. The patient seemed to understand the nature of the proposed care and required convalescence. They asked appropriate questions, answered to their sa tisfaction. They are aware no guarantees can be made as to a satisfactory outcome and they understand there may be other possible unforeseen complications or outcomes not listed here that will be treated accordingly if they arise. There were no written or implied guarantees given to the patient. They gave informed consent to proceed. Procedure: Under mild sedation the patient was brought to the operating room and remained on the gurney in supine position. A timeout was performed. Anesthesia was then administered by the anesthesia service. Local anesthesia injected by myself consisting of 30 cc of one-to-one mixture 1% lidocaine and 0.5's Marcaine plain in a V-block to the left posterior heel just proximal to the planned operative site. Well-padded pneumatic tourniquet applied to the left high calf. The left lower extremity was scrubbed, prepped and draped utilizing normal aseptic technique. Attention was directed to the left posterior heel wound which probes directly to bone bone was noted to be of poor density, left posterior nonhealing wound measured 1.9 cm x 1.4 cm x 0.4 cm. This was sharply excised with a #15 blade full-thickness and devitalized tissue passed from the operative field followed by irrigation of the posterior heel wound. Post sharp debridement wound measurements of the posterior heel 2.5 cm x 1.5 cm x 0.5 cm. Attention was directed to the lateral left calcaneus where an oblique incision was made for planned. Incision was made full-thickness down to bone. Incision of bone cortex was performed with a saw and devitalized bone of the posterior calcaneus was passed from the operative field. Specimen sent to microbiology for Gram stain, culture and sensitivity to help guide long-term antibiotic th erapy. Additional bone was sent to pathology for review. The lateral incision was irrigated with copious amounts of sterile skin solution followed by closure with 3-0 nylon. Preoperative planning consisted of application of a wound VAC to the posterior heel wound that was nonhealing and chronic in nature had been present for greater than 1 year. After surgical debridement and incision of bone cortex enough bone was removed that the wound margins were able to be approximated at the posterior heel wound. Intraoperative decision was to perform a primary delayed closure, further sharp debridement was performed of all devitalized tissue of the posterior heel wound which measured 2.5 cm x 1.5 cm x 0.5 cm. The incision was irrigated with copious amounts of Staticin solution and closed with 3-0 nylon with excellent direct closure performed without tension at the skin margins. Margins were well coapted. The incisions were dressed with Xeroform, sterile 4 x 4's, ABD pad, Kerlix padding multilayer compressive posterior splint was applied. The tourniquet was deflated and a prompt hyperemic response was noted to the distal digits of the left foot. Patient tolerated the procedure and anesthesia well and was transferred to the PACU with vital signs stable and vascular status intact. Following a period of postoperative monitoring he will be discharged home. Will start with linezolid which was prescribed 600 mg twice daily to be taken starting today. Once surgical cultures yield further information may require PICC line versus a change in oral antibiotic regimen. We will keep wound VAC on hand until Tuesday when he is seen in clinic June 08, 2023 at 2:00 PM, given the appearance of the incision he may require negative pressure therapy at that time. He is to resume anticoagulants. He is to remain strict nonweightbearing to the left lower extremity and elevate left foot while resting.
--- NOTE | 2023-06-06 15:58 | ANE.PACU2 ---
Inpatient post-anesthesia follow up: Airway intact: Yes Vital signs: Temperature 97.7 F Pulse Rate 117 Respiratory Rate 16 Blood Pressure 104/69 Pulse Oximetry 95 Oxygen Delivery Me thod Room Air Oxygen Flow Rate 6 Fraction of Inspir ed Oxygen Hydration adequate: Yes Nausea and vomiting: No Pain level: 1 Mental status: Baseline
== END 2023-06-06 10:00 | disposition home or self-care (01) ==
PROVIDERS: PCP Family Medicine; Visit Provider Podiatrist Foot & Ankle Surgery
PROC: (CPT 13160; principal; 2023-06-06 07:00)
DX: M86.8X7 Other osteomyelitis, ankle and foot (principal); S91.302D Unspecified open wound, left foot, subsequent encounter; X58.XXXD Exposure to other specified factors, subsequent encounter; E11.42 Type 2 diabetes mellitus with diabetic polyneuropathy; E11.621 Type 2 diabetes mellitus with foot ulcer; Z79.4 Long term (current) use of insulin; Z79.82 Long term (current) use of aspirin; E11.22 Type 2 diabetes mellitus with diabetic chronic kidney disease; I13.10 Hypertensive heart and chronic kidney disease without heart failure, with stage 1 through stage 4 chronic kidney disease, or unspecified chronic kidney disease; N18.2 Chronic kidney disease, stage 2 (mild); I25.10 Atherosclerotic heart disease of native coronary artery without angina pectoris; Z95.1 Presence of aortocoronary bypass graft; E03.9 Hypothyroidism, unspecified; E66.01 Morbid (severe) obesity due to excess calories; Z68.41 Body mass index [BMI] 40.0-44.9, adult; G47.33 Obstructive sleep apnea (adult) (pediatric)
CPT/HCPCS: 13160; 28005; 36416; 73620; 76000; 82962; 87070; 87077; 87176; 87186; 87205; 88307; 88311; J2704; J3010; J3370; J3490; J7030; J7050

== ENCOUNTER → 2023-06-07 15:43 | Outpatient (BNVA) | payer MEDICARE, SELFPAY | PROVIDERS: PCP Family Medicine; Visit Provider Podiatrist Foot & Ankle Surgery | DX: E11.42 Type 2 diabetes mellitus with diabetic polyneuropathy (principal); M14.60 Charcot's joint, unspecified site; M86.9 Osteomyelitis, unspecified; T81.89XA Other complications of procedures, not elsewhere classified, initial encounter; Y83.8 Other surgical procedures as the cause of abnormal reaction of the patient, or of later complication, without mention of misadventure at the time of the procedure; Z79.4 Long term (current) use of insulin | CPT/HCPCS: 99024; 99213 ==

== ENCOUNTER → 2023-06-10 09:44 | Day surgery (SDC) | payer MEDICARE, SELFPAY ==
--- NOTE | 2023-06-10 09:29 | XR_ITS ---
WS: [id number] Portable AP supine chest, 06/10/2023 Clinical Data: Post PICC insertion Comparison: Portable chest, 03/04/2022 Findings: The left PICC line ends in the superior vena cava. No pneumothorax is seen. Impression: Satisfactory placement of left PICC line.
[2023-06-10 10:00] VITALS: BP 165/87; PULSE 75; RESP 18; TEMP 36.1; O2SAT 96
[2023-06-10] MEDS: cefTRIAXone 2,000 MG in sodium chloride 0.9% (plus) 50 ML 100 MG IV (10:45)
--- NOTE | 2023-06-10 11:06 | PC.NURSE ---
Pt to GI infusions for PICC line placement and first dose Ceftriaxone. Pt to receive 6 weeks IV antibiotics for left calcaneus osteomyelitis. Risks and benefits discussed and informed consent obtained from patient. Pt requested PICC line in left arm due to right arm dominance. Left arm assessed with left basilic vein 5 mm, straight, and apparent best choice for placement. Using sterile technique and MST, left basilic vein accessed x 1 stick. Mid-arm circumference measured 10 cm from left AC 36 cm. Trimmed cath 55 cm with 0 cm external length noted. CXR shows tip in SVC, in good position for use per radiologist. Line secured with stat-lock. Insertion site covered with Biopatch and TSM. Pt to have dressing changed tomorrow. [facility]
== END ==
LOC: GILAB 09:44
PROVIDERS: PCP Family Medicine; Visit Provider Podiatrist Foot & Ankle Surgery
DX: E11.42 Type 2 diabetes mellitus with diabetic polyneuropathy; M14.672 Charcot's joint, left ankle and foot; S91.302A Unspecified open wound, left foot, initial encounter; X58.XXXA Exposure to other specified factors, initial encounter; Z79.4 Long term (current) use of insulin; M86.8X7 Other osteomyelitis, ankle and foot
CPT/HCPCS: 36573; 71045; 96365; 99213; J0696

== ENCOUNTER 2023-06-13 14:47 | Outpatient (CLI) | payer MEDICARE, SELFPAY ==
[2023-06-13 15:09] LABS: Basophils % 0.5 %; Eosinophils # 0.4 10^3/uL (0.0-0.8); Eosinophils % 4.7 %; Hematocrit 44.9 % (37-53); Lymphocytes # 1.2 10^3/uL (0.8-4.8); Lymphocytes % 15.4 %; Mean Corpuscular HGB Conc 31.4 g/dL (30-55); Mean Corpuscular Hemoglobin 29.6 pg (27-33); Mean Corpuscular Volume 94.3 fl (82-101); Mean Platelet Volume 10.8 fL (7.4-10.4); Monocytes # 0.7 10^3/uL (0.2-0.9); Monocytes % 9.4 %; Neutrophils # 5.21 10^3/uL (1.8-7.7); Neutrophils % 69.7 %; Nucleated Red Blood Cells % 0 %; Platelet Count 151 10^3/cmm (157-399); Red Blood Count 4.76 10^6/uL (3.85-5.65); Red Cell Distribution Width 13.9 % (12.1-15.1); White Blood Count 7.47 10^3/uL (3.29-11.43)
[2023-06-13 15:17] LABS: Erythrocyte Sedimentation Rate 43 mm/hr (0-10)
[2023-06-13 15:35] LABS: Alanine Aminotransferase 24 U/L (0-41); Albumin Level 3.3 g/dL (3.5-5.2); Alkaline Phosphatase 94 U/L (40-130); Anion Gap 16.2 (5-19); Aspartate Amino Transferase 20 U/L (0-40); Blood Urea Nitrogen 29 mg/dL (8-23); C Reactive Protein 8.6 mg/L (0.0-4.9); Calcium 9.1 mg/dL (8.5-10.5); Carbon Dioxide 24 mmol/L (22-29); Chloride 102 mmol/L (98-107); Globulin 3.4 g/dL (1.3-4.6); Glomerular Filtration Rate 75.5 mL/min (90-130); Glucose 183 mg/dL (65-115); Osmolality Calculated 297 mOsm/kg (285-295); Potassium 4.2 mmol/L (3.5-5.1); Sodium 138 mmol/L (136-145); Total Bilirubin 0.4 mg/dL (0.15-1.2); Total Protein 6.7 g/dL (6.6-8.7)
== END 2023-06-13 14:48 | disposition home or self-care (01) ==
PROVIDERS: PCP Family Medicine; Visit Provider Podiatrist Foot & Ankle Surgery
DX: M86.172 Other acute osteomyelitis, left ankle and foot (principal)
CPT/HCPCS: 80053; 85025; 85651; 86140

== ENCOUNTER → 2023-06-14 14:14 | Outpatient (BNVA) | payer MEDICARE, SELFPAY | PROVIDERS: PCP Family Medicine; Visit Provider Surgery | DX: R22.31 Localized swelling, mass and lump, right upper limb (principal) | CPT/HCPCS: 99214 ==

== ENCOUNTER → 2023-06-16 15:20 | Outpatient (BNVA) | payer MEDICARE, SELFPAY | PROVIDERS: PCP Family Medicine; Visit Provider Podiatrist Foot & Ankle Surgery | DX: E11.42 Type 2 diabetes mellitus with diabetic polyneuropathy (principal); M14.60 Charcot's joint, unspecified site; E11.621 Type 2 diabetes mellitus with foot ulcer; L97.429 Non-pressure chronic ulcer of left heel and midfoot with unspecified severity; T81.31XA Disruption of external operation (surgical) wound, not elsewhere classified, initial encounter; Y83.8 Other surgical procedures as the cause of abnormal reaction of the patient, or of later complication, without mention of misadventure at the time of the procedure; M86.8X7 Other osteomyelitis, ankle and foot; Z79.4 Long term (current) use of insulin | CPT/HCPCS: 99024 ==

== ENCOUNTER 2023-06-20 19:17 | Outpatient (CLI) | payer MEDICARE, SELFPAY ==
[2023-06-20 17:27] LABS: Basophils # 0.1 10^3/uL (0.0-0.1); Basophils % 0.7 %; Eosinophils # 0.3 10^3/uL (0.0-0.8); Eosinophils % 3.3 %; Hematocrit 43.4 % (37-53); Lymphocytes # 1.3 10^3/uL (0.8-4.8); Lymphocytes % 14.3 %; Mean Corpuscular HGB Conc 32.3 g/dL (30-55); Mean Corpuscular Volume 92.9 fl (82-101); Mean Platelet Volume 11.5 fL (7.4-10.4); Monocytes # 0.6 10^3/uL (0.2-0.9); Monocytes % 6.7 %; Neutrophils % 74.7 %; Nucleated Red Blood Cells % 0 %; Platelet Count 150 10^3/cmm (157-399); Red Blood Count 4.67 10^6/uL (3.85-5.65); Red Cell Distribution Width 14.3 % (12.1-15.1); White Blood Count 9.23 10^3/uL (3.29-11.43)
[2023-06-20 17:59] LABS: Alanine Aminotransferase 27 U/L (0-41); Albumin Level 3.8 g/dL (3.5-5.2); Alkaline Phosphatase 124 U/L (40-130); Aspartate Amino Transferase 21 U/L (0-40); Blood Urea Nitrogen 41 mg/dL (8-23); C Reactive Protein 4.4 mg/L (0.0-4.9); Calcium 9.2 mg/dL (8.5-10.5); Carbon Dioxide 23 mmol/L (22-29); Chloride 100 mmol/L (98-107); Globulin 3.3 g/dL (1.3-4.6); Glomerular Filtration Rate 55.8 mL/min (90-130); Glucose 149 mg/dL (65-115); Osmolality Calculated 295 mOsm/kg (285-295); Sodium 136 mmol/L (136-145); Total Bilirubin 0.3 mg/dL (0.15-1.2); Total Protein 7.1 g/dL (6.6-8.7)
[2023-06-20 18:32] LABS: Anion Gap 18.3 (5-19); Potassium 5.3 mmol/L (3.5-5.1)
[2023-06-20 18:44] LABS: Erythrocyte Sedimentation Rate 40 mm/hr (0-10)
== END 2023-06-20 19:18 | disposition home or self-care (01) ==
LOC: LAB 07-01 19:17
PROVIDERS: PCP Family Medicine; Visit Provider Podiatrist Foot & Ankle Surgery
DX: M86.172 Other acute osteomyelitis, left ankle and foot (principal)
CPT/HCPCS: 80053; 85025; 85651; 86140

== ENCOUNTER → 2023-06-22 15:35 | Outpatient (BNVA) | payer MEDICARE, SELFPAY | PROVIDERS: PCP Family Medicine; Visit Provider Podiatrist Foot & Ankle Surgery | DX: Z51.89 Encounter for other specified aftercare (principal); S91.302A Unspecified open wound, left foot, initial encounter; M14.672 Charcot's joint, left ankle and foot; X58.XXXA Exposure to other specified factors, initial encounter; M86.8X7 Other osteomyelitis, ankle and foot; E11.628 Type 2 diabetes mellitus with other skin complications; Z79.4 Long term (current) use of insulin | CPT/HCPCS: 99213 ==

== ENCOUNTER 2023-06-27 15:16 | Outpatient (CLI) | payer MEDICARE, SELFPAY ==
[2023-06-27 15:32] LABS: Basophils % 0.6 %; Eosinophils # 0.2 10^3/uL (0.0-0.8); Eosinophils % 3.3 %; Hematocrit 43.4 % (37-53); Lymphocytes # 0.9 10^3/uL (0.8-4.8); Lymphocytes % 14.2 %; Mean Corpuscular HGB Conc 32.3 g/dL (30-55); Mean Corpuscular Hemoglobin 30.2 pg (27-33); Mean Corpuscular Volume 93.7 fl (82-101); Mean Platelet Volume 11.2 fL (7.4-10.4); Monocytes # 0.5 10^3/uL (0.2-0.9); Monocytes % 7.9 %; Neutrophils # 4.86 10^3/uL (1.8-7.7); Neutrophils % 73.7 %; Nucleated Red Blood Cells % 0 %; Platelet Count 129 10^3/cmm (157-399); Red Blood Count 4.63 10^6/uL (3.85-5.65); Red Cell Distribution Width 14.5 % (12.1-15.1)
[2023-06-27 15:34] LABS: Erythrocyte Sedimentation Rate 37 mm/hr (0-10)
[2023-06-27 15:42] LABS: Alanine Aminotransferase 23 U/L (0-41); Albumin Level 3.8 g/dL (3.5-5.2); Alkaline Phosphatase 90 U/L (40-130); Aspartate Amino Transferase 17 U/L (0-40); Blood Urea Nitrogen 39 mg/dL (8-23); C Reactive Protein 10.9 mg/L (0.0-4.9); Calcium 9.3 mg/dL (8.5-10.5); Carbon Dioxide 24 mmol/L (22-29); Chloride 104 mmol/L (98-107); Globulin 3.2 g/dL (1.3-4.6); Glomerular Filtration Rate 55.8 mL/min (90-130); Glucose 164 mg/dL (65-115); Osmolality Calculated 301 mOsm/kg (285-295); Sodium 139 mmol/L (136-145); Total Bilirubin 0.7 mg/dL (0.15-1.2)
== END 2023-06-27 15:17 | disposition home or self-care (01) ==
PROVIDERS: PCP Family Medicine; Visit Provider Podiatrist Foot & Ankle Surgery
DX: M86.172 Other acute osteomyelitis, left ankle and foot (principal)
CPT/HCPCS: 80053; 85025; 85651; 86140

== ENCOUNTER 2023-06-28 13:36 | Outpatient (CLI) | payer MEDICARE, SELFPAY ==
--- NOTE | 2023-06-28 14:00 | CTR_ITS ---
PROCEDURE INFORMATION: Exam: CT Chest With Contrast; Diagnostic Exam date and time: 06/28/2023 1:54 PM Age: 62 years old Clinical indication: Mass, lump, or swelling; Generalized; Other: Mass of right axilla/ abdominal lympadenopathy, prior surgery; Surgery date: 6+ months; Surgery type: Bypass; Patient HX: Abdominal lymphadenopathy, he stated the the physcian said there was some swollen lymph nodes in right axilla region but he couldn't feel them. ; Additional info: Mass of right axilla/ abdominal lympadenopathy, iv contrast only TECHNIQUE: Imaging protocol: Diagnostic computed tomography of the chest with contrast. Radiation optimization: All CT scans at this facility use at least one of these dose optimization techniques: automated exposure control; mA and/or kV adjustment per patient size (includes targeted exams where dose is matched to clinical indication); or iterative reconstruction. Contrast material: OMNI 350; Contrast volume: 95 ml; Contrast route: INTRAVENOUS (IV); REPORTING DATA: Count of CT and Cardiac NM exams in prior 12 months: This patient has received 2 known CTs and 0 known cardiac nuclear medicine studies in the 12 months prior to the current study. COMPARISON: CR XR chest 1V portable [id number] 06/10/2023 10:28 AM RADIATION DOSE METRICS: Total DLP (mGy-cm): 1916.16 FINDINGS: Tubes, catheters and devices: Central line in place with its tip in the mid SVC. Lungs: Unremarkable. No consolidation. No masses. Pleural spaces: Unremarkable. No pneumothorax. No pleural effusion. Heart: Unremarkable. No cardiomegaly. No pericardial effusion. Lymph nodes: Bilateral calcified hilar and mediastinal nodes. Largest is in right pretracheal region measuring 3.5 cm. Vasculature: Unremarkable. No aortic aneurysm. Bones/joints: Previous median sternotomy. Diffuse degenerative disc disease with flowing anterior osteophytes consistent with DISH. Soft tissues: Unremarkable. PROCEDURE INFORMATION: Exam: CT Abdomen And Pelvis With Contrast Exam date and time: 06/28/2023 1:54 PM Age: 62 years old Clinical indication: Mass, lump, or swelling; Generalized; Other: Mass of right axilla/ abdominal lympadenopathy, prior surgery; Surgery date: 6+ months; Surgery type: Bypass; Patient HX: Abdominal lymphadenopathy, he stated the physcian said there was some swollen lymph nodes in right axilla region but he couldn't feel them. ; Additional info: Mass of right axilla/ abdominal lympadenopathy, iv contrast only TECHNIQUE: Imaging protocol: Computed tomography of the abdomen and pelvis with contrast. Radiation optimization: All CT scans at this facility use at least one of these dose optimization techniques: automated exposure control; mA and/or kV adjustment per patient size (includes targeted exams where dose is matched to clinical indication); or iterative reconstruction. Contrast material: OMNI 350; Contrast volume: 95 ml; Contrast route: INTRAVENOUS (IV); REPORTING DATA: Count of CT and Cardiac NM exams in prior 12 months: This patient has received 2 known CTs and 0 known cardiac nuclear medicine studies in the 12 months prior to the current study. COMPARISON: CT abdomen pelvis w con* [id number] 11/22/2022 12:05 PM RADIATION DOSE METRICS: Total DLP (mGy-cm): 1916.16 FINDINGS: Liver: Normal. No mass. Gallbladder and bile ducts: Normal. No calcified stones. No ductal dilation. Pancreas: Normal. No ductal dilation. Spleen: Normal. No splenomegaly. Adrenal glands: Normal. No mass. Kidneys and ureters: Bilateral perinephric stranding. No evidence for renal obstruction. Stomach and bowel: Unremarkable. No obstruction. No mucosal thickening. Appendix: No evidence of appendicitis. Intraperitoneal space: Unremarkable. No free air. No significant fluid collection. Vasculature: Aortoiliac atherosclerotic disease. Lymph nodes: Enlarged lymph nodes including gastrohepatic, amelia hepatis, portacaval. These have not changed. Urinary bladder: Unremarkable as visualized. Reproductive: Unremarkable as visualized. Bones/joints: Degenerative changes in the lumbar spine with flowing anterior osteophytes consistent with DISH. Soft tissues: Unremarkable. CT/CT chest abdpel w/*[id number] IMPRESSION: No acute findings. Calcified nodes in the avinash and mediastinal regions. Findings are nonspecific by could represent sarcoidosis, treated lymphoma, granulomatous disease. No definite axillary mass identified. IMPRESSION: No acute findings.
[2023-06-28] MEDS: iohexol 350 mg/mL 500 mL Btl (per mL) IV (14:13)
== END 2023-06-28 13:37 | disposition home or self-care (01) ==
LOC: RAD 13:37
PROVIDERS: PCP Family Medicine; Visit Provider Surgery
DX: R22.31 Localized swelling, mass and lump, right upper limb (principal); R59.0 Localized enlarged lymph nodes
CPT/HCPCS: 71260; 74177; Q9967

== ENCOUNTER → 2023-06-29 15:39 | Outpatient (BNVA) | payer MEDICARE, SELFPAY | PROVIDERS: PCP Family Medicine; Visit Provider Podiatrist Foot & Ankle Surgery | DX: Z98.890 Other specified postprocedural states (principal); S91.302A Unspecified open wound, left foot, initial encounter; Z51.89 Encounter for other specified aftercare; X58.XXXA Exposure to other specified factors, initial encounter; M14.672 Charcot's joint, left ankle and foot; E11.69 Type 2 diabetes mellitus with other specified complication; Z79.4 Long term (current) use of insulin; M86.8X7 Other osteomyelitis, ankle and foot | CPT/HCPCS: 99024; 99213 ==

== ENCOUNTER 2023-07-04 15:37 | Outpatient (CLI) | payer MEDICARE, SELFPAY ==
[2023-07-04 14:38] LABS: Basophils % 0.5 %; Eosinophils # 0.2 10^3/uL (0.0-0.8); Eosinophils % 3.9 %; Hematocrit 40.7 % (37-53); Lymphocytes % 16.3 %; Mean Corpuscular HGB Conc 32.4 g/dL (30-55); Mean Corpuscular Hemoglobin 30.4 pg (27-33); Mean Corpuscular Volume 93.8 fl (82-101); Monocytes # 0.8 10^3/uL (0.2-0.9); Monocytes % 12.9 %; Neutrophils % 66.1 %; Nucleated Red Blood Cells % 0.3 %; Platelet Count 80 10^3/cmm (157-399); Red Blood Count 4.34 10^6/uL (3.85-5.65); Red Cell Distribution Width 14.1 % (12.1-15.1)
[2023-07-04 15:00] LABS: Alanine Aminotransferase 21 U/L (0-41); Albumin Level 3.8 g/dL (3.5-5.2); Alkaline Phosphatase 99 U/L (40-130); Anion Gap 14.5 (5-19); Aspartate Amino Transferase 14 U/L (0-40); Blood Urea Nitrogen 33 mg/dL (8-23); C Reactive Protein 4.8 mg/L (0.0-4.9); Calcium 9.2 mg/dL (8.5-10.5); Carbon Dioxide 25 mmol/L (22-29); Chloride 105 mmol/L (98-107); Globulin 2.9 g/dL (1.3-4.6); Glomerular Filtration Rate 67.6 mL/min (90-130); Glucose 162 mg/dL (65-115); Osmolality Calculated 301 mOsm/kg (285-295); Potassium 4.5 mmol/L (3.5-5.1); Sodium 140 mmol/L (136-145); Total Bilirubin 0.4 mg/dL (0.15-1.2); Total Protein 6.7 g/dL (6.6-8.7)
[2023-07-04 15:01] LABS: Erythrocyte Sedimentation Rate 25 mm/hr (0-10)
== END 2023-07-04 15:38 | disposition home or self-care (01) ==
LOC: LAB 15:37
PROVIDERS: PCP Family Medicine; Visit Provider Podiatrist Foot & Ankle Surgery
DX: M86.172 Other acute osteomyelitis, left ankle and foot (principal)
CPT/HCPCS: 80053; 85025; 85651; 86140

== ENCOUNTER → 2023-07-06 15:34 | Outpatient (BNVA) | payer MEDICARE, SELFPAY | PROVIDERS: PCP Family Medicine; Visit Provider Podiatrist Foot & Ankle Surgery | DX: Z98.890 Other specified postprocedural states (principal); Z51.89 Encounter for other specified aftercare; L97.424 Non-pressure chronic ulcer of left heel and midfoot with necrosis of bone; E11.621 Type 2 diabetes mellitus with foot ulcer; Z79.4 Long term (current) use of insulin; M86.172 Other acute osteomyelitis, left ankle and foot; M14.672 Charcot's joint, left ankle and foot; M86.8X7 Other osteomyelitis, ankle and foot | CPT/HCPCS: 11043 ==

== ENCOUNTER 2023-07-11 14:10 | Outpatient (CLI) | payer MEDICARE, SELFPAY ==
[2023-07-11 14:29] LABS: Basophils % 0.5 %; Eosinophils # 0.2 10^3/uL (0.0-0.8); Eosinophils % 3.8 %; Hematocrit 40.9 % (37-53); Lymphocytes % 17.9 %; Mean Corpuscular HGB Conc 31.8 g/dL (30-55); Mean Corpuscular Volume 94.5 fl (82-101); Mean Platelet Volume 11.4 fL (7.4-10.4); Monocytes # 0.6 10^3/uL (0.2-0.9); Monocytes % 10.6 %; Neutrophils # 3.66 10^3/uL (1.8-7.7); Nucleated Red Blood Cells % 0 %; Platelet Count 118 10^3/cmm (157-399); Red Blood Count 4.33 10^6/uL (3.85-5.65); Red Cell Distribution Width 14.8 % (12.1-15.1); White Blood Count 5.47 10^3/uL (3.29-11.43)
[2023-07-11 14:46] LABS: Alanine Aminotransferase 19 U/L (0-41); Albumin Level 3.7 g/dL (3.5-5.2); Alkaline Phosphatase 89 U/L (40-130); Anion Gap 14.3 (5-19); Aspartate Amino Transferase 16 U/L (0-40); Blood Urea Nitrogen 30 mg/dL (8-23); Calcium 8.8 mg/dL (8.5-10.5); Carbon Dioxide 24 mmol/L (22-29); Chloride 105 mmol/L (98-107); Globulin 2.8 g/dL (1.3-4.6); Glomerular Filtration Rate 61.1 mL/min (90-130); Glucose 154 mg/dL (65-115); Osmolality Calculated 297 mOsm/kg (285-295); Potassium 4.3 mmol/L (3.5-5.1); Sodium 139 mmol/L (136-145); Total Bilirubin 0.4 mg/dL (0.15-1.2); Total Protein 6.5 g/dL (6.6-8.7)
[2023-07-11 14:50] LABS: Erythrocyte Sedimentation Rate 26 mm/hr (0-10)
== END 2023-07-11 14:11 | disposition home or self-care (01) ==
LOC: LAB 14:11
PROVIDERS: PCP Family Medicine; Visit Provider Podiatrist Foot & Ankle Surgery
DX: M86.172 Other acute osteomyelitis, left ankle and foot (principal)
CPT/HCPCS: 80053; 85025; 85651; 86140

== ENCOUNTER → 2023-07-13 15:31 | Outpatient (BNVA) | payer MEDICARE, SELFPAY | PROVIDERS: PCP Family Medicine; Visit Provider Podiatrist Foot & Ankle Surgery | DX: Z51.89 Encounter for other specified aftercare; L97.424 Non-pressure chronic ulcer of left heel and midfoot with necrosis of bone; E11.621 Type 2 diabetes mellitus with foot ulcer; M14.672 Charcot's joint, left ankle and foot; Z79.4 Long term (current) use of insulin; M86.8X7 Other osteomyelitis, ankle and foot | CPT/HCPCS: 99213 ==

== ENCOUNTER 2023-07-18 15:31 | Outpatient (CLI) | payer MEDICARE, SELFPAY ==
[2023-07-18 16:21] LABS: Basophils % 0.8 %; Eosinophils # 0.2 10^3/uL (0.0-0.8); Hematocrit 41.3 % (37-53); Lymphocytes # 1.1 10^3/uL (0.8-4.8); Lymphocytes % 21.2 %; Mean Corpuscular HGB Conc 32.4 g/dL (30-55); Mean Corpuscular Hemoglobin 30.3 pg (27-33); Mean Corpuscular Volume 93.4 fl (82-101); Monocytes # 0.5 10^3/uL (0.2-0.9); Monocytes % 9.9 %; Neutrophils # 3.23 10^3/uL (1.8-7.7); Neutrophils % 63.9 %; Nucleated Red Blood Cells % 0 %; Platelet Count 90 10^3/cmm (157-399); Red Blood Count 4.42 10^6/uL (3.85-5.65); Red Cell Distribution Width 14.6 % (12.1-15.1); White Blood Count 5.05 10^3/uL (3.29-11.43)
[2023-07-18 16:24] LABS: Erythrocyte Sedimentation Rate 24 mm/hr (0-10)
[2023-07-18 16:46] LABS: Alanine Aminotransferase 25 U/L (0-41); Albumin Level 3.9 g/dL (3.5-5.2); Alkaline Phosphatase 92 U/L (40-130); Anion Gap 13.7 (5-19); Aspartate Amino Transferase 18 U/L (0-40); Blood Urea Nitrogen 28 mg/dL (8-23); Calcium 9.4 mg/dL (8.5-10.5); Carbon Dioxide 27 mmol/L (22-29); Chloride 105 mmol/L (98-107); Globulin 2.9 g/dL (1.3-4.6); Glomerular Filtration Rate 67.6 mL/min (90-130); Glucose 117 mg/dL (65-115); Osmolality Calculated 299 mOsm/kg (285-295); Potassium 4.7 mmol/L (3.5-5.1); Sodium 141 mmol/L (136-145); Total Bilirubin 0.6 mg/dL (0.15-1.2); Total Protein 6.8 g/dL (6.6-8.7)
== END 2023-07-18 15:32 | disposition home or self-care (01) ==
LOC: LAB 15:32
PROVIDERS: PCP Family Medicine; Visit Provider Podiatrist Foot & Ankle Surgery
DX: M86.172 Other acute osteomyelitis, left ankle and foot (principal); Z79.899 Other long term (current) drug therapy
CPT/HCPCS: 80053; 85025; 85651; 86140

== ENCOUNTER → 2023-07-20 12:02 | Outpatient (BNVA) | payer MEDICARE, SELFPAY | PROVIDERS: PCP Family Medicine; Visit Provider Podiatrist Foot & Ankle Surgery | DX: E11.621 Type 2 diabetes mellitus with foot ulcer; L97.424 Non-pressure chronic ulcer of left heel and midfoot with necrosis of bone; Z51.89 Encounter for other specified aftercare; E11.610 Type 2 diabetes mellitus with diabetic neuropathic arthropathy; M86.8X7 Other osteomyelitis, ankle and foot; Z79.4 Long term (current) use of insulin | CPT/HCPCS: 99213 ==

== ENCOUNTER 2023-07-25 13:42 | Outpatient (CLI) | payer MEDICARE, SELFPAY ==
[2023-07-25 13:59] LABS: Basophils % 0.6 %; Eosinophils # 0.2 10^3/uL (0.0-0.8); Eosinophils % 2.8 %; Hematocrit 37.3 % (37-53); Lymphocytes # 1.1 10^3/uL (0.8-4.8); Lymphocytes % 17.1 %; Mean Corpuscular HGB Conc 31.9 g/dL (30-55); Mean Corpuscular Hemoglobin 30.1 pg (27-33); Mean Corpuscular Volume 94.2 fl (82-101); Mean Platelet Volume 11.6 fL (7.4-10.4); Monocytes % 15.6 %; Neutrophils % 63.3 %; Nucleated Red Blood Cells # 0.1 /100WBC; Nucleated Red Blood Cells % 0.8 %; Platelet Count 82 10^3/cmm (157-399); Red Blood Count 3.96 10^6/uL (3.85-5.65); Red Cell Distribution Width 14.6 % (12.1-15.1); White Blood Count 6.33 10^3/uL (3.29-11.43)
[2023-07-25 14:07] LABS: Erythrocyte Sedimentation Rate 19 mm/hr (0-10)
[2023-07-25 14:31] LABS: Alanine Aminotransferase 21 U/L (0-41); Albumin Level 3.9 g/dL (3.5-5.2); Alkaline Phosphatase 93 U/L (40-130); Anion Gap 17.4 (5-19); Aspartate Amino Transferase 18 U/L (0-40); Blood Urea Nitrogen 36 mg/dL (8-23); Calcium 8.8 mg/dL (8.5-10.5); Carbon Dioxide 22 mmol/L (22-29); Chloride 104 mmol/L (98-107); Globulin 2.8 g/dL (1.3-4.6); Glomerular Filtration Rate 61.1 mL/min (90-130); Glucose 122 mg/dL (65-115); Osmolality Calculated 298 mOsm/kg (285-295); Potassium 4.4 mmol/L (3.5-5.1); Sodium 139 mmol/L (136-145); Total Bilirubin 0.4 mg/dL (0.15-1.2); Total Protein 6.7 g/dL (6.6-8.7)
== END 2023-07-25 13:43 | disposition home or self-care (01) ==
LOC: LAB 13:43
PROVIDERS: PCP Family Medicine; Visit Provider Podiatrist Foot & Ankle Surgery
DX: M86.172 Other acute osteomyelitis, left ankle and foot (principal)
CPT/HCPCS: 80053; 85025; 85651; 86140

== ENCOUNTER → 2023-07-27 14:21 | Outpatient (BNVA) | payer MEDICARE, SELFPAY | PROVIDERS: PCP Family Medicine; Visit Provider Podiatrist Foot & Ankle Surgery | DX: E11.621 Type 2 diabetes mellitus with foot ulcer; L97.424 Non-pressure chronic ulcer of left heel and midfoot with necrosis of bone; E11.610 Type 2 diabetes mellitus with diabetic neuropathic arthropathy; M86.8X7 Other osteomyelitis, ankle and foot; Z79.4 Long term (current) use of insulin | CPT/HCPCS: 99213 ==

== ENCOUNTER → 2023-08-10 14:53 | Outpatient (BNVA) | payer MEDICARE, SELFPAY | PROVIDERS: PCP Family Medicine; Visit Provider Podiatrist Foot & Ankle Surgery | DX: L97.424 Non-pressure chronic ulcer of left heel and midfoot with necrosis of bone; E11.42 Type 2 diabetes mellitus with diabetic polyneuropathy; E11.621 Type 2 diabetes mellitus with foot ulcer; E11.610 Type 2 diabetes mellitus with diabetic neuropathic arthropathy; Z79.4 Long term (current) use of insulin; M86.8X7 Other osteomyelitis, ankle and foot | CPT/HCPCS: 99213 ==

== ENCOUNTER → 2023-08-15 11:10 | Outpatient (BNVA) | payer MEDICARE, SELFPAY | PROVIDERS: PCP Family Medicine; Visit Provider Internal Medicine Cardiovascular Disease | DX: I13.0 Hypertensive heart and chronic kidney disease with heart failure and stage 1 through stage 4 chronic kidney disease, or unspecified chronic kidney disease (principal); E11.22 Type 2 diabetes mellitus with diabetic chronic kidney disease; N18.2 Chronic kidney disease, stage 2 (mild); I50.9 Heart failure, unspecified; Z79.4 Long term (current) use of insulin; I25.10 Atherosclerotic heart disease of native coronary artery without angina pectoris; E66.01 Morbid (severe) obesity due to excess calories; M14.60 Charcot's joint, unspecified site; E11.42 Type 2 diabetes mellitus with diabetic polyneuropathy; Z68.41 Body mass index [BMI] 40.0-44.9, adult; L97.424 Non-pressure chronic ulcer of left heel and midfoot with necrosis of bone; G47.33 Obstructive sleep apnea (adult) (pediatric) | CPT/HCPCS: 99214 ==

== ENCOUNTER 2023-08-17 13:48 | Outpatient (CLI) | payer MEDICARE, SELFPAY ==
[2023-08-17 14:10] LABS: Basophils % 0.8 %; Eosinophils # 0.2 10^3/uL (0.0-0.8); Eosinophils % 3.4 %; Hematocrit 40.7 % (37-53); Lymphocytes # 1.1 10^3/uL (0.8-4.8); Lymphocytes % 20.2 %; Mean Corpuscular HGB Conc 32.4 g/dL (30-55); Mean Corpuscular Hemoglobin 31.6 pg (27-33); Mean Corpuscular Volume 97.4 fl (82-101); Mean Platelet Volume 10.8 fL (7.4-10.4); Monocytes # 0.5 10^3/uL (0.2-0.9); Monocytes % 9.5 %; Neutrophils # 3.44 10^3/uL (1.8-7.7); Neutrophils % 65.7 %; Nucleated Red Blood Cells % 0 %; Platelet Count 145 10^3/cmm (157-399); Red Blood Count 4.18 10^6/uL (3.85-5.65); Red Cell Distribution Width 16.2 % (12.1-15.1); White Blood Count 5.24 10^3/uL (3.29-11.43)
[2023-08-17 14:24] LABS: Erythrocyte Sedimentation Rate 24 mm/hr (0-10)
[2023-08-17 14:31] LABS: Alanine Aminotransferase 25 U/L (0-41); Albumin Level 3.7 g/dL (3.5-5.2); Alkaline Phosphatase 98 U/L (40-130); Anion Gap 11.8 (5-19); Aspartate Amino Transferase 22 U/L (0-40); Blood Urea Nitrogen 23 mg/dL (8-23); C Reactive Protein 5.5 mg/L (0.0-4.9); Calcium 9.2 mg/dL (8.5-10.5); Carbon Dioxide 29 mmol/L (22-29); Chloride 104 mmol/L (98-107); Globulin 2.9 g/dL (1.3-4.6); Glomerular Filtration Rate 61.1 mL/min (90-130); Glucose 129 mg/dL (65-115); Osmolality Calculated 295 mOsm/kg (285-295); Potassium 4.8 mmol/L (3.5-5.1); Sodium 140 mmol/L (136-145); Total Bilirubin 0.5 mg/dL (0.15-1.2); Total Protein 6.6 g/dL (6.6-8.7)
== END 2023-08-17 13:49 | disposition home or self-care (01) ==
PROVIDERS: PCP Family Medicine; Visit Provider Podiatrist Foot & Ankle Surgery
DX: M86.172 Other acute osteomyelitis, left ankle and foot (principal); S91.302A Unspecified open wound, left foot, initial encounter; X58.XXXA Exposure to other specified factors, initial encounter; L97.424 Non-pressure chronic ulcer of left heel and midfoot with necrosis of bone; M14.60 Charcot's joint, unspecified site; E11.42 Type 2 diabetes mellitus with diabetic polyneuropathy
CPT/HCPCS: 80053; 85025; 85651; 86140

== ENCOUNTER 2023-08-24 06:00 | Outpatient (CLI) | payer MEDICARE, SELFPAY | END 2023-08-24 06:01 | disposition home or self-care (01) | LOC: SPT 08-25 10:05 | PROVIDERS: PCP Family Medicine; Visit Provider Podiatrist Foot & Ankle Surgery | DX: Z46.89 Encounter for fitting and adjustment of other specified devices (principal); S91.302D Unspecified open wound, left foot, subsequent encounter; X58.XXXD Exposure to other specified factors, subsequent encounter; E11.42 Type 2 diabetes mellitus with diabetic polyneuropathy; Z51.89 Encounter for other specified aftercare; E11.610 Type 2 diabetes mellitus with diabetic neuropathic arthropathy; S91.302A Unspecified open wound, left foot, initial encounter; X58.XXXA Exposure to other specified factors, initial encounter; M86.9 Osteomyelitis, unspecified; E11.621 Type 2 diabetes mellitus with foot ulcer; L97.424 Non-pressure chronic ulcer of left heel and midfoot with necrosis of bone | CPT/HCPCS: 99213; L4361 ==

== ENCOUNTER → 2023-09-07 15:11 | Outpatient (BNVA) | payer MEDICARE, SELFPAY | PROVIDERS: PCP Family Medicine; Visit Provider Podiatrist Foot & Ankle Surgery | DX: L97.424 Non-pressure chronic ulcer of left heel and midfoot with necrosis of bone; E11.42 Type 2 diabetes mellitus with diabetic polyneuropathy; E11.610 Type 2 diabetes mellitus with diabetic neuropathic arthropathy; M86.8X7 Other osteomyelitis, ankle and foot; E11.621 Type 2 diabetes mellitus with foot ulcer; Z79.4 Long term (current) use of insulin | CPT/HCPCS: 99213 ==

== ENCOUNTER → 2023-09-28 13:43 | Outpatient (BNVA) | payer MEDICARE, SELFPAY | PROVIDERS: PCP Family Medicine; Visit Provider Podiatrist Foot & Ankle Surgery | DX: M14.60 Charcot's joint, unspecified site (principal); M86.672 Other chronic osteomyelitis, left ankle and foot; L97.424 Non-pressure chronic ulcer of left heel and midfoot with necrosis of bone; E11.42 Type 2 diabetes mellitus with diabetic polyneuropathy; R26.89 Other abnormalities of gait and mobility; E11.621 Type 2 diabetes mellitus with foot ulcer; Z79.4 Long term (current) use of insulin | CPT/HCPCS: 99214 ==

== ENCOUNTER → 2023-10-19 15:57 | Outpatient (BNVA) | payer MEDICARE, SELFPAY | PROVIDERS: PCP Family Medicine; Visit Provider Podiatrist Foot & Ankle Surgery | DX: L97.424 Non-pressure chronic ulcer of left heel and midfoot with necrosis of bone; E11.621 Type 2 diabetes mellitus with foot ulcer; M14.60 Charcot's joint, unspecified site; M86.672 Other chronic osteomyelitis, left ankle and foot; E11.42 Type 2 diabetes mellitus with diabetic polyneuropathy; R26.89 Other abnormalities of gait and mobility; Z79.4 Long term (current) use of insulin | CPT/HCPCS: 87070; 87075; 87077; 87186; 87205; 99213 ==

== ENCOUNTER → 2023-11-01 15:50 | Outpatient (BNVA) | payer MEDICARE, SELFPAY | PROVIDERS: PCP Family Medicine; Visit Provider Podiatrist Foot & Ankle Surgery | DX: E11.42 Type 2 diabetes mellitus with diabetic polyneuropathy; M86.672 Other chronic osteomyelitis, left ankle and foot; M14.60 Charcot's joint, unspecified site; L97.424 Non-pressure chronic ulcer of left heel and midfoot with necrosis of bone; R26.89 Other abnormalities of gait and mobility; Z79.4 Long term (current) use of insulin | CPT/HCPCS: 29445; 73650 ==

== ENCOUNTER → 2023-11-07 12:56 | Outpatient (BNVA) | payer MEDICARE, SELFPAY | PROVIDERS: PCP Family Medicine; Visit Provider Podiatrist Foot & Ankle Surgery | DX: Z51.89 Encounter for other specified aftercare (principal); M86.672 Other chronic osteomyelitis, left ankle and foot; L97.424 Non-pressure chronic ulcer of left heel and midfoot with necrosis of bone; E11.42 Type 2 diabetes mellitus with diabetic polyneuropathy; R26.89 Other abnormalities of gait and mobility; E11.610 Type 2 diabetes mellitus with diabetic neuropathic arthropathy; E11.621 Type 2 diabetes mellitus with foot ulcer; Z79.4 Long term (current) use of insulin | CPT/HCPCS: 99213 ==

== ENCOUNTER → 2023-11-21 11:22 | Outpatient (BNVA) | payer MEDICARE, SELFPAY | PROVIDERS: PCP Family Medicine; Visit Provider Podiatrist Foot & Ankle Surgery | DX: Z51.89 Encounter for other specified aftercare (principal); M86.672 Other chronic osteomyelitis, left ankle and foot; L97.424 Non-pressure chronic ulcer of left heel and midfoot with necrosis of bone; E11.42 Type 2 diabetes mellitus with diabetic polyneuropathy; R26.89 Other abnormalities of gait and mobility; E11.621 Type 2 diabetes mellitus with foot ulcer; E11.610 Type 2 diabetes mellitus with diabetic neuropathic arthropathy; Z79.4 Long term (current) use of insulin | CPT/HCPCS: 99213 ==

== ENCOUNTER → 2023-12-06 15:19 | Outpatient (BNVA) | payer MEDICARE, SELFPAY | PROVIDERS: PCP Family Medicine; Visit Provider Podiatrist Foot & Ankle Surgery | DX: L97.424 Non-pressure chronic ulcer of left heel and midfoot with necrosis of bone; M86.672 Other chronic osteomyelitis, left ankle and foot; E11.42 Type 2 diabetes mellitus with diabetic polyneuropathy; R26.89 Other abnormalities of gait and mobility; E11.621 Type 2 diabetes mellitus with foot ulcer; E11.610 Type 2 diabetes mellitus with diabetic neuropathic arthropathy; Z79.4 Long term (current) use of insulin | CPT/HCPCS: 11042 ==

== ENCOUNTER → 2024-01-02 13:55 | Outpatient (BNVA) | payer MEDICARE, SELFPAY | PROVIDERS: PCP Family Medicine; Visit Provider Podiatrist Foot & Ankle Surgery | DX: M86.672 Other chronic osteomyelitis, left ankle and foot; L97.424 Non-pressure chronic ulcer of left heel and midfoot with necrosis of bone; E11.42 Type 2 diabetes mellitus with diabetic polyneuropathy; R26.89 Other abnormalities of gait and mobility; E11.621 Type 2 diabetes mellitus with foot ulcer; E11.610 Type 2 diabetes mellitus with diabetic neuropathic arthropathy; Z79.4 Long term (current) use of insulin | CPT/HCPCS: 11042 ==

== ENCOUNTER → 2024-01-30 15:31 | Outpatient (BNVA) | payer MEDICARE, SELFPAY | PROVIDERS: PCP Family Medicine; Visit Provider Podiatrist Foot & Ankle Surgery | DX: M14.60 Charcot's joint, unspecified site (principal); M86.672 Other chronic osteomyelitis, left ankle and foot; L97.424 Non-pressure chronic ulcer of left heel and midfoot with necrosis of bone; E11.42 Type 2 diabetes mellitus with diabetic polyneuropathy; R26.89 Other abnormalities of gait and mobility; E11.621 Type 2 diabetes mellitus with foot ulcer; Z79.4 Long term (current) use of insulin | CPT/HCPCS: 11042 ==

== ENCOUNTER → 2024-02-13 11:17 | Outpatient (BNVA) | payer MEDICARE, SELFPAY | PROVIDERS: PCP Family Medicine; Visit Provider Internal Medicine Cardiovascular Disease | DX: I13.0 Hypertensive heart and chronic kidney disease with heart failure and stage 1 through stage 4 chronic kidney disease, or unspecified chronic kidney disease (principal); E11.22 Type 2 diabetes mellitus with diabetic chronic kidney disease; Z72.0 Tobacco use; Z79.4 Long term (current) use of insulin; I50.9 Heart failure, unspecified; I25.110 Atherosclerotic heart disease of native coronary artery with unstable angina pectoris; E66.01 Morbid (severe) obesity due to excess calories; Z68.41 Body mass index [BMI] 40.0-44.9, adult; G47.33 Obstructive sleep apnea (adult) (pediatric); E11.42 Type 2 diabetes mellitus with diabetic polyneuropathy; I34.0 Nonrheumatic mitral (valve) insufficiency; Z95.1 Presence of aortocoronary bypass graft; I35.0 Nonrheumatic aortic (valve) stenosis; I25.5 Ischemic cardiomyopathy; N18.2 Chronic kidney disease, stage 2 (mild) | CPT/HCPCS: 99215 ==

== ENCOUNTER → 2024-02-20 15:30 | Outpatient (BNVA) | payer MEDICARE, SELFPAY | PROVIDERS: PCP Family Medicine; Visit Provider Podiatrist Foot & Ankle Surgery | DX: M86.672 Other chronic osteomyelitis, left ankle and foot; L97.424 Non-pressure chronic ulcer of left heel and midfoot with necrosis of bone; E11.42 Type 2 diabetes mellitus with diabetic polyneuropathy; R26.89 Other abnormalities of gait and mobility; E11.621 Type 2 diabetes mellitus with foot ulcer; E11.610 Type 2 diabetes mellitus with diabetic neuropathic arthropathy; Z79.4 Long term (current) use of insulin | CPT/HCPCS: 11042 ==

== ENCOUNTER 2024-02-24 05:53 | Outpatient (CLI) | payer MEDICARE, SELFPAY ==
[2024-02-24] VITALS (121 sets, daily range): BP systolic 67–167; BP diastolic 50–117; PULSE 41–107; RESP 11–25; TEMP 36.5–36.7; O2SAT 86–97; BMI 43.9
--- NOTE | 2024-02-24 06:00 | XACV_ITS ---
Exam Room: 2 Ht: 191 cm Wt: 159 kg BSA: 2.97 m2 Gender: Male : 1960 Any Known Allergies: Other Exam Priority: Routine Procedure(s): Procedure Description: Diagnostic procedure Procedure Description: PCI procedure Procedure Description: Left Heart Catheterization Procedure Description: Left ventriculography Procedure Description: Aortic Arch Angiography Procedure Description: Venous Graft Catheterization Procedure Description: [place] Graft Catheterization Procedure Description: PTCA Procedure Description: Coronary Angiography Procedure Description: Pressure Wire Tony BARAJAS; Diagnostic Cath Status: Elective Diagnostic Findings * Patient is a massively obese man who had bypass surgery approximately 20 years ago. This was a left internal mammary to the LAD and a free radial graft to a marginal branch and 2 branches of the right coronary artery. He came to the office complaining of profound shortness of breath, weakness and inability to do very much. He did not want to proceed with stress testing. He has a number of other medical problems but to my knowledge had not been diagnosed with an atrial dysrhythmia prior to this procedure. The procedure was done from the right common femoral artery due to the grafts. * Coronary angiography reveals unknown coronary artery dominance. The left main coronary artery is normal and bifurcates into the LAD and circumflex. The LAD is occluded shortly after its origin. There is an internal mammary artery graft. There are 2 small diagonal branches which arise prior to the occlusion of the LAD. They both contain moderate diffuse disease in the proximal portion. Circumflex is a relatively large vessel. It may be the dominant artery however it is difficult to tell. There are marginal branches in the proximal and midportion of the circumflex which are occluded. There appears to be a stent in the mid to distal circumflex which is patent. There is then rather severe diffuse disease of some smaller marginal branches more distally. One of the more proximal marginal branches which is occluded fills by collaterals from the diagonal branches. There is a 60 to 70% stenosis in the proximal circumflex followed very closely thereafter by a 70 to 80% stenosis. The right coronary artery is occluded at its origin. I do not note any retrograde flow into any bypass grafts.. * The left internal mammary to the LAD is a widely patent graft and inserts into the LAD without any lesions. It is a large excellent graft. There was some difficulty getting to the graft due to some calcification and mild stenosis of the ostial left subclavian artery. I used 5 different diagnostic catheters in an attempt to find the origin of the free radial graft. I was never able to find even a stump. I then performed aortography to see if I could identify any flow into the graft. I was unable to do so. Therefore, I assume that sequential bypass graft is occluded. PCI Status: Elective PCI LVEF Assessed: No PCI Indication: CAD (without Ischemic Sx) Interventional Findings * I started out with an attempt to perform a IFR of the circumflex lesions. It was extremely difficult to get the wire down. Once I was able to do so the IFR was read at less than 0.3. I then made an attempt to place a balloon. I was able to get a balloon to the first circumflex lesion which underwent balloon angioplasty. I was never able to get a balloon past the first lesion even close to the second lesion. I made an attempt to place a stent into the first lesion but because of the angle of the takeoff of the circumflex and calcification and tortuosity in the vessel I could not pass a stent. Decision for PCI with Surgical Consult: No PCI for Multi-vessel Disease: No Conclusions 1. Patent left internal mammary graft. Occluded [place] LAD and right coronary arteries. Angioplasty of the very proximal circumflex stenosis but inability to pass a stent. Occluded sequential free radial artery graft to the marginal and 2 branches of the right coronary artery. Discovery of atrial flutter. Recommendations * Perhaps some of his shortness of breath and fatigue are coming through the newly discovered atrial flutter. He has lost AV synchrony. I am going to keep him overnight and place him on amiodarone and Eliquis. He will then be brought back in about 3 weeks for an attempt at cardioversion. Perhaps hindu of AV synchrony will improve things for him. I do not believe there is any indication for consideration of further bypass surgery. Pressures Phase:Rest AO : 103 / 63 ( 79 ) @ 8:41:00 AM 98 / 67 ( 82 ) @ 8:46:00 AM 106 / 106 ( 74 ) @ 8:49:00 AM 67 / 67 ( 69 ) @ 8:50:00 AM 112 / 90 ( 92 ) @ 9:15:00 AM 104 / 77 ( 87 ) @ 9:37:00 AM 88 / 67 ( 78 ) @ 9:49:00 AM LV : 117 / -1 / 8 @ 8:48:00 AM Clinical Evaluation EBL: 5mL-10mL Procedural Details Pre-Procedure Time Out. Identified patient by full name and date of as verbalized by the patient/guarantor. Does the consent match the physician's order: Yes. Accurate & Complete Informed Consent: Yes. Inpatient/Outpatient History & Physical on Chart: Yes. If H&P is completed, is and addenduem needed: No; If yes, is the addendum complete: N/A. Visualize and Verify Site with Patient/Guarantor: N/A. Relevant Radiology Images available: Yes. Pre-op teaching completed and patient verbalized understanding. The risks, benefits, and alternatives of sedation and/or procedure were discussed by physician. The patient agrees to continue. Procedure started. Physician arrived. [facility] [place] Clinical Fraility Score: 5: Mildly Frail. 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 Chest Pain Symptom Assessment: Atypical Angina. Correct patient, site and procedure confirmed by cath team. Current diagnosis: Chest Pain. PERRLA. Strong, equal hand ore buyer bilaterally. Lungs clear x 5 lobes. IV Site on Arrival: 20 gauge in the right hand. IV Fluids: 0.9% NaCl at KVO. 0 mL infused prior to experimental machining lab manager. Pre Procedural Pulses: bilateral dorsalis pedis was Doppled. Pre Procedural Pulses: bilateral posterior tibial was Doppled. Oxygen started at 2liters/min via nasal canula. bilateral groins was prepped with chloroprep then draped in the usual sterile fashion. Baseline sample Acquired. HR: 66 BPM. Physician scrubbed in. Immediate Pre-Procedure Time Out. Correct Patient: Yes; Correct Procedure: Yes; Correct Site: Yes; Correct Patient Position: Yes; Correct Supplies: Yes; Dried Flammable Prep: Yes; Blood Products Available: N/A;. Lidocaine 1% infiltrated to the right groin. Arterial access obtained. A 6 georgian JL4 catheter in over wire. Multiple views taken of left coronary artery. Catheter out. A 6 georgian JR4 catheter in over wire. EDP Sample taken: LV 117/-2,8; HR: 65 BPM; SpO2: 97%. Pullback taken: LV Off; AO Off; Mean: , Peak to Peak: , SEP: ; HR: 59 BPM; SpO2: 97%. A view taken of right coronary artery. Catheter removed over the exchange wire. A 6 georgian IM catheter in over wire. [place] to LAD visualized. Catheter removed over the standard wire. A 5 georgian LCB catheter in over wire. Catheter removed over the standard wire. A 5 georgian AL2 catheter in over wire. Catheter removed over the standard wire. A 5 georgian Angled Pig catheter in over wire. Aortogram performed in DARIEN @ 10 mL/second for a total of 30 mL. Catheter out. 6 georgian XB 3.5 guide catheter was inserted over the wire. IFR guidewire was advanced through the guide catheter to lesion in the prox Circ. A second IFR inserted and advanced to the prox CX. The first IFR wire removed. IFR result: 0.28. Wire out. [place] guidewire was advanced through the guide catheter to lesion in the prox Circ. 3.5x8 [place] stent inserted to lesion in the prox Circ. Intact stent out OTW. Inflation number : 1 A AB TREK 3.50X12 RX BALLOON was prepped and advanced across the Prox CX , then inflated to 12 ALEXI for 0:30 seconds. Balloon out. Wire out. Guide catheter out. Physician scrubbed out. A Suture was successful obtaining hemostatsis at the Right Femoral artery insertion site. Sheath(s) sutured into position with 2-0 silk and sterile 4x4's and Op-site applied over the site. No oozing or signs and symptoms of hematoma noted. Arterial sheath flushed and connected to tranducer and pressure bag with heparinized saline. Post Procedure: Pulses reassessed and unchanged. PERRLA. Strong, equal hand ore buyer bilaterally. No VTE prophylaxis required. Medication's Wasted: Lidocaine 1% = 10 mL. Vital chart was stopped. Medication's Wasted: Heparin = 3000 units. Medication's Wasted: Other = Fentanyl 100mcg Versed 1 mg. Total IV fluids: 150 mL. Complications: None. Estimated blood loss: 5mL-10mL. Responsiveness - Normal response to verbal stimuli; alert and oriented, PERRLA. Airway - Unaffected, no intervention required; spontaneous ventilation. Circulation: W/N/L, pulses unchanged. Nausea/Vomiting: No. Procedure completed. Patient transferred by bed to ICU. Access Site Site: Right Femoral artery Sheath Size: 6 Fr Hemostasis Method: Suture Hemostasis Success: Successful Procedure Medications Start: 7:30 AM Stop: 7:30 AM Medication: Versed Amount: 1 mg Route: I.V. Start: 7:30 AM Stop: 7:30 AM Medication: Fentanyl Amount: 50 mcg Route: I.V. Start: 7:40 AM Stop: 7:40 AM Medication: Versed Amount: 1 mg Route: I.V. Start: 8:00 AM Stop: 8:00 AM Medication: Fentanyl Amount: 25 mcg Route: I.V. Start: 8:17 AM Stop: 8:17 AM Medication: Heparin Amount: 3000 units Route: I.V. Start: 8:22 AM Stop: 8:22 AM Medication: Versed Amount: 1 mg Route: I.V. I, the attending physician, have reviewed and verified all procedure medications. Yes, all medications given per verbal order History/Risk Factors Hypertension: Yes Dyslipidemia: No Peripheral Arterial Disease (PAD): No Myocardial Infarction (TN): No Obesity: Yes Renal Disease: No Tobacco Use: Never Prior Interventions PCI: No CABG: Yes Valve Surgery: No Report Signatures Finalized by Dr. Dennis Jimenez MD on 02/24/2024 09:21 AM
[2024-02-24] MEDS: aspirin 325 mg Tablet PO (06:25)
[2024-02-24] MEDS: diphenhydrAMINE 50 mg Capsule PO (06:25)
[2024-02-24 06:45] LABS: Basophils # 0.1 10^3/uL (0.0-0.1); Basophils % 0.5 %; Eosinophils # 0.2 10^3/uL (0.0-0.8); Eosinophils % 2.2 %; Lymphocytes # 1.8 10^3/uL (0.8-4.8); Lymphocytes % 18.2 %; Mean Corpuscular HGB Conc 31.9 g/dL (30-55); Mean Corpuscular Hemoglobin 30.5 pg (27-33); Mean Corpuscular Volume 95.6 fl (82-101); Mean Platelet Volume 11.1 fL (7.4-10.4); Monocytes # 0.9 10^3/uL (0.2-0.9); Neutrophils # 6.88 10^3/uL (1.8-7.7); Neutrophils % 69.8 %; Nucleated Red Blood Cells % 0 %; Platelet Count 146 10^3/cmm (157-399); Red Blood Count 5.44 10^6/uL (3.85-5.65); Red Cell Distribution Width 14.3 % (12.1-15.1); White Blood Count 9.87 10^3/uL (3.29-11.43)
--- NOTE | 2024-02-24 06:55 | W.PM.OPSUD ---
Surgery/Procedure H&P Update DATE OF PROCEDURE: February 24, 2024 DATE H&P PERFORMED: 02/13/24 H&P UPDATE INFORMATION: I have reviewed H&P completed within last 30 days, I have examined patient prior to procedure and No changes to prior documentation PREOP DIAGNOSIS: CAD, CABG, CM, SOB, CP PRIMARY INDICATION FOR PROCEDURE: Worsening shortness of breath and chest pain PLANNED PROCEDURE: Operation Date: 02/24/24 07:00 Proposed Procedures p Cardiac Catheterization 46002, I25.10(Left) - Dennis Jimenez MD
[2024-02-24 06:56] LABS: Anion Gap 17.7 (5-19); Blood Urea Nitrogen 45 mg/dL (8-23); Calcium 9.5 mg/dL (8.5-10.5); Carbon Dioxide 25 mmol/L (22-29); Chloride 95 mmol/L (98-107); Creatinine Clr Calc Pharmacy 80.4927; Glomerular Filtration Rate 47.1 mL/min (90-130); Glucose 223 mg/dL (65-115); Osmolality Calculated 296 mOsm/kg (285-295); Potassium 3.7 mmol/L (3.5-5.1); Sodium 134 mmol/L (136-145)
[2024-02-24] MEDS: sodium chloride 0.9% 1,000 ML 100 ML IV (09:33)
[2024-02-24 09:55] LABS: Glucose Point of Care 137 mg/dL (70-110)
[2024-02-24 11:30] LABS: Partial Thromboplastin Time 34.6 SECONDS (23.9-36.7)
--- NOTE | 2024-02-24 14:47 | PC.NURSE ---
Sheath in R. Groin was pulled without complications noted. Pressure held for 20 minutes. folded 4x4 gauze dressing with biocclusive ressing placed at completion of the pull. Family at bedside during pull. Pt tolerated well.
[2024-02-24 17:04] LABS: Glucose Point of Care 245 mg/dL (70-110)
[2024-02-24] MEDS: amiodarone 200 mg Tablet 400 MG PO (17:08)
[2024-02-24] MEDS: insulin lispro 100 unit/1 mL SUBCUT ×2 (17:09→20:39)
[2024-02-24] MEDS: metoprolol tartrate 50 mg Tablet PO (17:09)
[2024-02-24 20:27] LABS: Glucose Point of Care 221 mg/dL (70-110)
[2024-02-24] MEDS: apixaban 5 mg Tablet PO (20:39)
[2024-02-25] VITALS (27 sets, daily range): BP systolic 126–161; BP diastolic 74–106; PULSE 68–83; RESP 13–25; O2SAT 93–97; BMI 43.9
[2024-02-25 04:19] LABS: Anion Gap 13.2 (5-19); Blood Urea Nitrogen 36 mg/dL (8-23); Calcium 9.1 mg/dL (8.5-10.5); Carbon Dioxide 27 mmol/L (22-29); Chloride 101 mmol/L (98-107); Creatinine Clr Calc Pharmacy 100.6159; Glucose 128 mg/dL (65-115); Osmolality Calculated 294 mOsm/kg (285-295); Potassium 4.2 mmol/L (3.5-5.1); Sodium 137 mmol/L (136-145)
[2024-02-25] MEDS: atorvastatin 40 mg Tablet 20 MG PO (05:37)
[2024-02-25] MEDS: levothyroxine 125 mcg Tablet PO (05:37)
[2024-02-25 07:43] LABS: Glucose Point of Care 96 mg/dL (70-110)
--- NOTE | 2024-02-25 07:59 | PM.DCS ---
Discharge Providers Date of Admission: February 24, 2024 Date of Discharge: February 25, 2024 Attending Provider at Admission: Tony Attending Provider at Discharge: Dennis Jimenez MD Primary Care Provider: Kaykay Bah DO Diagnoses at Discharge Discharge Diagnosis (1) History of coronary artery bypass graft: Status: Acute Permanent problem details: -Four-vessel. Performed in August 2005. Left internal mammary to the LAD. Free sequential radial artery graft from the aorta to the obtuse marginal, posterolateral and posterior descending artery. (2) CHF (congestive heart failure): Status: Acute Qualifiers: Heart failure type: unspecified Heart failure chronicity: chronic Qualified Code(s): I50.9 - Heart failure, unspecified Permanent problem details: -unknown type, severity as no baseline Echo -hold Lasix due to renal impairment, can resume PRN use on d/c (3) Coronary artery disease: Status: Acute Qualifiers: Coronary Disease-Associated Artery/Lesion type: [place] artery [place] vs. transplanted heart: [place] heart Associated angina: without angina Qualified Code(s): I25.10 - Atherosclerotic heart disease of ass[place] coronary artery without angina pectoris Permanent problem details: -hx of CAD s/p CABG x 4 about 20 yrs ago -on ASA -NTG PRN (4) Mitral regurgitation: Status: Acute (5) Aortic stenosis: Status: Acute (6) Ischemic cardiomyopathy: Status: Acute (7) Essential hypertension: Status: Acute (8) Diabetes: Status: Acute Qualifiers: Diabetes mellitus type: type 2 Diabetes mellitus intermediate manager insulin use: with intermediate manager use Diabetes mellitus complication status: with other specified complication Qualified Code(s): E11.69 - Type 2 diabetes mellitus with other specified complication; Z79.4 - nursing home (current) use of insulin Permanent problem details: -has IDDM type II, A1c-10.1 -Accu-Cheks, ISS, scheduled insulin, hypoglycemia precautions -Consistent carb diet as tolerated (9) Morbid obesity: Status: Acute Permanent problem details: -BMI-45 kg/m2 (10) Charcot's arthropathy: Status: Acute Permanent problem details: -Has had extensive surgical intervention for the left lower extremity secondary to Charcot arthropathy, wears brace for ambulation and wedge shoe for offloading (11) Diabetic peripheral neuropathy associated with type 2 diabetes mellitus: Status: Acute (12) BRIDGER (obstructive sleep apnea): Status: Acute Permanent problem details: -on CPAP qhs (13) Chronic kidney disease: Status: Chronic Qualifiers: Chronic kidney disease stage: stage 2 (mild) Qualified Code(s): N18.2 - Chronic kidney disease, stage 2 (mild) Permanent problem details: -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 -has mild superimposed MAGDA, now resolved -baseline Cr around 1.0 -IVF hydration, with caution to avoid fluid overload; d/c as renal function has normalized -continue to monitor renal function particularly with dual use of Vanc, Zosyn; renally dose meds, avoid nephrotoxins Reason for Visit Reason for Visit: I25.10 Brief History: Patient was admitted for elective coronary and graft angiography. He has morbid obesity, diabetes and multiple other cardiac issues including mild aortic stenosis, bypass surgery, underlying coronary disease and an ischemic cardiomyopathy. He came to the office complaining of extreme fatigue and shortness of breath as well as occasional episodes of syncope. I suggested stress testing but he declined wanting to move straight to coronary angiography. He was electively placed in the hospital because of this. Hospital Course Hospital Course Angiography revealed occlusion of the ostium of his ass[place] right coronary artery and LAD. Circumflex contained two, 70 to 80% stenoses in the proximal portion. There were at least 2 obtuse marginal branches which were occluded in the proximal portion of the circumflex. More distally there were at least 2 marginal branches which were modestly to severely diffusely diseased. He had 4 bypass grafts. 1 is a left internal mammary to the LAD which is an excellent graft and widely patent. The other, was a sequential graft utilizing the left radial artery as a free radial artery graft. The insertion points according to the notes were a circumflex marginal branch and 2 branches of the distal right coronary artery. Utilizing at least 5 different diagnostic catheters I was never able to find the opening of that graft in the aorta. I even did an aortogram in order to see if I could identify the graft. I was unable to see it. Since I could not see a graft to the marginal I made an attempt at angioplasty of the ass[place] circumflex. This was after an IFR was significantly abnormal. I was able to get a balloon into the more proximal lesion of the circumflex but I was not able to get the balloon down to the distal lesion nor was able to get a stent to either lesion. This was due to the angle of takeoff of the circumflex but more importantly the calcification. After the initial balloon angioplasty I stopped the procedure as we were getting close to 200 mL of contrast material and he has underlying chronic kidney disease. During the procedure I discovered that he has atrial flutter with an atrial rate of about 300. That had not been discovered previously. I therefore started him on amiodarone and Eliquis in addition to his other medications so that we can hopefully cardiovert him in the near future. My suspicion is that it may not be the underlying coronary artery disease which was causing his symptoms but more likely the lack of AV synchrony from the atrial flutter and of course his rather massive obesity. The procedure was done from the right groin. There were no complications. At the time of discharge his groin is flat, dry without bleeding, hematoma or other vascular anomaly. He has been instructed not to lift anything more than 5 pounds for 2 days. Physical Exam Narrative: GENERAL: In general he is comfortable at rest HEENT: Exam within normal limits. NECK: Supple without jugular vein distention. The carotid upstroke is normal without bruits. BACK: Exam normal. LUNGS: Clear. HEART: Regular rate and rhythm. ABDOMEN: Benign without organomegaly or tenderness. EXTREMITIES: No edema. Right groin is flat, dry without bleeding or hematoma. NEUROLOGIC: Exam normal. SKIN: Unremarkable. Discharge Data Studies Completed and Pending Completed Studies During Hospitalization Category Date Time Status PRODUCTION SUPV request for service Routine Exams 02/24/24 06:00 Completed Laboratory Results WBC 9.87 10^3/uL (3.29-11.43) 02/24/24 06:25 RBC 5.44 10^6/uL (3.85-5.65) 02/24/24 06:25 Hgb 16.60 g/dL (11.27-16.99) 02/24/24 06:25 Hct 52.0 % (37-53) 02/24/24 06:25 MCV 95.6 fl (82-101) 02/24/24 06:25 MCH 30.5 pg (27-33) 02/24/24 06:25 MCHC 31.9 g/dL (30-55) 02/24/24 06:25 RDW 14.3 % (12.1-15.1) 02/24/24 06:25 Plt Count 146 10^3/cmm (157-399) L 02/24/24 06:25 MPV 11.1 fL (7.4-10.4) H 02/24/24 06:25 Neut % (Auto) 69.8 % 02/24/24 06:25 Lymph % (Auto) 18.2 % 02/24/24 06:25 Baker % (Auto) 9.0 % 02/24/24 06:25 Eos % (Auto) 2.2 % 02/24/24 06:25 Baso % (Auto) 0.5 % 02/24/24 06:25 Neut # (Auto) 6.88 10^3/uL (1.8-7.7) 02/24/24 06:25 Lymph # (Auto) 1.8 10^3/uL (0.8-4.8) 02/24/24 06:25 Baker # (Auto) 0.9 10^3/uL (0.2-0.9) 02/24/24 06:25 Eos # (Auto) 0.2 10^3/uL (0.0-0.8) 02/24/24 06:25 Baso # (Auto) 0.1 10^3/uL (0.0-0.1) 02/24/24 06:25 Nucleated RBC % (auto) 0 % 02/24/24 06:25 Nucleated RBCs # 0.0 /100WBC 02/24/24 06:25 APTT 34.6 SECONDS (23.9-36.7) 02/24/24 11:03 Sodium 137 mmol/L (136-145) 02/25/24 03:48 Potassium 4.2 mmol/L (3.5-5.1) 02/25/24 03:48 Chloride 101 mmol/L (98-107) 02/25/24 03:48 Carbon Dioxide 27 mmol/L (22-29) 02/25/24 03:48 Anion Gap 13.2 (5-19) 02/25/24 03:48 BUN 36 mg/dL (8-23) H 02/25/24 03:48 Creatinine 1.2 mg/dL (0.7-1.2) 02/25/24 03:48 GFR Calculation 61.0 mL/min (90-130) L 06/29/24 03:48 Glucose 128 mg/dL (65-115) H 02/25/24 03:48 POC Glucose 96 mg/dL (70-110) 02/25/24 07:23 Calculated Osmolality 294 mOsm/kg (285-295) 02/25/24 03:48 Calcium 9.1 mg/dL (8.5-10.5) 02/25/24 03:48 Procedures Performed Coronary angiography, graft angiography, aortography, left heart catheterization, angioplasty of ass[place] sioux circumflex Vitals Last Vital Signs Temp 97.7 F 02/24/24 21:30 Pulse 71 02/25/24 07:00 Resp 25 H 02/25/24 07:00 BP 132/75 02/25/24 07:00 Pulse Ox 95 02/25/24 07:00 O2 Del Method CPAP 02/25/24 01:45 Discharge Plan Discharge Patient Disposition: Home Prescriptions: New amiodarone [Pacerone] 200 mg Tablet 200 mg PO DAILY Qty: 30 0RF Eliquis 5 mg Tablet 5 mg PO BID@0900,2100 Qty: 60 6RF Continued Tradjenta 5 mg tablet 5 mg PO QAM furosemide [Lasix] 40 mg tablet 40 mg PO DAILY PRN (Reason: Edema) nitroglycerin [Nitrostat] 0.4 mg tablet, sublingual 0.4 mg SUBLINGUAL Q5M PRN (Reason: chest pains) Rx Instructions: do not exceed 3 doses per episode aspirin 325 mg tablet 325 mg PO BEDTIME isosorbide mononitrate 30 mg tablet extended release 24 hr 30 mg PO DAILY Qty: 90 4RF insulin glargine [Basaglar Tempo Pen(U-100)Insln] 100 unit/mL (3 mL) insulin pen 50 unit SUBCUT BID (DME) CAM BOOT to left See Rx Instructions .Route .MEDSUPPLY Qty: 1 0RF Rx Instructions: As directed insulin aspart U-100 [Novolog FlexPen U-100 Insulin] 100 unit/mL (3 mL) insulin pen SUBCUT metolazone 10 mg tablet 10 mg PO DAILY PRN (Reason: Increased Blood Pressure) (DME) calcaneal gait afo See Rx Instructions .Route .MEDSUPPLY Qty: 1 0RF Rx Instructions: As directed by [employer] omega 9-ywp-jle-fish oil [Fish Oil] 1,000 mg (120 mg-180 mg) Capsule 2 cap PO DAILY metoprolol tartrate 50 mg tablet 50 mg PO BID losartan 25 mg tablet 25 mg PO DAILY atorvastatin 20 mg tablet 20 mg PO QAM levothyroxine 125 mcg tablet 125 mcg PO QAM testosterone cypionate 200 mg/mL oil 200 mg IM Q14D dapagliflozin propanediol [Farxiga] 10 mg tablet 10 mg PO QAM Discharge Orders: Discharge Order (Routine); Ordered 02/25/24 Ordered By: Dennis Jimenez Referrals: Cass Syed FNP [Nurse Practitioner] - (Cass Syed's Office has your information and will be calling you to schedule a follow up appointment. You can call them with any questions or concerns. Thank you. Check right groin, chemistry panel, assess medications, evaluate for cardioversion in 3 to 4 weeks.) Kaykay Bah DO [Primary Care Provider] - Diet: Diabetic Activity: Increase activity as tolerated and Limit activity as instructed Patient Instructions: Amiodarone (By mouth) (Cordarone, Pacerone), Apixaban (By mouth) (Eliquis), Heart Failure (DC), Coronary Angioplasty (DC), CHF Stoplight, Post Angiogram Home Care Instructions Activity Restrictions/Additional Instructions: No lifting over 10 pounds for 2 days. Discharge Attestations Time Spent in Discharge Care*: greater than 30 min Status at Discharge: Cognitive status at discharge: cognitively intact, Behavioral status at discharge: cooperative, Quality Metrics Clinical Quality Measures [ No reported AMI, CVA or VTE this stay] Coding Level of Care Code 65818 Total time (in minutes) for Discharge: 50 Diagnoses History of coronary artery bypass graft Z95.1 Chronic congestive heart failure, unspecified heart failure type I50.9 Heart failure type: unspecified Heart failure chronicity: chronic Coronary artery disease involving ass[place] si[place] coronary artery of ass[place] and [place] heart without angina pectoris I25.10 Coronary Disease-Associated Artery/Lesion type: [place] artery [place] vs. transplanted heart: [place] heart Associated angina: without angina Mitral regurgitation I34.0 Aortic stenosis I35.0 Ischemic cardiomyopathy I25.5 Essential hypertension I10 Type 2 diabetes mellitus with other specified complication, with long-term current use of insulin E11.69; Z79.4 Diabetes mellitus type: type 2 Diabetes mellitus intermediate manager insulin use: with correction use Diabetes mellitus complication status: with other specified complication Morbid obesity E66.01 Charcot's arthropathy M14.60 Diabetic peripheral neuropathy associated with type 2 diabetes mellitus E11.42 BRIDGER (obstructive sleep apnea) G47.33 Stage 2 chronic kidney disease N18.2 Chronic kidney disease stage: stage 2 (mild)
[2024-02-25] MEDS: amiodarone 200 mg Tablet 400 MG PO (08:14)
[2024-02-25] MEDS: apixaban 5 mg Tablet PO (08:14)
[2024-02-25] MEDS: isosorbide mononitrate ER 30 mg Tablet PO (08:14)
[2024-02-25] MEDS: losartan 50 mg Tablet 25 MG PO (08:14)
[2024-02-25] MEDS: metoprolol tartrate 50 mg Tablet PO (08:15)
== END 2024-02-25 09:21 | disposition home or self-care (01) ==
LOC: CCL 05:57 → ICU 12:21
PROVIDERS: PCP Family Medicine; Visit Provider Internal Medicine Cardiovascular Disease
DX: I25.10 Atherosclerotic heart disease of native coronary artery without angina pectoris (principal); Z95.1 Presence of aortocoronary bypass graft; I50.9 Heart failure, unspecified; E11.22 Type 2 diabetes mellitus with diabetic chronic kidney disease; I13.0 Hypertensive heart and chronic kidney disease with heart failure and stage 1 through stage 4 chronic kidney disease, or unspecified chronic kidney disease; N18.2 Chronic kidney disease, stage 2 (mild); I34.0 Nonrheumatic mitral (valve) insufficiency; I35.0 Nonrheumatic aortic (valve) stenosis; I25.5 Ischemic cardiomyopathy; E11.69 Type 2 diabetes mellitus with other specified complication; Z79.4 Long term (current) use of insulin; E66.01 Morbid (severe) obesity due to excess calories; M14.60 Charcot's joint, unspecified site; E11.42 Type 2 diabetes mellitus with diabetic polyneuropathy; G47.33 Obstructive sleep apnea (adult) (pediatric); Z68.41 Body mass index [BMI] 40.0-44.9, adult; N17.9 Acute kidney failure, unspecified
CPT/HCPCS: 36415; 36416; 80048; 82962; 85025; 85730; 92920; 93458; 93571; 96372; 96374; 96375; 99152; 99153; C1725; C1769; C1874; C1887; C1894; J1644; J1815; J2250; J3010; J7030; Q0163; Q9967

== ENCOUNTER → 2024-03-06 15:29 | Outpatient (BNVA) | payer MEDICARE, SELFPAY | PROVIDERS: PCP Family Medicine; Visit Provider Podiatrist Foot & Ankle Surgery | DX: M86.672 Other chronic osteomyelitis, left ankle and foot; L97.424 Non-pressure chronic ulcer of left heel and midfoot with necrosis of bone; E11.42 Type 2 diabetes mellitus with diabetic polyneuropathy; R26.89 Other abnormalities of gait and mobility; E11.610 Type 2 diabetes mellitus with diabetic neuropathic arthropathy; E11.621 Type 2 diabetes mellitus with foot ulcer; Z79.4 Long term (current) use of insulin | CPT/HCPCS: 99213 ==

== ENCOUNTER → 2024-04-04 15:38 | Outpatient (BNVA) | payer MEDICARE, SELFPAY | PROVIDERS: PCP Family Medicine; Visit Provider Podiatrist Foot & Ankle Surgery | DX: M14.60 Charcot's joint, unspecified site (principal); M86.672 Other chronic osteomyelitis, left ankle and foot; L97.424 Non-pressure chronic ulcer of left heel and midfoot with necrosis of bone; E11.42 Type 2 diabetes mellitus with diabetic polyneuropathy; R26.89 Other abnormalities of gait and mobility; M21.179 Varus deformity, not elsewhere classified, unspecified ankle; R26.9 Unspecified abnormalities of gait and mobility; Z98.1 Arthrodesis status; E11.621 Type 2 diabetes mellitus with foot ulcer; Z79.4 Long term (current) use of insulin | CPT/HCPCS: 11042 ==

== ENCOUNTER → 2024-04-25 13:13 | Outpatient (BNVA) | payer MEDICARE, SELFPAY | PROVIDERS: PCP Family Medicine; Visit Provider Podiatrist Foot & Ankle Surgery | DX: M86.672 Other chronic osteomyelitis, left ankle and foot; L97.424 Non-pressure chronic ulcer of left heel and midfoot with necrosis of bone; E11.42 Type 2 diabetes mellitus with diabetic polyneuropathy; R26.89 Other abnormalities of gait and mobility; M21.179 Varus deformity, not elsewhere classified, unspecified ankle; R26.9 Unspecified abnormalities of gait and mobility; Z98.1 Arthrodesis status; E11.621 Type 2 diabetes mellitus with foot ulcer; Z79.4 Long term (current) use of insulin | CPT/HCPCS: 99213 ==

== ENCOUNTER 2024-04-27 10:53 | Day surgery (SDC) | payer MEDICARE, SELFPAY ==
[2024-04-27 11:05] VITALS: BP 128/71; PULSE 49; RESP 18; TEMP 36.6; O2SAT 96; BMI 42.8
[2024-04-27 11:17] LABS: Glucose Point of Care 93 mg/dL (70-110)
[2024-04-27] MEDS: sodium chloride 0.9% 1,000 ML 30 ML IV (11:17)
--- NOTE | 2024-04-27 11:56 | PC.NURSE ---
Procedure canceled due to heart rate. IV removed and fluids stopped.
--- NOTE | 2024-04-27 11:58 | PM.MISC ---
Miscellaneous Note Purpose of Documentation: Brief note Note: Patient has presented for JACKY/ Cardioversion. Patient has risk associated with anesthesia with obesity, BRIDGER. He is in atrial flutter with significant bradycardia and heart rate of 49. He is on amiodarone and metoprolol. Patient will be high risk of developing severe bradycardia post cardioversion as baseline heart rate is already in 40s. We will abort procedure today. As he is on anticoagulation, we will plan on cardioversion without JACKY in 2 weeks. Will reduce metoprolol dose to 25 mg twice daily. The day prior to cardioversion and on day of cardioversion, patient to hold his metoprolol and only take amiodarone 200mg once daily 1 week before the procedure. We will reschedule.
== END 2024-04-27 12:00 | disposition home or self-care (01) ==
PROVIDERS: PCP Family Medicine; Visit Provider Internal Medicine
PROC: (CPT 93312; principal; 2024-04-27 12:30)
PROC: 5A2204Z Restoration of Cardiac Rhythm, Single (ICD-10-PCS; 2024-04-27 12:30)
DX: Z53.9 Procedure and treatment not carried out, unspecified reason (principal)
CPT/HCPCS: 36416; 82962; J7030

== ENCOUNTER → 2024-05-14 13:51 | Outpatient (BNVA) | payer MEDICARE, SELFPAY | PROVIDERS: PCP Family Medicine; Visit Provider Podiatrist Foot & Ankle Surgery | DX: M86.672 Other chronic osteomyelitis, left ankle and foot; L97.424 Non-pressure chronic ulcer of left heel and midfoot with necrosis of bone; E11.42 Type 2 diabetes mellitus with diabetic polyneuropathy; R26.89 Other abnormalities of gait and mobility; M21.179 Varus deformity, not elsewhere classified, unspecified ankle; R26.9 Unspecified abnormalities of gait and mobility; Z98.1 Arthrodesis status; E11.621 Type 2 diabetes mellitus with foot ulcer; Z79.4 Long term (current) use of insulin | CPT/HCPCS: 11042 ==

== ENCOUNTER 2024-05-18 10:48 | Day surgery (SDC) | payer MEDICARE, SELFPAY ==
--- NOTE | 2024-05-18 11:02 | ECG_ITS ---
[facility] Test Date: 2024-05-18 Pat Name: Mirza Leavitt Department: Room: Gender: Male Life Specialist: : 1960 Requested By: Frank Bush Order Number: [id number] Reading MD: MAGEN ROBLEDO Measurements Intervals [place] Rate: 54 P: 0 NV: 0 QRS: 211 QRSD: 201 T: -85 QT: 490 QTc: 467 Interpretive Statements ATRIAL FLUTTER/TACHYCARDIA WITH SLOW VENTRICULAR RESPONSE RIGHT AXIS DEVIATION [QRS AXIS > 100] RIGHT BUNDLE BRANCH BLOCK [120+ ms QRS DURATION, UPRIGHT V1, 40+ ms S IN I/aVL/V4/V5/V6] SEPTAL MYOCARDIAL INFARCTION , PROBABLY OLD [40+ ms Q WAVE IN V1/V2] MODERATE T-WAVE ABNORMALITY, CONSIDER LATERAL ISCHEMIA [-0.1+ mV T-WAVE IN I/aVL/V5/V6] MODERATE T-WAVE ABNORMALITY, CONSIDER INFERIOR ISCHEMIA [-0.1+ mV T-WAVE IN II/aVF] Compared to ECG 03/14/2024 15:52:21 there is no change Electronically Signed On 05-19-2024 00:12:49 CDT by MAGEN ROBLEDO [id number]
--- NOTE | 2024-05-18 11:25 | ANES.PREANE2 ---
Pre-Anesthetic Assessment Height/Weight: Height 6 ft 2 in Preop Diagnosis: Atrial flutter Operation Date: 05/18/24 12:00 Proposed Procedures p Cardioversion(Not Applicable) - Frank Bush M.D Was Beta Stu taken within 24 hours: Yes Was Clonidine taken within 24 hours: N/A Social No alcohol and No tobacco Exam alert, oriented x 3, clear to auscultation bilaterally and regular rate & rhythm Airway Submandibular: within normal limits Cervical ROM: within normal limits Mallampati: Class IV Dentition: other (Multiple missing teeth top and bottom) Anesthetic Plan Other: No prior issues with anesthesia NPO since yesterday History of atrial flutter, here for cardioversion Ischemic cardiomyopathy and aortic stenosis Echo 03/2020 showing EF 45 to 50% with mild hypokinesis of the anterolateral and inferior lateral valladares. Mild aortic stenosis on echo, valve area 1.83 cm Hypertension on losartan and metoprolol BRIDGER on CPAP Patient also takes amiodarone and Eliquis. Eliquis taken yesterday EKG today showing atrial flutter 3?1, heart rate 55 Plan for MAC anesthetic Medications/Allergies Home Medications Medication Instructions Recorded Confirmed Last Taken Type aspirin 325 mg tablet 325 mg PO BEDTIME 02/07/20 05/17/24 05/16/24 History furosemide 40 mg tablet (Lasix) 80 mg PO DAILY PRN Edema 02/07/20 05/17/24 05/17/24 History linagliptin 5 mg tablet (Tradjenta) 5 mg PO QAM 02/07/20 05/17/24 05/17/24 History metoprolol tartrate 50 mg tablet 25 mg PO BID 02/07/20 05/17/24 05/18/24 11:00 History nitroglycerin 0.4 mg sublingual 0.4 mg sublingual Q5M PRN chest 02/07/20 05/17/24 05/16/24 History tablet (Nitrostat) pains omega 8-vux-oob-fish oil 1,000 mg 2 cap PO DAILY 02/08/20 05/17/24 05/17/24 History (120 mg-180 mg) capsule (Fish Oil) atorvastatin 20 mg tablet 20 mg PO QAM 03/02/22 05/17/24 05/17/24 History dapagliflozin propanediol 10 mg 10 mg PO QAM 03/02/22 05/17/24 05/17/24 History tablet (Farxiga) levothyroxine 125 mcg tablet 125 mcg PO QAM 03/02/22 05/17/24 05/17/24 History testosterone cypionate 200 mg/mL 200 mg IM Q10D 03/02/22 05/17/24 05/01/24 History intramuscular oil metolazone 10 mg tablet 10 mg PO DAILY PRN Increased Blood 04/04/23 05/18/24 05/17/24 History Pressure isosorbide mononitrate 30 mg 30 mg PO DAILY #90 tabs 05/09/23 05/17/24 05/18/24 11:00 Rx tablet,extended release 24 hr losartan 25 mg tablet 25 mg PO DAILY 06/02/23 05/17/24 05/18/24 11:00 History insulin aspart U-100 100 unit/mL See Rx Instructions .Route .COMPLEX 01/02/24 05/17/24 05/17/24 History (3 mL) subcutaneous pen (Novolog FlexPen U-100 Insulin aspart) apixaban 5 mg tablet (Eliquis) 5 mg PO BID@0900,2100 #60 tabs 02/25/24 05/17/24 05/17/24 Rx boot with AFO external strut #1 ea 04/04/24 05/14/24 Unknown Rx articulating amiodarone 200 mg tablet (Pacerone) 200 mg PO DAILY 04/25/24 05/17/24 05/18/24 11:00 History famotidine 20 mg disintegrating 20 mg PO BID 04/25/24 05/17/24 05/17/24 History tablet CAM BOOT to left #1 ea 05/14/24 05/14/24 Unknown Rx insulin degludec 200 unit/mL (3 50 unit SUBCUT DAILY 05/17/24 05/17/24 05/17/24 History mL) subcutaneous pen (Tresiba FlexTouch U-200 insulin) Allergies Allergy/AdvReac Type Severity Reaction Status Date / Time cephalexin [From Keflex] Allergy Unknown Unknown Verified 05/18/24 11:30 [facility] Anesthesia Medical History Essential hypertension Ischemic cardiomyopathy Aortic stenosis Mitral regurgitation Foreign body in right foot Exposed orthopaedic hardware 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, left Diabetic ulcer of left foot Chronic ulcer of great toe of left foot with fat layer exposed Diabetic peripheral neuropathy associated with type 2 diabetes mellitus BRIDGER (obstructive sleep apnea) -on CPAP qhs Cellulitis Coronary artery disease -hx of CAD s/p CABG x 4 about 20 yrs ago -on ASA -NTG PRN Peripheral vascular disease Charcot's arthropathy -Has had extensive surgical intervention for the left lower extremity secondary to Charcot arthropathy, wears brace for ambulation and wedge shoe for offloading Peripheral neuropathy -secondary to DM type II Chronic kidney disease -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 -has mild superimposed MAGDA, now resolved -baseline Cr around 1.0 -IVF hydration, with caution to avoid fluid overload; d/c as renal function has normalized -continue to monitor renal function particularly with dual use of Vanc, Zosyn; renally dose meds, avoid nephrotoxins Hypertension -VSS, continue to monitor vital signs -continue BB, resume ARB Hypothyroidism -continue levothyroxine Diabetic infection of right foot -diabetic foot wound on R foot, incised and debrided by Dr. Ferro in [facility] (02/07); cultures growing Enterococcus species and E.coli, sensitivity noted; gram stain polymicrobial -no leukocytosis, noted CRP and ESR elevation -blood cx-prelim negative (02/06), repeat set prelim negative -on Vancomycin/Zosyn for broader spectrum coverage (day 3); will switch to Levaquin -Surgery consult by Dr. Duarte appreciated; s/p bedside debridement, done on 02/08 -pain control as needed -has underlying DM type II -imaging noted, increased distance between the fourth and fifth metatarsal heads suggesting possible soft tissue mass; CT foot reported as soft tissue ulceration near the plantar surface of the foot at the level of the fourth proximal phalanx, no osteomyelitis/abscess/soft tissue emphysema -RLE elevation -anticipate continue to follow-up at wound care clinic with Dr. Ferro Morbid obesity -BMI-45 kg/m2 Chronic constipation Diabetes -has IDDM type II, A1c-10.1 -Accu-Cheks, ISS, scheduled insulin, hypoglycemia precautions -Consistent carb diet as tolerated CHF (congestive heart failure) -unknown type, severity as no baseline Echo -hold Lasix due to renal impairment, can resume PRN use on d/c Chronic back pain Arthritis Surgical History Hx of cholecystectomy History of coronary artery bypass graft -Four-vessel. Performed in August 2005. Left internal mammary to the LAD. Free sequential radial artery graft from the aorta to the obtuse marginal, posterolateral and posterior descending artery. History of back surgery History of ankle fusion History of colonoscopy (~01/2019) Family History Other CAD (coronary artery disease) Cancer Diabetes Hypertension Denies family history of Anesthesia complication Bleeding disorder Social History Smoking and tobacco/nicotine status: former use of tobacco/nicotine Second hand smoke exposure: No Alcohol intake: never Substance/Drug Use: never Adopted: No Caregiver/support person: Yes Lives independently: Yes Household members: spouse Housing: House Marital status: service: No Current occupational status: disabled Current occupational exposures/hazards: No Pets and animals: No Sexually active: No Do you think of yourself as: Straight/Heterosexual Current gender identity: Male Padmini/Rastafarian: [employer] Anesthesia Cardiac Studies: Echocardiogram 04/22/23 Sestamibi Stress Test (Cardiology) 04/22/23
[2024-05-18 11:31] VITALS: BP 137/88; PULSE 62; RESP 18; TEMP 36.2; O2SAT 96
[2024-05-18 11:32] VITALS: BMI 43.0
--- NOTE | 2024-05-18 13:08 | PC.NURSE ---
procedure cancelled due to patient vital signs not in parameter for procedure.
== END 2024-05-18 13:16 | disposition home or self-care (01) ==
LOC: GILAB 10:49
PROVIDERS: PCP Family Medicine; Visit Provider Internal Medicine
PROC: 5A2204Z Restoration of Cardiac Rhythm, Single (ICD-10-PCS; 2024-05-18 12:00)
DX: Z53.9 Procedure and treatment not carried out, unspecified reason (principal)
CPT/HCPCS: 93005

== ENCOUNTER → 2024-05-30 15:00 | Outpatient (BNVA) | payer MEDICARE, SELFPAY | PROVIDERS: PCP Family Medicine; Visit Provider Podiatrist Foot & Ankle Surgery | DX: M86.672 Other chronic osteomyelitis, left ankle and foot; L97.424 Non-pressure chronic ulcer of left heel and midfoot with necrosis of bone; E11.42 Type 2 diabetes mellitus with diabetic polyneuropathy; R26.89 Other abnormalities of gait and mobility; M21.179 Varus deformity, not elsewhere classified, unspecified ankle; R26.9 Unspecified abnormalities of gait and mobility; Z98.1 Arthrodesis status; E11.621 Type 2 diabetes mellitus with foot ulcer; Z79.4 Long term (current) use of insulin | CPT/HCPCS: 11042 ==

== ENCOUNTER → 2024-06-19 13:12 | Outpatient (BNVA) | payer MEDICARE, SELFPAY | PROVIDERS: PCP Family Medicine; Visit Provider Podiatrist Foot & Ankle Surgery | DX: M86.672 Other chronic osteomyelitis, left ankle and foot; L97.424 Non-pressure chronic ulcer of left heel and midfoot with necrosis of bone; E11.42 Type 2 diabetes mellitus with diabetic polyneuropathy; R26.89 Other abnormalities of gait and mobility; M21.179 Varus deformity, not elsewhere classified, unspecified ankle; R26.9 Unspecified abnormalities of gait and mobility; Z98.1 Arthrodesis status; L97.421 Non-pressure chronic ulcer of left heel and midfoot limited to breakdown of skin; E11.621 Type 2 diabetes mellitus with foot ulcer | CPT/HCPCS: 99213 ==

== ENCOUNTER → 2024-06-27 11:09 | Outpatient (BNVA) | payer MEDICARE, SELFPAY | PROVIDERS: PCP Family Medicine; Visit Provider Podiatrist Foot & Ankle Surgery | DX: S91.302A Unspecified open wound, left foot, initial encounter (principal); M86.672 Other chronic osteomyelitis, left ankle and foot; L97.424 Non-pressure chronic ulcer of left heel and midfoot with necrosis of bone; E11.42 Type 2 diabetes mellitus with diabetic polyneuropathy; R26.89 Other abnormalities of gait and mobility; R26.9 Unspecified abnormalities of gait and mobility; Z98.1 Arthrodesis status; E11.621 Type 2 diabetes mellitus with foot ulcer; X58.XXXA Exposure to other specified factors, initial encounter | CPT/HCPCS: 99213 ==

== ENCOUNTER → 2024-07-12 14:35 | Outpatient (BNVA) | payer MEDICARE, SELFPAY | PROVIDERS: PCP Family Medicine; Visit Provider Podiatrist Foot & Ankle Surgery | DX: M86.672 Other chronic osteomyelitis, left ankle and foot; L97.424 Non-pressure chronic ulcer of left heel and midfoot with necrosis of bone; E11.42 Type 2 diabetes mellitus with diabetic polyneuropathy; R26.89 Other abnormalities of gait and mobility; R26.9 Unspecified abnormalities of gait and mobility; Z98.1 Arthrodesis status; E11.621 Type 2 diabetes mellitus with foot ulcer; Z79.4 Long term (current) use of insulin | CPT/HCPCS: 99213 ==

== ENCOUNTER → 2024-08-02 14:48 | Outpatient (BNVA) | payer MEDICARE, SELFPAY | PROVIDERS: PCP Family Medicine; Visit Provider Podiatrist Foot & Ankle Surgery | DX: M86.672 Other chronic osteomyelitis, left ankle and foot; L97.424 Non-pressure chronic ulcer of left heel and midfoot with necrosis of bone; E11.42 Type 2 diabetes mellitus with diabetic polyneuropathy; R26.89 Other abnormalities of gait and mobility; R26.9 Unspecified abnormalities of gait and mobility; Z98.1 Arthrodesis status; E11.621 Type 2 diabetes mellitus with foot ulcer; Z79.4 Long term (current) use of insulin | CPT/HCPCS: 99213 ==

== ENCOUNTER → 2024-08-20 12:48 | Outpatient (BNVA) | payer MEDICARE, SELFPAY | PROVIDERS: PCP Family Medicine; Visit Provider Podiatrist Foot & Ankle Surgery | DX: M86.672 Other chronic osteomyelitis, left ankle and foot; L97.424 Non-pressure chronic ulcer of left heel and midfoot with necrosis of bone; E11.42 Type 2 diabetes mellitus with diabetic polyneuropathy; R26.89 Other abnormalities of gait and mobility; R26.9 Unspecified abnormalities of gait and mobility; Z98.1 Arthrodesis status; E11.621 Type 2 diabetes mellitus with foot ulcer; Z79.4 Long term (current) use of insulin | CPT/HCPCS: 29445 ==

== ENCOUNTER → 2024-08-27 12:46 | Outpatient (BNVA) | payer MEDICARE, SELFPAY | PROVIDERS: PCP Family Medicine; Visit Provider Podiatrist Foot & Ankle Surgery | DX: M86.672 Other chronic osteomyelitis, left ankle and foot; L97.424 Non-pressure chronic ulcer of left heel and midfoot with necrosis of bone; E11.42 Type 2 diabetes mellitus with diabetic polyneuropathy; R26.89 Other abnormalities of gait and mobility; R26.9 Unspecified abnormalities of gait and mobility; Z98.1 Arthrodesis status; E11.621 Type 2 diabetes mellitus with foot ulcer; Z79.4 Long term (current) use of insulin | CPT/HCPCS: 29445 ==

== ENCOUNTER → 2024-08-28 10:00 | Outpatient (BNVA) | payer MEDICARE, SELFPAY | PROVIDERS: PCP Family Medicine; Visit Provider Podiatrist Foot & Ankle Surgery | DX: M86.672 Other chronic osteomyelitis, left ankle and foot; L97.424 Non-pressure chronic ulcer of left heel and midfoot with necrosis of bone; E11.42 Type 2 diabetes mellitus with diabetic polyneuropathy; R26.89 Other abnormalities of gait and mobility; R26.9 Unspecified abnormalities of gait and mobility; Z98.1 Arthrodesis status; E11.621 Type 2 diabetes mellitus with foot ulcer | CPT/HCPCS: 29445 ==

== ENCOUNTER → 2024-09-03 10:15 | Outpatient (BNVA) | payer MEDICARE, SELFPAY | PROVIDERS: PCP Family Medicine; Visit Provider Podiatrist Foot & Ankle Surgery | DX: M86.672 Other chronic osteomyelitis, left ankle and foot; L97.424 Non-pressure chronic ulcer of left heel and midfoot with necrosis of bone; E11.42 Type 2 diabetes mellitus with diabetic polyneuropathy; R26.89 Other abnormalities of gait and mobility; R26.9 Unspecified abnormalities of gait and mobility; Z98.1 Arthrodesis status; L60.3 Nail dystrophy; E11.621 Type 2 diabetes mellitus with foot ulcer; Z79.4 Long term (current) use of insulin | CPT/HCPCS: 11721; 29445 ==

== ENCOUNTER → 2024-09-10 14:54 | Outpatient (BNVA) | payer MEDICARE, SELFPAY | PROVIDERS: PCP Family Medicine; Visit Provider Podiatrist Foot & Ankle Surgery | DX: M86.672 Other chronic osteomyelitis, left ankle and foot; L97.424 Non-pressure chronic ulcer of left heel and midfoot with necrosis of bone; E11.42 Type 2 diabetes mellitus with diabetic polyneuropathy; R26.89 Other abnormalities of gait and mobility; R26.9 Unspecified abnormalities of gait and mobility; Z98.1 Arthrodesis status; E11.621 Type 2 diabetes mellitus with foot ulcer; Z79.4 Long term (current) use of insulin | CPT/HCPCS: 29445 ==

== ENCOUNTER → 2024-09-17 13:13 | Outpatient (BNVA) | payer MEDICARE, SELFPAY | PROVIDERS: PCP Family Medicine; Referring Provider Family Medicine; Visit Provider Student in an Organized Health Care Education/Training Program | DX: Z12.11 Encounter for screening for malignant neoplasm of colon (principal) | CPT/HCPCS: 99024; 99204 ==

== ENCOUNTER → 2024-09-24 09:30 | Outpatient (BNVA) | payer MEDICARE, SELFPAY | PROVIDERS: PCP Family Medicine; Visit Provider Podiatrist Foot & Ankle Surgery | DX: M86.672 Other chronic osteomyelitis, left ankle and foot; L97.424 Non-pressure chronic ulcer of left heel and midfoot with necrosis of bone; E11.42 Type 2 diabetes mellitus with diabetic polyneuropathy; R26.89 Other abnormalities of gait and mobility; R26.9 Unspecified abnormalities of gait and mobility; Z98.1 Arthrodesis status; E11.621 Type 2 diabetes mellitus with foot ulcer; Z79.4 Long term (current) use of insulin | CPT/HCPCS: 99213 ==

== ENCOUNTER → 2024-10-08 10:16 | Outpatient (BNVA) | payer MEDICARE, SELFPAY | PROVIDERS: PCP Family Medicine; Visit Provider Podiatrist Foot & Ankle Surgery | DX: M86.672 Other chronic osteomyelitis, left ankle and foot (principal); L97.424 Non-pressure chronic ulcer of left heel and midfoot with necrosis of bone; E11.42 Type 2 diabetes mellitus with diabetic polyneuropathy; R26.89 Other abnormalities of gait and mobility; R26.9 Unspecified abnormalities of gait and mobility; Z98.1 Arthrodesis status; E11.621 Type 2 diabetes mellitus with foot ulcer; Z79.4 Long term (current) use of insulin | CPT/HCPCS: 99213 ==

== ENCOUNTER → 2024-10-22 10:08 | Outpatient (BNVA) | payer MEDICARE, SELFPAY | PROVIDERS: PCP Family Medicine; Visit Provider Podiatrist Foot & Ankle Surgery | DX: M86.672 Other chronic osteomyelitis, left ankle and foot (principal); E11.621 Type 2 diabetes mellitus with foot ulcer; L97.424 Non-pressure chronic ulcer of left heel and midfoot with necrosis of bone; E11.42 Type 2 diabetes mellitus with diabetic polyneuropathy; R26.89 Other abnormalities of gait and mobility; R26.9 Unspecified abnormalities of gait and mobility; Z98.1 Arthrodesis status; Z79.4 Long term (current) use of insulin | CPT/HCPCS: 99213 ==

== ENCOUNTER → 2024-10-31 09:08 | Outpatient (BNVA) | payer MEDICARE, SELFPAY | PROVIDERS: PCP Family Medicine; Visit Provider Family Medicine | DX: Z01.818 Encounter for other preprocedural examination (principal) | CPT/HCPCS: 93005 ==

== ENCOUNTER → 2024-11-12 13:51 | Outpatient (BNVA) | payer MEDICARE, SELFPAY | PROVIDERS: PCP Family Medicine; Visit Provider Podiatrist Foot & Ankle Surgery | DX: E11.621 Type 2 diabetes mellitus with foot ulcer (principal); L97.424 Non-pressure chronic ulcer of left heel and midfoot with necrosis of bone; M86.672 Other chronic osteomyelitis, left ankle and foot; E11.42 Type 2 diabetes mellitus with diabetic polyneuropathy; R26.89 Other abnormalities of gait and mobility; R26.9 Unspecified abnormalities of gait and mobility; Z98.1 Arthrodesis status; Z79.4 Long term (current) use of insulin | CPT/HCPCS: 99213 ==

== ENCOUNTER → 2024-11-23 11:40 | Outpatient (BNVA) | payer MEDICARE, SELFPAY | PROVIDERS: PCP Family Medicine; Visit Provider Podiatrist Foot & Ankle Surgery | DX: L97.524 Non-pressure chronic ulcer of other part of left foot with necrosis of bone (principal) | CPT/HCPCS: 87070; 87075; 87077; 87186; 87205 ==

== ENCOUNTER → 2024-11-29 14:44 | Outpatient (BNVA) | payer MEDICARE, SELFPAY | PROVIDERS: PCP Family Medicine; Visit Provider Podiatrist Foot & Ankle Surgery | DX: E11.621 Type 2 diabetes mellitus with foot ulcer (principal); L97.524 Non-pressure chronic ulcer of other part of left foot with necrosis of bone; M86.672 Other chronic osteomyelitis, left ankle and foot; E11.42 Type 2 diabetes mellitus with diabetic polyneuropathy; R26.89 Other abnormalities of gait and mobility; R26.9 Unspecified abnormalities of gait and mobility; Z98.1 Arthrodesis status; Z79.4 Long term (current) use of insulin | CPT/HCPCS: 73630; 99213 ==

== ENCOUNTER → 2024-12-10 12:01 | Outpatient (BNVA) | payer MEDICARE, SELFPAY | PROVIDERS: PCP Family Medicine; Visit Provider Podiatrist Foot & Ankle Surgery | DX: E11.621 Type 2 diabetes mellitus with foot ulcer (principal); L97.524 Non-pressure chronic ulcer of other part of left foot with necrosis of bone; R26.89 Other abnormalities of gait and mobility; M86.672 Other chronic osteomyelitis, left ankle and foot; E11.42 Type 2 diabetes mellitus with diabetic polyneuropathy; R26.9 Unspecified abnormalities of gait and mobility; Z98.1 Arthrodesis status; Z79.4 Long term (current) use of insulin | CPT/HCPCS: 11043; 36415; 73630; 80053; 85025; 85651; 86140; 99214 ==

== ENCOUNTER → 2024-12-17 13:38 | Outpatient (BNVA) | payer MEDICARE, SELFPAY | PROVIDERS: PCP Family Medicine; Visit Provider Podiatrist Foot & Ankle Surgery | DX: M86.672 Other chronic osteomyelitis, left ankle and foot (principal); E11.42 Type 2 diabetes mellitus with diabetic polyneuropathy; R26.89 Other abnormalities of gait and mobility; R26.9 Unspecified abnormalities of gait and mobility; Z98.1 Arthrodesis status; E11.621 Type 2 diabetes mellitus with foot ulcer; L97.524 Non-pressure chronic ulcer of other part of left foot with necrosis of bone; Z79.4 Long term (current) use of insulin | CPT/HCPCS: 99214 ==

== ENCOUNTER 2024-12-21 10:02 | Day surgery (SDC) | payer MEDICARE, SELFPAY ==
[2024-12-21] VITALS (27 sets, daily range): BP systolic 74–174; BP diastolic 41–99; PULSE 66–97; RESP 16–21; TEMP 36.2–36.9; O2SAT 91–99; BMI 41.7
--- NOTE | 2024-12-21 | XR_ITS ---
WS: [id number] C-ARM RADIOGRAPHS LEFT FOOT; 1 IMAGES HISTORY: TRINA PICS COMPARISON: None available. Nondiagnostic imaging submitted. C-arm used for intraoperative purposes. XR/XR foot LT 2V [id number] IMPRESSION: C-arm imaging during intraoperative procedure.
--- NOTE | 2024-12-21 10:36 | SUR.PREOP ---
Patient and patient's reports patient took moujaro inj yesterday 12/20. This was reported to anesthesia and Dr. Talbot. New plan for local only anesthesia with nerve block so patient can still have procedure today. New plan explained to patient by anesthesia and Dr. Talbot and patient agreeable.
--- NOTE | 2024-12-21 10:53 | ANES.PREANE2 ---
Pre-Anesthetic Assessment Height/Weight: Height 1.88 m Preop Diagnosis: Osteomyelitis left foot. Operation Date: 12/21/24 11:45 Proposed Procedures p Incision And Drainage Incision of Bone Cortex(Left) - Montana Talbot DPM Exam alert, oriented x 3, clear to auscultation bilaterally and regular rate & rhythm Pulmonary Sleep Apnea CV/HEM Coronary Artery Disease (recent stents), Congestive Heart Failure and Hypertension aortic stenosis Metabolic Diabetes Mellitus and Morbid Obesity Took mounjaro yesterday Anesthetic Plan ASA status: 4 Anesthesia: Local Only Other: Local only w/ potential rescue nerve block if failure Risk of > 500 ml blood loss (7ml/kg in children): No Medications/Allergies Home Medications ?Medication ?Instructions ?Recorded ?Confirmed ?Last Taken ?Type furosemide 40 mg tablet (Lasix) 40 mg PO DAILY 02/07/20 12/20/24 12/20/24 History linagliptin 5 mg tablet (Tradjenta) 5 mg PO QAM 02/07/20 12/20/24 12/20/24 History nitroglycerin 0.4 mg sublingual 0.4 mg sublingual Q5M PRN chest 02/07/20 12/20/24 05/16/24 History tablet (Nitrostat) pains omega 6-yxa-eoc-fish oil 1,000 mg 2 cap PO DAILY 02/08/20 12/20/24 12/20/24 History (120 mg-180 mg) capsule (Fish Oil) atorvastatin 20 mg tablet 80 mg PO QAM 03/02/22 12/20/24 12/20/24 History dapagliflozin propanediol 10 mg 10 mg PO QAM 03/02/22 12/20/24 12/20/24 History tablet (Farxiga) levothyroxine 125 mcg tablet 125 mcg PO QAM 03/02/22 12/20/24 12/21/24 History testosterone cypionate 200 mg/mL 200 mg IM Q10D 03/02/22 12/20/24 11/29/24 History intramuscular oil metolazone 10 mg tablet 10 mg PO DAILY PRN Increased Blood 04/04/23 12/20/24 05/17/24 History Pressure insulin aspart U-100 100 unit/mL See Rx Instructions .Route .COMPLEX 01/02/24 12/20/24 12/19/24 History (3 mL) subcutaneous pen (Novolog FlexPen U-100 Insulin aspart) apixaban 5 mg tablet (Eliquis) 5 mg PO BID@0900,2100 #60 tabs 02/25/24 12/20/24 12/21/24 Rx boot with AFO external strut #1 ea 04/04/24 12/17/24 Unknown Rx articulating famotidine 20 mg disintegrating 20 mg PO BID 04/25/24 12/20/24 12/20/24 History tablet CAM BOOT to left #1 ea 05/14/24 12/17/24 Unknown Rx insulin degludec 200 unit/mL (3 50 unit SUBCUT BID 05/17/24 12/20/24 12/20/24 History mL) subcutaneous pen (Tresiba FlexTouch U-200 insulin) losartan 100 mg tablet 50 mg PO DAILY 05/30/24 12/20/24 12/20/24 History spironolactone 25 mg tablet 25 mg PO DAILY 05/30/24 12/20/24 12/20/24 History metoprolol succinate 25 mg 50 mg PO DAILY 09/17/24 12/20/24 12/21/24 History tablet,extended release 24 hr clopidogrel 75 mg tablet (Plavix) 75 mg PO DAILY 10/31/24 12/20/24 12/21/24 History tirzepatide 2.5 mg/0.5 mL 5 mg SUBCUT .Every 7 days 11/23/24 12/20/24 12/20/24 History subcutaneous pen injector (Jimmyunbongro) Allergies Allergy/AdvReac Type Severity Reaction Status Date / Time cephalexin (From Keflex) Allergy Unknown Unknown Verified 12/20/24 17:11 isosorbide AdvReac Severe ADR-Vomitin Uncoded 12/20/24 17:11 g PFSH Anesthesia Medical History Essential hypertension Ischemic cardiomyopathy Aortic stenosis Mitral regurgitation Foreign body in right foot Exposed orthopaedic hardware 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, left Diabetic ulcer of left foot Chronic ulcer of great toe of left foot with fat layer exposed Diabetic peripheral neuropathy associated with type 2 diabetes mellitus BRIDGER (obstructive sleep apnea) -on CPAP qhs Cellulitis Coronary artery disease -hx of CAD s/p CABG x 4 about 20 yrs ago -on ASA -NTG PRN Peripheral vascular disease Charcot's arthropathy -Has had extensive surgical intervention for the left lower extremity secondary to Charcot arthropathy, wears brace for ambulation and wedge shoe for offloading Peripheral neuropathy -secondary to DM type II Chronic kidney disease -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 -has mild superimposed MAGDA, now resolved -baseline Cr around 1.0 -IVF hydration, with caution to avoid fluid overload; d/c as renal function has normalized -continue to monitor renal function particularly with dual use of Vanc, Zosyn; renally dose meds, avoid nephrotoxins Hypertension -VSS, continue to monitor vital signs -continue BB, resume ARB Hypothyroidism -continue levothyroxine Diabetic infection of right foot -diabetic foot wound on R foot, incised and debrided by Dr. Ferro in [facility] (02/07); cultures growing Enterococcus species and E.coli, sensitivity noted; gram stain polymicrobial -no leukocytosis, noted CRP and ESR elevation -blood cx-prelim negative (02/06), repeat set prelim negative -on Vancomycin/Zosyn for broader spectrum coverage (day 3); will switch to Levaquin -Surgery consult by Dr. Duarte appreciated; s/p bedside debridement, done on 02/08 -pain control as needed -has underlying DM type II -imaging noted, increased distance between the fourth and fifth metatarsal heads suggesting possible soft tissue mass; CT foot reported as soft tissue ulceration near the plantar surface of the foot at the level of the fourth proximal phalanx, no osteomyelitis/abscess/soft tissue emphysema -RLE elevation -anticipate continue to follow-up at wound care clinic with Dr. Ferro Morbid obesity -BMI-45 kg/m2 Chronic constipation Diabetes -has IDDM type II, A1c-10.1 -Accu-Cheks, ISS, scheduled insulin, hypoglycemia precautions -Consistent carb diet as tolerated CHF (congestive heart failure) -unknown type, severity as no baseline Echo -hold Lasix due to renal impairment, can resume PRN use on d/c Chronic back pain Arthritis Surgical History Hx of cholecystectomy History of coronary artery bypass graft -Four-vessel. Performed in August 2005. Left internal mammary to the LAD. Free sequential radial artery graft from the aorta to the obtuse marginal, posterolateral and posterior descending artery. History of back surgery History of ankle fusion History of colonoscopy (~01/2019) Family History Other CAD (coronary artery disease) Cancer Diabetes Hypertension Denies family history of Anesthesia complication Bleeding disorder Social History Smoking and tobacco/nicotine status: former use of tobacco/nicotine Second hand smoke exposure: No Alcohol intake: never Substance/Drug Use: never Adopted: No Caregiver/support person: Yes Lives independently: Yes Household members: spouse Housing: House Marital status: service: No Current occupational status: disabled Current occupational exposures/hazards: No Pets and animals: No Sexually active: No Do you think of yourself as: Straight/Heterosexual Current gender identity: Male Padmini/Judaism: Zoroastrianism Data Anesthesia Cardiac Studies: Echocardiogram 04/22/23 Sestamibi Stress Test (Cardiology) 04/22/23
[2024-12-21] MEDS: sodium chloride 0.9% 1,000 ML 30 ML IV (10:57)
[2024-12-21 11:01] LABS: Glucose Point of Care 209 mg/dL (70-110)
[2024-12-21] MEDS: vancomycin 2,000 MG/400 ML PIGGYBACK 200 MG IV (11:04)
--- NOTE | 2024-12-21 11:35 | W.PM.OPSUD ---
Surgery/Procedure H&P Update DATE OF PROCEDURE: December 21, 2024 DATE H&P PERFORMED: 12/17/24 H&P UPDATE INFORMATION: I have reviewed H&P completed within last 30 days, I have examined patient prior to procedure, No changes to prior documentation and Risks and benefits of the procedure reviewed PREOP DIAGNOSIS: Osteomyelitis left foot. PLANNED PROCEDURE: Operation Date: 12/21/24 11:45 Proposed Procedures p Incision And Drainage Incision of Bone Cortex(Left) - Montana Talbot DPM
--- NOTE | 2024-12-21 11:38 | P.BOP_ITS ---
Date of Procedure: 11/11/23 Surgeon: Montana Talbot DPM Motor Vehicle Lecturer(s): Lori Procedure(s) performed: Left calcanectomy and wound VAC application Findings of the procedure(s): Osteomyelitis left calcaneus Estimated blood loss: 50 mL Specimen(s) removed: Left calcaneal bone sent to microbiology for Gram stain culture and sensitivity Post-operative diagnosis: Osteomyelitis left calcaneus
[2024-12-21] MEDS: clindamycin 900 MG/50 ML PREMIX 100 MG IV (11:52)
--- NOTE | 2024-12-21 12:00 | PM.OP ---
Operative Report Date of procedure: December 21, 2024 Pre-op diagnosis: Other chronic osteomyelitis of left foot M86.672 Diabetic peripheral neuropathy associated with type 2 diabetes mellitus E11.42 Calcaneal gait R26.89 Altered gait R26.9 History of ankle fusion Z98.1 Ulcer of left foot with necrosis of bone L97.524 Post-op diagnosis: Other chronic osteomyelitis of left foot M86.672 Diabetic peripheral neuropathy associated with type 2 diabetes mellitus E11.42 Calcaneal gait R26.89 Altered gait R26.9 History of ankle fusion Z98.1 Ulcer of left foot with necrosis of bone L97.524 Procedure done: 1) incision bone cortex left calcaneus. CPT code 95889 2) wound VAC application left foot. CPT code 13095 Implants: 2-0 Vicryl, 4 nylon, wound VAC Specimens removed/disposition: Bone from left calcaneus sent to microbiology for Gram stain culture and sensitivity Pathology: None Surgeon: Montaan Talbot DPM Mobile Home Servicer: Lori Estimated blood loss: 10 See intraoperative documentation IV fluids: See intraoperative documentation Urine output: None Complications: None Brief History: Due to worsening of his condition and high risk situation with patient having history of immunocompromise state, diabetes and neuropathy he is experiencing a worsening of his wound is now down to myofascial layer. Ordered CBC with auto differential, CMP, CRP, erythrocyte sedimentation rate and a left foot x-ray to evaluate for possible osteomyelitis. Left foot x-ray per my interpretation shows a Concern for osteomyelitis whether there is erosive changes at the head of the fifth toe proximal phalanx, no obvious bony destruction of the fourth toe to suggest osteomyelitis, plantar and posterior calcaneal enthesophyte, no obvious bony erosions corresponding to patient's heel wound to suggest osteomyelitis, no soft tissue emphysema, silver nitrate used as hemostasis visualized on x-ray. Ordered and reviewed labs December 10, 2024 Pertinent labs include white blood cell count is normal at 7.83, erythrocyte sedimentation rate is normal 4 mm/h, CRP is normal at 3.7 mg/L, given x-ray and laboratory findings I have a lower suspicion at this time of osteomyelitis of the calcaneus will have to monitor closely with repeat labs repeat x-rays and continued wound monitoring and wound care. Will follow-up 1 week, sooner should he experience complications. In regards to his left 4th and 5th toe wounds clinically these are improving and has responded to oral antibiotics, no discussions at this time for amputation of the fifth toe given his clinical improvement will continue to monitor with labs and x-rays. Interim update December 17, 2024 reviewed x-rays with patient at length he would like to have the osteophyte corresponding to the left heel wound removed as a means of surgical offloading this wound has been present and has plateaued, has been present for over 6 months and has had total contact casting, cam boot offloading, given the progression of the wound and discussing risk versus benefits would like to proceed, will hold his oral antibiotics so that bone can be sent for culture more accurately he is currently on linezolid and ciprofloxacin he will not take his evening dose today in preparation for surgery this Tuesday. I reviewed at length with the patient, the risks, potential complications, benefits, alternatives, expectations, and typical outcomes associated with the surgery. The risks and potential complications were explained in detail, including but not limited to infection, wound dehiscence or soft tissue complications, bleeding and hematoma, chronic edema, neuritis or nerve damage producing numbness or chronic pain, CRPS, failure to relieve pain or worsening pain, thick / painful / unsightly scar, limited motion / stiffness, malposition, delayed union, malunion, or nonunion, fracture, reaction to implants, anesthetic complications, venous thromboembolism, and deformity recurrence. I discussed the notion of no regrets with the patient as it pertains to complications and outcomes. The patient seemed to understand the nature of the proposed care and required convalescence. They asked appropriate questions, answered to their satisfaction. They are aware no guarantees can be made as to a satisfactory outcome and they understand there may be other possible unforeseen complications or outcomes not listed here that will be treated accordingly if they arise. There were no written or implied guarantees given to the patient. They gave informed consent to proceed. Will continue anticoagulants without change perioperatively. Planning on wound VAC. Procedure: Patient was brought to the operating room and remained on the gurney in supine position. This procedure was done under local anesthetic. Local anesthesia was injected by myself consisting of 30 cc of one-to-one mixture 1% lidocaine and 0.5% Marcaine plain in a left ankle block fashion. Well-padded pneumatic tourniquet applied to the left ankle. Left lower extremity was scrubbed, prepped and draped utilizing normal aseptic technique. Left foot was then elevated and tourniquet inflated to 250 mmHg. Attention was directed to the left plantar heel where a full-thickness wound was appreciated probe directly to the inferior surface of the bone of the left calcaneus with bony prominence appreciated. A new skin incision was made longitudinally at the lateral calcaneus through skin with dissection carried down through subcutaneous tissue to layer of periosteum utilizing a combination of sharp and blunt technique. Devitalized calcaneus was incised sharply with osteotome, rongeur and saw and the bone was debrided of devitalized cortex, bone was sent to microbiology for Gram stain culture and sensitivity. The incision was irrigated with copious amounts of saline solution, all rough edges were smoothed. After further irrigation no further devitalized bone or soft tissue was appreciated. The deep tissues including fascia and subcutaneous tissue were reapproximated with 2-0 Vicryl, skin with 4-0 nylon. Wound VAC was then applied to the left plantar central heel wound with wound measurements of 1 cm x 2.2 cm x 1 cm wound VAC had excellent seal and was set at 125 mmHg continuous pressure. The incision was then dressed with Xeroform, 4 x 4 gauze, Kerlix followed by application of a well-padded multilayer compressive posterior splint. Tourniquet was deflated and prompt hyperemic response was noted to the distal digits of the left foot. Patient tolerated the procedure and anesthesia well and was transferred to the PACU with vital signs stable and vascular status intact. Following a period of postoperative monitoring to be discharged home without home care instructions and scheduled follow-up he has home health, anticipating possible PICC line pending his response to surgical debridement and pending wound culture.
--- NOTE | 2024-12-21 12:20 | SUR.PREOP ---
1115: Patient reported feeling weird and faint. Patient's face and neck very red and diaphoretic. Vancomycin infusion stopped. Vitals obtained and BP 89/65, hr 95, O2 91% ra. Patient reports feeling nauseous. Patient's IV fluids opened to flush IV. Recheck on BP is 82/41. Patient's bed laid back. Dr. Hairston notified. She came to assess the patient. 1124: Phenylepherine given in patient's IV by Dr. Hairston. 1126: BP is 116/64. Patient states he is feeling better than he was. He is no longer red in the face or sweating. Dr. Talbot notified of reaction. Order for new antibiotic to be given for surgery.
[2024-12-21] MEDS: BUPivacaine 0.5% INJ 30 mL 15 ML INJECTION (12:22)
[2024-12-21] MEDS: lidocaine 1% 10 ML INJ 15 ML INJECTION (12:22)
== END 2024-12-21 14:10 | disposition home or self-care (01) ==
PROVIDERS: PCP Family Medicine; Visit Provider Podiatrist Foot & Ankle Surgery
PROC: (CPT 28005; principal; 2024-12-21 11:35)
DX: E11.69 Type 2 diabetes mellitus with other specified complication (principal); M86.8X7 Other osteomyelitis, ankle and foot; I50.9 Heart failure, unspecified; E66.01 Morbid (severe) obesity due to excess calories; E03.9 Hypothyroidism, unspecified; Z68.41 Body mass index [BMI] 40.0-44.9, adult; E11.610 Type 2 diabetes mellitus with diabetic neuropathic arthropathy; E11.51 Type 2 diabetes mellitus with diabetic peripheral angiopathy without gangrene; E11.42 Type 2 diabetes mellitus with diabetic polyneuropathy; E11.22 Type 2 diabetes mellitus with diabetic chronic kidney disease; E11.621 Type 2 diabetes mellitus with foot ulcer; L97.524 Non-pressure chronic ulcer of other part of left foot with necrosis of bone; I13.0 Hypertensive heart and chronic kidney disease with heart failure and stage 1 through stage 4 chronic kidney disease, or unspecified chronic kidney disease; R26.89 Other abnormalities of gait and mobility; N18.2 Chronic kidney disease, stage 2 (mild); G47.33 Obstructive sleep apnea (adult) (pediatric); I25.10 Atherosclerotic heart disease of native coronary artery without angina pectoris; Z95.5 Presence of coronary angioplasty implant and graft; Z79.899 Other long term (current) drug therapy; Z79.890 Hormone replacement therapy; Z79.4 Long term (current) use of insulin; Z79.01 Long term (current) use of anticoagulants; Z79.02 Long term (current) use of antithrombotics/antiplatelets; Z79.85 Long-term (current) use of injectable non-insulin antidiabetic drugs; Z88.8 Allergy status to other drugs, medicaments and biological substances; Z95.1 Presence of aortocoronary bypass graft
CPT/HCPCS: 28005; 97605; 36416; 73620; 76000; 82962; 87070; 87075; 87077; 87176; 87186; 87205; J1100; J2371; J3372; J3490; J7030; J9999

== ENCOUNTER → 2024-12-26 14:01 | Outpatient (BNVA) | payer MEDICARE, SELFPAY | PROVIDERS: PCP Family Medicine; Visit Provider Podiatrist Foot & Ankle Surgery | DX: M86.672 Other chronic osteomyelitis, left ankle and foot (principal); E11.42 Type 2 diabetes mellitus with diabetic polyneuropathy; R26.89 Other abnormalities of gait and mobility; R26.9 Unspecified abnormalities of gait and mobility; Z98.1 Arthrodesis status; L97.524 Non-pressure chronic ulcer of other part of left foot with necrosis of bone; Z79.4 Long term (current) use of insulin | CPT/HCPCS: 99214 ==

== ENCOUNTER → 2024-12-28 11:40 | Day surgery (SDC) | payer MEDICARE, SELFPAY ==
[2024-12-28 11:54] VITALS: BP 110/75; PULSE 77; RESP 18; TEMP 36.1; O2SAT 97
--- NOTE | 2024-12-28 12:02 | XR_ITS ---
WS: [id number] Portable AP supine chest, 12/28/2024 Clinical Data: Post PICC insertion Comparison: Portable chest, 06/10/2023 Findings: The right PICC line enters the superior vena cava and ends in the distal portion. No pneumothorax is seen. XR/XR chest 1V portable [id number] Impression: Satisfactory placement of right PICC line.
[2024-12-28] MEDS: cefepime 2,000 mg SDV 2000 MG IVP (12:48)
--- NOTE | 2024-12-28 13:21 | PICC.NOTE ---
Single lumen PICC placed to right basilic vein. Referred to vascular access nurse for PICC placement due to osteomyelitis left ankle and need for IV antibiotics x 6 weeks. Risks and benefits discussed and informed consent obtained from pt. Right arm assessed with right basilic vein measuring 3.4 mm, straight, and apparent best choice for placement. Using sterile technique and MST, right basilic vein accessed x 1 stick. Mid-arm circumference measured 10 cm from right AC 37 cm. Trimmed cath 50 cm with 0 cm external length noted. CXR shows tip in distal SVC, in good position for use per radiologist. Line secured with stat-lock. Insertion site covered with Biopatch and TSM. Report called to [facility] and faxed to [employer] [facility]. First dose of Cefepime 2 gm IV given as ordered at 1248. No reaction noted. Pt and pt spouse educated on PICC line antibiotic infusion and flushing/locking procedure. Home health scheduled for visit tomorrow. No questions voiced by pt or spouse at this time.
== END ==
PROVIDERS: PCP Family Medicine; Visit Provider Podiatrist Foot & Ankle Surgery
DX: M86.672 Other chronic osteomyelitis, left ankle and foot (principal); E11.42 Type 2 diabetes mellitus with diabetic polyneuropathy
CPT/HCPCS: 36573; 71045; 96374; J0692

== ENCOUNTER 2024-12-31 12:12 | Outpatient (CLI) | payer MEDICARE, SELFPAY ==
[2024-12-31 12:47] LABS: Basophils # 0.1 10^3/uL (0.0-0.1); Basophils % 0.6 %; Eosinophils # 0.2 10^3/uL (0.0-0.8); Lymphocytes # 1.3 10^3/uL (0.8-4.8); Lymphocytes % 13.4 %; Mean Corpuscular HGB Conc 31.7 g/dL (30-55); Mean Corpuscular Hemoglobin 31.4 pg (27-33); Mean Corpuscular Volume 99.2 fl (82-101); Mean Platelet Volume 10.5 fL (7.4-10.4); Monocytes % 10.9 %; Neutrophils # 6.78 10^3/uL (1.8-7.7); Neutrophils % 72.1 %; Nucleated Red Blood Cells # 0.1 /100WBC; Nucleated Red Blood Cells % 0.6 %; Platelet Count 150 10^3/cmm (157-399); Red Blood Count 3.63 10^6/uL (3.85-5.65); Red Cell Distribution Width 14.6 % (12.1-15.1); White Blood Count 9.41 10^3/uL (3.29-11.43)
[2024-12-31 13:06] LABS: Alanine Aminotransferase 20 U/L (0-41); Albumin Level 3.5 g/dL (3.5-5.2); Alkaline Phosphatase 146 U/L (40-130); Blood Urea Nitrogen 26 mg/dL (8-23); C Reactive Protein 14.5 mg/L (0.0-4.9); Calcium 9.4 mg/dL (8.5-10.5); Carbon Dioxide 21 mmol/L (22-29); Chloride 100 mmol/L (98-107); Globulin 3.1 g/dL (1.3-4.6); Glomerular Filtration Rate 67.2 mL/min (90-130); Glucose 181 mg/dL (65-115); Osmolality Calculated 291 mOsm/kg (285-295); Sodium 136 mmol/L (136-145); Total Bilirubin 0.2 mg/dL (0.15-1.2); Total Protein 6.6 g/dL (6.6-8.7)
[2024-12-31 13:08] LABS: Anion Gap 19.6 (5-19); Aspartate Amino Transferase 20 U/L (0-40); Potassium 4.6 mmol/L (3.5-5.1)
[2024-12-31 13:19] LABS: Erythrocyte Sedimentation Rate 48 mm/hr (0-10)
== END 2024-12-31 12:13 | disposition home or self-care (01) ==
PROVIDERS: PCP Family Medicine; Visit Provider Podiatrist Foot & Ankle Surgery
DX: E11.621 Type 2 diabetes mellitus with foot ulcer (principal)
CPT/HCPCS: 80053; 85025; 85651; 86140

== ENCOUNTER → 2025-01-02 12:37 | Outpatient (BNVA) | payer MEDICARE, SELFPAY | PROVIDERS: PCP Family Medicine; Visit Provider Podiatrist Foot & Ankle Surgery | DX: E11.42 Type 2 diabetes mellitus with diabetic polyneuropathy (principal); M86.672 Other chronic osteomyelitis, left ankle and foot; R26.89 Other abnormalities of gait and mobility; R26.9 Unspecified abnormalities of gait and mobility; Z98.1 Arthrodesis status; E11.621 Type 2 diabetes mellitus with foot ulcer; L97.524 Non-pressure chronic ulcer of other part of left foot with necrosis of bone; Z79.4 Long term (current) use of insulin | CPT/HCPCS: 99214 ==

== ENCOUNTER 2025-01-09 14:04 | Outpatient (CLI) | payer MEDICARE, SELFPAY ==
[2025-01-09 14:59] LABS: Basophils # 0.1 10^3/uL (0.0-0.1); Basophils % 0.6 %; Eosinophils # 0.2 10^3/uL (0.0-0.8); Eosinophils % 1.9 %; Hematocrit 39.4 % (37-53); Lymphocytes % 11.3 %; Mean Corpuscular HGB Conc 31.7 g/dL (30-55); Mean Corpuscular Hemoglobin 31.8 pg (27-33); Mean Corpuscular Volume 100.3 fl (82-101); Mean Platelet Volume 10.3 fL (7.4-10.4); Monocytes # 0.7 10^3/uL (0.2-0.9); Neutrophils # 6.57 10^3/uL (1.8-7.7); Neutrophils % 77.7 %; Nucleated Red Blood Cells % 0 %; Platelet Count 176 10^3/cmm (157-399); Red Blood Count 3.93 10^6/uL (3.85-5.65); Red Cell Distribution Width 16.1 % (12.1-15.1); White Blood Count 8.46 10^3/uL (3.29-11.43)
[2025-01-09 15:08] LABS: Erythrocyte Sedimentation Rate 39 mm/hr (0-10)
[2025-01-09 15:28] LABS: Alanine Aminotransferase 25 U/L (0-41); Albumin Level 3.8 g/dL (3.5-5.2); Alkaline Phosphatase 150 U/L (40-130); Anion Gap 16.1 (5-19); Aspartate Amino Transferase 20 U/L (0-40); Blood Urea Nitrogen 29 mg/dL (8-23); C Reactive Protein 6.1 mg/L (0.0-4.9); Calcium 9.3 mg/dL (8.5-10.5); Carbon Dioxide 21 mmol/L (22-29); Chloride 104 mmol/L (98-107); Globulin 3.2 g/dL (1.3-4.6); Glomerular Filtration Rate 60.8 mL/min (90-130); Glucose 176 mg/dL (65-115); Osmolality Calculated 292 mOsm/kg (285-295); Potassium 5.1 mmol/L (3.5-5.1); Sodium 136 mmol/L (136-145); Total Bilirubin 0.4 mg/dL (0.15-1.2)
== END 2025-01-09 14:05 | disposition home or self-care (01) ==
PROVIDERS: PCP Family Medicine; Visit Provider Podiatrist Foot & Ankle Surgery
DX: E11.42 Type 2 diabetes mellitus with diabetic polyneuropathy (principal); M86.672 Other chronic osteomyelitis, left ankle and foot
CPT/HCPCS: 36415; 80053; 85025; 85651; 86140

== ENCOUNTER → 2025-01-16 14:47 | Outpatient (BNVA) | payer MEDICARE, SELFPAY | PROVIDERS: PCP Family Medicine; Visit Provider Podiatrist Foot & Ankle Surgery | DX: E11.42 Type 2 diabetes mellitus with diabetic polyneuropathy (principal); M86.672 Other chronic osteomyelitis, left ankle and foot | CPT/HCPCS: 36415; 80053; 85025; 85651; 86140 ==

== ENCOUNTER → 2025-01-23 14:16 | Outpatient (BNVA) | payer MEDICARE, SELFPAY | PROVIDERS: PCP Family Medicine; Visit Provider Podiatrist Foot & Ankle Surgery | DX: M86.672 Other chronic osteomyelitis, left ankle and foot (principal); L97.524 Non-pressure chronic ulcer of other part of left foot with necrosis of bone; E11.42 Type 2 diabetes mellitus with diabetic polyneuropathy | CPT/HCPCS: 36415; 80053; 85025; 85651; 86140 ==

== ENCOUNTER → 2025-01-30 15:42 | Outpatient (BNVA) | payer MEDICARE, SELFPAY | PROVIDERS: PCP Family Medicine; Visit Provider Podiatrist Foot & Ankle Surgery | DX: M86.672 Other chronic osteomyelitis, left ankle and foot (principal); E11.42 Type 2 diabetes mellitus with diabetic polyneuropathy; R26.89 Other abnormalities of gait and mobility; R26.9 Unspecified abnormalities of gait and mobility; Z98.1 Arthrodesis status; E11.621 Type 2 diabetes mellitus with foot ulcer; L97.524 Non-pressure chronic ulcer of other part of left foot with necrosis of bone | CPT/HCPCS: 36415; 80053; 85025; 85651; 86140; 99214 ==

== ENCOUNTER → 2025-02-06 14:54 | Outpatient (BNVA) | payer MEDICARE, SELFPAY | PROVIDERS: PCP Family Medicine; Visit Provider Podiatrist Foot & Ankle Surgery | DX: L97.524 Non-pressure chronic ulcer of other part of left foot with necrosis of bone (principal) | CPT/HCPCS: 36415; 80053; 85025; 85651; 86140 ==

== ENCOUNTER → 2025-02-13 13:53 | Outpatient (BNVA) | payer MEDICARE, SELFPAY | PROVIDERS: PCP Family Medicine; Visit Provider Podiatrist Foot & Ankle Surgery | DX: E11.621 Type 2 diabetes mellitus with foot ulcer (principal); L97.524 Non-pressure chronic ulcer of other part of left foot with necrosis of bone; E11.42 Type 2 diabetes mellitus with diabetic polyneuropathy; M86.672 Other chronic osteomyelitis, left ankle and foot; R26.89 Other abnormalities of gait and mobility; R26.9 Unspecified abnormalities of gait and mobility; Z98.1 Arthrodesis status; Z79.4 Long term (current) use of insulin | CPT/HCPCS: 36415; 80053; 85025; 85651; 86140; 87070; 87075; 87205; 99214 ==

== ENCOUNTER → 2025-02-20 08:13 | Outpatient (BNVA) | payer MEDICARE, SELFPAY | PROVIDERS: PCP Family Medicine; Visit Provider Podiatrist Foot & Ankle Surgery | DX: E11.42 Type 2 diabetes mellitus with diabetic polyneuropathy (principal); M86.672 Other chronic osteomyelitis, left ankle and foot; Z98.1 Arthrodesis status; E11.621 Type 2 diabetes mellitus with foot ulcer; L97.524 Non-pressure chronic ulcer of other part of left foot with necrosis of bone; R26.89 Other abnormalities of gait and mobility; R26.9 Unspecified abnormalities of gait and mobility; Z79.4 Long term (current) use of insulin | CPT/HCPCS: 36415; 80053; 85025; 85651; 86140; 99214 ==

== ENCOUNTER → 2025-02-27 13:59 | Outpatient (BNVA) | payer MEDICARE, SELFPAY | PROVIDERS: PCP Family Medicine; Visit Provider Podiatrist Foot & Ankle Surgery | DX: M86.672 Other chronic osteomyelitis, left ankle and foot (principal); E11.621 Type 2 diabetes mellitus with foot ulcer; L97.524 Non-pressure chronic ulcer of other part of left foot with necrosis of bone; E11.42 Type 2 diabetes mellitus with diabetic polyneuropathy; R26.89 Other abnormalities of gait and mobility; R26.9 Unspecified abnormalities of gait and mobility; Z98.1 Arthrodesis status; Z79.4 Long term (current) use of insulin | CPT/HCPCS: 36415; 80053; 85025; 85651; 86140; 99214 ==

== ENCOUNTER → 2025-03-05 14:41 | Outpatient (BNVA) | payer MEDICARE, SELFPAY | PROVIDERS: PCP Family Medicine; Visit Provider Podiatrist Foot & Ankle Surgery | DX: E11.42 Type 2 diabetes mellitus with diabetic polyneuropathy (principal); M86.672 Other chronic osteomyelitis, left ankle and foot; R26.89 Other abnormalities of gait and mobility; R26.9 Unspecified abnormalities of gait and mobility; Z98.1 Arthrodesis status; L97.524 Non-pressure chronic ulcer of other part of left foot with necrosis of bone; E11.621 Type 2 diabetes mellitus with foot ulcer; Z79.4 Long term (current) use of insulin | CPT/HCPCS: 99213 ==

== ENCOUNTER → 2025-03-13 13:52 | Outpatient (BNVA) | payer MEDICARE, SELFPAY | PROVIDERS: PCP Family Medicine; Visit Provider Podiatrist Foot & Ankle Surgery | DX: M86.672 Other chronic osteomyelitis, left ankle and foot (principal); L97.524 Non-pressure chronic ulcer of other part of left foot with necrosis of bone; E11.42 Type 2 diabetes mellitus with diabetic polyneuropathy; R26.89 Other abnormalities of gait and mobility; R26.9 Unspecified abnormalities of gait and mobility; Z98.1 Arthrodesis status; E11.621 Type 2 diabetes mellitus with foot ulcer; Z79.4 Long term (current) use of insulin | CPT/HCPCS: 99213 ==

== ENCOUNTER 2025-03-20 14:32 | Outpatient (CLI) | payer MEDICARE, SELFPAY ==
[2025-03-20 14:59] LABS: Hematocrit 40.8 % (37-53); Hemoglobin 12.60 g/dL (11.27-16.99); Mean Corpuscular HGB Conc 30.9 g/dL (30-55); Mean Corpuscular Hemoglobin 29.7 pg (27-33); Mean Corpuscular Volume 96.2 fl (82-101); Nucleated Red Blood Cells % 0 %; Platelet Count 181 10^3/cmm (157-399); Red Blood Count 4.24 10^6/uL (3.85-5.65); White Blood Count 8.60 10^3/uL (3.29-11.43)
[2025-03-20 15:28] LABS: Alanine Aminotransferase 22 U/L (0-41); Albumin Level 3.7 g/dL (3.5-5.2); Alkaline Phosphatase 141 U/L (40-130); Anion Gap 19.7 (5-19); Aspartate Amino Transferase 17 U/L (0-40); Blood Urea Nitrogen 17 mg/dL (8-23); Calcium 9.2 mg/dL (8.5-10.5); Carbon Dioxide 21 mmol/L (22-29); Chloride 100 mmol/L (98-107); Globulin 3.3 g/dL (1.3-4.6); Glucose 228 mg/dL (65-115); Osmolality Calculated 291 mOsm/kg (285-295); Potassium 4.7 mmol/L (3.5-5.1); Sodium 136 mmol/L (136-145); Total Protein 7.0 g/dL (6.6-8.7)
== END 2025-03-20 14:33 | disposition home or self-care (01) ==
PROVIDERS: PCP Family Medicine; Visit Provider Podiatrist Foot & Ankle Surgery
DX: L97.524 Non-pressure chronic ulcer of other part of left foot with necrosis of bone (principal); M86.672 Other chronic osteomyelitis, left ankle and foot
CPT/HCPCS: 36415; 80053; 85025; 85651; 86140

== ENCOUNTER → 2025-03-27 13:11 | Outpatient (BNVA) | payer MEDICARE, SELFPAY | PROVIDERS: PCP Family Medicine; Visit Provider Podiatrist Foot & Ankle Surgery | DX: E11.621 Type 2 diabetes mellitus with foot ulcer (principal); L97.524 Non-pressure chronic ulcer of other part of left foot with necrosis of bone; E11.42 Type 2 diabetes mellitus with diabetic polyneuropathy; M86.672 Other chronic osteomyelitis, left ankle and foot; R26.89 Other abnormalities of gait and mobility; R26.9 Unspecified abnormalities of gait and mobility; Z98.1 Arthrodesis status; Z79.4 Long term (current) use of insulin | CPT/HCPCS: 73630; 99213 ==

== ENCOUNTER → 2025-04-03 12:52 | Outpatient (BNVA) | payer MEDICARE, SELFPAY | PROVIDERS: PCP Family Medicine; Visit Provider Podiatrist Foot & Ankle Surgery | DX: E11.42 Type 2 diabetes mellitus with diabetic polyneuropathy (principal); M86.672 Other chronic osteomyelitis, left ankle and foot; R26.89 Other abnormalities of gait and mobility; R26.9 Unspecified abnormalities of gait and mobility; Z98.1 Arthrodesis status; E11.621 Type 2 diabetes mellitus with foot ulcer; L97.524 Non-pressure chronic ulcer of other part of left foot with necrosis of bone; Z79.4 Long term (current) use of insulin | CPT/HCPCS: 99213 ==

== ENCOUNTER 2025-04-10 14:47 | Outpatient (CLI) | payer MEDICARE, SELFPAY | END 2025-04-10 14:48 | disposition home or self-care (01) | LOC: SPT 14:47 | PROVIDERS: PCP Family Medicine; Visit Provider Podiatrist Foot & Ankle Surgery | DX: Z46.89 Encounter for fitting and adjustment of other specified devices (principal); E11.42 Type 2 diabetes mellitus with diabetic polyneuropathy; S91.302D Unspecified open wound, left foot, subsequent encounter; X58.XXXD Exposure to other specified factors, subsequent encounter | CPT/HCPCS: L4361 ==

== ENCOUNTER → 2025-04-17 13:39 | Outpatient (BNVA) | payer MEDICARE, SELFPAY | PROVIDERS: PCP Family Medicine; Visit Provider Podiatrist Foot & Ankle Surgery | DX: M86.672 Other chronic osteomyelitis, left ankle and foot (principal); E11.42 Type 2 diabetes mellitus with diabetic polyneuropathy | CPT/HCPCS: 36415; 80053; 85025; 85651; 86140 ==

== ENCOUNTER → 2025-04-24 14:16 | Outpatient (BNVA) | payer MEDICARE, SELFPAY | PROVIDERS: PCP Family Medicine; Visit Provider Podiatrist Foot & Ankle Surgery | DX: E11.42 Type 2 diabetes mellitus with diabetic polyneuropathy (principal); M86.672 Other chronic osteomyelitis, left ankle and foot; R26.89 Other abnormalities of gait and mobility; R26.9 Unspecified abnormalities of gait and mobility; Z98.1 Arthrodesis status; L97.524 Non-pressure chronic ulcer of other part of left foot with necrosis of bone; E11.621 Type 2 diabetes mellitus with foot ulcer; Z79.4 Long term (current) use of insulin | CPT/HCPCS: 99213 ==

== ENCOUNTER → 2025-05-01 14:28 | Outpatient (BNVA) | payer MEDICARE, SELFPAY | PROVIDERS: PCP Family Medicine; Visit Provider Podiatrist Foot & Ankle Surgery | DX: M86.672 Other chronic osteomyelitis, left ankle and foot (principal); E11.42 Type 2 diabetes mellitus with diabetic polyneuropathy; R26.89 Other abnormalities of gait and mobility; R26.9 Unspecified abnormalities of gait and mobility; Z98.1 Arthrodesis status; L97.524 Non-pressure chronic ulcer of other part of left foot with necrosis of bone; E11.621 Type 2 diabetes mellitus with foot ulcer; Z79.4 Long term (current) use of insulin | CPT/HCPCS: 99213 ==

== ENCOUNTER → 2025-05-08 12:22 | Outpatient (BNVA) | payer MEDICARE, SELFPAY | PROVIDERS: PCP Family Medicine; Visit Provider Podiatrist Foot & Ankle Surgery | DX: E11.42 Type 2 diabetes mellitus with diabetic polyneuropathy (principal); M86.672 Other chronic osteomyelitis, left ankle and foot; R26.89 Other abnormalities of gait and mobility; R26.9 Unspecified abnormalities of gait and mobility; Z98.1 Arthrodesis status; E11.621 Type 2 diabetes mellitus with foot ulcer; L97.524 Non-pressure chronic ulcer of other part of left foot with necrosis of bone; Z79.4 Long term (current) use of insulin | CPT/HCPCS: 99213 ==

== ENCOUNTER 2025-05-20 12:34 | Outpatient (CLI) | payer MEDICARE, SELFPAY ==
[2025-05-20 12:50] LABS: Hematocrit 42.7 % (37-53); Hemoglobin 13.30 g/dL (11.27-16.99); Mean Corpuscular HGB Conc 31.1 g/dL (30-55); Mean Corpuscular Hemoglobin 29.1 pg (27-33); Mean Corpuscular Volume 93.4 fl (82-101); Nucleated Red Blood Cells % 0 %; Platelet Count 173 10^3/cmm (157-399); Red Blood Count 4.57 10^6/uL (3.85-5.65); White Blood Count 8.37 10^3/uL (3.29-11.43)
[2025-05-20 13:10] LABS: Alanine Aminotransferase 22 U/L (0-41); Albumin Level 3.6 g/dL (3.5-5.2); Alkaline Phosphatase 122 U/L (40-130); Anion Gap 16.9 (5-19); Aspartate Amino Transferase 18 U/L (0-40); Blood Urea Nitrogen 33 mg/dL (8-23); Calcium 9.1 mg/dL (8.5-10.5); Carbon Dioxide 23 mmol/L (22-29); Chloride 102 mmol/L (98-107); Globulin 3.3 g/dL (1.3-4.6); Glucose 161 mg/dL (65-115); Osmolality Calculated 295 mOsm/kg (285-295); Potassium 4.9 mmol/L (3.5-5.1); Sodium 137 mmol/L (136-145); Total Protein 6.9 g/dL (6.6-8.7)
== END 2025-05-20 12:35 | disposition home or self-care (01) ==
LOC: LAB 12:35
PROVIDERS: PCP Family Medicine; Visit Provider Podiatrist Foot & Ankle Surgery
DX: M86.672 Other chronic osteomyelitis, left ankle and foot (principal)
CPT/HCPCS: 36415; 80053; 85025; 85651; 86140

== ENCOUNTER 2025-05-28 09:12 | Outpatient (CLI) | payer MEDICARE, SELFPAY ==
--- NOTE | 2025-05-28 09:30 | USR_ITS ---
PROCEDURE INFORMATION: Exam: US Bilateral Noninvasive Physiologic Study of the Lower Extremity Arteries, Limited Exam date and time: 05/28/2025 9:21 AM Age: 64 years old Clinical indication: Condition or disease; Peripheral vascular disease; Additional info: Decreased pedal pulses, ble TECHNIQUE: Imaging protocol: Bilateral Limited bilateral noninvasive physiologic studies of lower extremity arteries. Waveforms were obtained and evaluated. Images were documented and archived. Exam is limited. COMPARISON: CT foot LT w con [id number] 03/02/2022 12:01 PM FINDINGS: Right Ankle-Brachial Index: 0.9 at the posterior tibial, 1.0 at the dorsalis pedis. Left Ankle-Brachial Index: 1.0 at the dorsalis pedis. US/CV ankle brachial index [id number] IMPRESSION: No evidence of stenosis or occlusion in the lower extremity.
== END 2025-05-28 09:13 | disposition home or self-care (01) ==
LOC: RAD 09:13
PROVIDERS: PCP Family Medicine; Visit Provider Podiatrist Foot & Ankle Surgery
DX: R09.89 Other specified symptoms and signs involving the circulatory and respiratory systems (principal)
CPT/HCPCS: 93922

== ENCOUNTER → 2025-05-29 14:31 | Outpatient (BNVA) | payer MEDICARE, SELFPAY | PROVIDERS: PCP Family Medicine; Visit Provider Podiatrist Foot & Ankle Surgery | DX: M86.672 Other chronic osteomyelitis, left ankle and foot (principal) | CPT/HCPCS: 87070; 87075; 87205 ==

== ENCOUNTER → 2025-06-05 13:34 | Outpatient (BNVA) | payer MEDICARE, SELFPAY | PROVIDERS: PCP Family Medicine; Visit Provider Podiatrist Foot & Ankle Surgery | DX: E11.621 Type 2 diabetes mellitus with foot ulcer (principal); L97.524 Non-pressure chronic ulcer of other part of left foot with necrosis of bone; M86.672 Other chronic osteomyelitis, left ankle and foot; E11.42 Type 2 diabetes mellitus with diabetic polyneuropathy; R26.89 Other abnormalities of gait and mobility; R26.9 Unspecified abnormalities of gait and mobility; Z98.1 Arthrodesis status; Z79.4 Long term (current) use of insulin | CPT/HCPCS: 11042; 99214 ==

== ENCOUNTER → 2025-06-06 12:53 | Outpatient (BNVA) | payer MEDICARE, SELFPAY | PROVIDERS: PCP Family Medicine; Visit Provider Student in an Organized Health Care Education/Training Program | DX: M86.9 Osteomyelitis, unspecified (principal) | CPT/HCPCS: 99203 ==

== ENCOUNTER 2025-06-07 10:32 | Day surgery (SDC) | payer MEDICARE, SELFPAY ==
[2025-06-07] VITALS (7 sets, daily range): BP systolic 90–140; BP diastolic 49–97; PULSE 70–89; RESP 16–20; TEMP 36.1–36.9; O2SAT 94–98
--- NOTE | 2025-06-07 11:09 | XR_ITS ---
WS: [id number] PORTABLE CHEST HISTORY: post picc insertion COMPARISON: 12/28/2024 Satisfactory insertion RIGHT PICC line. PICC line terminates at the cavoatrial junction. Lungs are clear and well expanded. No pleural effusion or pneumothorax. Cardiac size: Mildly enlarged cardiac silhouette. Prior CABG. Mediastinum/Aorta: Normal mediastinum. No osseous abnormality seen. XR/XR chest 1V portable [id number] IMPRESSION: Satisfactory position RIGHT PICC line.
--- NOTE | 2025-06-07 11:30 | PICC.NOTE ---
Single lumen PICC placed to right basilic vein. Referred to vascular access nurse for PICC placement due to need for IV antibiotics x 6 weeks. Risks and benefits discussed and informed consent obtained from pt. Right arm assessed with right basilic vein measuring 4.5 mm, straight, and apparent best choice for placement. Using sterile technique and MST, right basilic vein accessed x 1 stick. Mid-arm circumference measured 10 cm from right AC 42 cm. Trimmed cath 46 cm with 0 cm external length noted. CXR shows tip in cavoatrial junction, in good position for use per radiologist. Line secured with stat-lock. Insertion site covered with Biopatch and TSM. Report and copy of CXR faxed to [facility] and [facility]. [facility] states they have pt scheduled for admission next Tuesday for PICC dressing change and labs. [facility] states they will call pt , Fatmata, at 4 pm today to set up delivery of Zosyn for home infusion. [facility] mat and written teaching materials provided to pt and pt [id number]. Pt states he has been though multiple home infusions and is comfortable with flushing and caring for PICC.
--- NOTE | 2025-06-07 12:58 | ANES.PREANE2 ---
Pre-Anesthetic Assessment Height/Weight: Height 1.88 m Weight 155.129 kg Temp Pulse Resp BP Pulse Ox O2 Del Method 97.0 F L 84 16 140/78 97 Room Air 06/07/25 12:04 06/07/25 12:04 06/07/25 12:04 06/07/25 12:04 06/07/25 12:04 06/07/25 12:07 Preop Diagnosis: Who osteomyelitis left calcaneus Operation Date: 06/07/25 13:15 Proposed Procedures p Incision And Drainage Incision of Bone Cortex left calcaneus(Left) - Montana Talbot DPM s Insertion Antibiotic Beads or Spacer Insertion Of Antibiotic Beads left calcaneus(Left) - FARRAH Orozco Application of wound VAC left foot(Left) - Montana Talbot DPM Familial anesthetic complications: None Was Beta Stu taken within 24 hours: N/A Was Clonidine taken within 24 hours: N/A Last intake: Intake Last Liquid Date 06/06/25 Last Liquid Time 23:00 Last Solid Date 06/06/25 Last Solid Time 23:00 Social No alcohol and No tobacco Exam alert, oriented x 3, clear to auscultation bilaterally and regular rate & rhythm Airway Mallampati: Class IV Comments: Comments: large neck, excess submandibular tissue Pulmonary Sleep Apnea CV/HEM Atrial Fibrillation, Arrythmia, Coronary Artery Disease (CABG, Stents, Angioplasty), Congestive Heart Failure and Hypertension 2022 echo CONCLUSIONS LV systolic function is mildly reduced with EF 45 to 50%. Above-mentioned regional wall motion abnormalities are seen. Moderate mitral regurgitation Mild aortic stenosis Mild tricuspid regurgitation Ascending aorta is mildly dilated No comparison studies are available. Chronic Renal Insufficiency Metabolic Diabetes Mellitus, Hyperlipidemia and Morbid Obesity Anesthetic Plan ASA status: 4 Anesthesia: MAC Risk of > 500 ml blood loss (7ml/kg in children): No Medications/Allergies Home Medications ?Medication ?Instructions ?Recorded ?Confirmed ?Last Taken ?Type furosemide 40 mg tablet (Lasix) 40 mg PO DAILY 02/07/20 06/06/25 12/27/24 History linagliptin 5 mg tablet (Tradjenta) 5 mg PO QAM 02/07/20 06/06/25 06/06/25 History nitroglycerin 0.4 mg sublingual 0.4 mg sublingual Q5M PRN chest 02/07/20 06/06/25 12/27/24 History tablet (Nitrostat) pains omega 7-sac-wvh-fish oil 1,000 mg 2 cap PO DAILY 02/08/20 06/06/25 06/06/25 History (120 mg-180 mg) capsule (Fish Oil) atorvastatin 20 mg tablet 80 mg PO QAM 03/02/22 06/06/25 06/06/25 History dapagliflozin propanediol 10 mg 10 mg PO QAM 03/02/22 06/06/25 06/06/25 History tablet (Farxiga) levothyroxine 125 mcg tablet 125 mcg PO QAM 03/02/22 06/06/25 06/06/25 History metolazone 10 mg tablet 10 mg PO DAILY PRN Increased Blood 04/04/23 06/06/25 12/27/24 History Pressure insulin aspart U-100 100 unit/mL See Rx Instructions .Route .COMPLEX 01/02/24 06/06/25 06/06/25 History (3 mL) subcutaneous pen (Novolog FlexPen U-100 Insulin aspart) apixaban 5 mg tablet (Eliquis) 5 mg PO BID@0900,2100 #60 tabs 02/25/24 06/06/25 06/07/25 Rx boot with AFO external strut #1 ea 04/04/24 06/06/25 12/27/24 Rx articulating famotidine 20 mg disintegrating 20 mg PO BID 04/25/24 06/06/25 06/06/25 History tablet insulin degludec 200 unit/mL (3 60 unit SUBCUT BID 05/17/24 06/06/25 06/06/25 History mL) subcutaneous pen (Tresiba FlexTouch U-200 insulin) losartan 100 mg tablet 50 mg PO DAILY 05/30/24 06/06/25 06/06/25 History spironolactone 25 mg tablet 25 mg PO DAILY 05/30/24 06/06/25 06/06/25 History metoprolol succinate 25 mg 50 mg PO DAILY 09/17/24 06/06/25 06/06/25 History tablet,extended release 24 hr clopidogrel 75 mg tablet (Plavix) 75 mg PO DAILY 10/31/24 06/06/25 06/07/25 History tirzepatide 2.5 mg/0.5 mL 5 mg SUBCUT .Every 7 days 11/23/24 06/06/25 05/31/25 History subcutaneous pen injector (Reji) CAM BOOT to left #1 ea 04/10/25 06/06/25 Unknown Rx evolocumab 140 mg/mL subcutaneous 140 mg SUBCUT .[id number] 06/06/25 06/06/25 05/29/25 History syringe (Repatha Syringe) Allergies Allergy/AdvReac Type Severity Reaction Status Date / Time cephalexin (From Keflex) Allergy Unknown Unknown Verified 06/06/25 12:51 vancomycin Allergy ALGY-Redness Verified 06/06/25 12:51 of Skin isosorbide AdvReac Severe ADR-Vomitin Uncoded 06/06/25 12:51 g Current Medications Generic Name Dose Route Start Last Admin Trade Name Freq PRN Reason Stop Dose Admin Sodium Chloride 1,000 mls @ 30 mls/hr 06/07/25 10:45 06/07/25 12:11 Sodium Chloride 0.9% IV 06/08/25 10:44 30 mls/hr .Q24H MARITO Administration PFSH Anesthesia Medical History Essential hypertension Ischemic cardiomyopathy Aortic stenosis Mitral regurgitation Foreign body in right foot Exposed orthopaedic hardware 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, left Diabetic ulcer of left foot Chronic ulcer of great toe of left foot with fat layer exposed Diabetic peripheral neuropathy associated with type 2 diabetes mellitus BRIDGER (obstructive sleep apnea) -on CPAP qhs Cellulitis Coronary artery disease -hx of CAD s/p CABG x 4 about 20 yrs ago -on ASA -NTG PRN Peripheral vascular disease Charcot's arthropathy -Has had extensive surgical intervention for the left lower extremity secondary to Charcot arthropathy, wears brace for ambulation and wedge shoe for offloading Peripheral neuropathy -secondary to DM type II Chronic kidney disease -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 -has mild superimposed MAGDA, now resolved -baseline Cr around 1.0 -IVF hydration, with caution to avoid fluid overload; d/c as renal function has normalized -continue to monitor renal function particularly with dual use of Vanc, Zosyn; renally dose meds, avoid nephrotoxins Hypertension -VSS, continue to monitor vital signs -continue BB, resume ARB Hypothyroidism -continue levothyroxine Diabetic infection of right foot -diabetic foot wound on R foot, incised and debrided by Dr. Ferro in [facility] (02/07); cultures growing Enterococcus species and E.coli, sensitivity noted; gram stain polymicrobial -no leukocytosis, noted CRP and ESR elevation -blood cx-prelim negative (02/06), repeat set prelim negative -on Vancomycin/Zosyn for broader spectrum coverage (day 3); will switch to Levaquin -Surgery consult by Dr. Duarte appreciated; s/p bedside debridement, done on 02/08 -pain control as needed -has underlying DM type II -imaging noted, increased distance between the fourth and fifth metatarsal heads suggesting possible soft tissue mass; CT foot reported as soft tissue ulceration near the plantar surface of the foot at the level of the fourth proximal phalanx, no osteomyelitis/abscess/soft tissue emphysema -RLE elevation -anticipate continue to follow-up at wound care clinic with Dr. Ferro Morbid obesity -BMI-45 kg/m2 Chronic constipation Diabetes -has IDDM type II, A1c-10.1 -Accu-Cheks, ISS, scheduled insulin, hypoglycemia precautions -Consistent carb diet as tolerated CHF (congestive heart failure) -unknown type, severity as no baseline Echo -hold Lasix due to renal impairment, can resume PRN use on d/c Chronic back pain Arthritis Surgical History Hx of cholecystectomy History of coronary artery bypass graft -Four-vessel. Performed in August 2005. Left internal mammary to the LAD. Free sequential radial artery graft from the aorta to the obtuse marginal, posterolateral and posterior descending artery. History of back surgery History of ankle fusion History of colonoscopy (~01/2019) Family History Other CAD (coronary artery disease) Cancer Diabetes Hypertension Denies family history of Anesthesia complication Bleeding disorder Social History Smoking and tobacco/nicotine status: former use of tobacco/nicotine Second hand smoke exposure: No Alcohol intake: never Substance/Drug Use: never Adopted: No Caregiver/support person: Yes Lives independently: Yes Household members: spouse Housing: House Marital status: service: No Current occupational status: disabled Current occupational exposures/hazards: No Pets and animals: No Sexually active: No Do you think of yourself as: Straight/Heterosexual Current gender identity: Male Padmini/Gnosticism: Mosque Data Anesthesia Cardiac Studies: Echocardiogram 04/22/23 Sestamibi Stress Test (Cardiology) 04/22/23
--- NOTE | 2025-06-07 13:30 | W.PM.OPSUD ---
Surgery/Procedure H&P Update DATE OF PROCEDURE: June 07, 2025 DATE H&P PERFORMED: 06/05/25 H&P UPDATE INFORMATION: I have reviewed H&P completed within last 30 days, I have examined patient prior to procedure, No changes to prior documentation, H&P is in [facility] EMR on date indicated and Risks and benefits of the procedure reviewed PREOP DIAGNOSIS: Who osteomyelitis left calcaneus PLANNED PROCEDURE: Operation Date: 06/07/25 13:15 Proposed Procedures p Incision And Drainage Incision of Bone Cortex left calcaneus(Left) - Montana Talbot DPM s Insertion Antibiotic Beads or Spacer Insertion Of Antibiotic Beads left calcaneus(Left) - Montana Talbot DPM s Application of wound VAC left foot(Left) - Montana Talbot DPM
[2025-06-07] MEDS: piperacillin-tazobactam 4.5 GM in sodium chloride 0.9% (plus) 50 ML IV (13:46)
--- NOTE | 2025-06-07 14:17 | W.PM.BPON ---
Date of Procedure: 11/11/23 Surgeon: Montana Talbot DPM [employer] Lead(s): Lori Procedure(s) performed: incision and debridement left foot down to bone cortex Findings of the procedure(s): Wound down to bone left foot Estimated blood loss: 25 mL Specimen(s) removed: None Post-operative diagnosis: Chronic osteomyelitis left calcaneus
--- NOTE | 2025-06-07 14:18 | PM.OP ---
Operative Report Date of procedure: June 07, 2025 Pre-op diagnosis: Other chronic osteomyelitis of left foot M86.672 Diabetic peripheral neuropathy associated with type 2 diabetes mellitus E11.42 Calcaneal gait R26.89 Altered gait R26.9 History of ankle fusion Z98.1 Ulcer of left foot with necrosis of bone L97.524 Post-op diagnosis: Other chronic osteomyelitis of left foot M86.672 Diabetic peripheral neuropathy associated with type 2 diabetes mellitus E11.42 Calcaneal gait R26.89 Altered gait R26.9 History of ankle fusion Z98.1 Ulcer of left foot with necrosis of bone L97.524 Procedure done: 1) incision bone cortex left calcaneus. CPT code 87520 Implants: No implants Specimens removed/disposition: Cultures previously taken significant for Pseudomonas he is currently on a PICC line with 24-hour infusion of Zosyn managed by infectious disease. Pathology: None Surgeon: Montana Talbot DPM Hotel Service Manager: Lori Estimated blood loss: 45 mL No tourniquet utilized IV fluids: See intraoperative documentation Urine output: No urine output Complications: No complications Brief History: Patient has had a concerning wound with delayed healing most recent wound culture taken of the wound 05/29/2025 significant for Pseudomonas aeruginosa, recommended surgical debridement, insertion of antibiotic beads and initiation of PICC line with long-term course of antibiotics. Noninvasive vascular studies performed 05/28/2025 right ankle-brachial index is 0.9 and left ankle-brachial index is 1.0. Patient would like to proceed with surgical and medical therapies to manage Pseudomonas infection of the left heel. Scheduled for outpatient surgery and PICC line placement this 06/07/2025. Will continue anticoagulants prescribed by his oil burner servicer and installer perioperatively. Planning on wound VAC initiation of the left heel wound starting next week. Referral to infectious disease and greatly appreciate their recommendations. I reviewed at length with the patient, the risks, potential complications, benefits, alternatives, expectations, and typical outcomes associated with the surgery. The risks and potential complications were explained in detail, including but not limited to infection, wound dehiscence or soft tissue complications, bleeding and hematoma, chronic edema, neuritis or nerve damage producing numbness or chronic pain, CRPS, failure to relieve pain or worsening pain, thick / painful / unsightly scar, limited motion / stiffness, malposition, delayed union, malunion, or nonunion, fracture, reaction to implants, anesthetic complications, venous thromboembolism, and deformity recurrence. I discussed the notion of no regrets with the patient as it pertains to complications and outcomes. The patient seemed to understand the nature of the proposed care and required convalescence. They asked appropriate questions, answered to their satisfaction. They are aware no guarantees can be made as to a satisfactory outcome and they understand there may be other possible unforeseen complications or outcomes not listed here that will be treated accordingly if they arise. There were no written or implied guarantees given to the patient. They gave informed consent to proceed. Procedure: Under mild sedation the patient was brought to the operating room and remained on the gurney in supine position. A timeout was performed. Anesthesia was then administered by the anesthesia service. Well-padded pneumatic tourniquet applied to the left ankle. The left lower extremity was scrubbed, prepped and draped utilizing normal aseptic technique. Left lower extremities elevated and tourniquet inflated to 250 mmHg. Attention was directed to the left posterior heel which had a superficial wound with granular base without surrounding erythema warmth or drainage. Attention was then directed to the left plantar central heel where a wound was appreciated probing to bone at the inferior calcaneus, wound was sharply and excisionally debrided with pickups and a 15 blade of the devitalized epidermis, dermis, subcutaneous tissue, myofascial layer and down to calcaneal bone cortex was sharply incised and debrided of devitalized bone. The incision was irrigated with copious amounts of sterile saline solution. Postdebridement wound measurement 1.8 cm x 1.9 cm x 3 cm and did not tunnel to the posterior wound or connect. The wound was irrigated with Irrisept. All bleeders were ligated and cauterized as necessary. No further devitalized tissue appreciated. Wound was dressed saline wet-to-dry with 4 x 4 gauze, Kerlix, Amanuel wrap followed by application of a posterior splint that is well-padded. Tourniquet was deflated and a prompt hyperemic response was noted to the distal digits of the left foot. Patient tolerated the procedure and anesthesia well was transferred to the PACU vital signs stable vascular status intact. PICC line placed with infectious disease recommendations consisting of 24-hour continuous infusion of Zosyn daily. Plans for wound VAC to be initiated on his next appointment in clinic, home health set up to assist with 3 times weekly wound VAC dressing change with white foam and granular foam bridge. Patient given at home care instructions and scheduled follow-up he is to be nonweightbearing left foot and elevate left foot while resting.
--- NOTE | 2025-06-07 15:10 | ANE.PACU2 ---
Inpatient post-anesthesia follow up: Airway intact: Yes Vital signs: Temperature 98.3 F Pulse Rate 79 Respiratory Rate 20 Blood Pressure 137/80 Pulse Oximetry 94 Oxygen Delivery Me thod Room Air Oxygen Flow Rate Fraction of Inspir ed Oxygen Hydration adequate: Yes Nausea and vomiting: No Pain level: 1 Mental status: Baseline
== END 2025-06-07 15:10 | disposition home or self-care (01) ==
PROVIDERS: PCP Family Medicine; Visit Provider Podiatrist Foot & Ankle Surgery
PROC: (CPT 28005; principal; 2025-06-07 13:05)
DX: M86.672 Other chronic osteomyelitis, left ankle and foot (principal); E11.42 Type 2 diabetes mellitus with diabetic polyneuropathy; R26.89 Other abnormalities of gait and mobility; L97.524 Non-pressure chronic ulcer of other part of left foot with necrosis of bone; G47.33 Obstructive sleep apnea (adult) (pediatric); I48.91 Unspecified atrial fibrillation; I25.10 Atherosclerotic heart disease of native coronary artery without angina pectoris; Z95.5 Presence of coronary angioplasty implant and graft; E11.22 Type 2 diabetes mellitus with diabetic chronic kidney disease; I13.0 Hypertensive heart and chronic kidney disease with heart failure and stage 1 through stage 4 chronic kidney disease, or unspecified chronic kidney disease; N18.9 Chronic kidney disease, unspecified; E78.5 Hyperlipidemia, unspecified; E66.01 Morbid (severe) obesity due to excess calories; Z68.41 Body mass index [BMI] 40.0-44.9, adult; Z79.4 Long term (current) use of insulin; E03.9 Hypothyroidism, unspecified; Z87.891 Personal history of nicotine dependence
CPT/HCPCS: 28005; 36416; 36573; 71045; 82962; C1734; J1100; J2405; J2543; J2704; J7030; J9999

== ENCOUNTER 2025-06-26 12:15 | Oncology outpatient (recurring) (ONCR) | payer MEDICARE, SELFPAY ==
[2025-06-12 12:51] LABS: Hematocrit 40.9 % (37-53); Hemoglobin 13.10 g/dL (11.27-16.99); Mean Corpuscular HGB Conc 32.0 g/dL (30-55); Mean Corpuscular Hemoglobin 29.8 pg (27-33); Mean Corpuscular Volume 93.2 fl (82-101); Platelet Count 150 10^3/cmm (157-399); Red Blood Count 4.39 10^6/uL (3.85-5.65); White Blood Count 8.70 10^3/uL (3.29-11.43)
[2025-06-12 13:37] LABS: Total Cells Counted 100 (0-100)
[2025-06-12 13:39] LABS: Absolute Segmented Neutrophil 6.9 10/cmm (1.6-7.1); Band Neutrophils Absolute 0.0 10^3/cmm (0.0-1.2)
[2025-06-12 13:40] LABS: Atypical Lymphs 1.0 % (0-5)
[2025-06-12 14:34] LABS: Alanine Aminotransferase 25 U/L (0-41); Albumin Level 3.9 g/dL (3.5-5.2); Alkaline Phosphatase 119 U/L (40-130); Aspartate Amino Transferase 19 U/L (0-40); Globulin 3.4 g/dL (1.3-4.6); Total Protein 7.3 g/dL (6.6-8.7)
[2025-06-19 12:29] LABS: Hematocrit 43.8 % (37-53); Hemoglobin 13.80 g/dL (11.27-16.99); Mean Corpuscular HGB Conc 31.5 g/dL (30-55); Mean Corpuscular Hemoglobin 29.4 pg (27-33); Mean Corpuscular Volume 93.2 fl (82-101); Nucleated Red Blood Cells % 0 %; Platelet Count 157 10^3/cmm (157-399); Red Blood Count 4.70 10^6/uL (3.85-5.65); White Blood Count 8.32 10^3/uL (3.29-11.43)
[2025-06-19 12:48] LABS: Alanine Aminotransferase 26 U/L (0-41); Albumin Level 4.0 g/dL (3.5-5.2); Alkaline Phosphatase 93 U/L (40-130); Aspartate Amino Transferase 18 U/L (0-40); Globulin 2.9 g/dL (1.3-4.6); Total Protein 6.9 g/dL (6.6-8.7)
[2025-06-26 12:51] LABS: Hematocrit 42.5 % (37-53); Hemoglobin 13.30 g/dL (11.27-16.99); Mean Corpuscular HGB Conc 31.3 g/dL (30-55); Mean Corpuscular Hemoglobin 29.2 pg (27-33); Mean Corpuscular Volume 93.2 fl (82-101); Nucleated Red Blood Cells % 0 %; Platelet Count 143 10^3/cmm (157-399); Red Blood Count 4.56 10^6/uL (3.85-5.65); White Blood Count 7.67 10^3/uL (3.29-11.43)
[2025-06-26 14:28] LABS: Alanine Aminotransferase 28 U/L (0-41); Albumin Level 3.9 g/dL (3.5-5.2); Alkaline Phosphatase 91 U/L (40-130); Aspartate Amino Transferase 19 U/L (0-40); Globulin 3.2 g/dL (1.3-4.6); Total Protein 7.1 g/dL (6.6-8.7)
== END 2025-06-28 23:59 | disposition home or self-care (01) ==
PROVIDERS: Podiatrist Foot & Ankle Surgery; Student in an Organized Health Care Education/Training Program; PCP Family Medicine; Visit Provider Internal Medicine Medical Oncology
DX: M86.9 Osteomyelitis, unspecified; Z53.9 Procedure and treatment not carried out, unspecified reason
CPT/HCPCS: 36415; 36592; 80076; 82565; 85007; 85025; 85027; 86140; 99213

== ENCOUNTER 2025-07-17 12:25 | Oncology outpatient (recurring) (ONCR) | payer MEDICARE, SELFPAY ==
[2025-07-03 12:54] LABS: Hematocrit 43.2 % (37-53); Hemoglobin 13.60 g/dL (11.27-16.99); Mean Corpuscular HGB Conc 31.5 g/dL (30-55); Mean Corpuscular Hemoglobin 29.4 pg (27-33); Mean Corpuscular Volume 93.3 fl (82-101); Nucleated Red Blood Cells % 0 %; Platelet Count 152 10^3/cmm (157-399); Red Blood Count 4.63 10^6/uL (3.85-5.65); White Blood Count 7.32 10^3/uL (3.29-11.43)
[2025-07-03 13:12] LABS: Alanine Aminotransferase 19 U/L (0-41); Albumin Level 3.9 g/dL (3.5-5.2); Alkaline Phosphatase 85 U/L (40-130); Anion Gap 17.1 (5-19); Aspartate Amino Transferase 23 U/L (0-40); Blood Urea Nitrogen 23 mg/dL (8-23); Calcium 9.4 mg/dL (8.5-10.5); Carbon Dioxide 24 mmol/L (22-29); Chloride 104 mmol/L (98-107); Globulin 3.2 g/dL (1.3-4.6); Glucose 108 mg/dL (65-115); Osmolality Calculated 294 mOsm/kg (285-295); Potassium 5.1 mmol/L (3.5-5.1); Sodium 140 mmol/L (136-145); Total Protein 7.1 g/dL (6.6-8.7)
[2025-07-10 13:41] LABS: Hematocrit 42.2 % (37-53); Hemoglobin 13.50 g/dL (11.27-16.99); Mean Corpuscular HGB Conc 32.0 g/dL (30-55); Mean Corpuscular Hemoglobin 30.1 pg (27-33); Mean Corpuscular Volume 94.2 fl (82-101); Nucleated Red Blood Cells % 0 %; Platelet Count 141 10^3/cmm (157-399); Red Blood Count 4.48 10^6/uL (3.85-5.65); White Blood Count 7.41 10^3/uL (3.29-11.43)
[2025-07-10 14:02] LABS: Alanine Aminotransferase 28 U/L (0-41); Albumin Level 3.8 g/dL (3.5-5.2); Alkaline Phosphatase 113 U/L (40-130); Anion Gap 17.8 (5-19); Aspartate Amino Transferase 21 U/L (0-40); Blood Urea Nitrogen 29 mg/dL (8-23); Calcium 9.5 mg/dL (8.5-10.5); Carbon Dioxide 22 mmol/L (22-29); Chloride 105 mmol/L (98-107); Globulin 2.9 g/dL (1.3-4.6); Glucose 181 mg/dL (65-115); Osmolality Calculated 300 mOsm/kg (285-295); Potassium 4.8 mmol/L (3.5-5.1); Sodium 140 mmol/L (136-145); Total Protein 6.7 g/dL (6.6-8.7)
[2025-07-17 12:57] LABS: Hematocrit 44.7 % (37-53); Hemoglobin 14.10 g/dL (11.27-16.99); Mean Corpuscular HGB Conc 31.5 g/dL (30-55); Mean Corpuscular Hemoglobin 29.7 pg (27-33); Mean Corpuscular Volume 94.1 fl (82-101); Nucleated Red Blood Cells % 0 %; Platelet Count 150 10^3/cmm (157-399); Red Blood Count 4.75 10^6/uL (3.85-5.65); White Blood Count 7.40 10^3/uL (3.29-11.43)
[2025-07-17 13:50] LABS: Alanine Aminotransferase 34 U/L (0-41); Albumin Level 4.1 g/dL (3.5-5.2); Alkaline Phosphatase 90 U/L (40-130); Aspartate Amino Transferase 31 U/L (0-40); Globulin 2.9 g/dL (1.3-4.6); Total Protein 7.0 g/dL (6.6-8.7)
== END 2025-07-28 23:59 | disposition home or self-care (01) ==
PROVIDERS: Podiatrist Foot & Ankle Surgery; Student in an Organized Health Care Education/Training Program; PCP Family Medicine; Visit Provider Internal Medicine Medical Oncology
DX: M86.672 Other chronic osteomyelitis, left ankle and foot; E11.42 Type 2 diabetes mellitus with diabetic polyneuropathy; R26.89 Other abnormalities of gait and mobility; R26.9 Unspecified abnormalities of gait and mobility; Z98.1 Arthrodesis status; L97.524 Non-pressure chronic ulcer of other part of left foot with necrosis of bone; Z98.890 Other specified postprocedural states; Z53.9 Procedure and treatment not carried out, unspecified reason; E11.621 Type 2 diabetes mellitus with foot ulcer
CPT/HCPCS: 36415; 36592; 80053; 80076; 82565; 85025; 85651; 86140; 99213

== ENCOUNTER 2025-07-31 15:05 | Outpatient (CLI) | payer MEDICARE, SELFPAY | END 2025-07-31 15:06 | disposition home or self-care (01) | LOC: SPT 15:06 | PROVIDERS: PCP Family Medicine; Visit Provider Podiatrist Foot & Ankle Surgery | DX: Z46.89 Encounter for fitting and adjustment of other specified devices (principal); E11.42 Type 2 diabetes mellitus with diabetic polyneuropathy; S91.302D Unspecified open wound, left foot, subsequent encounter; X58.XXXD Exposure to other specified factors, subsequent encounter | CPT/HCPCS: L4361 ==

== ENCOUNTER → 2025-08-07 13:57 | Outpatient (BNVA) | payer MEDICARE, SELFPAY | PROVIDERS: PCP Family Medicine; Visit Provider Podiatrist Foot & Ankle Surgery | DX: M86.672 Other chronic osteomyelitis, left ankle and foot (principal); Z98.890 Other specified postprocedural states; E11.42 Type 2 diabetes mellitus with diabetic polyneuropathy; R26.89 Other abnormalities of gait and mobility; R26.9 Unspecified abnormalities of gait and mobility; Z98.1 Arthrodesis status; E11.621 Type 2 diabetes mellitus with foot ulcer; L97.524 Non-pressure chronic ulcer of other part of left foot with necrosis of bone | CPT/HCPCS: 99213 ==

== ENCOUNTER → 2025-08-14 13:47 | Outpatient (BNVA) | payer MEDICARE, SELFPAY | PROVIDERS: PCP Family Medicine; Visit Provider Podiatrist Foot & Ankle Surgery | DX: M86.672 Other chronic osteomyelitis, left ankle and foot (principal); Z98.890 Other specified postprocedural states; E11.42 Type 2 diabetes mellitus with diabetic polyneuropathy; R26.89 Other abnormalities of gait and mobility; R26.9 Unspecified abnormalities of gait and mobility; Z98.1 Arthrodesis status; L97.524 Non-pressure chronic ulcer of other part of left foot with necrosis of bone; E11.621 Type 2 diabetes mellitus with foot ulcer; Z79.4 Long term (current) use of insulin | CPT/HCPCS: 99213 ==

== ENCOUNTER → 2025-08-21 08:52 | Outpatient (BNVA) | payer MEDICARE, SELFPAY | PROVIDERS: PCP Family Medicine; Visit Provider Podiatrist Foot & Ankle Surgery | DX: M86.672 Other chronic osteomyelitis, left ankle and foot (principal); Z98.890 Other specified postprocedural states; E11.42 Type 2 diabetes mellitus with diabetic polyneuropathy; R26.89 Other abnormalities of gait and mobility; R26.9 Unspecified abnormalities of gait and mobility; Z98.1 Arthrodesis status; L97.524 Non-pressure chronic ulcer of other part of left foot with necrosis of bone; E11.621 Type 2 diabetes mellitus with foot ulcer; Z79.4 Long term (current) use of insulin | CPT/HCPCS: 99213 ==

== ENCOUNTER → 2025-08-28 13:46 | Outpatient (BNVA) | payer MEDICARE, SELFPAY | PROVIDERS: PCP Family Medicine; Visit Provider Podiatrist Foot & Ankle Surgery | DX: M86.672 Other chronic osteomyelitis, left ankle and foot (principal); Z98.890 Other specified postprocedural states; E11.42 Type 2 diabetes mellitus with diabetic polyneuropathy; R26.89 Other abnormalities of gait and mobility; R26.9 Unspecified abnormalities of gait and mobility; Z98.1 Arthrodesis status; L97.524 Non-pressure chronic ulcer of other part of left foot with necrosis of bone; E11.621 Type 2 diabetes mellitus with foot ulcer; Z79.4 Long term (current) use of insulin | CPT/HCPCS: 99213 ==